=== PATIENT | female | born 1965 | race Caucasian/White ===

== ENCOUNTER 2020-07-11 17:01 | Emergency (ER) | payer MEDICAID, SELFPAY ==
--- NOTE | ~2020-07-11 | CT_ITS ---
EXAMINATION: CT ABDOMEN AND PELVIS WITHOUT CONTRAST CLINICAL INFORMATION: Flank pain COMPARISON: None TECHNIQUE: Multidetector volumetric imaging was performed from the superior aspect of the liver through the pubic symphysis. Sagittal and coronal reformatted images were obtained on the technologist's workstation. This CT examination was performed using dose optimization techniques as appropriate, variously including the following: *Automated exposure control *Adjustment of mA and/or kV according to patient size (this includes techniques or standardized protocols for targeted exams where dose is matched to indication/reason for exam; i.e. extremities or head) *Use of iterative reconstruction technique DLP: 540 mGy-cm FINDINGS: The lack of intravenous contrast limits evaluation of the solid visceral organs including the liver, spleen, pancreas, and kidneys. Moreover, there is respiratory motion throughout the scan particularly at the level of the kidneys. LUNG BASES: The visualized lung bases are unremarkable. LIVER, GALLBLADDER, AND BILIARY TREE: Limited non-contrast evaluation is normal. No gross focal hepatic lesion. Normal liver size and contour. No gross biliary ductal dilation. The gallbladder is unremarkable with no evidence of radiopaque gallstones, gallbladder wall thickening, or obvious pericholecystic inflammatory changes. PANCREAS: Limited non-contrast evaluation is normal. No khoa-pancreatic fluid. SPLEEN: Limited non-contrast evaluation is normal. ADRENAL GLANDS: Normal; no adrenal mass. KIDNEYS AND URETERS: Limited non-contrast evaluation is normal. No hydronephrosis, hydroureter, or calculi seen. No perinephric stranding. GASTROINTESTINAL TRACT: Small bowel and colon are non-dilated. No bowel wall thickening. No pericolonic inflammatory changes to suggest colitis or diverticulitis. Normal appendix. ABDOMINAL WALL: No hernia seen. LYMPH NODES: No pathologically enlarged lymph nodes in the abdomen or pelvis. VASCULAR: Normal caliber abdominal aorta. BLADDER: No bladder calculi or wall thickening. There is ill-defined fluid and fat stranding in the pelvis surrounding the urinary bladder, for example image 74/89. PELVIC VISCERA: Normal noncontrast appearance of the uterus and ovaries. OSSEOUS STRUCTURES: No acute or suspicious osseous abnormalities. Multilevel degenerative changes. CT/CT abdomen pelvis wo con IMPRESSION: Study is limited by motion artifact and lack of IV contrast. No radiopaque urolithiasis seen. There is ill-defined fluid and fat stranding in the pelvis surrounding the urinary bladder. This is nonspecific. Consider correlation with urinalysis.
[2020-07-11 17:25] VITALS: BP 155/83; PULSE 105; RESP 18; TEMP 37; O2SAT 98; BMI 23.8
[2020-07-11 18:40] VITALS: BP 144/66; PULSE 98; RESP 18; TEMP 36.6; O2SAT 97
[2020-07-11 18:46] LABS: MANUAL DIFF FLAG NO
[2020-07-11 18:51] LABS: Basophils Percent Auto 0.4 % (0-2); Eosinophils Absolute Auto 0.1 X10*3/uL (0.0-0.4); Eosinophils Percent Auto 0.5 % (0-4); Hematocrit 34.3 % (37-47); Hemoglobin 10.8 g/dl (12.0-16.0); Imm Gran Abs Auto 0.04 X10*3/uL (0.00-0.03); Imm Gran Pct Auto 0.4 % (0.0-0.4); Lymphocytes Absolute Auto 0.8 X10*3/uL (1.2-4.9); Lymphocytes Percent Auto 7.6 % (20-40); Mean Corpuscular HGB Conc 31.5 g/dl (31.0-35.0); Mean Corpuscular Hemoglobin 24.9 pg (27.0-33.0); Mean Corpuscular Volume 79.2 fL (80-98); Mean Platelet Volume 10.4 fL (9.4-12.3); Monocytes Absolute Auto 0.6 X10*3/uL (0.1-1.2); Monocytes Percent Auto 5.8 % (2-11); Neutrophils Absolute Auto 8.7 X10*3/uL (2.0-8.3); Neutrophils Percent Auto 85.3 % (45-73); Platelet Count 305 X10*3/uL (160-400); Red Blood Count 4.33 X10*6/uL (4.20-5.50); Red Cell Distribution Width 15.8 % (11.0-16.0); White Blood Count 10.2 X10*3/uL (4.8-10.8)
[2020-07-11 18:55] LABS: Glucose Urine UA NEG (NEG); Leukocyte Esterase Urine 2+ (NEG); Nitrite Urine POS (NEG); Specific Gravity - Urine <= 1.005 (1.005-1.025); UACC Culture Trigger YES; Urine Blood 2+ (NEG); Urine Ketones NEG (NEG); Urine Protein NEG (NEG-TRACE)
[2020-07-11 19:01] LABS: Appearance Urine CLEAR; Color Urine YELLOW
[2020-07-11 19:12] LABS: RBC Urine 0-2 /HPF (0); Squamous Epithelial Cell Urine TRACE /LPF
[2020-07-11 19:13] LABS: Anion Gap 13 (12-20); Bacteria Urine 1+ /LPF; Blood Urea Nitrogen 12 mg/dL (9-16); Calcium 9.3 mg/dL (8.4-10.2); Carbon Dioxide 25 mmol/L (22-29); Chloride 103 mmol/L (96-108); Creatinine Clr Calc Pharmacy 71.6; Estimated Glomerular Filt Rate > 60; Glucose Random 114 mg/dL (60-115); Potassium 4.6 mmol/L (3.3-5.1); Sodium 136 mmol/L (135-145)
[2020-07-11 21:11] VITALS: BP 128/73; PULSE 101; RESP 18; TEMP 37.6; O2SAT 96
--- NOTE | 2020-07-11 21:15 | ED_ITS ---
HPI - Female Genitourinary General Chief complaint: Urogenital-Female Stated complaint: Abdominal pain Time Seen by Provider: 07/11/20 21:10 Source: patient and family (Daughter) Mode of arrival: ambulatory History of Present Illness HPI Narrative: [age] female who presents with several days of urinary frequency, pain and burning on urination with left-sided back pain. She was seen in [facility] this morning and started on Macrobid as well as Pyridium. She has taken 1 pill of each and now presents with complaints of continued discomfort. As an aside, patient is having symptoms secondary to known brain aneurysm which was coiled approximately 3 years ago and noted last week to have a small leak with plans to repair in the upcoming month. Patient otherwise denies fevers, chills, vomiting, but is having mild nausea and denies any diarrhea. Related Data Previous Rx's Medication Instructions Recorded ciprofloxacin HCl [Cipro] 500 mg PO Q12H 5 Days #10 tab 07/11/20 Allergies Allergy/AdvReac Type Severity Reaction Status Date / Time No Known Allergies Allergy Verified 07/11/20 17:24 Review of Systems Review of Systems: Pertinent positives and negatives as stated in HPI 10 point review systems is otherwise negative. PMFSH Past Medical History Source: nursing notes reviewed Medical History Aneurysm Arthritis Social History Social History Alcohol intake: current Alcohol intake frequency: holidays/special occasions only Smoking Status: Never smoker Use of substances other than those prescribed or required for medical reasons: No Advance Directives: No Advance Directives Information Provided: Yes Physical Exam Vital Signs: Vital Signs: Last Vital Signs Temp 98.9 F 07/11/20 22:22 Pulse 92 07/11/20 22:22 Resp 18 07/11/20 22:22 BP 128/60 07/11/20 22:22 Pulse Ox 96 07/11/20 22:22 Body Mass Index 23.8 VITAL SIGNS: Reviewed. GENERAL: Well developed, well nourished, in no acute distress. HEAD: Normocephalic/atraumatic, EYES: PERRLA, EOMI intact without pain, no nystagmus NOSE: Nares patent bilateral OROPHARYNX: no oral lesions noted, posterior pharynx clear NECK: Supple, no adenopathy LUNGS: Normal breath sounds. No adventitious sounds or accessory muscle use. SpO2<96> CARDIOVASCULAR: Regular rate and rhythm without noted murmurs ABDOMEN: Soft, non-tender, non-distended with bowel sounds, no CVA tenderness NEUROLOGIC: Alert and oriented x 4. Strength and sensation to light touch were grossly intact x 4, no facial asymmetry, no pronator drift, cranial nerves 2-12 are grossly intact. Course Course Course Narrative: 55-year-old female with history and clinical presentation consistent with significant UTI suspect possible pyelonephritis but will also rule out renal colic with CT abdomen pelvis without contrast. Patient receiving Tylenol as well as 1 g of Rocephin here in the emergency department. Will re- evaluate. Review of all investigations consistent with significant UTI, and on re- evaluation after receiving Tylenol patient is feeling much better. Patient received 1 g of Rocephin and will be discharged home in stable condition. With the nausea, back pain as well as urinary symptoms will treat empirically for pyelonephritis. MDM - Female Genitourinary Lab Data Result diagrams: 07/11/20 18:40 07/11/20 18:40 Labs: Lab Results 07/11/20 07/11/20 07/11/20 Range/Units 18:40 18:40 18:40 WBC 10.2 (4.8-10.8) X10*3/uL RBC 4.33 (4.20-5.50) X10*6/uL Hgb 10.8 L (12.0-16.0) g/dl Hct 34.3 L (37-47) % MCV 79.2 L (80-98) fL MCH 24.9 L (27.0-33.0) pg MCHC 31.5 (31.0-35.0) g/dl RDW 15.8 (11.0-16.0) % Plt Count 305 (160-400) X10*3/uL MPV 10.4 (9.4-12.3) fL Immature Gran % (Auto) 0.4 (0.0-0.4) % Neut % (Auto) 85.3 H (45-73) % Lymph % (Auto) 7.6 L (20-40) % [place] % (Auto) 5.8 (2-11) % Eos % (Auto) 0.5 (0-4) % Baso % (Auto) 0.4 (0-2) % Lymph # (Auto) 0.8 L (1.2-4.9) X10*3/uL [place] # (Auto) 0.6 (0.1-1.2) X10*3/uL Eos # (Auto) 0.1 (0.0-0.4) X10*3/uL Baso # (Auto) 0.0 (0.0-0.2) X10*3/uL Abs Immat Gran (auto) 0.04 H (0.00-0.03) X10*3/uL Absolute Neuts (auto) 8.7 H (2.0-8.3) X10*3/uL Absolute Nucleated RBC 0.000 (0.0-0.012) X10*3/uL Nucleated RBC % (auto) 0.0 (0.0-0.2) /100WBC Hold Blue Top Sodium 136 (135-145) mmol/L Potassium 4.6 (3.3-5.1) mmol/L Chloride 103 (96-108) mmol/L Carbon Dioxide 25 (22-29) mmol/L Anion Gap 13 (12-20) BUN 12 (9-16) mg/dL Creatinine 0.78 (0.5-1.4) mg/dL Estim Creat Clear Calc 71.6 Estimated GFR > 60 Random Glucose 114 (60-115) mg/dL Calcium 9.3 (8.4-10.2) mg/dL Urine Color YELLOW Urine Appearance CLEAR Urine pH 6.0 (5.0-8.0) Ur Specific [place] <= 1.005 (1.005-1.025) Urine Protein NEG (NEG-TRACE) MG/DL Urine Glucose (UA) NEG (NEG) MG/DL Urine Ketones NEG (NEG) MG/DL Urine Blood 2+ H (NEG) Urine Nitrite POS H (NEG) Ur Leukocyte Esterase 2+ H (NEG) Urine RBC 0-2 (0) /HPF Urine WBC 5-9 H (0-4) /HPF Ur Squamous Epith Cells TRACE /LPF Urine Bacteria 1+ /LPF 07/11/20 Range/Units 18:40 WBC (4.8-10.8) X10*3/uL RBC (4.20-5.50) X10*6/uL Hgb (12.0-16.0) g/dl Hct (37-47) % MCV (80-98) fL MCH (27.0-33.0) pg MCHC (31.0-35.0) g/dl RDW (11.0-16.0) % Plt Count (160-400) X10*3/uL MPV (9.4-12.3) fL Immature Gran % (Auto) (0.0-0.4) % Neut % (Auto) (45-73) % Lymph % (Auto) (20-40) % [place] % (Auto) (2-11) % Eos % (Auto) (0-4) % Baso % (Auto) (0-2) % Lymph # (Auto) (1.2-4.9) X10*3/uL [place] # (Auto) (0.1-1.2) X10*3/uL Eos # (Auto) (0.0-0.4) X10*3/uL Baso # (Auto) (0.0-0.2) X10*3/uL Abs Immat Gran (auto) (0.00-0.03) X10*3/uL Absolute Neuts (auto) (2.0-8.3) X10*3/uL Absolute Nucleated RBC (0.0-0.012) X10*3/uL Nucleated RBC % (auto) (0.0-0.2) /100WBC Hold Blue Top SEE NOTE Sodium (135-145) mmol/L Potassium (3.3-5.1) mmol/L Chloride (96-108) mmol/L Carbon Dioxide (22-29) mmol/L Anion Gap (12-20) BUN (9-16) mg/dL Creatinine (0.5-1.4) mg/dL Estim Creat Clear Calc Estimated GFR Random Glucose (60-115) mg/dL Calcium (8.4-10.2) mg/dL Urine Color Urine Appearance Urine pH (5.0-8.0) Ur Specific [place] (1.005-1.025) Urine Protein (NEG-TRACE) MG/DL Urine Glucose (UA) (NEG) MG/DL Urine Ketones (NEG) MG/DL Urine Blood (NEG) Urine Nitrite (NEG) Ur Leukocyte Esterase (NEG) Urine RBC (0) /HPF Urine WBC (0-4) /HPF Ur Squamous Epith Cells /LPF Urine Bacteria /LPF Discharge Plan Discharge Clinical Impression: Urinary tract infection, Pyelonephritis Patient Disposition: Home, Self-Care Instructions: Urinary Tract Infection in Women (ED), Kidney Infection (ED), Urinary Tract Infection in Older Adults (ED) Additional Instructions: 1. Tylenol 1000 mg, por v?a oral, cada 6 horas seg?n sea necesario para controlar el dolor. 2. Reanude todos los medicamentos caseros seg?n lo prescrito. 3. DETENER MACROBID (NITROFURANTOIN). 4. Ross comenzado con un nuevo antibi?tina que se ross enviado a freed farmacia y debe comenzar con julio c antibi?tina ma?maryuri por la ma?maryuri. 5. Jessica un seguimiento con freed proveedor de atenci?n primaria en los pr?ximos 2-3 d?as para maura reevaluaci?n. Regrese al departamento de emergencias por cualquier empeoramiento tiffanie de chikis s?ntomas. Prescriptions: New ciprofloxacin HCl [Cipro] 500 mg tablet 500 mg PO Q12H 5 Days Qty: 10 RF: 0 Referrals: Maryuri Wang MD [Primary Care Provider] - 2 days (Re-evaluation after seen in the emergency department for persistent urinary symptoms. Patient instructed to stop Macrobid and she was started on ciprofloxacin for mild pyelonephritis.) Print Language: Kyrgyz
[2020-07-11] MEDS: cefTRIAXone sodium 1 GM in 0.9 % Sodium Chloride 50 ML IV (21:38)
[2020-07-11] MEDS: Acetaminophen 325 MG TABLET 975 MG PO (21:38)
--- NOTE | 2020-07-11 21:41 | PC.NURSE ---
Dr Diaz at bedside assessing pt, discussing plan for change in PO antibiotic upon DC. Pt medicated per MAY. Plan for abd CT to r/o kidney stone. Pt agreeable to plan. Stretcher in lowest locked position, rails raised, call hines within reach.
--- NOTE | 2020-07-11 21:54 | PC.NURSE ---
Pt to ED CT
[2020-07-11 22:22] VITALS: BP 128/60; PULSE 92; RESP 18; TEMP 37.2; O2SAT 96
--- NOTE | 2020-07-11 22:35 | PC.NURSE ---
Pt reports improvement in pelvic discomfort and headache. Pt appears significantly more comfortable as pt is no longer moaning in discomfort and is participating in several sentences discussion with family at bedside. Pt awaiting dispo.
== END 2020-07-11 23:14 | disposition home or self-care (01) ==
PROVIDERS: Emergency Provider Student in an Organized Health Care Education/Training Program; PCP Internal Medicine
DX: N39.0 Urinary tract infection, site not specified (principal); N12 Tubulo-interstitial nephritis, not specified as acute or chronic; I67.1 Cerebral aneurysm, nonruptured
CPT/HCPCS: 36415; 74176; 80048; 81001; 81003; 85025; 87086; 96365; 99284; 99285; J0696

== ENCOUNTER 2020-07-21 16:28 | Outpatient (REF) | payer MEDICAID, OTHER, SELFPAY ==
[2020-07-21 17:17] LABS: INTERNATIONAL NORM RATIO 1.1 (0.9-1.1); Prothrombin Time 12.5 SEC (10.8-13.0)
== END 2020-07-21 16:29 | disposition home or self-care (01) ==
LOC: HO.LAB 16:28
PROVIDERS: PCP Internal Medicine; Visit Provider Neurological Surgery
DX: Z01.818 Encounter for other preprocedural examination (principal)
CPT/HCPCS: 36415; 85610

== ENCOUNTER 2020-08-24 05:05 | Emergency (ER) | payer MEDICAID, OTHER, SELFPAY ==
--- NOTE | ~2020-08-24 | XR_ITS ---
EXAMINATION: XR FOOT, RIGHT CLINICAL INFORMATION: Third toe swelling COMPARISON: None TECHNIQUE: AP, lateral, and oblique views of the right foot. FINDINGS: Osseous alignment is anatomic. No evidence of acute fracture. No significant focal soft tissue abnormality. No radiopaque foreign body is seen. XR/XR foot RT 2V IMPRESSION: No acute findings.
[2020-08-24 05:40] VITALS: BP 141/72; PULSE 70; RESP 18; TEMP 36.1; O2SAT 100; BMI 24.6
--- NOTE | 2020-08-24 06:02 | ED.GENADULT ---
HPI - General Adult General Chief complaint: Extremity Injury, Lower Time Seen by Provider: 08/24/20 06:02 Source: patient Mode of arrival: ambulatory History of Present Illness HPI narrative: This is a 55-year-old female who has a significant past medical history of brain aneurysm, underwent intervention, and is now been started on Brilinta and aspirin since 07/24 and now presents with atraumatic 3rd toe pain and redness since yesterday. In addition, patient states that she has started having vaginal bleeding as well. Of note, patient had her brain aneurysm surgery at [facility]. Related Data Previous Rx's Medication Instructions Recorded ciprofloxacin HCl [Cipro] 500 mg PO Q12H 5 Days #10 tab 07/11/20 Allergies Allergy/AdvReac Type Severity Reaction Status Date / Time No Known Allergies Allergy Verified 07/11/20 17:24 Review of Systems Review of Systems: Pertinent positives and negatives as stated in HPI and 10 point review of systems is otherwise negative. [facility] Past Medical History Source: nursing notes reviewed Medical History Aneurysm Arthritis Social History Social History Alcohol intake: current Alcohol intake frequency: holidays/special occasions only Advance Directives: No Advance Directives Information Provided: No Physical Exam Vital Signs: Vital Signs: Last Vital Signs Temp 97.0 F 08/24/20 05:40 Pulse 70 08/24/20 05:40 Resp 18 08/24/20 05:40 BP 141/72 H 08/24/20 05:40 Pulse Ox 100 08/24/20 05:40 Body Mass Index 24.6 VITAL SIGNS: Reviewed. GENERAL: Well developed, well nourished, in no acute distress. HEAD: Normocephalic/atraumatic, EYES: PERRLA, EOMI intact without pain, no nystagmus/pallor/icterus noted EARS: Ext canals without abnormality, TMs non-bulging and non-erythematous NOSE: Nares patent bilateral OROPHARYNX: no oral lesions noted, posterior pharynx clear and non-erythematous without noted tonsillar enlargement/erythema/exudates NECK: Supple, no adenopathy LUNGS: Normal breath sounds. No adventitious sounds or accessory muscle use. SpO2<> CARDIOVASCULAR: Regular rate and rhythm without noted murmurs, no JVD or lower extremity edema. ABDOMEN: Soft, non-tender, non-distended with bowel sounds. No rigidity. No guarding. No palpable masses or hernias noted RIGHT FOOT: Petechiae noted to the underside of the foot distributed along the MTP, the 3rd toe is noted to be edematous and red/purple, DP/PT palpable, sensation intact NEUROLOGIC: Alert and oriented x 4. Strength and sensation to light touch were grossly intact x 4. Course Course Course Narrative: This is a 55-year-old female with history and clinical presentation consistent with injury to the right 3rd toe with some petechiae to the underside of the foot. In combination with patient's reported vaginal bleeding there concerns that the Brilinta and aspirin together may be leading her to have developed an iatrogenic bleeding. Signed out to Dr Garza. Medical Decision Making Lab Data Result diagrams: 08/24/20 06:44 08/24/20 06:44 Discharge Plan Discharge Prescriptions: No Action ciprofloxacin HCl [Cipro] 500 mg tablet 500 mg PO Q12H 5 Days Qty: 10 RF: 0
[2020-08-24 06:48] LABS: MANUAL DIFF FLAG NO
[2020-08-24 06:55] LABS: Eosinophils Absolute Auto 0.1 X10*3/uL (0.0-0.4); Eosinophils Percent Auto 2.6 % (0-4); Hematocrit 32.2 % (37-47); Imm Gran Abs Auto 0.02 X10*3/uL (0.00-0.03); Imm Gran Pct Auto 0.5 % (0.0-0.4); Lymphocytes Percent Auto 25.8 % (20-40); Mean Corpuscular HGB Conc 31.1 g/dl (31.0-35.0); Mean Corpuscular Hemoglobin 24.1 pg (27.0-33.0); Mean Corpuscular Volume 77.6 fL (80-98); Mean Platelet Volume 10.2 fL (9.4-12.3); Monocytes Absolute Auto 0.5 X10*3/uL (0.1-1.2); Monocytes Percent Auto 13.2 % (2-11); Neutrophils Absolute Auto 2.2 X10*3/uL (2.0-8.3); Neutrophils Percent Auto 56.9 % (45-73); Platelet Count 379 X10*3/uL (160-400); Red Blood Count 4.15 X10*6/uL (4.20-5.50); Red Cell Distribution Width 16.9 % (11.0-16.0); White Blood Count 3.9 X10*3/uL (4.8-10.8)
[2020-08-24 06:56] LABS: Prothrombin Time 12.4 SEC (10.8-13.0)
[2020-08-24 06:57] LABS: Glucose Urine UA NEG (NEG); Leukocyte Esterase Urine NEG (NEG); Nitrite Urine NEG (NEG); Specific Gravity - Urine <= 1.005 (1.005-1.025); Urine Blood TRACE (NEG); Urine Ketones NEG (NEG); Urine Protein NEG (NEG-TRACE)
[2020-08-24 06:58] LABS: Appearance Urine CLEAR; Color Urine STRAW
[2020-08-24 06:59] LABS: Partial Thromboplastin Time 33.2 SEC (24.1-38.0)
[2020-08-24 07:04] LABS: RBC Urine 0-2 /HPF (0); Squamous Epithelial Cell Urine TRACE /LPF; WBC Urine 0 /HPF (0-4)
[2020-08-24 07:18] VITALS: BP 130/66; PULSE 65; RESP 16; TEMP 36.6; O2SAT 97
[2020-08-24 07:22] LABS: Alanine Aminotransferase 9 U/L (0-31); Albumin Level 3.9 g/dL (3.5-5.0); Alkaline Phosphatase 69 U/L (39-117); Anion Gap 9 (12-20); Aspartate Amino Transferase 19 U/L (5-31); Bilirubin Total 0.3 mg/dL (0.0-1.0); Blood Urea Nitrogen 10 mg/dL (9-16); Calcium 8.9 mg/dL (8.4-10.2); Carbon Dioxide 26 mmol/L (22-29); Chloride 110 mmol/L (96-108); Creatinine Clr Calc Pharmacy 79.7; Estimated Glomerular Filt Rate > 60; Glucose Random 96 mg/dL (60-115); Potassium 3.6 mmol/L (3.3-5.1); Sodium 141 mmol/L (135-145); Total Protein 6.9 g/dL (6.5-8.0)
[2020-08-24 07:51] VITALS: BP 147/79; PULSE 75; RESP 18; O2SAT 99
[2020-08-24] MEDS: Acetaminophen 325 MG TABLET 650 MG PO (08:03)
--- NOTE | 2020-08-24 08:23 | PC.NURSE ---
pt is refusing the walking boot because she is concern that her insurance will not cover it. dr caceres aware. augusto warped the foot instead
== END 2020-08-24 08:25 | disposition home or self-care (01) ==
PROVIDERS: Student in an Organized Health Care Education/Training Program; Emergency Provider Emergency Medicine; PCP Internal Medicine
DX: S90.121A Contusion of right lesser toe(s) without damage to nail, initial encounter (principal); X58.XXXA Exposure to other specified factors, initial encounter; N93.8 Other specified abnormal uterine and vaginal bleeding; Y93.9 Activity, unspecified; Y92.9 Unspecified place or not applicable; Y99.9 Unspecified external cause status
CPT/HCPCS: 36415; 73620; 80053; 81001; 85025; 85610; 85730; 99283; 99284

== ENCOUNTER 2021-01-10 14:47 | Outpatient (REF) | payer MEDICAID, OTHER, SELFPAY ==
--- NOTE | ~2021-01-10 | MM_ITS ---
EXAMINATION: MM SCREENING DIGITAL BREAST TOMOSYNTHESIS, BILATERAL CLINICAL INFORMATION: Screening. Asymptomatic. The lifetime risk of breast cancer based on the Tyrer-Cuzick Model is 6.3%. COMPARISON: Mammography: November 26, 2019 and studies dating back to April 10, 2013 TECHNIQUE: Digital breast tomosynthesis is performed in both the craniocaudal and mediolateral oblique views along with computer-aided detection (CAD). Synthesized 2D images are generated from the tomosynthesis. FINDINGS: The breasts are heterogeneously dense, which may obscure small masses (ACR BI-RADS breast composition Category c). There are no significant masses, abnormal calcifications, or other abnormalities. MM/MM tomosynthesis screening BI IMPRESSION: There are no significant changes from prior study. ASSESSMENT: BI-RADS 1: Negative RECOMMENDATION: Routine annual mammography screening. This patient's information was entered into a reminder system with a target due date for their next mammogram.
== END 2021-01-10 14:48 | disposition home or self-care (01) ==
LOC: HO.MAMMO 14:47
PROVIDERS: Visit Provider Internal Medicine
DX: Z12.31 Encounter for screening mammogram for malignant neoplasm of breast (principal)
CPT/HCPCS: 77063; 77067

== ENCOUNTER → 2021-01-12 10:00 | Outpatient (BNVA) | payer MEDICAID, OTHER, SELFPAY | PROVIDERS: Visit Provider Advanced Practice Midwife | DX: Z01.419 Encounter for gynecological examination (general) (routine) without abnormal findings (principal); Z12.4 Encounter for screening for malignant neoplasm of cervix; N95.0 Postmenopausal bleeding | CPT/HCPCS: 99202 ==

== ENCOUNTER 2021-01-31 12:33 | Outpatient (REF) | payer MEDICAID, OTHER, SELFPAY ==
--- NOTE | ~2021-01-31 | US_ITS ---
EXAMINATION: US PELVIS CLINICAL INFORMATION: Postmenopausal bleeding COMPARISON: CT 07/11/2020 TECHNIQUE: Ultrasound of the pelvis is performed using both transabdominal and transvaginal transducers along with Doppler. Transvaginal imaging is performed due to inadequate visualization transabdominally. FINDINGS: Uterus: The uterus is anteverted and anteflexed and measures 8.3 x 3.2 x 5 cm. Cervical length is 2.5 cm The double wall endometrial thickness is 0.5 mm. The uterus is smooth in contour. No visible fibroids. There are subendometrial calcifications which measure up to 2 mm. There is mildly heterogeneous appearance of the myometrium adjacent to the endometrium suggesting an expanded junctional zone. No visible fibroid. Adnexa: Both ovaries are visualized. There is normal color flow to the adnexa. There is no ovarian torsion. There is no pelvic ascites or fluid collection. Right ovary measures 2.5 x 0.7 x 2 cm for a volume of 1.8 ml. Left ovary measures 1.7 x 1.3 x 0.7 cm for a volume of 0.8 mL. There is trace fluid in the cul-de-sac. US/US pelvic complete IMPRESSION: The endometrial stripe is at the upper limits of normal, 5 mm in thickness. Heterogeneously hypoechoic myometrium immediately adjacent to the endometrium suggesting an expanded junctional zone which can be seen in the setting of adenomyosis. Further evaluation with pelvic MRI could be of benefit. Trace free fluid in the cul-de-sac.
== END 2021-01-31 12:34 | disposition home or self-care (01) ==
LOC: HO.US 12:33
PROVIDERS: Visit Provider Advanced Practice Midwife
DX: N95.0 Postmenopausal bleeding (principal)
CPT/HCPCS: 76856

== ENCOUNTER 2021-02-06 09:00 | Outpatient (RCR) | payer MEDICAID, OTHER, SELFPAY | END 2021-02-06 10:47 | disposition home or self-care (01) | LOC: HO.PT 09:00 | PROVIDERS: PCP Internal Medicine; Visit Provider Orthopaedic Surgery | DX: M54.42 Lumbago with sciatica, left side (principal); M54.41 Lumbago with sciatica, right side; G89.29 Other chronic pain | CPT/HCPCS: 97012; 97110; 97140; 97162; 97530; 97535 ==

== ENCOUNTER → 2021-02-14 09:05 | Outpatient (BNVA) | payer MEDICAID, OTHER, SELFPAY | PROVIDERS: Visit Provider Advanced Practice Midwife | DX: N95.0 Postmenopausal bleeding (principal) | CPT/HCPCS: 99212 ==

== ENCOUNTER 2021-04-07 08:00 | Outpatient (RCR) | payer MEDICAID, OTHER, SELFPAY ==
--- NOTE | 2021-02-24 16:54 | MHC.PT.EP ---
[facility] [place] Office [place] Office [place] Office [address] [phone] F: [phone] F: [phone] F: [phone] F: [phone] Physical Therapy Plan of Care Date of Evaluation: Date of Surgery: Diagnosis: ARTHRITIS R KNEE Assessment: Pt IS 55 YO F REFERRED TO PT WITH R KNEE ARTHRITIS. Pt HAS HAD MRI IN PAST WHICH SHOWED MENISCAL TEAR R MEDIAL MENISCUS. DID NOT HAVE PT (COVID). RECENTLY DC FROM PT FOR BACK (WITH GOOD RESULTS) BUT CONTINUES WITH KNEE PAIN. PRESENTS WITH GOOD KNEE ROM AND STRENGTH WITH MMT BUT HAS SIGNIF PAIN, DECREASED PROPRIOCEPTION, SOME PATELLOFEMORAL ASSYMETRY. Pt SHOULD BENEFIT FROM PT TO HELP DECREASE KNEE PAIN WITH KT FOR KNEE SUPPORT, KT TO ASSESS BENEFIT FROM ORTHOTICS (HAS HIGH ARCHES WITH SOME PES PLANUS WITH GT) AND HOME PROG FOR STRENTHENING AND PROPRIOCEPTION WORK Frequency and Duration: The patient will be seen 1X/WK X 4 WEEKS Short Term Goals: 1. I KT 2. Pt TO WEAR ORTHOTICS WITH RELIEF Skilled Nursing Goals: 1. I HEP WITH DC EX PLAN 2. DECREASED R KNEE PAIN AT LEAST 50% WITH ADLS Treatment Plan: Modalities to reduce pain, spasms and effusion. Manual therapy to restore motion and function. Therapeutic exercise to improve strength and flexibility. Neuromuscular re-education for posture and balance. Therapeutic activities to return to functional activities of daily living. Electronically signed by: NICOLE ALVARES PT Please sign and return to therapist. Thank you for your referral.
--- NOTE | 2021-04-07 09:26 | MHC.PT.DC ---
[facility] [place] Office [place] Office [place] Office [address] [phone] F: [phone] F: [phone] F: [phone] F: [phone] Physical Therapy Discharge Report Diagnosis: ARTHRITIS R KNEE Date of Surgery: Date of Evaluation: 02/20/21 Date of Discharge: 04/07/21 Treatments to Date: 4 Cancellations to Date: No Shows to Date: Discharge Status: Independent with HEP Recommend MD Follow-up Discharge Summary: Pt HAS BEEN COMING TO PT FOR ABOUT 3 1/2 MONTHS (18 SESSIONS FOR BACK, 4 SESSIONS FOR KNEES). HAS POSSIBLEY RECEIVED MAX BENEFIT AT THIS TIME. WITH SOME PLATEAU NOTED. OVERALL BETTER THAN SOC BUT CONTINUES WITH ON/OFF SXS. HAS PCP FU (MAY 01). WILL NEED TO DISCUSS WITH PT NEXT STEP (ORTHOPEDIC REFERRAL,, DIVISION CHAIR, PAIN MANAGEMENT). Pt MAY NEED MORE COMMUNITY/GROUP INVOLVEMENT Electronically signed by: NICOLE ALVARES PT Please sign and return to therapist. Thank you for your referral.
== END 2021-04-07 09:27 | disposition home or self-care (01) ==
LOC: HO.PT 08:00
PROVIDERS: PCP Internal Medicine; Visit Provider Internal Medicine
DX: M17.11 Unilateral primary osteoarthritis, right knee (principal)
CPT/HCPCS: 97110; 97140; 97162; 97530

== ENCOUNTER 2021-08-02 14:11 | Outpatient (REF) | payer OTHER, MEDICAID, SELFPAY ==
[2021-08-03 01:22] LABS: CT PCR NOT DETECTED (Not Detect.); NG PCR NOT DETECTED (Not Detect.)
[2021-08-03 09:19] LABS: BV Int Neg Control Negative (Negative); BV Int Pos Control Positive (Positive)
== END 2021-08-02 14:12 | disposition home or self-care (01) ==
LOC: HO.LAB 14:11
PROVIDERS: PCP Internal Medicine; Visit Provider Obstetrics & Gynecology
DX: N95.0 Postmenopausal bleeding (principal); N89.8 Other specified noninflammatory disorders of vagina
CPT/HCPCS: 58100; 87480; 87491; 87510; 87591; 87660; 88305; 99212

== ENCOUNTER → 2021-08-16 14:41 | Outpatient (BNVA) | payer OTHER, MEDICAID, SELFPAY | PROVIDERS: PCP Internal Medicine; Visit Provider Obstetrics & Gynecology | DX: N95.0 Postmenopausal bleeding (principal); Z98.890 Other specified postprocedural states | CPT/HCPCS: 99212 ==

== ENCOUNTER 2021-08-24 07:19 | Outpatient (REF) | payer OTHER, MEDICAID, SELFPAY ==
--- NOTE | ~2021-08-24 | XR_ITS ---
EXAMINATION: KNEE X-RAY CLINICAL INFORMATION: Pain COMPARISON: Previous x-rays July 2019 and April 2016 TECHNIQUE: Standing AP view of both knees and lateral and sunrise view of the right knee FINDINGS: Right knee: Bone alignment is normal. No fracture or dislocation is seen. The femoral tibial joints are normal. There is mild arthritis at the patellofemoral joint with small osteophytes. There is no joint effusion. Standing AP view of the left knee is unremarkable. XR/XR knee standing BI IMPRESSION: Right: Mild arthritis at the patellofemoral joint.
--- NOTE | ~2021-08-24 | XR_ITS ---
EXAMINATION: KNEE X-RAY CLINICAL INFORMATION: Pain COMPARISON: Previous x-rays July 2019 and April 2016 TECHNIQUE: Standing AP view of both knees and lateral and sunrise view of the right knee FINDINGS: Right knee: Bone alignment is normal. No fracture or dislocation is seen. The femoral tibial joints are normal. There is mild arthritis at the patellofemoral joint with small osteophytes. There is no joint effusion. Standing AP view of the left knee is unremarkable. XR/XR knee RT 2V IMPRESSION: Right: Mild arthritis at the patellofemoral joint.
== END 2021-08-24 07:20 | disposition home or self-care (01) ==
LOC: HO.HOSX 07:19
PROVIDERS: Visit Provider Physician Assistant
DX: M17.11 Unilateral primary osteoarthritis, right knee (principal); M54.16 Radiculopathy, lumbar region
CPT/HCPCS: 73560; 73565; 99202

== ENCOUNTER → 2021-09-13 14:31 | Outpatient (BNVA) | payer OTHER, MEDICAID, SELFPAY | PROVIDERS: PCP Internal Medicine; Visit Provider Anesthesiology | DX: M17.11 Unilateral primary osteoarthritis, right knee (principal); M47.817 Spondylosis without myelopathy or radiculopathy, lumbosacral region; M47.816 Spondylosis without myelopathy or radiculopathy, lumbar region; G89.4 Chronic pain syndrome | CPT/HCPCS: 99202 ==

== ENCOUNTER 2021-10-31 06:28 | Outpatient (REF) | payer OTHER, MEDICAID, SELFPAY ==
--- NOTE | ~2021-10-31 | FL_ITS ---
EXAMINATION: XR FLUOROSCOPY WITH IMAGES CLINICAL INFORMATION: M47.816 - Spondylosis without myelopathy or radiculopathy, lumbar region COMPARISON: CT abdomen and pelvis 07/11/2020 TECHNIQUE: Fluoroscopy performed by Dr. Jerome Draper. Fluoroscopy time: 0.5 minutes. Cumulative Dose: 17.3 mGy. DAP: 4.74 Gy-cm2. Images: 6. FINDINGS: There are spinal needles overlying the bilateral outer L3, L4, and L5 neural foramen. There is contrast seen in the respective nerve sheaths. Some early transforaminal epidural extension is suggested. No visible vascular communication. FL/FL guidance in treatment room IMPRESSION: Fluoroscopy for pain management procedures.
== END 2021-10-31 06:29 | disposition home or self-care (01) ==
LOC: HO.RADIR 06:28
PROVIDERS: Visit Provider Anesthesiology
DX: M47.817 Spondylosis without myelopathy or radiculopathy, lumbosacral region (principal); M47.816 Spondylosis without myelopathy or radiculopathy, lumbar region; G89.4 Chronic pain syndrome; M17.11 Unilateral primary osteoarthritis, right knee
CPT/HCPCS: 64493; 64494

== ENCOUNTER → 2022-01-16 11:24 | Outpatient (BNVA) | payer MEDICAID, OTHER, SELFPAY | PROVIDERS: PCP Internal Medicine; Visit Provider Internal Medicine | DX: K62.89 Other specified diseases of anus and rectum (principal); K60.2 Anal fissure, unspecified | CPT/HCPCS: 99202 ==

== ENCOUNTER → 2022-02-27 15:47 | Outpatient (BNVA) | payer MEDICAID, OTHER, SELFPAY | PROVIDERS: PCP Internal Medicine; Visit Provider Internal Medicine Endocrinology, Diabetes & Metabolism | DX: E07.9 Disorder of thyroid, unspecified (principal); Z79.899 Other long term (current) drug therapy | CPT/HCPCS: 99202 ==

== ENCOUNTER 2022-02-27 16:47 | Outpatient (REF) | payer OTHER, SELFPAY | END 2022-02-27 16:48 | disposition home or self-care (01) | LOC: HO.LAB 16:47 | PROVIDERS: PCP Internal Medicine; Visit Provider Internal Medicine Endocrinology, Diabetes & Metabolism | DX: E07.9 Disorder of thyroid, unspecified (principal) | CPT/HCPCS: 36415; 84439; 84443 ==

== ENCOUNTER 2022-03-06 15:14 | Outpatient (REF) | payer OTHER, SELFPAY ==
--- NOTE | ~2022-03-06 | MM_ITS ---
EXAMINATION: MM SCREENING DIGITAL BREAST TOMOSYNTHESIS, BILATERAL CLINICAL INFORMATION: Screening. Asymptomatic. The lifetime risk of breast cancer based on the Tyrer-Cuzick Model is 5.1%. COMPARISON: Mammography: January 10, 2021 and studies dating back to April 29, 2015 TECHNIQUE: Digital breast tomosynthesis is performed in both the craniocaudal and mediolateral oblique views along with computer-aided detection (CAD). Synthesized 2D images are generated from the tomosynthesis. FINDINGS: The breasts are heterogeneously dense, which may obscure small masses (ACR BI-RADS breast composition Category c). There are no significant masses, abnormal calcifications, or other abnormalities. MM/MM tomosynthesis screening BI IMPRESSION: No significant changes from prior exam. ASSESSMENT: BI-RADS 1: Negative RECOMMENDATION: Routine annual mammography screening. This patient's information was entered into a reminder system with a target due date for their next mammogram.
== END 2022-03-06 15:15 | disposition home or self-care (01) ==
LOC: HO.MAMMO 15:14
PROVIDERS: PCP Internal Medicine; Visit Provider Internal Medicine
DX: Z12.31 Encounter for screening mammogram for malignant neoplasm of breast (principal)
CPT/HCPCS: 77063; 77067

== ENCOUNTER 2022-03-27 11:58 | Outpatient (REF) | payer OTHER, SELFPAY ==
[2022-03-27 14:31] LABS: Free T4 (Free Thyroxine) 1.19 ng/dL (0.71-1.85)
== END 2022-03-27 11:59 | disposition home or self-care (01) ==
LOC: HO.LAB 11:58
PROVIDERS: PCP Internal Medicine; Visit Provider Internal Medicine Endocrinology, Diabetes & Metabolism
DX: E07.9 Disorder of thyroid, unspecified (principal)
CPT/HCPCS: 36415; 84439; 84443

== ENCOUNTER 2022-04-12 14:05 | Outpatient (REF) | payer OTHER, SELFPAY ==
[2022-04-16 20:23] LABS: HPV mRNA E6/E7 rflx Not Detected (Not Detected)
== END 2022-04-12 14:06 | disposition home or self-care (01) ==
LOC: HO.LNP 14:05
PROVIDERS: PCP Internal Medicine; Visit Provider Obstetrics & Gynecology
DX: Z01.419 Encounter for gynecological examination (general) (routine) without abnormal findings (principal); Z11.51 Encounter for screening for human papillomavirus (HPV); R22.2 Localized swelling, mass and lump, trunk
CPT/HCPCS: 87624; 88142

== ENCOUNTER 2022-05-01 12:52 | Outpatient (REF) | payer OTHER, SELFPAY ==
--- NOTE | ~2022-05-01 | US_ITS ---
EXAMINATION: US PELVIC LIMITED/FOLLOW UP CLINICAL INFORMATION: Localized swelling, mass and lump. Right lower quadrant, left lower quadrant and left groin. COMPARISON: None TECHNIQUE: Ultrasound was performed in the areas of clinical concern. FINDINGS: 3 lumps were pointed out by the patient. In area #1, no abnormal mass was seen. In area #2, in the left lower quadrant, there was a palpable 1.8 x 1.2 x 2.5 cm mass seen that was compressible and has appearances of surrounding fat and is consistent with a lipoma. In area #3, in the left groin, there is a 2.8 x 0.7 x 2.8 cm hypoechoic compressible mass seen which also may be a lipoma. US/US pelvic limited IMPRESSION: In one of the areas of clinical concern, no abnormality is seen. In the other two areas, there are hypoechoic masses with characteristics of lipoma. MRI would be the best modality for further evaluation if there is clinical concern.
== END 2022-05-01 12:53 | disposition home or self-care (01) ==
LOC: HO.US 12:52
PROVIDERS: Visit Provider Obstetrics & Gynecology
DX: R22.2 Localized swelling, mass and lump, trunk (principal)
CPT/HCPCS: 76857

== ENCOUNTER → 2022-05-08 14:18 | Outpatient (BNVA) | payer OTHER, SELFPAY | PROVIDERS: PCP Internal Medicine; Referring Provider Internal Medicine; Visit Provider Surgery | DX: D17.9 Benign lipomatous neoplasm, unspecified (principal) | CPT/HCPCS: 99202 ==

== ENCOUNTER 2022-06-21 12:54 | Outpatient (REF) | payer OTHER, SELFPAY ==
[2022-06-21 13:06] VITALS: BP 139/66; PULSE 81; RESP 16; TEMP 37; O2SAT 98
[2022-06-21 13:07] VITALS: BMI 24.5
--- NOTE | 2022-06-21 14:27 | P.OP_ITS ---
Operative Note Operative Note Date of Service: 06/21/22 Narrative: Preoperative diagnosis: Abdominal wall lipoma x4 Postoperative diagnosis: same Procedure: excision of abdominal wall lipoma x4 Surgeon: Sathya Dowd MD Tube Builder Airplane: none Anesthesia: local lidocaine 1% with epinephrine Indications for procedure: 57-year-old female patient with multiple painful lipomas including 1 in the right lower quadrant 1 in the left lower quadrant 1 in the left groin and 1 in the left flank Operative findings: lipoma x4, including a 2 cm lipoma in the right lower quadrant, 1.5 cm lipoma in the left lower quadrant, 2 cm lipoma in the left groin, and a 2.5 cm lipoma in the left flank Specimen: lipoma x4 Estimated blood loss: 2 mL Complications: none Procedure details: patient was brought to the minor surgery suite and placed in a supine position. The site of surgery was confirmed by the patient as noted above. After assuring informed consent using a medical billing coder, the skin was prepped with Betadine and draped in a sterile fashion. Beginning with 3 anterior abdominal wall lipomas, lidocaine was infiltrated over each of the 3 lesions. Starting in the right lower quadrant, an incision was made in a transverse fashion measuring approximately 2 cm. This was carried out through subcutaneous tissue up to the lipoma. Sharp dissection was then used to remove the lipoma from the surrounding subcutaneous tissue. Light pressure was held to maintain hemostasis. Dermis was then reapproximated using interrupted 3-0 Polysorb sutures. Skin was closed using a running subcuticular 4-0 Polysorb suture. Next the left lower quadrant lipoma was addressed. A transverse incision was made with a 15 blade and carried out through subcutaneous tissue. Dissection was carried down to the palpable lipoma. This was then sharply dissected from the surrounding subcutaneous tissue using Metzenbaum scissors. Lesion was passed off the table and sent to pathology for further examination. Dermis was then reapproximated using interrupted 3-0 Polysorb sutures. Skin was closed using a running subcuticular 4-0 Polysorb suture. Next the left groin lesion was addressed. Again a transverse incision was made with a scalpel carried out through subcutaneous tissue. Lipoma was then dissected free from the surrounding subcutaneous tissue using Metzenbaum scissors. Lesion was passed off the table and sent to pathology for further examination. Dermis was then reapproximated using interrupted 3-0 Polysorb sutures. Skin was closed using a running subcuticular 4-0 Polysorb suture. Steri-Strips, 2 x 2 gauze and Tegaderm were then applied to each of the 3 anterior lesions. The patient was then rotated to a right lateral decubitus position. The skin was prepped with Betadine and draped in a sterile fashion over the palpable lipoma in the left flank. Local was then infiltrated in a transverse fashion. A transverse incision was then made measuring 2 cm over the lipoma. This carried out through subcutaneous tissue up to the palpable lipoma. This was then grasped with an Allis clamp and sharp dissection used to dissect the lipoma from the surrounding subcutaneous tissue. The lesion was passed off the table and sent to pathology for further examination. Dermis was then reapproximated using interrupted 3-0 Polysorb sutures. Skin was closed using a running subcuticular 4-0 Polysorb suture. Steri-Strips, 2 x 2 gauze and Tegaderm were then applied. The patient tolerated the procedure well. She was discharged to home in stable condition.
== END 2022-06-21 12:55 | disposition home or self-care (01) ==
LOC: HO.MS 12:54
PROVIDERS: PCP Internal Medicine; Visit Provider Surgery
PROC: (CPT 11402; principal; 2022-06-21 13:20)
DX: D17.1 Benign lipomatous neoplasm of skin and subcutaneous tissue of trunk (principal)
CPT/HCPCS: 11402 ×2; 11401; 11403; 88304

== ENCOUNTER → 2022-07-03 14:01 | Outpatient (BNVA) | payer OTHER, SELFPAY | PROVIDERS: PCP Internal Medicine; Visit Provider Surgery | DX: D17.79 Benign lipomatous neoplasm of other sites (principal) | CPT/HCPCS: 99212 ==

== ENCOUNTER → 2022-08-10 14:12 | Outpatient (BNVA) | payer OTHER, SELFPAY | PROVIDERS: PCP Internal Medicine; Visit Provider Obstetrics & Gynecology | DX: D17.9 Benign lipomatous neoplasm, unspecified (principal) | CPT/HCPCS: 99212 ==

== ENCOUNTER → 2022-08-28 12:25 | Outpatient (BNVA) | payer OTHER, SELFPAY | PROVIDERS: PCP Internal Medicine; Visit Provider Internal Medicine Endocrinology, Diabetes & Metabolism | DX: E07.9 Disorder of thyroid, unspecified (principal) | CPT/HCPCS: 99212 ==

== ENCOUNTER → 2022-09-13 14:19 | Outpatient (BNVA) | payer OTHER, SELFPAY | PROVIDERS: PCP Internal Medicine; Visit Provider Surgery Vascular Surgery | DX: I83.11 Varicose veins of right lower extremity with inflammation (principal) | CPT/HCPCS: 99202 ==

== ENCOUNTER 2022-09-26 12:40 | Outpatient (REF) | payer OTHER, SELFPAY ==
--- NOTE | ~2022-09-26 | US_ITS ---
EXAMINATION: US LOWER EXTREMITY VENOUS (REFLUX EXAM), BILATERAL CLINICAL INDICATION: Varicose veins of the right lower extremity COMPARISON: None. TECHNIQUE: Color flow triplex imaging and compression Doppler was performed to evaluate both the deep and the superficial systems bilaterally. To evaluate the superficial system, the examination was performed in the upright position. Color-flow Doppler ultrasound and compression ultrasound were utilized. In addition, maneuvers were utilized to demonstrate reflux. FINDINGS: RIGHT: 1. DEEP VENOUS ULTRASOUND OF THE RIGHT LOWER EXTREMITY: Common Femoral Vein: Compressible, normal respiratory variation and augmented flow. Popliteal Vein: Compressible, normal augmentation. Deep Venous Reflux: There is no evidence of reflux in the deep system in either the common femoral vein or the popliteal vein. There is no evidence of a Ojeda's cyst. 2. SUPERFICIAL ULTRASOUND WITH DOPPLER OF RIGHT LOWER EXTREMITY: RIGHT GREAT SAPHENOUS VEIN: Saphenofemoral Junction: 6 mm. No reflux. Proximal Thigh: 3 mm. No reflux. Mid Thigh: 2 mm. No reflux. Above Knee: 2 mm. No reflux. Below Knee: 2 mm. No reflux. Mid Calf: 1 mm. No reflux. Ankle: 2 mm. No reflux. DUPLICATED GREAT SAPHENOUS VEIN: Yes, laterally. Saphenofemoral junction: 2 mm. No reflux Mid thigh: 1 mm. No reflux RIGHT SMALL SAPHENOUS VEIN: Proximal: 4 mm. No reflux. Distal: 1 mm. No reflux. PERFORATORS: None LEFT: 1. DEEP VENOUS ULTRASOUND OF THE LEFT LOWER EXTREMITY: Common Femoral Vein: Compressible, normal respiratory variation and augmented flow. Popliteal Vein: Compressible, normal augmentation. Deep Venous Reflux: There is no evidence of reflux in the deep system in either the common femoral vein or the popliteal vein. There is no evidence of a Ojeda's cyst. 2. SUPERFICIAL ULTRASOUND WITH DOPPLER OF LEFT LOWER EXTREMITY: LEFT GREAT SAPHENOUS VEIN: Saphenofemoral Junction: 5 mm. No reflux. Proximal Thigh: 4 mm. No reflux. Mid Thigh: 1 mm. No reflux. Above Knee: 2 mm. No reflux. Below Knee: 1 mm. 2472 ms reflux. Mid Calf: 1 mm. No reflux. Ankle: 2 mm. No reflux. DUPLICATED GREAT SAPHENOUS VEIN: Yes, laterally. Saphenofemoral junction: 2 mm. No reflux Mid thigh: 1 mm. No reflux LEFT SMALL SAPHENOUS VEIN: Proximal: 5 mm. No reflux. Distal: 2 mm. No reflux. PERFORATORS: None US/US venous duplex LE BI IMPRESSION: Focal short segment prolonged reflux within the below knee portion of the left great saphenous vein. Otherwise, no abnormal superficial venous reflux of the right lower extremity. Abnormal lower extremity venous reflux times: Superficial and deep calf veins: >500 ms Femoropopliteal veins: >1000 ms Perforating veins: >350 ms Emily N, Bronson J, Lindsay L, Frida AK, Reji SS, Kati Devi M, Rusty WH. Definition of venous reflux in lower-extremity veins.J Vasc Surg. 2003; [id number].
== END 2022-09-26 12:41 | disposition home or self-care (01) ==
LOC: HO.US 12:40
PROVIDERS: Visit Provider Surgery Vascular Surgery
DX: I83.11 Varicose veins of right lower extremity with inflammation (principal)
CPT/HCPCS: 93970

== ENCOUNTER 2022-10-12 06:13 | Outpatient (REF) | payer OTHER, SELFPAY ==
[2022-10-12 06:48] LABS: MANUAL DIFF FLAG NO
[2022-10-12 07:33] LABS: Basophils Absolute Auto 0.1 X10*3/uL (0.0-0.2); Basophils Percent Auto 1.4 % (0-2); Eosinophils Absolute Auto 0.1 X10*3/uL (0.0-0.4); Eosinophils Percent Auto 2.7 % (0-4); Hematocrit 33.3 % (37.0-47.0); Hemoglobin 9.5 g/dl (12.0-16.0); Imm Gran Abs Auto 0.02 X10*3/uL (0.00-0.03); Imm Gran Pct Auto 0.4 % (0.0-0.4); Lymphocytes Percent Auto 41.9 % (20-40); Mean Corpuscular HGB Conc 28.5 g/dl (31.0-35.0); Mean Corpuscular Hemoglobin 19.4 pg (27.0-33.0); Mean Corpuscular Volume 68.1 fL (80.0-98.0); Monocytes Absolute Auto 0.5 X10*3/uL (0.1-1.2); Monocytes Percent Auto 10.7 % (2-11); Neutrophils Absolute Auto 2.1 x10*3/uL (2.0-8.3); Neutrophils Percent Auto 42.9 % (45-73); Platelet Count 413 X10*3/uL (160-400); Red Blood Count 4.89 X10*6/uL (4.20-5.50); Red Cell Distribution Width 21.3 % (11.0-16.0); White Blood Count 4.9 X10*3/uL (4.8-10.8)
[2022-10-12 07:45] LABS: Estimated Average Glucose 100 mg/dL; Hemoglobin A1c % 5.1 %
[2022-10-12 08:22] LABS: Erythrocyte Sedimentation Rate 5 MM/HR (0-20)
[2022-10-12 08:36] LABS: Alanine Aminotransferase 14 U/L (0-31); Albumin Level 4.3 g/dL (3.5-5.0); Alkaline Phosphatase 53 U/L (39-117); Anion Gap 14 (12-20); Aspartate Amino Transferase 21 U/L (5-31); Bilirubin Total 0.3 mg/dL (0.0-1.0); Blood Urea Nitrogen 16 mg/dL (9-16); C Reactive Protein < 0.10 mg/dL (< or = 0.50); Calcium 9.2 mg/dL (8.4-10.2); Carbon Dioxide 22 mmol/L (22-29); Chloride 109 mmol/L (96-108); Cholesterol 181 mg/dL; Estimated Glomerular Filt Rate > 60; Glucose Random 83 mg/dL (60-115); HDL Cholesterol 73 mg/dL; LDL Cholesterol Calculated 98 mg/dl; Potassium 3.6 mmol/L (3.3-5.1); Sodium 141 mmol/L (135-145); Total Protein 7.6 g/dL (6.5-8.0); Triglycerides 50 mg/dL; Uric Acid 4.4 mg/dL (2.4-5.7)
[2022-10-12 08:37] LABS: Rheumatoid Factor < 13.0 IU/mL (<15.0)
[2022-10-12 08:38] LABS: TSH reflex Free T4 4.78 uIU/mL (0.32-4.0); Vitamin D 25-OH Total 52.8 ng/mL (>30)
[2022-10-12 09:02] LABS: Folate 16.1 ng/mL (> or = 4.0); Vitamin B12 242 pg/mL (200-900)
[2022-10-12 09:09] LABS: ~HepC Num1 0.06 S/CO (0.00-0.79); ~Hepatitis C Antibody Nonreactive (Nonreactive)
[2022-10-12 09:11] LABS: Syphilis Screen Nonreactive (Nonreactive)
[2022-10-12 09:12] LABS: HBS Num1 2.08 mIU/mL (0-7.99); HBc Num1 0.08 S/CO (0.00-0.79); HBsAGNum1 0.35 S/CO (0.00-0.99); HIV AB/AG Nonreactive (Nonreactive); HIV Num 1 0.06 S/CO (0.00-0.99); Hepatitis B Core Antibody Nonreactive (Nonreactive); Hepatitis B Surface Antigen Negative (Negative); ~Hepatitis B Surface Antibody NONREACTIVE (Nonreactive)
[2022-10-12 09:20] LABS: Free T4 (Free Thyroxine) 1.06 ng/dL (0.71-1.85)
[2022-10-12 10:59] LABS: Creatinine Urine 212.59 mg/dL; Microalbum/Creatinine Ratio Ur 25.8 ug/mg cr
[2022-10-14 17:28] LABS: Prot Elec - Albumin 4.3 g/dL (3.8-4.8); Prot Elec - Alpha1 0.3 g/dL (0.2-0.3); Prot Elec - Alpha2 0.6 g/dL (0.5-0.9); Prot Elec - Beta 1 0.5 g/dL (0.4-0.6); Prot Elec - Beta 2 0.3 g/dL (0.2-0.5); Prot Elec - Gamma 1.4 g/dL (0.8-1.7); Prot Elec - Total Protein 7.3 g/dL (6.1-8.1)
[2022-10-15 11:27] LABS: Iron 19 mcg/dL (30-160); Percent Iron Saturation 5 % (15-50); Total Iron Binding Capacity 347 mcg/dL (228-428); Unsaturated Iron Binding 328 ug/dL
[2022-10-15 11:31] LABS: Ferritin 5 ng/mL (10-250)
[2022-10-16 12:13] LABS: Cyclic Citrullinated Peptide <16 UNITS
[2022-10-16 20:52] LABS: Lyme Abs Screen <0.90 index
[2022-10-18 09:57] LABS: IgA 289 mg/dL (47-310); IgG 1546 mg/dL (600-1640); IgM 56 mg/dL (50-300)
[2022-10-18 14:43] LABS: Anti Nuclear Antibody Screen NEGATIVE (NEGATIVE)
== END 2022-10-12 06:14 | disposition home or self-care (01) ==
LOC: HO.LAB 06:13
PROVIDERS: PCP Student in an Organized Health Care Education/Training Program; Visit Provider Student in an Organized Health Care Education/Training Program
DX: Z00.00 Encounter for general adult medical examination without abnormal findings (principal); Z11.3 Encounter for screening for infections with a predominantly sexual mode of transmission; Z11.4 Encounter for screening for human immunodeficiency virus [HIV]; D64.9 Anemia, unspecified; G62.9 Polyneuropathy, unspecified
CPT/HCPCS: 0353U; 36415; 80053; 80061; 82043; 82306; 82607; 82728; 82746; 82784; 83036; 83540; 84165; 84439; 84443; 84550; 85025; 85652; 86038; 86140; 86200; 86334; 86431; 86617; 86618; 86704; 86706; 86780; 86803; 87340; 87389

== ENCOUNTER 2022-10-16 14:51 | Outpatient (AMB) | payer OTHER, SELFPAY ==
--- NOTE | 2022-10-16 14:57 | MHC.OFFVIS ---
Intake Intake Visit Reasons: follow up s/p 09/26/22 Intake Note: Patient is here for a follow up s/p 09/26/22 Photogrammetric Technician Required: Yes Photogrammetric Technician Name: Geraldine PORRAS Allergies No Known Allergies Allergy (Verified 10/16/22 15:01) HPI follow up s/p 09/26/22 HPI Details Very pleasant 57-year-old female presents for follow-up regarding venous insufficiency. She has had no significant changes. She reports generalized discomfort in particular tenderness over the lateral aspects of her legs and knees and she does have some back discomfort. She has been seen by pain management in the past in treated with an injection which did provide some relief. They do feel that there is an element of neuropathy and she is actually being seen by Neurology on November 12. She now presents to us for follow-up with venous insufficiency testing. [facility] Medical History Aneurysm Arthritis Thyroid disease Surgical History History of tubal ligation Hx of colonoscopy S/P excision of lipoma (06/21/22) Family History Mother Colon cancer Father Heart attack Family/Other Pancreatic cancer, Onset Age: 50 Sister Uterine cancer Other Family history of thyroid problem Social History Household Members: Spouse and Family Household Members Other:: spouse, son Housing: House Alcohol intake: current Alcohol intake frequency: holidays/special occasions only Patient Tobacco Use Status: Never used Tobacco 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 Sexual orientation: Straight/Heterosexual Gender identity: Female Female Reproductive History Menstrual Age of Menarche: 15 Review of Systems Const All systems reviewed & are unremarkable except as noted in HPI and below Reports no additional complaints ENT Reports Normal hearing present Card Denies chest pain, Denies chest pain at rest, Denies chest pain with activity and Denies pedal edema Resp Denies cough GI Denies abdominal pain Musc Denies abnormal gait, Denies muscle cramps and Denies radiating pain into limb Skin/Breast Denies skin ulcer and Denies wounds Neuro Reports Normal hearing present and Denies abnormal gait Psych Reports no additional complaints Physical Exam Const General: cooperative, healthy appearing and comfortable Orientation/consciousness: oriented to person, oriented to place and oriented to time HEENT Head: Yes normal to inspection Neck Neck: Yes normal visual inspection Carotids: no bruits Chest Chest palpation & inspection: normal inspection of the chest Resp Effort & Inspection: normal respiratory effort and able to speak in complete sentences Auscultation: clear to auscultation bilaterally, no crackles, no rales, no rhonchi and no wheezes Cardio Other: Palpable bilateral DP pulses Rate: regular rate Rhythm: regular rhythm Heart sounds: S1 normal heart sound present and S2 normal heart sound present Bruits: no carotid bruits GI Inspection: Yes normal to inspection Skin Wounds: no wounds Hair: normal Neuro General: oriented to person, oriented to place and oriented to time Cranial nerves: Yes CN's II-XII intact bilaterally and Yes Normal hearing present Cognition (Neuro): normal cognition Motor exam (neuro): 5/5 motor strength present throughout Extrem Other: venous exam: No significant superficial varicosities or spider telangiectasias, minimal edema General: No clubbing, No cyanosis and No edema Psych Appearance: grossly normal Mental Status: mental status grossly normal Speech and movement: Normal speech and movement present Results Reviewed Results Reviewed: Brief summary of venous insufficiency testing is as follows: right great saphenous vein: negative right small saphenous vein: negative right accessory vein: none present left great saphenous vein: negative left small saphenous vein: negative left accessory vein: none present Please note there is no evidence of any venous aneurysms or significant tortuosity Assessment & Plan Assessment & Plan (1) Leg pain: Code(s): M79.606 - Pain in leg, unspecified Plan: Unclear etiology of lower extremity discomfort. It does not appear to be vascular in nature as she does have palpable dorsalis pedis pulses in addition venous insufficiency testing appears to be negative. I do believe this is more neurogenic in nature. She does have a neurology follow-up. In addition she does have some spinal issues. I do recommend follow-up regarding that. She will follow up with us on an as-needed basis. Thank you for allowing us to assist in her care. If there are any questions or concerns please do not hesitate to contact us. Coding Level of Care Code Est Pt Level 4 (22039) Diagnoses Leg pain M79.606
== END 2022-10-16 15:21 | disposition home or self-care (01) ==
PROVIDERS: PCP Internal Medicine; Visit Provider Surgery Vascular Surgery
DX: M79.604 Pain in right leg (principal); M79.605 Pain in left leg
CPT/HCPCS: 99213

== ENCOUNTER → 2022-10-16 14:51 | Outpatient (BNVA) | payer OTHER, SELFPAY | PROVIDERS: PCP Internal Medicine; Visit Provider Surgery Vascular Surgery ==

== ENCOUNTER 2022-11-06 13:19 | Outpatient (AMB) | payer OTHER, SELFPAY ==
--- NOTE | 2022-11-06 13:22 | A.OFFVIS_ITS ---
Intake Vital Signs 11/06/22 13:25 Height 5 ft 4 in Weight 142 lb BMI 24.4 BP 136/76 Blood Pressure Location Lt brachial Position Sitting Pulse 78 Intake Visit Reasons: Constipation, acid reflux Intake Note: Patient follow up for Constipation and acid reflex. Patient cc: Constipation with hemorrhoids irritation and abdominal pain. Denies any other GI issues. Assembly Lead Person Required: Yes Accompanied by: Self / Same As Patient Allergies No Known Allergies Allergy (Verified 11/06/22 13:22) Medication List - Last Reconciled 11/06/22 by Krupa Brown PA-C acetaminophen 500 mg PO Q6H PRN aspirin 81 mg PO DAILY fluticasone propionate 50 mcg/actuation 1 - 2 sprays intranasal DAILY PRN levothyroxine 125 mcg PO DAILY linaclotide (Linzess) 145 mcg PO QAM omeprazole 20 mg PO DAILY HPI HPI Comments History of Present Illness Details A 57-year-old female with, acid reflux chronic constipation that has improved- and hemorrhoids that are very disruptive After review of previous GI-visit Patient was last seen by Dr. Aranza archer- 01/2022- being treated for an anal fissure with nitroglycerin ointment as well as laxatives and stool softeners. She had a colonoscopy in 2019 She did not have good response with Linzess-but seems improved - ntg cream gave headaches so discontinued She is botherered mostly by hemorrhoids- - Omeprazole 20 for acid reflux-has been helpful, but not completely- taking prn only-- She does admit several years ago she had an and ulcer-she is worried about having anemia once again She has no menses-she had some clarifier issues however they have been resolved- She will be willing to call me if on November 18 for a couple of weeks No nausea, vomiting, hematemesis, fever or chills . No headaches or dizziness, cough or chest pain PFSH Medical History Aneurysm Arthritis Thyroid disease Surgical History History of tubal ligation Hx of colonoscopy S/P excision of lipoma (06/21/22) Family History Mother Colon cancer Father Heart attack Family/Other Pancreatic cancer, Onset Age: 50 Sister Uterine cancer Other Family history of thyroid problem Social History Household Members: Spouse and Family Household Members Other:: spouse, son Housing: House Alcohol intake: current Alcohol intake frequency: holidays/special occasions only Patient Tobacco Use Status: Never used Tobacco 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 Sexual orientation: Straight/Heterosexual Gender identity: Female Female Reproductive History Menstrual Age of Menarche: 15 Review of Systems Const All systems reviewed & are unremarkable except as noted in HPI and below Reports fatigue Card Denies chest pain and Denies dyspnea Resp Denies dyspnea GI Denies abdominal pain, Reports constipation, Denies nausea and Denies vomiting Denies abnormal menses and Denies abnormal vaginal bleeding Psych Reports anxiety Endo Reports fatigue Physical Exam Vital Signs: Last Vital Signs Pulse 78 11/06/22 13:25 BP 136/76 11/06/22 13:25 BMI result Body Mass Index 24.4 Const General: cooperative, healthy appearing and alert Orientation/consciousness: patient oriented x3 Limitations: language barrier Eyes Sclerae: sclerae normal Skin General skin exam: no rashes or lesions noted Neuro General: patient oriented x3 Extrem General: Yes full ROM Psych Appearance: grossly normal and well kempt Mental Status: mental status grossly normal Speech and movement: Normal speech and movement present and Clear speech present Affect: normal affect Attitude: cooperative Thought process: Normal thought process present Thought content: Normal thought content present Insight: Good insight present (Psych) Judgement: Good judgement present (Psych) Results Reviewed Results Reviewed: 12/2019- Dr. Davis Impression and Post Procedure Diagnosis: Colonoscopy Findings: No polyps were detected. Moderate diverticulosis seen in the left colon Moderate hemorrhoids on retroflexed exam. Plan: Await pathology results Patient has an appointment on 12/22/19 in the GI [facility] with Elen Betancourt NP. Repeat Colonoscopy interval based on path results ? in 10 years (positive FH of colon cancer and 2 negative colonoscopies). Above findings were reviewed with the patient and handout on diverticulosis was given in the discharge area Normal biopsy Repeat colonoscopy 10 years Reviewed previous GI note Reviewed labs persistent anemia Assessment & Plan Assessment & Plan (1) Anal fissure: Comment: Treated with nitroglycerin min appointment-discontinued due to headaches Code(s): K60.2 - Anal fissure, unspecified (2) Hemorrhoids: Comment: Painful, inflamed, Code(s): K64.9 - Unspecified hemorrhoids Plan: Rectal cream (3) Chronic constipation: Comment: Consistent bowel regimen avoid straining Surgical consult Code(s): K59.09 - Other constipation Plan: Sent message to T how to proceed for anemia (4) Anemia: Code(s): D64.9 - Anemia, unspecified Plan Surgical referral hemorrhoids HFD fiber supplements consistent bowel regimen EGD colonoscopy for anemia consulted with Radha Orders: Orders EGD/Cromwell Combo - GI Use Only Today D64.9 - Anemia, unspecified, K59.09 - Other constipation, K60.2 - Anal fissure, unspecified, K64.9 - Unspecified hemorrhoids Referrals General Surgery Referral K60.2 - Anal fissure, unspecified, K62.89 - Other specified diseases of anus and rectum, K64.9 - Unspecified hemorrhoids Medications: New docusate sodium (Colace) 200 mg (2 x 100 mg) PO BEDTIME 60 caps 5RF methylcellulose (laxative) (Citrucel) 500 mg PO TID 30 days 90 tabs 5RF hydrocortisone 2.5% (Proctosol HC) 1 appl [place] BEDTIME PRN 30 grams 3RF hemorrhoids bisacodyl (Dulcolax (bisacodyl)) Take 4 tablets by mouth at 12:00pm the day before your procedure. 20 mg (4 x 5 mg) PO ONCE 4 tabs 0RF colonoscopy prep 1 day Z12.11 - Encounter for screening for malignant neoplasm of colon polyethylene glycol 3350 (Miralax) Take as directed by mouth the day before your procedure. 238 grams PO ONCE PRN 238 grams 0RF laxative effect 1 day Changed From omeprazole 20 mg PO DAILY To omeprazole 20 mg PO DAILY 30 days 30 caps 5RF Patient Instructions: 57-year-old female iron deficiency anemia, anal fissure, chronic constipation Consulted with MD Agrees to EGD colonoscopy MiraLax Gatorade prep Coding Level of Care Code Est Pt Level 4 (51346) Diagnoses Anal fissure K60.2 Hemorrhoids K64.9 Chronic constipation K59.09 Anemia D64.9 Time Spent (min) 40 Comment Assembly Lead Person
[2022-11-06 13:25] VITALS: BP 136/76; PULSE 78; BMI 24.4
== END 2022-11-06 14:05 | disposition home or self-care (01) ==
LOC: HO.HGI 13:19
PROVIDERS: PCP Internal Medicine; Visit Provider Physician Assistant
DX: K60.2 Anal fissure, unspecified (principal); K64.9 Unspecified hemorrhoids; K59.09 Other constipation; D64.9 Anemia, unspecified
CPT/HCPCS: 99214

== ENCOUNTER → 2022-11-06 13:19 | Outpatient (BNVA) | payer OTHER, SELFPAY | PROVIDERS: PCP Internal Medicine; Visit Provider Physician Assistant | DX: K59.09 Other constipation (principal); K60.2 Anal fissure, unspecified; K64.9 Unspecified hemorrhoids; D64.9 Anemia, unspecified | CPT/HCPCS: 99212 ==

== ENCOUNTER 2022-11-14 13:17 | Outpatient (REF) | payer OTHER, SELFPAY ==
[2022-11-14 14:36] LABS: Erythrocyte Sedimentation Rate 2 MM/HR (0-20)
[2022-11-15 21:23] LABS: Lyme Abs Screen <0.90 index
[2022-11-16 15:49] LABS: Anti Nuclear Antibody Screen NEGATIVE (NEGATIVE)
== END 2022-11-14 13:18 | disposition home or self-care (01) ==
LOC: HO.LAB 13:17
PROVIDERS: Visit Provider Psychiatry & Neurology Neurology
DX: M79.7 Fibromyalgia (principal)
CPT/HCPCS: 36415; 82550; 85652; 86038; 86617; 86618

== ENCOUNTER 2022-11-15 14:30 | Outpatient (AMB) | payer OTHER, SELFPAY ==
--- NOTE | 2022-11-15 14:34 | MHC.OFFVIS ---
Intake Vital Signs 11/15/22 14:43 Height 5 ft 4 in Weight 145 lb BMI 24.9 BP 136/73 Blood Pressure Location Rt brachial Position Sitting Pulse 80 Intake Visit Reasons: Hx anal fissure- worsening hemorrhoids Intake Note: Patient was referred for hemorrhoids and anal fissure. Reports problem has worsened for the past 6m. C/o irritation and bleeding for the last 10days. Reports constipation better since starting fiber diet. Was prescribed HC suppository which helped. Awaiting on endoscopy, colonoscopy appt. Clinical Phlebotomist Required: Yes Accompanied by: Self / Same As Patient Allergies No Known Allergies Allergy (Verified 11/15/22 14:40) Medication List - Last Reconciled 11/15/22 by Camilo Chapman MD acetaminophen 500 mg PO Q6H PRN aspirin 81 mg PO DAILY bisacodyl (Dulcolax (bisacodyl)) 20 mg (4 x 5 mg) PO ONCE 1 day docusate sodium (Colace) 200 mg (2 x 100 mg) PO BEDTIME fluticasone propionate 50 mcg/actuation 1 - 2 sprays intranasal DAILY PRN hydrocortisone 2.5% (Proctosol HC) [address] BEDTIME PRN levothyroxine 125 mcg PO DAILY omeprazole 20 mg PO DAILY 30 days polyethylene glycol 3350 (Miralax) 238 grams PO ONCE PRN 1 day HPI Hx anal fissure- worsening hemorrhoids HPI Details 57-year-old female referred for hemorrhoids. She describes being hemorrhoids for so many years. She has has chronic constipation. For the past 6 months, she says that she has a lot of burning around her anus. She says that she feels there is a ?lump? inside her anus itself. She denies any significant mass outside the anus. She denies significant pain with passage of stools. She denies bleeding per rectum. She denies any history of anal surgery in the past. [facility] Medical History Aneurysm Arthritis Thyroid disease Surgical History History of tubal ligation Hx of colonoscopy S/P excision of lipoma (06/21/22) Family History Mother Colon cancer Father Heart attack Family/Other Pancreatic cancer, Onset Age: 50 Sister Uterine cancer Other Family history of thyroid problem Social History Household Members: Spouse and Family Household Members Other:: spouse, son Housing: House Alcohol intake: current Alcohol intake frequency: holidays/special occasions only Patient Tobacco Use Status: Never used Tobacco 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 Sexual orientation: Straight/Heterosexual Gender identity: Female Female Reproductive History Menstrual Age of Menarche: 15 Review of Systems Const Denies chills and Denies fever(s) Card Denies chest pain, Denies dyspnea and Denies dyspnea on exertion Resp Denies cough, Denies dyspnea and Denies dyspnea on exertion GI Denies hematochezia, Denies change in bowel habits and Reports constipation Denies hematuria Musc Denies back pain and Denies limited range of motion Neuro Denies focal weakness and Denies convulsions Psych Denies depression and Denies mood swings Physical Exam Vital Signs: Last Vital Signs Pulse 80 11/15/22 14:43 BP 136/73 11/15/22 14:43 BMI result Body Mass Index 24.9 Const General: comfortable and no acute distress Orientation/consciousness: patient oriented x3 Neck Neck: Yes no lymphadenopathy Resp Auscultation: clear to auscultation bilaterally Cardio Rhythm: regular rhythm GI Other: Rectal exam shows small external hemorrhoids Palpation (GI): Soft to palpation, nontender and no guarding Neuro General: patient oriented x3 Office Procedures Anoscopy She was in duong-knife position. The anoscope was gently inserted. A full examination of the entire anal canal was done. She had mixed internal external hemorrhoids on both the left and right side. There was no fissure. There were no lesions. There was no bleeding. There was no induration on digital exam. There was no hypertonicity of her sphincter [id number] Assessment & Plan Assessment & Plan (1) Hemorrhoids: Comment: Painful, inflamed, Code(s): K64.9 - Unspecified hemorrhoids Plan: She describes periodic pain and swelling with her hemorrhoids. She admits to being chronically constipated. Examination reveals internal external hemorrhoids and none of these are bulky. There is no fissure. I explained to her that at this time, I would hold off on any hemorrhoid surgery. I would try to have better control of her constipation with Colace as well as Metamucil. I am going to give her a prescription for Calmoseptine as well for her perianal burning I will see her again in the office in about 3 months to see how she is doing. She is comfortable the plan at this time. (2) Chronic constipation: Comment: Consistent bowel regimen avoid straining Surgical consult Code(s): K59.09 - Other constipation Coding Level of Care Code New Pt Level 3 (06737) Diagnoses Hemorrhoids K64.9 Chronic constipation K59.09 CPT Codes Details - CPT: [id number] ([id number])
[2022-11-15 14:43] VITALS: BP 136/73; PULSE 80; BMI 24.9
== END 2022-11-15 15:08 | disposition home or self-care (01) ==
PROVIDERS: PCP Internal Medicine; Referring Provider Physician Assistant; Visit Provider Surgery
DX: K64.8 Other hemorrhoids (principal); K59.09 Other constipation
CPT/HCPCS: 46600; 99213

== ENCOUNTER → 2022-11-15 14:30 | Outpatient (BNVA) | payer OTHER, SELFPAY | PROVIDERS: PCP Internal Medicine; Referring Provider Physician Assistant; Visit Provider Surgery | DX: K64.9 Unspecified hemorrhoids (principal); K59.09 Other constipation | CPT/HCPCS: 46600; 99212 ==

== ENCOUNTER 2022-12-11 06:10 | Outpatient (REF) | payer OTHER, SELFPAY ==
[2022-12-11 06:29] LABS: MANUAL DIFF FLAG NO
[2022-12-11 07:38] LABS: Basophils Absolute Auto 0.1 X10*3/uL (0.0-0.2); Basophils Percent Auto 1.4 % (0-2); Eosinophils Absolute Auto 0.2 X10*3/uL (0.0-0.4); Hematocrit 35.3 % (37.0-47.0); Hemoglobin 10.3 g/dl (12.0-16.0); Lymphocytes Absolute Auto 2.1 X10*3/uL (1.2-4.9); Lymphocytes Percent Auto 41.9 % (20-40); Mean Corpuscular HGB Conc 29.2 g/dl (31.0-35.0); Mean Corpuscular Hemoglobin 21.4 pg (27.0-33.0); Mean Corpuscular Volume 73.2 fL (80.0-98.0); Mean Platelet Volume 10.8 fL (9.4-12.3); Monocytes Absolute Auto 0.5 X10*3/uL (0.1-1.2); Monocytes Percent Auto 9.5 % (2-11); Neutrophils Absolute Auto 2.2 x10*3/uL (2.0-8.3); Neutrophils Percent Auto 44.2 % (45-73); Platelet Count 375 X10*3/uL (160-400); Red Blood Count 4.82 X10*6/uL (4.20-5.50); Red Cell Distribution Width 23.8 % (11.0-16.0)
[2022-12-11 08:06] LABS: Iron 25 mcg/dL (30-160); Percent Iron Saturation 8 % (15-50); Total Iron Binding Capacity 303 mcg/dL (228-428); Unsaturated Iron Binding 278 ug/dL
[2022-12-11 08:27] LABS: Ferritin 5 ng/mL (10-250); Free T4 (Free Thyroxine) 0.95 ng/dL (0.71-1.85); Thyroid Stimulating Hormone 3.76 uIU/mL (0.32-4.0)
[2022-12-11 10:09] LABS: Total Protein Urine Random 8 mg/dL (<12)
[2022-12-11 12:31] LABS: CT PCR NOT DETECTED (Not Detect.); NG PCR NOT DETECTED (Not Detect.)
[2022-12-14 09:43] LABS: PEU-Protein Creat Ratio Rand 0.067 (0.024-0.184); PEU-Rand. Prot/Creat Ratio 67 mg/g creat (24-184); PEU-Random Ur. Gamma Globulin 0 %; PEU-Random Urine A1 Globulin 0 %; PEU-Random Urine A2 Globulin 0 %; PEU-Random Urine Albumin 100 %; PEU-Random Urine Beta Globulin 0 %; PEU-Random Urine Creatinine 120 mg/dL (20-275); PEU-Random Urine Protein 8 mg/dL (5-24)
[2022-12-18 14:33] LABS: Venous Lead <1.0 mcg/dL (<3.5)
== END 2022-12-11 06:11 | disposition home or self-care (01) ==
LOC: HO.LAB 06:10
PROVIDERS: PCP Student in an Organized Health Care Education/Training Program; Visit Provider Student in an Organized Health Care Education/Training Program
DX: D50.9 Iron deficiency anemia, unspecified (principal); G62.9 Polyneuropathy, unspecified
CPT/HCPCS: 0353U; 82570; 82728; 83540; 83655; 84156; 84166; 84439; 84443; 85025

== ENCOUNTER 2023-01-10 08:27 | Day surgery (SDC) | payer OTHER, SELFPAY ==
[2023-01-07 13:30] VITALS: BMI 24.4
--- NOTE | 2023-01-09 12:19 | P.CONAN_ITS ---
Documented by User: Kristen Ragsdale NP 01/09/23 12:20 HPI - Anesthesia Eval Consult details Narrative: 57yo F for Upper Endoscopy and Colonoscopy PMF Active Problems Active Problems: All Active Problems (Updated 11/08/22 @ 10:12 by Krupa Brown PA-C) Anemia (Acute) Hemorrhoids (Acute) Chronic constipation (Acute) Leg pain (Acute) Varicose veins of right lower extremity with inflammation (Acute) Lipoma (Acute) Abdominal wall lump (Acute) Well woman exam (Acute) Thyroid disease (Acute) Anal fissure (Acute) Rectal pain (Acute) Chronic pain syndrome (Acute) Arthropathy of lumbar facet joint (Acute) 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) Lumbar radiculopathy (Acute) Osteoarthritis of right knee (Acute) Vaginal discharge (Acute) Cervical cancer screening (Acute) Postmenopausal bleeding (Acute) Well woman exam with routine gynecological exam (Acute) Past Medical History Medical History Thyroid disease Arthritis Aneurysm Family History Family History Mother Colon cancer Father Heart attack Family/Other Pancreatic cancer, Onset Age: 50 Sister Uterine cancer Other Family history of thyroid problem Surgical History Surgical History S/P excision of lipoma (06/21/22) Hx of colonoscopy History of tubal ligation Social History Social History Household Members: Spouse and Family Household Members Other:: spouse, son Housing: House Alcohol intake: current Alcohol intake frequency: holidays/special occasions only Patient Tobacco Use Status: Never used Tobacco Are you DNR?: No Advance Directives: No Advance Directives Information Provided: Yes Nutrition Risks: No Nutritional Risk 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 Sexual orientation: Straight/Heterosexual Gender identity: Female Meds Allergies Allergy/AdvReac Type Severity Reaction Status Date / Time No Known Allergies Allergy Verified 01/10/23 08:37 Home Medications Medication Instructions Recorded Confirmed Last Taken Type aspirin 81 mg tablet,delayed 81 mg PO DAILY 01/12/21 01/10/23 01/09/23 History release acetaminophen 500 mg tablet 500 mg PO Q6H PRN Pain 09/13/21 01/10/23 Unknown History fluticasone propionate 50 1 - 2 spray intranasal DAILY PRN 09/13/22 01/10/23 Unknown History mcg/actuation nasal Runny Nose spray,suspension Exam Exam Date and Time: January 09, 2023 1219 Height,Weight and Vital Signs: Height 5 ft 4 in Weight 64.41 kg Pertinent Lab Results Pertinent Lab Results: Laboratory Tests 10/12/22 12/11/22 06:46 06:27 WBC 5.0 Hgb 10.3 L Hct 35.3 L Plt Count 375 Sodium 141 Potassium 3.6 Chloride 109 H Carbon Dioxide 22 BUN 16 Creatinine 0.75 Assessment and Plan Assessment Anesthesia Assessment: Chart Reviewed Documented by User: Ricky Fernandez MD 01/10/23 09:31 [facility] Past Medical History Medical History Thyroid disease Arthritis Aneurysm Family History Family History Mother Colon cancer Father Heart attack Family/Other Pancreatic cancer, Onset Age: 50 Sister Uterine cancer Other Family history of thyroid problem Family history of problems with anesthesia: No Surgical History Surgical History S/P excision of lipoma (06/21/22) Hx of colonoscopy History of tubal ligation History of Problems with Anesthesia: No Social History Social History Household Members: Spouse and Family Household Members Other:: spouse, son Housing: House Alcohol intake: current Alcohol intake frequency: holidays/special occasions only Patient Tobacco Use Status: Never used Tobacco Are you DNR?: No Advance Directives: No Advance Directives Information Provided: Yes Nutrition Risks: No Nutritional Risk 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 Sexual orientation: Straight/Heterosexual Gender identity: Female Meds Allergies Allergy/AdvReac Type Severity Reaction Status Date / Time No Known Allergies Allergy Verified 01/10/23 08:37 Home Medications Medication Instructions Recorded Confirmed Last Taken Type aspirin 81 mg tablet,delayed 81 mg PO DAILY 01/12/21 01/10/23 01/09/23 History release acetaminophen 500 mg tablet 500 mg PO Q6H PRN Pain 09/13/21 01/10/23 Unknown History fluticasone propionate 50 1 - 2 spray intranasal DAILY PRN 09/13/22 01/10/23 Unknown History mcg/actuation nasal Runny Nose spray,suspension Exam Airway Mallampati Class: II TM Dist: >3cm Neck ROM: Full Denture: Upper Loose/Missing/Broken Teeth: Yes Assessment and Plan Assessment Anesthesia Assessment: Anesthesia Plan Discussed Final Anesthetic Review Family History of Problems with Anesthesia: No History of Problems with Anesthesia: No NPO: Yes ASA Class: II Final Preanesthetic Review: No Changes in Pt Med Stat, Meds/Allgs Chart Reviewed, Consent Obtained/Reviewed and Anes Risks/Benef Reviewed Patient Risk: Low Procedure Risk: Low Anesthetic Plan Anesthetic Plan: MAC: Disposition: Standard PACU
[2023-01-10] MEDS: Lactated Ringers 1,000 ML 100 ML IVCONT (08:53)
--- NOTE | 2023-01-10 08:53 | P.HPSUR_ITS ---
Pre-Procedural Eval Section A Date of Service: 01/10/23 Section B Chief Complaint: Anemia, unspecified, other constipation Relevant Family History (Specify if Yes): No Relevant Social History: None Present Medications: see Short Stay Collaborative assessment Medical History: Significant History (Aneurysm Arthritis Thyroid disease) History of Previous Operations: Relevant previous surgery/procedure and date(s) (History of tubal ligation Hx of colonoscopy S/P excision of lipoma (06/21/22)) Allergies: Allergies Allergy/AdvReac Type Severity Reaction Status Date / Time No Known Allergies Allergy Verified 01/10/23 08:37 Review of Systems Sugical H&P ROS: Negative: Constitution, Cardiovascular, Respiratory, Neurological, Psychiatric, Hem-Onc, Allergic/Immunologic, Gastrointestinal, Genitourinary, Musculoskeletal, Integumentary, Endocrine and Eyes/Ears/N ose/Throat Exam Surgical H&P Exam: Normal: HEENT, Normal: Heart, Normal: Lungs, Normal: Extremities, Normal: Abdomen, Normal: Skin and Normal: Neurological Plan Diagnosis/Plan: Unchanged I have reviewed the history and physical and performed a pertinent physical examination on my patient. No changes have occurred unless specified. Time Spent With Patient Time: Total time managing care of this patient today ____ minutes.
[2023-01-10 08:59] VITALS: BP 146/77; PULSE 69; RESP 18; TEMP 36.7; O2SAT 99
--- NOTE | 2023-01-10 09:26 | P.OP_ITS ---
Operative Note Operative Note Date of Service: 01/10/23 Narrative: Operative Information Procedure Description: EGD, Colonoscopy Indication: anemia Anesthesia: MAC FLEXIBLE TRANSORAL UPPER GASTROINTESTINAL ENDOSCOPY AND COLONOSCOPY PROCEDURE NOTE UPPER ENDOSCOPY Consent: Indications for the procedure and potential complications of bleeding, perforation, reaction to medications and missed diagnosis were discussed with the patient and informed consent was obtained. Instrument: Olympus GIF H 190 J mid size upper endoscope Monitoring: Vital signs and clinical assessment, continuous EKG monitoring, Pulse oximetry, Carbon Dioxide monitoring and blood pressure monitoring were done throughout the procedure. Procedure: The patient was placed in the left lateral decubitis position and pre-procedure medications were administered and a bite block was placed. The endoscope was inserted into the mouth and advanced under direct vision to the third part of duodenum. A careful inspection was made as the upper endoscope was withdrawn including a retroflexed examination of the proximal stomach; Findings and interventions are described below. Findings: Larynx:normal Esophagus: GE junction at 34 cm, diaphragm hiatus at 36 cm, 2 cm sliding hiatal hernia noted, mild esophagitis and possible short segment barretts with few small islands of salmon pink tissue Stomach: Patchy erythema in antrum. Biopsies were obtained. Grade 2 flap valve on retroflexed examination of the cardia. Duodenum: Normal bulb and descending duodenum, bx taken Intervention: Biopsies as noted above COLONOSCOPY Instrument: Olympus variable stiffness pediatric scope 190L Colonoscopy Monitoring: Vital signs and clinical assessment, continuous EKG monitoring, Pulse oximetry, Carbon Dioxide monitoring and blood pressure monitoring were done throughout the procedure. Colon withdrawal time was 10 minutes. Procedure: The patient was placed in the left lateral decubitis position and pre-procedure medications were administered. After a digital rectal examination of the ano-rectum, the video colonoscope was inserted into the rectum and advanced through the colon to the cecum/TI. The colonoscope was slowly withdrawn in a retrograde panoramic fashion and the colon mucosa was carefully examined including a retroflexed view of the rectum. Findings and interventions are described below. Procedure Difficulty: moderate Findings: Terminal Ileum-normal, bx taken random bx taken from right left and rectum in separate jars patchy melanosis coli noted Cecum:normal Ascending Colon: normal Transverse Colon -normal Descending Colon:normal Sigmoid Colon: mild diverticulosis noted Rectum: Retroflexion with small internal hemorrhoids, grade I Anorectum - normal Colon preparation: [place] Bowel Preparation Scale Right colon; 2 Transverse colon: 2 Left colon; 2 (0 = Unprepared colon segment with mucosa not seen due to solid stool that cannot be cleared. 1 = Portion of mucosa of the colon segment seen, but other areas of the colon segment not well seen due to staining, residual stool and/or opaque liquid. 2 = Minor amount of residual staining, small fragments of stool and/or opaque liquid, but mucosa of colon segment seen well. 3 = Entire mucosa of colon segment seen well with no residual staining, small fragments of stool or opaque liquid) Impression and Post Procedure Diagnosis: Endoscopy Findings: gastritis possible barretts small hiatal hernia Colonoscopy Findings: internal hemorrhoids diverticular disease melanosis coli Plan: Await Pathology results Repeat Colonoscopy in 10 years or earlier if clinically indicated High fiber diet leaflet avoid straining at stool, epsom salts and sitz bath, anusol supps or cream if H pylori pos then treat Above findings were reviewed with the patient and relevant handouts were provided if indicated.
[2023-01-10 10:22] VITALS: BP 111/65; PULSE 67; RESP 16; TEMP 36.1; O2SAT 97
[2023-01-10] MEDS: Acetaminophen 325 MG TABLET 650 MG PO (10:35)
[2023-01-10 10:37] VITALS: BP 126/72; PULSE 60; RESP 16; TEMP 36.1; O2SAT 100
== END 2023-01-10 11:20 | disposition home or self-care (01) ==
PROVIDERS: PCP Student in an Organized Health Care Education/Training Program; Visit Provider Internal Medicine Gastroenterology
PROC: (CPT 43239; principal; 2023-01-10 10:00)
DX: K29.70 Gastritis, unspecified, without bleeding (principal); K20.90 Esophagitis, unspecified without bleeding; K44.9 Diaphragmatic hernia without obstruction or gangrene; K63.89 Other specified diseases of intestine; K57.30 Diverticulosis of large intestine without perforation or abscess without bleeding; K64.0 First degree hemorrhoids; K59.09 Other constipation; D64.9 Anemia, unspecified; K21.9 Gastro-esophageal reflux disease without esophagitis
CPT/HCPCS: 43239; 45380; 88305; 88342; J2250

== ENCOUNTER → 2023-01-10 08:27 | Outpatient (BNV) | payer OTHER, SELFPAY | PROVIDERS: PCP Student in an Organized Health Care Education/Training Program; Visit Provider Internal Medicine Gastroenterology | DX: D64.9 Anemia, unspecified (principal); K20.90 Esophagitis, unspecified without bleeding; K57.30 Diverticulosis of large intestine without perforation or abscess without bleeding; K64.0 First degree hemorrhoids; K63.89 Other specified diseases of intestine | CPT/HCPCS: 43239; 45380 ==

== ENCOUNTER 2023-01-28 12:46 | Outpatient (AMB) | payer OTHER, SELFPAY ==
--- NOTE | 2023-01-28 12:49 | A.OFFVIS_ITS ---
Intake Vital Signs 01/28/23 12:51 Height 5 ft 4 in Weight 143 lb 4.807 oz BMI 24.6 BP 150/71 H Blood Pressure Location Lt brachial Position Sitting Pulse 85 Intake Visit Reasons: s/p DBL-Garcia Intake Note: Shruti presents in the office as a follow up EGD and COLO. CC: She states that she was told that the biopsy was not looking good from the EGD so she is a little worried. She states that she takes omeprazole but she had to stop it for 2 weeks for her stool tests. Interventional Physiatrist Required: Yes Interventional Physiatrist Name: [id number] Kassi Allergies No Known Allergies Allergy (Verified 01/28/23 12:51) Medication List - Last Reconciled 01/28/23 by Krupa Brown PA-C acetaminophen 500 mg PO Q6H PRN ascorbic acid (vitamin C) 250 mg PO QAM aspirin 81 mg PO DAILY docusate sodium (Colace) 200 mg (2 x 100 mg) PO BEDTIME ferrous sulfate (FeroSul) 325 mg PO QAM fluticasone propionate 50 mcg/actuation 1 - 2 sprays intranasal DAILY PRN hydrocortisone 2.5% (Proctosol HC) 1 appl [place] BEDTIME PRN levothyroxine 125 mcg PO DAILY menthol-zinc oxide 0.44-20.6 % (Calmoseptine) 1 appl topical QID PRN omeprazole 20 mg PO DAILY 30 days psyllium husk (with sugar) 3 gram/12 gram (Reguloid (psyllium husk-sucrose)) PO sodium chloride 0.65% (Deep Sea Nasal) 1 spray intranasal HPI HPI Comments History of Present Illness Details A 57 y/o female with anemia, f/u after EGD and colonoscopy- She had been notified to stopp ppi x 14 day- she will have stool HP and lactoferin She is extremely nervous awaiting for results She says she is awaiting her appointment with Hematology Reviewed procedure report, pathology and recommendation with assistance of social worker palliative care via iPad-very difficult many repetitions Asymptomatic today No nausea, vomiting, hematemesis, hematochezia fever or chills PFSH Medical History (Updated 01/28/23 @ 13:54 by Krupa Brown PA-C) Thyroid disease Arthritis Aneurysm Surgical History (Updated 01/18/23 @ 09:15 by Naa Haile) History of esophagogastroduodenoscopy (EGD) S/P excision of lipoma (06/21/22) Hx of colonoscopy History of tubal ligation Family History Mother Colon cancer Father Heart attack Family/Other Pancreatic cancer, Onset Age: 50 Sister Uterine cancer Other Family history of thyroid problem Social History Household Members: Spouse and Family Household Members Other:: spouse, son Housing: House Alcohol intake: current Alcohol intake frequency: holidays/special occasions only Patient Tobacco Use Status: Never used Tobacco 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 Sexual orientation: Straight/Heterosexual Gender identity: Female Female Reproductive History Menstrual Age of Menarche: 15 Review of Systems Const All systems reviewed & are unremarkable except as noted in HPI and below Card Denies chest pain and Denies dyspnea Resp Denies dyspnea GI Denies abdominal pain, Denies hematochezia, Reports heartburn, Denies nausea and Denies vomiting Physical Exam Vital Signs: Last Vital Signs Pulse 85 01/28/23 12:51 BP 150/71 H 01/28/23 12:51 BMI result Body Mass Index 24.6 Const General: cooperative, healthy appearing, comfortable and no acute distress Orientation/consciousness: patient oriented x3 Limitations: language barrier (despite social worker palliative care) Eyes Sclerae: sclerae normal Neuro General: patient oriented x3 Extrem General: Yes full ROM Psych Appearance: grossly normal and well kempt Mental Status: mental status grossly normal Speech and movement: Normal speech and movement present and Clear speech present Affect: Labile affect present Attitude: cooperative Thought content: Normal thought content present Results Reviewed Results Reviewed: Endoscopy Findings: gastritis possible barretts small hiatal hernia Colonoscopy Findings: internal hemorrhoids diverticular disease melanosis coli Plan: Await Pathology results Repeat Colonoscopy in 10 years or earlier if clinically indicated High fiber diet leaflet avoid straining at stool, epsom salts and sitz bath, anusol supps or cream if H pylori pos then treat ge/Sex: 57/F Attending: Queta Garcia MD : 1965 Submitted by: Queta Garcia MD Copies to: Naa Maradiaga MD MR #: [id number] [facility] Collected: 01/10/23 Location: [facility] Received: 01/10/23 Diagnosis A. Duodenum, biopsy: Duodenal mucosa with preserved villi and no specific change. B. Stomach, biopsy: Gastric antral mucosa with reactive changes, ectatic vessels, and mild chronic inactive gastritis; negative for H pylori, intestinal metaplasia and dysplasia. C. Gastroesophageal junction, biopsy: Squamocolumnar mucosa with mild chronic inactive inflammation; negative for intestinal metaplasia and dysplasia. D. Esophagus, distal, biopsy: Squamous mucosa with no specific change; no columnar mucosa present. E. Terminal ileum, biopsy: Ileal mucosa with no specific change. F. 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 G. Colon, left side, biopsy: Colonic mucosa with pigmented lamina propria macrophages consistent with melanosis coli, otherwise no specific change. H. Colon, rectum, biopsy: Colonic mucosa with pigmented lamina propria macrophages consistent with melanosis coli otherwise no specific change. Comment: (F): These findings may be seen with NSAIDs/drugs, self-limited/infectious causes, bowel prep, or early inflammatory bowel disease and clinical correlation is necessary. Clinical History Pre-Op Dx: Anemia, unspecified, other constipation Post-Op Dx: Upper possible Aranda's, gastritis, hiatal hernia, lower diverticulosis, melanous coli, hemorrhoids Microscopic Description Microscopic sections reviewed. Immunostain for H. pylori on B is negative with appropriate control. Material Received A. Duodenum bx's B. Stomach bx's C. GE junction bx's Patient: Sammi SaldanaShruti Age/Sex: 57/F MR#: [id number] Page 1 of 3 Assessment & Plan Assessment & Plan (1) Hemorrhoids: Code(s): K64.9 - Unspecified hemorrhoids Plan: High-fiber diet avoid straining (2) Melanosis coli: Comment: Laxative use Constipation worsened with iron supplement Code(s): K63.89 - Other specified diseases of intestine Plan: Colace 200 mg q.h.s. Continue fiber Stay hydrated (3) Diverticulosis of colon: Code(s): K57.30 - Diverticulosis of large intestine without perforation or abscess without bleeding Plan: HFD ER protocol (4) Language barrier to communication: Code(s): Z78.9 - Other specified health status (5) Anemia: Comment: Awaiting H pylori results Lactoferrin results Code(s): D64.9 - Anemia, unspecified Plan: Awaiting H pylori results Lactoferrin results Plan get cups @ lab today return specimens on Saturday She will call Fri for results of HP-if positive will treat Orders: Orders H pylori Ag Stool 2 Days A04.8 - Other specified bacterial intestinal infections Medications: New docusate sodium (Colace) 200 mg (2 x 100 mg) PO BEDTIME 30 days 60 caps 5RF Patient Instructions: 57 y/o female f/u after EGD and colonoscopy- language barrier despite social worker palliative care Discussed procedure report, pathology,recommendations Awaiting H pylori results Lactoferrin results She may take Tums for acid Consistent bowel regimen Stay well hydrated Coding Level of Care Code Est Pt Level 4 (74873) Diagnoses Hemorrhoids K64.9 Melanosis coli K63.89 Diverticulosis of colon K57.30 Language barrier to communication Z78.9 Anemia D64.9 Time Spent (min) 35 Comment social worker palliative [id number]
[2023-01-28 12:51] VITALS: BP 150/71; PULSE 85; BMI 24.6
== END 2023-01-28 14:02 | disposition home or self-care (01) ==
PROVIDERS: PCP Internal Medicine; Visit Provider Physician Assistant
DX: K64.9 Unspecified hemorrhoids (principal); K63.89 Other specified diseases of intestine; K57.30 Diverticulosis of large intestine without perforation or abscess without bleeding; Z78.9 Other specified health status; D64.9 Anemia, unspecified
CPT/HCPCS: 99214

== ENCOUNTER → 2023-01-28 12:46 | Outpatient (BNVA) | payer OTHER, SELFPAY | PROVIDERS: PCP Internal Medicine; Visit Provider Physician Assistant | DX: K64.9 Unspecified hemorrhoids (principal); K63.89 Other specified diseases of intestine; K57.30 Diverticulosis of large intestine without perforation or abscess without bleeding; D64.9 Anemia, unspecified; Z78.9 Other specified health status | CPT/HCPCS: 99212 ==

== ENCOUNTER 2023-01-29 | Outpatient (REF) | payer OTHER, SELFPAY ==
[2023-02-06 18:13] LABS: Lactoferrin, Fecal, Quant. <6.25 mcg/mL (<7.25)
== END 2023-01-29 00:01 | disposition home or self-care (01) ==
LOC: HO.LNP
PROVIDERS: Internal Medicine Gastroenterology; Visit Provider Physician Assistant
DX: A04.8 Other specified bacterial intestinal infections (principal); K51.50 Left sided colitis without complications
CPT/HCPCS: 83631; 87338

== ENCOUNTER 2023-01-30 07:24 | Outpatient (REF) | payer OTHER, SELFPAY | END 2023-01-30 07:25 | disposition home or self-care (01) | LOC: HO.LNP 07:24 | PROVIDERS: Visit Provider Physician Assistant | DX: Z13.89 Encounter for screening for other disorder (principal) ==

== ENCOUNTER 2023-02-14 14:47 | Outpatient (AMB) | payer OTHER, SELFPAY ==
[2023-02-14 14:47] VITALS: BP 151/71; PULSE 77; BMI 25.2
--- NOTE | 2023-02-14 14:47 | MHC.OFFVIS ---
Intake Vital Signs 02/14/23 14:47 Height 5 ft 4 in Weight 147 lb BMI 25.2 BP 151/71 H Blood Pressure Location Rt brachial Position Sitting Pulse 77 Intake Visit Reasons: 3m f/u hemorrhoids Intake Note: This patient presents for a three month follow-up assessment for hemorrhoids. Patient c/o; reports no complaints at this time. Poultry Husbandry Teacher Required: Yes Poultry Husbandry Teacher Language: Medical Equipment Repair Technician Name: Allison Information Interpreted: non-clinical & clinical Accompanied by: Self / Same As Patient Allergies No Known Allergies Allergy (Verified 02/14/23 14:57) Medication List - Last Reconciled 02/14/23 by Camilo Chapman MD acetaminophen 500 mg PO Q6H PRN ascorbic acid (vitamin C) 250 mg PO QAM aspirin 81 mg PO DAILY docusate sodium (Colace) 200 mg (2 x 100 mg) PO BEDTIME docusate sodium (Colace) 200 mg (2 x 100 mg) PO BEDTIME 30 days ferrous gluconate 324 mg PO BID ferrous sulfate (FeroSul) 325 mg PO QAM fluticasone propionate 50 mcg/actuation 1 - 2 sprays intranasal DAILY PRN hydrocortisone 2.5% (Proctosol HC) 1 appl [place] BEDTIME PRN levothyroxine 125 mcg PO DAILY menthol-zinc oxide 0.44-20.6 % (Calmoseptine) 1 appl topical QID PRN omeprazole 20 mg PO DAILY 30 days psyllium husk (with sugar) 3 gram/12 gram (Reguloid (psyllium husk-sucrose)) PO sodium chloride 0.65% (Deep Sea Nasal) 1 spray intranasal HPI 3m f/u hemorrhoids HPI Details She is here for a follow-up for hemorrhoids. I had seen her last October, because of periodic swelling and pain. She was constipated at that time. She had small hemorrhoidal tissue so I instructed her on taking Metamucil as well as Colace for constipation She says that she feels much better now and says that Metamucil and Colace have helped her a lot. [facility] Medical History Thyroid disease Arthritis Aneurysm Surgical History History of esophagogastroduodenoscopy (EGD) S/P excision of lipoma (06/21/22) Hx of colonoscopy History of tubal ligation Family History Mother Colon cancer Father Heart attack Family/Other Pancreatic cancer, Onset Age: 50 Sister Uterine cancer Other Family history of thyroid problem Social History Household Members: Spouse and Family Household Members Other:: spouse, son Housing: House Alcohol intake: current Alcohol intake frequency: holidays/special occasions only Patient Tobacco Use Status: Never used Tobacco 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 Sexual orientation: Straight/Heterosexual Gender identity: Female Female Reproductive History Menstrual Age of Menarche: 15 Review of Systems Const Denies chills and Denies fever(s) Card Denies chest pain, Denies dyspnea and Denies dyspnea on exertion Resp Denies cough, Denies dyspnea and Denies dyspnea on exertion GI Denies hematochezia and Denies change in bowel habits Denies hematuria Musc Denies back pain and Denies limited range of motion Neuro Denies focal weakness and Denies convulsions Psych Denies depression and Denies mood swings Physical Exam Vital Signs: Last Vital Signs Pulse 77 02/14/23 14:47 BP 151/71 H 02/14/23 14:47 BMI result Body Mass Index 25.2 Const General: comfortable and no acute distress Orientation/consciousness: patient oriented x3 Neck Neck: Yes no lymphadenopathy Resp Auscultation: clear to auscultation bilaterally Cardio Rhythm: regular rhythm GI Other: Rectal exam shows very small external hemorrhoidal columns on both the left and the right side Palpation (GI): Soft to palpation, nontender and no guarding Neuro General: patient oriented x3 Assessment & Plan Assessment & Plan (1) Hemorrhoids: Code(s): K64.9 - Unspecified hemorrhoids Plan: She says her hemorrhoid issues have resolved control of her constipation. She says that Metamucil and Colace have helped her a lot I will refill this for her. She seems to be doing very well so she can follow up with me on a p.r.n. basis. Coding Level of Care Code Est Pt Level 2 (22555) Diagnoses Hemorrhoids K64.9
== END 2023-02-14 15:34 | disposition home or self-care (01) ==
PROVIDERS: PCP Internal Medicine; Visit Provider Surgery
DX: K64.9 Unspecified hemorrhoids (principal)
CPT/HCPCS: 99212

== ENCOUNTER → 2023-02-14 14:47 | Outpatient (BNVA) | payer OTHER, SELFPAY | PROVIDERS: PCP Internal Medicine; Visit Provider Surgery | DX: D64.9 Anemia, unspecified (principal) | CPT/HCPCS: 99212 ==

== ENCOUNTER 2023-03-13 14:37 | Outpatient (REF) | payer OTHER, SELFPAY | END 2023-03-13 14:38 | disposition home or self-care (01) | LOC: HO.MAMMO 14:37 | PROVIDERS: PCP Internal Medicine; Visit Provider Internal Medicine | DX: Z12.31 Encounter for screening mammogram for malignant neoplasm of breast (principal) | CPT/HCPCS: 77063; 77067 ==

== ENCOUNTER → 2023-03-13 15:00 | Outpatient (BNV) | payer OTHER, SELFPAY | PROVIDERS: PCP Internal Medicine; Visit Provider Radiology Diagnostic Radiology | DX: Z12.31 Encounter for screening mammogram for malignant neoplasm of breast (principal) | CPT/HCPCS: 77063; 77067 ==

== ENCOUNTER 2023-04-17 13:39 | Outpatient (AMB) | payer OTHER, SELFPAY ==
--- NOTE | 2023-04-17 13:43 | A.OFFVIS_ITS ---
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 No complaints. Last Pap/HPV was negative in 04/09 Last Mammogram was BI-RADS 1 in 03/09 Last Colonoscopy done in 01/07 [facility] Medical History Thyroid disease Arthritis Aneurysm Surgical History History of esophagogastroduodenoscopy (EGD) S/P excision of lipoma (06/21/22) Hx of colonoscopy History of tubal ligation Family History Mother Colon cancer Father Heart attack Family/Other Pancreatic cancer, Onset Age: 50 Sister Uterine cancer Other Family history of thyroid problem Social History Household Members: Spouse and Family Household Members Other:: spouse, son Housing: House Alcohol intake: current Alcohol intake frequency: holidays/special occasions only Patient Tobacco Use Status: Never used Tobacco Patient : No 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 Sexual orientation: Straight/Heterosexual Gender identity: Female Female Reproductive History Menstrual Age of Menarche: 15 control method: permanent sterilization Total pregnancies: 5 Full term: 3 Number of Living Children: 3 Ab spontaneous: 2 Date of last pap smear: 04/12/22 (negative) Date of Mammogram: 03/13/23 Review of Systems Const All systems reviewed & are unremarkable except as noted in HPI and below Card Reports as per HPI Resp Reports as per HPI GI Reports as per HPI and Reports no additional complaints Reports as per HPI Physical Exam Vital Signs: Last Vital Signs BP 144/82 H 04/17/23 13:44 BMI result Body Mass Index 25.1 Const General: cooperative, healthy appearing and comfortable Chest Chest palpation & inspection: normal inspection of the chest and normal palpation of entire chest wall Breast/axilla inspection: normal inspection of the breasts and normal inspection of the axillae Breast/axilla palpation: normal palpation of the breasts, normal palpation of the axillae and no axillary lymphadenopathy Resp Effort & Inspection: normal respiratory effort Auscultation: clear to auscultation bilaterally Percussion: percussion normal Cardio Palpation: normal PMI Rate: regular rate Rhythm: regular rhythm Heart sounds: no murmurs and no rubs Peripheral pulses: Peripheral pulses 2+ throughout GI Inspection: Yes normal to inspection Palpation (GI): Soft to palpation, nontender, no guarding, not rigid and No he patosplenomegaly present Percussion: Yes normal to percussion Auscultation: normal bowel sounds Rectal Exam - Female: deferred General: Yes bladder normal to palpation External Female Exam: No lesion Speculum Exam - Vagina: normal appearance of the vagina, normal palpation, normal vaginal discharge and not erythematous Speculum Exam - Cervix: normal appearance of the cervix and normal palpation Bimanual exam- vagina & uterus: normal bimanual exam, normal palpation, uterine size normal, bladder normal to palpation, consistency normal and normal palpation Bimanual Exam- Adnexa, other: normal adnexae, no masses and no tenderness Assessment & Plan Assessment & Plan (1) Well woman exam: Code(s): Z01.419 - Encounter for gynecological examination (general) (routine) without abnormal findings Plan: Co testing not indicated this year. Counseled the patient about the recommended dietary allowance of 1200 mg of Calcium & 600 IU of vitamin D. Instructions given the patient to schedule next screening Mammogram in 03/10. The patient was instructed to perform monthly self-breast exams and schedule annual exam in a year. All questions answered and the patient verbalized understanding. Coding Level of Care Code Est Pt Prev Care 40-64y(10089) Diagnoses Well woman exam Z01.419
[2023-04-17 13:44] VITALS: BP 144/82; BMI 25.1
== END 2023-04-17 14:24 | disposition home or self-care (01) ==
LOC: HO.HWS 13:39
PROVIDERS: PCP Student in an Organized Health Care Education/Training Program; Visit Provider Obstetrics & Gynecology
DX: Z01.419 Encounter for gynecological examination (general) (routine) without abnormal findings (principal)
CPT/HCPCS: 99396

== ENCOUNTER → 2023-04-17 13:39 | Outpatient (BNVA) | payer OTHER, SELFPAY | PROVIDERS: PCP Student in an Organized Health Care Education/Training Program; Visit Provider Obstetrics & Gynecology | DX: Z01.419 Encounter for gynecological examination (general) (routine) without abnormal findings (principal) | CPT/HCPCS: 99396 ==

== ENCOUNTER 2023-04-25 16:52 | Emergency (ER) | payer OTHER, SELFPAY ==
--- NOTE | ~2023-04-25 | XR_ITS ---
EXAMINATION: XR CHEST CLINICAL INFORMATION: Chest pain COMPARISON: None available. TECHNIQUE: 2 views of the chest were obtained. FINDINGS: No significant abnormality is noted involving the heart, lungs, mediastinum, bony thorax or soft tissues. XR/XR chest 2V IMPRESSION: Unremarkable chest examination.
--- NOTE | ~2023-04-25 | US_ITS ---
EXAMINATION: US VENOUS WITH DOPPLER UPPER EXTREMITY, LEFT CLINICAL INFORMATION: Pain, bruise, swelling. COMPARISON: None available. TECHNIQUE: Ultrasound of the upper extremity is performed using compression sonography and color and pulse Doppler flow with assessment of augmentation of flow. There is also imaging and Doppler assessment of the jugular and subclavian veins. Spectral analysis with color-flow imaging is performed. FINDINGS: Respiratory variation, normal compression, and augmented flow are noted throughout the left upper extremity including the axillary, brachial, cubital, and radial and ulnar veins. There is normal flow in the internal jugular and subclavian veins. There is no visible deep or superficial thrombophlebitis. If the patient's symptoms progress, a followup ultrasound in 5 -7 days might be of value to exclude proximal propagation from a nonvisualized distal arm vein. US/US venous duplex UE LT IMPRESSION: No DVT demonstrated in the left upper extremity.
[2023-04-25 17:52] VITALS: BP 171/93; PULSE 74; RESP 16; TEMP 36.9; O2SAT 99; BMI 24.5
--- NOTE | 2023-04-25 17:53 | ED_ITS ---
HPI - Extremity Problem General Chief complaint: Dyspnea Stated complaint: ? blood clot in left arm,sob hx of anuersym Time Seen by Provider: 04/25/23 18:55 Source: patient Mode of arrival: ambulatory Limitations: no limitations History of Present Illness HPI Narrative: Patient with cough diagnosed with COVID 4 days ago which is getting better noticed small bruise on the left forearm when she woke up today no injury worried about the blood clot no history of blood clots in the past patient does take baby aspirin daily Related Data Home Medications Medication Instructions Recorded Confirmed aspirin 81 mg tablet,delayed 81 mg PO DAILY 01/12/21 02/14/23 release acetaminophen 500 mg tablet 500 mg PO Q6H PRN Pain 09/13/21 02/14/23 fluticasone propionate 50 1 - 2 spray intranasal DAILY PRN 09/13/22 02/14/23 mcg/actuation nasal Runny Nose spray,suspension ascorbic acid (vitamin C) 250 mg 250 mg PO QAM 01/28/23 02/14/23 tablet psyllium husk (with sugar) 3 PO 01/28/23 02/14/23 gram/12 gram oral powder (Reguloid (psyllium husk-sucrose)) sodium chloride 0.65 % nasal spray 1 spray intranasal congestion 01/28/23 02/14/23 aerosol (Deep Sea Nasal) blood pressure test kit-large #1 ea 04/17/23 cyanocobalamin (vitamin B-12) 1,000 mcg PO QAM 04/17/23 1,000 mcg tablet Previous Rx's Medication Instructions Recorded levothyroxine 125 mcg tablet 125 mcg PO DAILY #30 tabs 06/18/22 docusate sodium 100 mg capsule 200 mg (2 x 100 mg) PO BEDTIME #60 11/06/22 (Colace) caps hydrocortisone 2.5 % topical cream 1 appl [place] BEDTIME PRN hemorrhoids 11/06/22 with perineal applicator #30 grams (Proctosol HC) omeprazole 20 mg capsule,delayed 20 mg PO DAILY 30 days #30 caps 11/06/22 release docusate sodium 100 mg capsule 200 mg (2 x 100 mg) PO BEDTIME 30 01/28/23 (Colace) days #60 caps psyllium husk 3.4 gram/5.4 gram 1 tbsp PO DAILY #660 grams 02/14/23 oral powder (Metamucil) Allergies Allergy/AdvReac Type Severity Reaction Status Date / Time No Known Allergies Allergy Verified 04/17/23 13:49 Review of Systems 2 Review of Systems: Yes all other systems are reviewed and are negative [facility] Past Medical History Medical History Thyroid disease Arthritis Aneurysm Surgical History History of esophagogastroduodenoscopy (EGD) S/P excision of lipoma (06/21/22) Hx of colonoscopy History of tubal ligation Family History Family History Mother Colon cancer Father Heart attack Family/Other Pancreatic cancer, Onset Age: 50 Sister Uterine cancer Other Family history of thyroid problem Social History Social History Household Members: Spouse and Family Household Members Other:: spouse, son Housing: House Alcohol intake: current Alcohol intake frequency: holidays/special occasions only Patient Tobacco Use Status: Never used Tobacco 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 Oriented X3. No acute distress. Eyes: No pallor or icterus ENT: Pharynx normal. Oral Mucosa moist Neck: Normal inspection. Neck supple. CVS: Normal heart rate and rhythm. Pulses normal. Respiratory: No respiratory distress. Equal air entry bilateral, no wheezing/rales/rhonchi Abdomen: Soft and nontender. Bowel sounds are present, Skin: Skin warm and dry. Extremities: No lower extremity edema. No calf tenderness left forearm small bruise 3 x 3 cm with inflamed superficial vein Neuro: Oriented X 3. No motor deficit. Course Course Course Narrative: RME: Covid positive of 2/4. C/o chest pain and shortness of breath. Bruising and pain in left forearm. Noted pain at night and noticed bruising in the morning. Recently diagnosed with an aneurym and working with neurosurgery. On ASA, no other anticoagulants Medical Decision Making Medical Decision Making [facility] Narrative: Patient's workup is negative D-dimer negative Doppler of left arm is negative for DVT chest x-ray negative for infiltrate patient is saturating 99% at room air likely has bruised from minor trauma which patient does not remember. Differential Diagnosis Differential Diagnoses: The differential diagnosis associated with the presentation includes Phlebitis/DVT/COVID infection/bronchitis/PE Lab Data [facility] Lab Attestation statement: I reviewed the patient's lab results. 04/25/23 18:09 04/25/23 18:09 Labs: Lab Results 04/25/23 Range/Units 18:09 WBC 5.6 (4.8-10.8) X10*3/uL RBC 4.57 (4.20-5.50) X10*6/uL Hgb 12.3 (12.0-16.0) g/dl Hct 38.3 (37.0-47.0) % MCV 83.8 (80.0-98.0) fL MCH 26.9 L (27.0-33.0) pg MCHC 32.1 (31.0-35.0) g/dl RDW 18.7 H (11.0-16.0) % Plt Count 267 D (160-400) X10*3/uL MPV 10.4 (9.4-12.3) fL Immature Gran % (Auto) 0.2 (0.0-0.4) % Neut % (Auto) 55.7 (45-73) % Lymph % (Auto) 32.4 (20-40) % [place] % (Auto) 9.9 (2-11) % Eos % (Auto) 1.1 (0-4) % Baso % (Auto) 0.7 (0-2) % Lymph # (Auto) 1.8 (1.2-4.9) X10*3/uL [place] # (Auto) 0.6 (0.1-1.2) X10*3/uL Eos # (Auto) 0.1 (0.0-0.4) X10*3/uL Baso # (Auto) 0.0 (0.0-0.2) X10*3/uL Abs Immat Gran (auto) 0.01 (0.00-0.03) X10*3/uL Absolute Neuts (auto) 3.1 (2.0-8.3) x10*3/uL Absolute Nucleated RBC 0.000 (0.0-0.012) X10*3/uL Nucleated RBC % (auto) 0.0 (0.0-0.2) /100WBC D-Dimer High Sensitivty < 150 NG/ML Sodium 140 (135-145) mmol/L Potassium 4.2 (3.3-5.1) mmol/L Chloride 105 (96-108) mmol/L Carbon Dioxide 25 (22-29) mmol/L Anion Gap 14 (12-20) BUN 17 H (9-16) mg/dL Creatinine 0.79 (0.5-1.4) mg/dL Estim Creat Clear Calc 65.4 Estimated GFR > 60 Random Glucose 102 (60-115) mg/dL Calcium 9.6 (8.4-10.2) mg/dL Total Bilirubin 0.2 (0.0-1.0) mg/dL AST 22 (5-31) U/L ALT 15 (0-31) U/L Alkaline Phosphatase 66 (39-117) U/L Troponin I High Sens < 2.7 (<3.5-17.0) ng/L Total Protein 7.6 (6.5-8.0) g/dL Albumin 4.2 (3.5-5.0) g/dL Independent Interpretation I performed an independent interpretation of an: EKG and Ultrasound Interpretation: Normal sinus rhythm heart rate 66 beats per minute normal interval normal axis no acute ST T wave changes no acute ischemia Radiology Impression Discussion of test interpretation with radiology: I have reviewed the radiologist's reading. Radiologist Impression: Negative for DVT chest x-ray normal Discharge Plan Discharge Clinical Impression: Superficial thrombophlebitis Patient Disposition: Home, Self-Care Instructions: Superficial Thrombophlebitis (ED) Additional Instructions: Local care as advised Continue aspirin apply ice bag at the inflamed area Your ultrasound is negative for blood clot Atenci?n local seg?n lo recomendado continuar aspirina aplicar bolsa de hielo en el ?janette inflamada Black ultrasonido es negativo para co?gulo de ale. Prescriptions: No Action levothyroxine 125 mcg tablet 125 mcg PO DAILY Qty: 30 5RF cyanocobalamin (vitamin B-12) 1,000 mcg tablet 1,000 mcg PO QAM (DME) blood pressure test kit-large Kit See Rx Instructions .ROUTE QAM Qty: 1 Rx Instructions: As directed aspirin 81 mg tablet,delayed release (DR/EC) 81 mg PO DAILY acetaminophen 500 mg tablet 500 mg PO Q6H PRN (Reason: Pain) omeprazole 20 mg capsule,delayed release(DR/EC) 20 mg PO DAILY 30 Days Qty: 30 5RF docusate sodium [Colace] 100 mg capsule 200 mg PO BEDTIME Qty: 60 5RF hydrocortisone [Proctosol HC] 2.5 % cream with perineal applicator 1 appl [place] BEDTIME PRN (Reason: hemorrhoids) Qty: 30 3RF fluticasone propionate 50 mcg/actuation spray,suspension 1 - 2 spray intranasal DAILY PRN (Reason: Runny Nose) Deep Sea Nasal 0.65 % aerosol,spray 1 spray intranasal Reguloid (psyllium husk-sucro) 3 gram/12 gram powder PO ascorbic acid (vitamin C) 250 mg tablet 250 mg PO QAM docusate sodium [Colace] 100 mg capsule 200 mg PO BEDTIME 30 Days Qty: 60 5RF Metamucil 3.4 gram/5.4 gram powder 1 tbsp PO DAILY Qty: 660 4RF Rx Instructions: mix into at least 8 oz of water or juice before administering Interventions: ED Discharge Assessment Last Done: 04/25/23 19:47 Discharge Date/Time: 04/25/23 20:07 Print Language: Luxembourger
--- NOTE | 2023-04-25 17:55 | ECG_ITS ---
Test Reason : CHEST PAIN Blood Pressure : / mmHG Vent. Rate : 066 BPM Atrial Rate : 066 BPM P-R Int : 154 ms QRS Dur : 088 ms QT Int : 424 ms P-R-T Axes : 053 -08 046 degrees QTc Int : 444 ms Normal sinus rhythm Possible Left atrial enlargement Borderline ECG When compared with ECG of 21-JUL-2018 12:52, No significant change was found Referred By: Odalys Ovalle Electronically Signed By:MARCO A VILA
[2023-04-25 18:15] LABS: MANUAL DIFF FLAG NO
[2023-04-25 18:24] LABS: D Dimer High Sensitivity < 150 NG/ML
[2023-04-25 18:39] LABS: Basophils Percent Auto 0.7 % (0-2); Eosinophils Absolute Auto 0.1 X10*3/uL (0.0-0.4); Eosinophils Percent Auto 1.1 % (0-4); Hematocrit 38.3 % (37.0-47.0); Hemoglobin 12.3 g/dl (12.0-16.0); Imm Gran Abs Auto 0.01 X10*3/uL (0.00-0.03); Imm Gran Pct Auto 0.2 % (0.0-0.4); Lymphocytes Absolute Auto 1.8 X10*3/uL (1.2-4.9); Lymphocytes Percent Auto 32.4 % (20-40); Mean Corpuscular HGB Conc 32.1 g/dl (31.0-35.0); Mean Corpuscular Hemoglobin 26.9 pg (27.0-33.0); Mean Corpuscular Volume 83.8 fL (80.0-98.0); Mean Platelet Volume 10.4 fL (9.4-12.3); Monocytes Absolute Auto 0.6 X10*3/uL (0.1-1.2); Monocytes Percent Auto 9.9 % (2-11); Neutrophils Absolute Auto 3.1 x10*3/uL (2.0-8.3); Neutrophils Percent Auto 55.7 % (45-73); Platelet Count 267 X10*3/uL (160-400); Red Blood Count 4.57 X10*6/uL (4.20-5.50); Red Cell Distribution Width 18.7 % (11.0-16.0); White Blood Count 5.6 X10*3/uL (4.8-10.8)
[2023-04-25 18:45] LABS: Alanine Aminotransferase 15 U/L (0-31); Albumin Level 4.2 g/dL (3.5-5.0); Alkaline Phosphatase 66 U/L (39-117); Anion Gap 14 (12-20); Aspartate Amino Transferase 22 U/L (5-31); Bilirubin Total 0.2 mg/dL (0.0-1.0); Blood Urea Nitrogen 17 mg/dL (9-16); Calcium 9.6 mg/dL (8.4-10.2); Carbon Dioxide 25 mmol/L (22-29); Chloride 105 mmol/L (96-108); Creatinine Clr Calc Pharmacy 65.4; Estimated Glomerular Filt Rate > 60; Glucose Random 102 mg/dL (60-115); Potassium 4.2 mmol/L (3.3-5.1); Sodium 140 mmol/L (135-145); Total Protein 7.6 g/dL (6.5-8.0)
[2023-04-25 18:53] LABS: Troponin-I High Sensitivity < 2.7 ng/L (<3.5-17.0)
[2023-04-25 19:04] VITALS: BP 146/88; PULSE 69; RESP 16; O2SAT 98
== END 2023-04-25 20:07 | disposition home or self-care (01) ==
PROVIDERS: Nurse Practitioner Family; Emergency Provider Internal Medicine; PCP Student in an Organized Health Care Education/Training Program
DX: I80.8 Phlebitis and thrombophlebitis of other sites (principal); R06.02 Shortness of breath; R07.89 Other chest pain; R60.0 Localized edema; Z79.899 Other long term (current) drug therapy
CPT/HCPCS: 36415; 71046; 80053; 84484; 85025; 85379; 93005; 93971; 99284; 99285

== ENCOUNTER → 2023-04-25 17:55 | Outpatient (BNV) | payer OTHER, SELFPAY | PROVIDERS: Emergency Provider Internal Medicine; PCP Student in an Organized Health Care Education/Training Program; Visit Provider Internal Medicine | DX: R07.9 Chest pain, unspecified (principal) | CPT/HCPCS: 93010 ==

== ENCOUNTER 2023-04-29 06:11 | Outpatient (REF) | payer OTHER, SELFPAY ==
[2023-04-29 06:33] LABS: MANUAL DIFF FLAG NO
[2023-04-29 08:04] LABS: Basophils Percent Auto 0.6 % (0-2); Eosinophils Absolute Auto 0.1 X10*3/uL (0.0-0.4); Eosinophils Percent Auto 2.1 % (0-4); Hematocrit 40.3 % (37.0-47.0); Hemoglobin 12.9 g/dl (12.0-16.0); Imm Gran Abs Auto 0.01 X10*3/uL (0.00-0.03); Imm Gran Pct Auto 0.2 % (0.0-0.4); Lymphocytes Absolute Auto 2.1 X10*3/uL (1.2-4.9); Lymphocytes Percent Auto 39.8 % (20-40); Mean Corpuscular Hemoglobin 26.6 pg (27.0-33.0); Mean Corpuscular Volume 83.1 fL (80.0-98.0); Mean Platelet Volume 10.4 fL (9.4-12.3); Monocytes Absolute Auto 0.5 X10*3/uL (0.1-1.2); Monocytes Percent Auto 9.3 % (2-11); Neutrophils Absolute Auto 2.5 x10*3/uL (2.0-8.3); Platelet Count 318 X10*3/uL (160-400); Red Blood Count 4.85 X10*6/uL (4.20-5.50); Red Cell Distribution Width 17.8 % (11.0-16.0); White Blood Count 5.2 X10*3/uL (4.8-10.8)
[2023-04-29 08:42] LABS: Iron 60 mcg/dL (30-160); Percent Iron Saturation 21 % (15-50); Total Iron Binding Capacity 288 mcg/dL (228-428); Unsaturated Iron Binding 228 ug/dL
[2023-04-29 09:02] LABS: Ferritin 7 ng/mL (10-250); Free T4 (Free Thyroxine) 1.03 ng/dL (0.71-1.85); Thyroid Stimulating Hormone 1.22 uIU/mL (0.32-4.0)
== END 2023-04-29 06:12 | disposition home or self-care (01) ==
LOC: HO.LAB 06:11
PROVIDERS: PCP Student in an Organized Health Care Education/Training Program; Visit Provider Student in an Organized Health Care Education/Training Program
DX: D50.9 Iron deficiency anemia, unspecified (principal); E03.9 Hypothyroidism, unspecified
CPT/HCPCS: 36415; 82728; 83540; 84439; 84443; 85025

== ENCOUNTER 2023-07-26 08:22 | Emergency (ER) | payer OTHER, SELFPAY ==
--- NOTE | ~2023-07-26 | XR_ITS ---
EXAMINATION: XR FINGER, RIGHT CLINICAL INFORMATION: Injury. COMPARISON: None available. TECHNIQUE: Three views of the right long finger. FINDINGS: Mildly displaced comminuted fracture of the distal phalanx of the third digit with surrounding soft tissue swelling. No additional fractures. No unexpected radiopaque foreign bodies. XR/XR finger RT min 2V IMPRESSION: Fracture of the distal phalanx of the third digit.
[2023-07-26 08:27] VITALS: BP 153/86; PULSE 71; RESP 16; TEMP 36.9; BMI 24.5
--- NOTE | 2023-07-26 09:20 | ED.EXTPRO ---
HPI - Extremity Problem General Chief complaint: Extremity Injury, Upper Stated complaint: car door crushed finger, bleeding Time Seen by Provider: 07/26/23 09:08 Source: patient Mode of arrival: ambulatory Limitations: language barrier ( Botswanan-speaking box person utilized) History of Present Illness HPI Narrative: patient is a 58-year-old female who presents emergency department for evaluation of traumatic right 3rd finger pain. Accidentally pinched her finger in the car door this morning. Resulting in a laceration to the finger and swelling to the distal tip. Related Data Home Medications ?Medication ?Instructions ?Recorded ?Confirmed aspirin 81 mg tablet,delayed 81 mg PO DAILY 01/12/21 02/14/23 release acetaminophen 500 mg tablet 500 mg PO Q6H PRN Pain 09/13/21 02/14/23 fluticasone propionate 50 1 - 2 spray intranasal DAILY PRN 09/13/22 02/14/23 mcg/actuation nasal Runny Nose spray,suspension ascorbic acid (vitamin C) 250 mg 250 mg PO QAM 01/28/23 02/14/23 tablet psyllium husk (with sugar) 3 PO 01/28/23 02/14/23 gram/12 gram oral powder (Reguloid (psyllium husk-sucrose)) sodium chloride 0.65 % nasal spray 1 spray intranasal congestion 01/28/23 02/14/23 aerosol (Deep Sea Nasal) blood pressure test kit-large #1 ea 04/17/23 cyanocobalamin (vitamin B-12) 1,000 mcg PO QAM 04/17/23 1,000 mcg tablet Previous Rx's ?Medication ?Instructions ?Recorded levothyroxine 125 mcg tablet 125 mcg PO DAILY #30 tabs 06/18/22 docusate sodium 100 mg capsule 200 mg (2 x 100 mg) PO BEDTIME #60 11/06/22 (Colace) caps hydrocortisone 2.5 % topical cream 1 appl [place] BEDTIME PRN hemorrhoids 11/06/22 with perineal applicator #30 grams (Proctosol HC) omeprazole 20 mg capsule,delayed 20 mg PO DAILY 30 days #30 caps 11/06/22 release docusate sodium 100 mg capsule 200 mg (2 x 100 mg) PO BEDTIME 30 01/28/23 (Colace) days #60 caps psyllium husk 3.4 gram/5.4 gram 1 tbsp PO DAILY #660 grams 02/14/23 oral powder (Metamucil) cephalexin 500 mg capsule 500 mg PO QID #27 caps 07/26/23 Allergies Allergy/AdvReac Type Severity Reaction Status Date / Time No Known Allergies Allergy Verified 07/26/23 08:28 Review of Systems Review of Systems: Yes all other systems are reviewed and are negative [facility] Past Medical History Attestation statement: The following information was validated with the patient. Source: old records reviewed Medical History Thyroid disease Arthritis Aneurysm Surgical History History of esophagogastroduodenoscopy (EGD) S/P excision of lipoma (06/21/22) Hx of colonoscopy History of tubal ligation Family History Family History Mother Colon cancer Father Heart attack Family/Other Pancreatic cancer, Onset Age: 50 Sister Uterine cancer Other Family history of thyroid problem Social History Social History Household Members: Spouse and Family Household Members Other:: spouse, son Housing: House Alcohol intake: current Alcohol intake frequency: holidays/special occasions only Patient Tobacco Use Status: Never used Tobacco Advance Directives: No Advance Directives Information Provided: Yes 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 No acute distress.?Normal affect. Neck: Normal inspection.? Neck supple.?? CVS: Heart sounds normal. Normal heart rate and rhythm.? Pulses normal.?? Respiratory: No respiratory distress.? Lung sounds clear to auscultation bilaterally?? Abdomen: Soft and non-tender. Normoactive bowel sounds. Skin: Skin warm and dry.? Normal skin color.? Extremities: localized swelling to the distal tip of the right 3rd phalanx. No subungual hematoma. 1 cm Superficial flap laceration the base of the nail to the mantle, visible nail matrix, nail plate however seems intact. Ulnar /lateral aspect of the nail with cm superficial laceration Neuro: Moves all extremities spontaneously. Ambulates with normal steady gait. Medical Decision Making Medical Decision Making MDM Narrative: patient is a 58-year-old female who presents emergency department for evaluation of crush injury to right 3rd phalanx, on exam has localized swelling to the distal tip of the right 3rd phalanx. No subungual hematoma. 1 cm Superficial flap laceration the base of the nail to the mantle, visible nail matrix, nail plate however seems intact. Ulnar /lateral aspect of the nail with cm superficial laceration. Cleansed extensively with normal saline and Betadine. Skin adhesive applied to the superficial flap. XR revealing a fracture to the distal phalanx. Finger placed in a splint, received 1st dose of prophylactic antibiotics in the emergency department and sent remainder prescription to pharmacy. Stable for outpatient follow-up with orthopedics. Discussed worrisome signs and symptoms that would warrant re-evaluation in the emergency department. All questions answered. Differential Diagnosis Differential Diagnoses: The differential diagnosis associated with the presentation includes ( fracture, dislocation, contusion, sprain) Independent Interpretation I performed an independent interpretation of an: Plain X-Ray (Right 3rd distal phalanx Comminuted fracture) Radiology Impression Discussion of test interpretation with radiology: I have reviewed the radiologist's reading. Radiologist Impression: XR/XR finger RT min 2V IMPRESSION: Fracture of the distal phalanx of the third digit. External Record Review External record reviewed: Outpatient record Prescription Management I considered prescription management with: Pain Medication Procedures Orthopedic Splinting/Casting Injury #1: Side: right Upper Extremity Injury Location: finger Upper Extremity Immobilizer: finger (other) Discharge Plan Discharge Clinical Impression: Fracture of distal phalanx of finger of right hand Patient Disposition: Home, Self-Care Instructions: Finger Fracture (ED) Additional Instructions: Complete the entire course of antibiotics as prescribed. Leave the finger splint in place. You can take ibuprofen 200 mg, 3 tablets (600mg) every 6-8 hours as needed for pain, in addition to Tylenol 500 mg, 2 tablets (1,000mg) every 4-6 hours as needed for pain, but not to exceed 3 doses daily (3,000mg).? Follow-up with orthopedics Prescriptions: New cephalexin 500 mg capsule 500 mg PO QID Qty: 27 0RF No Action levothyroxine 125 mcg tablet 125 mcg PO DAILY Qty: 30 5RF cyanocobalamin (vitamin B-12) 1,000 mcg tablet 1,000 mcg PO QAM (DME) blood pressure test kit-large Kit See Rx Instructions .ROUTE QAM Qty: 1 Rx Instructions: As directed aspirin 81 mg tablet,delayed release (DR/EC) 81 mg PO DAILY acetaminophen 500 mg tablet 500 mg PO Q6H PRN (Reason: Pain) omeprazole 20 mg capsule,delayed release(DR/EC) 20 mg PO DAILY 30 Days Qty: 30 5RF docusate sodium [Colace] 100 mg capsule 200 mg PO BEDTIME Qty: 60 5RF hydrocortisone [Proctosol HC] 2.5 % cream with perineal applicator 1 appl [place] BEDTIME PRN (Reason: hemorrhoids) Qty: 30 3RF fluticasone propionate 50 mcg/actuation spray,suspension 1 - 2 spray intranasal DAILY PRN (Reason: Runny Nose) Deep Sea Nasal 0.65 % aerosol,spray 1 spray intranasal Reguloid (psyllium husk-sucro) 3 gram/12 gram powder PO ascorbic acid (vitamin C) 250 mg tablet 250 mg PO QAM docusate sodium [Colace] 100 mg capsule 200 mg PO BEDTIME 30 Days Qty: 60 5RF Metamucil 3.4 gram/5.4 gram powder 1 tbsp PO DAILY Qty: 660 4RF Rx Instructions: mix into at least 8 oz of water or juice before administering Referrals: Ella Wagner PA-C [Physician Wireless Sales Representative] - ( comminuted right 3rd distal phalanx fracture) Print Language: Bots[place]an
--- NOTE | 2023-07-26 09:27 | PC.NURSE ---
Provider to bedside for primary eval.
[2023-07-26 10:02] VITALS: BP 135/82; PULSE 61; TEMP 36.7; O2SAT 98
--- NOTE | 2023-07-26 10:17 | PC.NURSE ---
Lina UTD 11/30/20
[2023-07-26 10:29] VITALS: BP 135/82; PULSE 61; RESP 16; TEMP 36.7; O2SAT 98
== END 2023-07-26 10:30 | disposition home or self-care (01) ==
PROVIDERS: Emergency Provider Student in an Organized Health Care Education/Training Program
DX: S62.632A Displaced fracture of distal phalanx of right middle finger, initial encounter for closed fracture (principal); M79.641 Pain in right hand; Y29.XXXA Contact with blunt object, undetermined intent, initial encounter; Y93.9 Activity, unspecified; Y92.9 Unspecified place or not applicable; Y99.8 Other external cause status
CPT/HCPCS: 29130; 73140; 99283; 99284

== ENCOUNTER 2023-07-31 08:24 | Outpatient (AMB) | payer OTHER, SELFPAY ==
--- NOTE | 2023-07-31 08:28 | A.OFFVIS_ITS ---
Vital Signs 07/31/23 08:32 Height 5 ft 4 in Weight 143 lb BMI 24.5 Intake Visit Reasons: Fracture of distal phalanx of finger of right hand Intake Note: Shruti a 58 year old female who presents today as a new patient for an evaluation of right hand 3rd digit fracture, DOI 07/26/23. Patient reports that her finger was closed in a car door causing a laceration to her finger. She presented to [facility] same day where xrays were taken, a finger splint was applied and referred to orthopedics. Currently she has a burning sensation and tenderness on her finger. States numbness and tingling at the tip of her finger. She continues taking antibiotics as prescribed. 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 She was seen at ER the same day where x-rays were performed, placed in a finger splint, and she was referred to our office. She currently states she has burning sensation and tenderness in her finger. She also c/o occasional numbness and tingling at the tip of her fingers. She continues to take antibiotics as instructed. [facility] Medical History Thyroid disease Arthritis Aneurysm Surgical History History of esophagogastroduodenoscopy (EGD) S/P excision of lipoma (06/21/22) Hx of colonoscopy History of tubal ligation Family History Mother Colon cancer Father Heart attack Family/Other Pancreatic cancer, Onset Age: 50 Sister Uterine cancer Other Family history of thyroid problem Social History Household Members: Spouse and Family Household Members Other:: spouse, son Housing: House Alcohol intake: current Alcohol intake frequency: does not drink Patient Tobacco Use Status: Never used Tobacco 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 Sexual orientation: Straight/Heterosexual Gender identity: Female Female Reproductive History Menstrual Age of Menarche: 15 Review of Systems Const All systems reviewed & are unremarkable except as noted in HPI and below Physical Exam Vital Signs: BMI result Body Mass Index 24.5 Const General: cooperative, healthy appearing, comfortable, no acute distress, well developed and alert Orientation/consciousness: patient oriented x3 HEENT Head: Yes normal to inspection, Yes normocephalic and Yes atraumatic Eyes General: appearance normal, both eyes and all related structures Resp Effort & Inspection: normal respiratory effort and able to speak in complete sentences Cardio Rate: regular rate Peripheral pulses: Peripheral pulses 2+ throughout GI Palpation (GI): Soft to palpation Skin Lesions: no lesions Rashes: no rashes Neuro General: patient oriented x3 Extrem Other: Right middle finger: Normal to inspection. She does have an abrasion at the base of nail. No purulent drainage. She has a laceration on the volar aspect of the finger over the distal phalanx. This laceration is sealed. No drainage. NVI throughout. Office Procedures Fracture Care Fracture Billing Code: Fracture Billing Code Results Reviewed Results Reviewed: XR finger RT min 2V 07/26/23 IMPRESSION: Fracture of the distal phalanx of the third digit. Assessment & Plan Assessment & Plan (1) Fracture of distal phalanx of finger of right hand: Code(s): S62.639A - Displaced fracture of distal phalanx of unspecified finger, initial encounter for closed fracture Category: Medical Plan Dressing was changed today and antibiotics ointment was placed in the office today. She was placed in a small finger splint to avoid any impact on her small finger. She will perform dressing changes twice a day with abx ointment and dry dressing. She will also work on ROM exercises at home which were demonstrated in the office today and remain out of work for 3 weeks. She will see me back in 7- 10 days for a wound check, sooner if needed. Patient Instructions: Scribed for Ella Wagner PA-C, by Yuan Cummings medical aide, on 07/31/2023 at 8:30 AM EST.? I, Ella Wagner PA-C, have personally reviewed and agree with the information entered by the scribe. Coding Level of Care Code New Pt Level 3 (44290) Diagnoses Fracture of distal phalanx of finger of right hand S62.639A CPT Codes Fracture Care - Fracture Billing Code: Fracture Billing Code ([id number])
[2023-07-31 08:32] VITALS: BMI 24.5
== END 2023-07-31 09:25 | disposition home or self-care (01) ==
PROVIDERS: Visit Provider Physician Assistant
DX: S62.632A Displaced fracture of distal phalanx of right middle finger, initial encounter for closed fracture (principal)
CPT/HCPCS: 99213

== ENCOUNTER → 2023-07-31 08:24 | Outpatient (BNVA) | payer OTHER, SELFPAY | PROVIDERS: Visit Provider Physician Assistant | DX: S62.632A Displaced fracture of distal phalanx of right middle finger, initial encounter for closed fracture (principal) | CPT/HCPCS: 99212 ==

== ENCOUNTER 2023-08-13 09:03 | Outpatient (AMB) | payer OTHER, SELFPAY ==
--- NOTE | 2023-08-13 09:13 | MHC.OFFVIS ---
Vital Signs 08/13/23 09:18 Height 5 ft 4 in Weight 143 lb BMI 24.5 Intake Visit Reasons: OV-f.u Rt hand middle finger fx w laceration Intake Note: Shruti a 58 year old female who presents today with her son for a follow up of right hand 3rd digit fracture, DOI 07/26/23. Patient reports that her pain has improved, states discomfort with accidentally bumping her finger. She continues to do dressing changes twice a day. She has complete antibiotics as prescribed. Patient declined acid tester services and requested for her son to interpret for today's visit. Dried Yeast Supervisor Required: Yes Dried Yeast Supervisor Name: Yanett ID#[id number] Allergies No Known Allergies Allergy (Verified 08/13/23 09:23) HPI HPI OV-f.u Rt hand middle finger fx w laceration: Details: 58-year-old female who returns to the office today with her son for a follow-up of right middle finger fracture, 07/26/23. She states she has improvement in her pain however she does experience discomfort as she accidentally bumped her finger. She continues to do dressing changes twice a day. She is completed with her antibiotics regimen as instructed. She has no other concerns today. COUNTS INCLUDE 234 BEDS AT THE [facility] Medical History Thyroid disease Arthritis Aneurysm Surgical History History of esophagogastroduodenoscopy (EGD) S/P excision of lipoma (06/21/22) Hx of colonoscopy History of tubal ligation Family History Mother Colon cancer Father Heart attack Family/Other Pancreatic cancer, Onset Age: 50 Sister Uterine cancer Other Family history of thyroid problem Social History Household Members: Spouse and Family Household Members Other:: spouse, son Housing: House Alcohol intake: current Alcohol intake frequency: does not drink Patient Tobacco Use Status: Never used Tobacco 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 Sexual orientation: Straight/Heterosexual Gender identity: Female Female Reproductive History Menstrual Age of Menarche: 15 Review of Systems Const All systems reviewed & are unremarkable except as noted in HPI and below Physical Exam Vital Signs: BMI result Body Mass Index 24.5 Const General: cooperative, healthy appearing, comfortable, no acute distress, well developed and alert Orientation/consciousness: patient oriented x3 HEENT Head: Yes normal to inspection, Yes normocephalic and Yes atraumatic Eyes General: appearance normal, both eyes and all related structures Resp Effort & Inspection: normal respiratory effort and able to speak in complete sentences Cardio Rate: regular rate Peripheral pulses: Peripheral pulses 2+ throughout GI Palpation (GI): Soft to palpation Skin Lesions: no lesions Rashes: no rashes Neuro General: patient oriented x3 Extrem Other: Right middle finger: Normal to inspection. She does have an abrasion at the base of nail. No purulent drainage. She has a laceration on the volar aspect of the finger over the distal phalanx which is healing. No drainage. NVI throughout. Assessment & Plan Assessment & Plan (1) Fracture of distal phalanx of finger of right hand: Code(s): S62.639A - Displaced fracture of distal phalanx of unspecified finger, initial encounter for closed fracture Category: Medical Plan She will discontinue daily dressing changes as the laceration has healed up. There is some scabbing just below the fingernail. She has no drainage. She should wash the area with warm soapy water but avoid submerging into it. She will continue working on ROM and see me back in 2-3 weeks for a follow-up, sooner if needed. Patient Instructions: Scribed for Ella Wagner PA-C, by Yuan Cummings medical claims specialist, on 08/13/2023 at 9:15 AM EST.? I, Ella Wagner PA-C, have personally reviewed and agree with the information entered by the scribe. Coding Level of Care Code Global (98046) Diagnoses Fracture of distal phalanx of finger of right hand S62.639A
[2023-08-13 09:18] VITALS: BMI 24.5
== END 2023-08-13 09:28 | disposition home or self-care (01) ==
PROVIDERS: Visit Provider Physician Assistant
DX: S62.632A Displaced fracture of distal phalanx of right middle finger, initial encounter for closed fracture (principal); Z48.89 Encounter for other specified surgical aftercare
CPT/HCPCS: 99213

== ENCOUNTER → 2023-08-13 09:03 | Outpatient (BNVA) | payer OTHER, SELFPAY | PROVIDERS: Visit Provider Physician Assistant | DX: S62.632A Displaced fracture of distal phalanx of right middle finger, initial encounter for closed fracture (principal); W22.8XXA Striking against or struck by other objects, initial encounter; Y93.9 Activity, unspecified; Y92.9 Unspecified place or not applicable; Y99.9 Unspecified external cause status | CPT/HCPCS: 99212 ==

== ENCOUNTER 2023-08-28 06:57 | Outpatient (REF) | payer OTHER, SELFPAY ==
--- NOTE | ~2023-08-28 | XR_ITS ---
EXAMINATION: XR HAND, RIGHT CLINICAL INFORMATION: Pain in right hands, middle finger tuft fracture. COMPARISON: 07/26/2023. TECHNIQUE: Three views of the right hand. FINDINGS: Redemonstration of a mildly displaced, comminuted fracture of the distal phalanx of the third digit with surrounding soft tissue swelling. Fracture lines are slightly less conspicuous suggesting some mild interval bridging callus formation. Fracture line is still visible. XR/XR hand RT min 3V IMPRESSION: Redemonstration of a mildly displaced, comminuted fracture of the distal phalanx of the third digit with surrounding soft tissue swelling. Fracture lines are slightly less conspicuous suggesting some mild interval bridging callus formation. Fracture line is still visible.
== END 2023-08-28 06:58 | disposition home or self-care (01) ==
LOC: HO.HOSX 06:57
PROVIDERS: Visit Provider Physician Assistant
DX: S62.632D Displaced fracture of distal phalanx of right middle finger, subsequent encounter for fracture with routine healing (principal)
CPT/HCPCS: 73130; 99212

== ENCOUNTER 2023-08-28 13:29 | Outpatient (AMB) | payer OTHER, SELFPAY ==
--- NOTE | 2023-08-28 13:46 | MHC.OFFVIS ---
Intake Visit Reasons: O/V Rt hand middle finger fx 07/26/23 Intake Note: Shruti a 58 year old female who presents today for a follow up of right hand, 3rd digit fracture, DOI 07/26/23. Patient reports she is doing well, states some discomfort with accidentally bumping her finger. She will have numbness and tingling at the tip of her finger. States improvement in her ROM. Allergies No Known Allergies Allergy (Verified 08/28/23 13:51) HPI HPI O/V Rt hand middle finger fx 07/26/23: Details: 58-year-old female who returns to the office today with an tobacco stripping machine operator for a follow-up of right middle finger fracture, 07/26/23. She states she has improvement in her ROM however she does have mild discomfort with accidentally bumping her finger. She also experiences numbness and tingling at the tip of her finger. [facility] Medical History Thyroid disease Arthritis Aneurysm Surgical History History of esophagogastroduodenoscopy (EGD) S/P excision of lipoma (06/21/22) Hx of colonoscopy History of tubal ligation Family History Mother Colon cancer Father Heart attack Family/Other Pancreatic cancer, Onset Age: 50 Sister Uterine cancer Other Family history of thyroid problem Social History Household Members: Spouse and Family Household Members Other:: spouse, son Housing: House Alcohol intake: current Alcohol intake frequency: does not drink Patient Tobacco Use Status: Never used Tobacco 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 Sexual orientation: Straight/Heterosexual Gender identity: Female Female Reproductive History Menstrual Age of Menarche: 15 Review of Systems Const All systems reviewed & are unremarkable except as noted in HPI and below Physical Exam Const General: cooperative, healthy appearing, comfortable, no acute distress, well developed and alert Orientation/consciousness: patient oriented x3 HEENT Head: Yes normal to inspection, Yes normocephalic and Yes atraumatic Eyes General: appearance normal, both eyes and all related structures Resp Effort & Inspection: normal respiratory effort and able to speak in complete sentences Cardio Rate: regular rate Peripheral pulses: Peripheral pulses 2+ throughout GI Palpation (GI): Soft to palpation Skin Lesions: no lesions Rashes: no rashes Neuro General: patient oriented x3 Extrem Other: Right middle finger: Normal to inspection. She does have an abrasion at the base of nail. No purulent drainage. She has a laceration on the volar aspect of the finger over the distal phalanx which is healing. No drainage. NVI throughout. Results Reviewed Results Reviewed: Xrays were obtained in the office today and personally reviewed by me of the right hand Fracture of the distal phalanx of the third digit. Assessment & Plan Assessment & Plan (1) Fracture of distal phalanx of finger of right hand: Code(s): S62.639A - Displaced fracture of distal phalanx of unspecified finger, initial encounter for closed fracture Category: Medical Plan She will continue with her ROM and keep the finger clean and dry. I did explain that her nail will grow off as it heals. If symptoms persist or worsen, patient will contact the office, otherwise follow-up as needed. Orders: Orders XR hand RT min 3V Today M79.641 - Pain in right hand Patient Instructions: Scribed for Ella Wagner PA-C, by Yuan Cummings medical coding auditor, on 08/28/2023 at 1:45 PM EST.? I, Ella Wagner PA-C, have personally reviewed and agree with the information entered by the scribe. Coding Level of Care Code Global (44780) Diagnoses Fracture of distal phalanx of finger of right hand S62.639A
== END 2023-08-28 14:43 | disposition home or self-care (01) ==
PROVIDERS: Visit Provider Physician Assistant
DX: S62.639A Displaced fracture of distal phalanx of unspecified finger, initial encounter for closed fracture (principal)
CPT/HCPCS: 99213

== ENCOUNTER 2023-08-29 14:42 | Outpatient (REF) | payer OTHER, SELFPAY ==
--- NOTE | ~2023-08-29 | XR_ITS ---
EXAMINATION: XR KNEE, RIGHT XR KNEE, BILATERAL AP STANDING INFORMATION: Right knee unilateral primary osteoarthritis. COMPARISON: Prior radiographs dated 08/24/2021. TECHNIQUE: Lateral and axial views of the right knee are submitted. An AP standing view of the bilateral knees is submitted. FINDINGS: No fracture or joint effusion. Alignment is anatomic. Joint spaces are maintained bilaterally. No abnormal soft tissue calcification. XR/XR knee RT 3V IMPRESSION: Normal right knee and AP standing bilateral knee radiographs.
== END 2023-08-29 14:43 | disposition home or self-care (01) ==
LOC: HO.HOSX 14:42
PROVIDERS: Visit Provider Physician Assistant
DX: M17.11 Unilateral primary osteoarthritis, right knee (principal)
CPT/HCPCS: 73562; 99212

== ENCOUNTER 2023-08-29 15:06 | Outpatient (AMB) | payer OTHER, SELFPAY ==
--- NOTE | 2023-08-29 15:22 | A.OFFVIS_ITS ---
Vital Signs 08/29/23 15:23 Height 5 ft 4 in Weight 143 lb BMI 24.5 Intake Visit Reasons: New Problem right knee O.A pain Intake Note: Shruti is a 58 year old female who presents today with her son for a new Problem visit with complaints of right knee pain. Patient reports her right knee pain has been on and off for about 4 year. She was seen years ago [facility] and was told she may need surgery. About 15 days ago she states she noticed her pain return in the posterior and medial aspect of her knee with sensitivity when palpitated. During the day her pain is not as severe but as the day goes on her pain worsens. She is beginning to experience discomfort in her left knee since that is the side she is bearing most of her weight on now due to her right knee pain. She has tried PT and temporary relief. She does at home exercises and finds mild relief in the moment but as soon as she begins to ambulate or stand she immediately feels pain again. She has a history of 3 cortisone injections in [facility]. She states the injections gave her about 3 to 4 months of relief. Accompanied by: Son Allergies No Known Allergies Allergy (Verified 08/29/23 15:31) Medication List - Last Reconciled 08/29/23 by Ella Wagner PA-C acetaminophen 500 mg PO Q6H PRN aspirin 81 mg PO DAILY blood pressure test kit-large As directed cyanocobalamin (vitamin B-12) 1,000 mcg PO QAM fluticasone propionate 50 mcg/actuation 1 - 2 sprays intranasal DAILY PRN hydrocortisone 2.5% (Proctosol HC) 1 appl [place] BEDTIME PRN levothyroxine 125 mcg PO DAILY omeprazole 20 mg PO DAILY 30 days psyllium husk (Metamucil) 1 tbsp PO DAILY sodium chloride 0.65% (Deep Sea Nasal) 1 spray intranasal HPI HPI New Problem right knee O.A pain : Details: 58-year-old female who presents to the office today with her son for an evaluation of right knee pain for 4 years. She was seen at [facility] years ago where she was suggested a surgery. She also had 3 cortisone injection at [facility] about 2 years ago that provided her relief for 3 months. She reports her pain returned about 15 days ago at the posterior aspect and medial aspect of her knee with sensitivity when palpated. Her pain is aggravated at night and she hears clicking with ambulation. She denies any sharp pain with twisting. She also states she has discomfort in her left knee as she is overcompensating for her right knee. She has tried physical therapy with transient relief. She is working on home exercises with mild relief however her pain returns when she begins to ambulate. She has not had any injury in the past. She does not have a history of diabetes. [facility] Medical History Thyroid disease Arthritis Aneurysm Surgical History History of esophagogastroduodenoscopy (EGD) S/P excision of lipoma (06/21/22) Hx of colonoscopy History of tubal ligation Family History Mother Colon cancer Father Heart attack Family/Other Pancreatic cancer, Onset Age: 50 Sister Uterine cancer Other Family history of thyroid problem Social History Household Members: Spouse and Family Household Members Other:: spouse, son Housing: House Alcohol intake: current Alcohol intake frequency: does not drink Patient Tobacco Use Status: Never used Tobacco 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 Tenderness along the medial and lateral joint line. Full ROM with crepitus. Positive Nathanael?s. No ligamentous laxity. NVI. ? Office Procedures Joint Injection/Drain Joint Injection/Drain Details: injection not given Coding Procedure code (CPT) selection complete Results Reviewed Results Reviewed: Xrays were obtained in the office today and personally reviewed by me of the right knee show mild oa Assessment & Plan Assessment & Plan (1) Fracture of distal phalanx of finger of right hand: Code(s): S62.639A - Displaced fracture of distal phalanx of unspecified finger, initial encounter for closed fracture Category: Medical Plan An MRI of the right knee has been ordered to further evaluate etiology of her pain. She was also given a genumed knee brace which she will wear for support. She will see us back once the scan is complete. She is content with this plan. Orders: Orders XR knee RT 3V 08/29/23 M17.11 - Unilateral primary osteoarthritis, right knee MR knee RT wo con 08/29/23 M17.11 - Unilateral primary osteoarthritis, right knee Patient Instructions: Scribed for Ella Wagner PA-C, by Yuan Cummigns medical scientific officer, on 08/29/2023 at 3:15 PM EST.? I, Ella Wagner PA-C, have personally reviewed and agree with the information entered by the scribe. Coding Level of Care Code Est Pt Level 3 (76417) Diagnoses Fracture of distal phalanx of finger of right hand S62.639A
[2023-08-29 15:23] VITALS: BMI 24.5
== END 2023-08-29 16:09 | disposition home or self-care (01) ==
PROVIDERS: Visit Provider Physician Assistant
DX: M17.11 Unilateral primary osteoarthritis, right knee (principal)
CPT/HCPCS: 99214

== ENCOUNTER 2023-09-06 12:14 | Outpatient (REF) | payer OTHER, SELFPAY ==
--- NOTE | ~2023-09-06 | XR_ITS ---
EXAMINATION: Skull x-ray CLINICAL INFORMATION: MRI screening COMPARISON: None. TECHNIQUE: 2 views of the skull FINDINGS: There are 2 stents and embolization coil seen in the suprasellar region. Correlation with operative note prior to MRI recommended. No other foreign body seen. No fracture. Visualized paranasal sinuses are clear. XR/XR pre mri screening IMPRESSION: 2 stents and embolization coil in the central suprasellar region. Correlation with operative note recommended.
== END 2023-09-06 12:15 | disposition home or self-care (01) ==
LOC: HO.XRAY 12:14
PROVIDERS: PCP Student in an Organized Health Care Education/Training Program; Visit Provider Internal Medicine
DX: Z13.89 Encounter for screening for other disorder (principal)

== ENCOUNTER 2023-09-30 12:44 | Outpatient (REF) | payer OTHER, SELFPAY ==
--- NOTE | ~2023-09-30 | MR_ITS ---
EXAMINATION: MR KNEE WITHOUT CONTRAST, RIGHT CLINICAL INFORMATION: Right knee pain, osteoarthritis. COMPARISON: MRI 10/01/2019 TECHNIQUE: MRI of the knee without contrast was performed using routine sequences on a high-field scanner. FINDINGS: MENISCI: Medial Meniscus: Chronic high-grade partial tearing of the posterior horn which is diminutive, including the meniscal root, with extrusion of the meniscal body. Lateral Meniscus: Intact LIGAMENTS: Cruciate: Intact Collateral: Intact EXTENSOR MECHANISM: Intact ARTICULAR CARTILAGE/BONE: Patellofemoral Compartment: Cartilage thinning and surface irregularity including areas of full-thickness loss, throughout the lateral patellar facet, central and lateral trochlea which has progressed. Medial Compartment: Cartilage thinning and surface irregularity throughout the weight-bearing aspect and marginal osteophytes. Lateral Compartment: Mild cartilage irregularity of the posterior nonweight-bearing aspect of the femoral condyle and focal cartilage thinning of the posterior weight-bearing femoral condyle, similar to previous. JOINT FLUID AND BURSAE: No significant joint effusion. MR/MR knee RT wo con IMPRESSION: 1. 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 2. Moderate-severe patellofemoral, moderate medial, and mild lateral compartment osteoarthritis has progressed. No significant joint effusion.
== END 2023-09-30 12:45 | disposition home or self-care (01) ==
LOC: HO.MRI 12:44
PROVIDERS: PCP Student in an Organized Health Care Education/Training Program; Visit Provider Physician Assistant
DX: M17.11 Unilateral primary osteoarthritis, right knee (principal)
CPT/HCPCS: 73721

== ENCOUNTER 2023-10-04 08:11 | Outpatient (AMB) | payer OTHER, SELFPAY ==
--- NOTE | 2023-10-04 08:12 | MHC.OFFVIS ---
Intake Visit Reasons: OV- MRI RT knee review Intake Note: Shruti is a 58 year old female who presents to the office today for a MRI review of her right knee. Check Grader Required: Yes Check Grader Language: Marketing Communications Leader Name: Micheline [id number] Allergies No Known Allergies Allergy (Verified 10/04/23 08:13) Medication List - Last Reconciled 10/04/23 by Ella Wagner PA-C acetaminophen 500 mg PO Q6H PRN aspirin 81 mg PO DAILY blood pressure test kit-large As directed cyanocobalamin (vitamin B-12) 1,000 mcg PO QAM fluticasone propionate 50 mcg/actuation 1 - 2 sprays intranasal DAILY PRN hydrocortisone 2.5% (Proctosol HC) 1 appl [place] BEDTIME PRN levothyroxine 125 mcg PO DAILY omeprazole 20 mg PO DAILY 30 days psyllium husk (Metamucil) 1 tbsp PO DAILY sodium chloride 0.65% (Deep Sea Nasal) 1 spray intranasal HPI HPI OV- MRI RT knee review : Details: 58-year-old female who returns to the office today for an MRI review of right knee. She currently states she has pain at the posterior aspect of her knee that radiates down to her leg. She has done physical therapy in the past and continues to work on exercises at home. [facility] Medical History Thyroid disease Arthritis Aneurysm Surgical History History of esophagogastroduodenoscopy (EGD) S/P excision of lipoma (06/21/22) Hx of colonoscopy History of tubal ligation Family History Mother Colon cancer Father Heart attack Family/Other Pancreatic cancer, Onset Age: 50 Sister Uterine cancer Other Family history of thyroid problem Social History Household Members: Spouse and Family Household Members Other:: spouse, son Housing: House Alcohol intake: current Alcohol intake frequency: does not drink Patient Tobacco Use Status: Never used Tobacco 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 Tenderness along the medial and lateral joint line. Full ROM with crepitus. Positive Nathanael?s. No ligamentous laxity. NVI. ? Assessment & Plan Assessment & Plan (1) Osteoarthritis of right knee: Code(s): M17.11 - Unilateral primary osteoarthritis, right knee Category: Medical Plan We discussed her MRI findings today which is consistent with OA and possibly some meniscus pathology. She continues to feel as though it is giving way and pain with palpation on the medial joint line which may lead me to question if she would benefit from a knee arthroscopy. She also denied cortisone injection today. I will talk about this with Dr. Donahue and discuss her treatment options. Patient Instructions: Scribed for Ella Wagner PA-C, by Yuan Cummings medical assembler, on 10/04/2023 at 8:00 AM EST.? I, Ella Wagner PA-C, have personally reviewed and agree with the information entered by the scribe. Coding Level of Care Code Est Pt Level 3 (69089) Diagnoses Osteoarthritis of right knee M17.11
== END 2023-10-04 08:46 | disposition home or self-care (01) ==
PROVIDERS: PCP Student in an Organized Health Care Education/Training Program; Visit Provider Physician Assistant
DX: M17.11 Unilateral primary osteoarthritis, right knee (principal)
CPT/HCPCS: 99213

== ENCOUNTER → 2023-10-04 08:11 | Outpatient (BNVA) | payer OTHER, SELFPAY | PROVIDERS: PCP Student in an Organized Health Care Education/Training Program; Visit Provider Physician Assistant | DX: M17.11 Unilateral primary osteoarthritis, right knee (principal) | CPT/HCPCS: 99212 ==

== ENCOUNTER 2023-10-22 10:44 | Outpatient (REF) | payer OTHER, SELFPAY ==
--- NOTE | ~2023-10-22 | XR_ITS ---
Exam: Lumbar spine and SI series INDICATION: Evaluate for SI arthropathy and disc space loss COMPARISON: None TECHNIQUE: 3 view lumbar spine, three-view SI series FINDINGS: Lumbar spine: Levoscoliosis. 5 lumbar type vertebral bodies are maintained in height. Disc spaces are preserved. Pedicles are intact. SI series: Bony pelvis is intact. SI joints within normal limits. No significant hip joint narrowings. Phleboliths. XR/XR sacroiliac joint 1-2V IMPRESSION: 1. Levoscoliosis. 2. Unremarkable SI joints. 3. No acute bony pathology lumbar spine. Electronically signed by: Mela Bailey MD 11/19/2023 10:03 AM EDT
--- NOTE | ~2023-10-22 | XR_ITS ---
Exam: Lumbar spine and SI series INDICATION: Evaluate for SI arthropathy and disc space loss COMPARISON: None TECHNIQUE: 3 view lumbar spine, three-view SI series FINDINGS: Lumbar spine: Levoscoliosis. 5 lumbar type vertebral bodies are maintained in height. Disc spaces are preserved. Pedicles are intact. SI series: Bony pelvis is intact. SI joints within normal limits. No significant hip joint narrowings. Phleboliths. XR/XR lumbar spine 2-3V IMPRESSION: 1. Levoscoliosis. 2. Unremarkable SI joints. 3. No acute bony pathology lumbar spine. Electronically signed by: Mela Bailey MD 11/19/2023 10:03 AM EDT
== END 2023-10-22 10:45 | disposition home or self-care (01) ==
LOC: HO.HOSX 10:44
PROVIDERS: PCP Student in an Organized Health Care Education/Training Program; Visit Provider Physical Medicine & Rehabilitation
DX: M53.3 Sacrococcygeal disorders, not elsewhere classified (principal); M79.18 Myalgia, other site; M54.50 Low back pain, unspecified; G89.29 Other chronic pain
CPT/HCPCS: 72100; 72200; 99202

== ENCOUNTER 2023-10-22 10:44 | Outpatient (AMB) | payer OTHER, SELFPAY ==
--- NOTE | 2023-10-22 10:53 | MHC.OFFVIS ---
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 Referring provider unknown. Pt states that she has had ongoing lower back pain for about 3 years now, the pain radiates down both of her legs but is not affecting her arms. She has history of injections in her lower back about 2 years ago which was done at [facility] with pain mgmt. These injections were very helpful, but her pain has recently returned about 2 months ago. When the pain returned she intially felt it in her neck which made it difficult to look side to side and cause headaches. She has not had a follow up visit with Pain Mgmt. When she wakes up she feels good but her pain progresses through the day with acitivties. She takes tylenol for her pain which only helps mildly. 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 She had medial branch blocks lumbar which was reported did not have been successful/no relief. Patient says that it actually helped her for the last 2 years. Pain was tolerable, recurrent. 2 months ago, started having pain again neck pain, lateral, posterior headache, then has started affecting lower back as well. Usually worse at the end of the day. Does not radiate to arms. Radiates to both calves/back of the knee. Tingling but not numb on feet. No inciting injuries. No PT. But does her own exercises at home taught by PT in the past. [facility] Medical History Thyroid disease Arthritis Aneurysm Surgical History History of esophagogastroduodenoscopy (EGD) S/P excision of lipoma (06/21/22) Hx of colonoscopy History of tubal ligation Family History Mother Colon cancer Father Heart attack Family/Other Pancreatic cancer, Onset Age: 50 Sister Uterine cancer Other Family history of thyroid problem Social History Household Members: Spouse and Family Household Members Other:: spouse, son Housing: House Alcohol intake: current Alcohol intake frequency: does not drink Patient Tobacco Use Status: Never used Tobacco 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 Patient was appropriately conversant and oriented. Good historian. MSK: No specific abnormalities found on inspection of the spine and all extremities. Tender on bilateral upper trapezius. Tender on bilateral SI joints. Lumbar ROM was full. Bilateral hip, knee and ankle ROM WNL. No ligamentous laxity or crepitance. No increased effusion. Straight-leg raising test negative. FABERE test negative. Strength is 5/5 in all muscle groups tested. No increased tone noted. Neurological: Neurologic examination of the upper and lower extremities was nonfocal with intact sensation, muscle stretch reflexes and without focal motor deficits . Bauman?s negative bilaterally. Babinski was down going bilaterally. Clonus was negative. Gait is non-antalgic without loss of balance. Results Reviewed Results Reviewed: MRI results obtained from pain management notes: MRI [facility] 10/26/2020. Findings: This study assumes 5 vyd-zvz-nluoavn lumbar-type vertebral bodies. Alignment is preserved. Vertebral bodies heights are maintained. Marrow signal is mildly heterogenous with no suspicious signal abnormality. T1 and T2 hyperintense focus in the L5 vertebral body is compatible with hemangioma. Intervertebral disc spaces are desiccated between L3 and S1. Disc spaces are fairly well preserved. The conus demonstrates normal signal and caliber with normal termination at L1. Findings by levels: T12-L1, L1-L2, L2-L3: No significant disc herniation central stenosis or neural foraminal narrowing L3-L4 minimal broad-based disc bulge. No significant central stenosis or neural foraminal narrowing. L4-5 mild broad-based posterior disc bulge with small central protrusion and annular fissure with mild facet arthropathy minimal narrowing of the subarticular recesses without nerve root compression. Otherwise no significant central stenosis mild bilateral neural foraminal narrowing. L5-S1 mild broad-based disc bulge along with bilateral facet hypertrophy no significant central stenosis minimal right and moderate left neural foraminal narrowing with facet spurs contacting the exiting left L5 nerve roots without compression. I reviewed records from the following: Pain management Ortho Assessment & Plan Assessment & Plan (1) Sacroiliac joint dysfunction of both sides: Code(s): M53.3 - Sacrococcygeal disorders, not elsewhere classified Category: Medical (2) Myofascial pain: Code(s): M79.18 - Myalgia, other site Category: Medical (3) Chronic back pain: Code(s): M54.9 - Dorsalgia, unspecified; G89.29 - Other chronic pain Category: Medical Qualifiers: Back pain location: low back pain Back pain laterality: bilateral Sciatica presence: without sciatica Qualified Code(s): M54.50 - Low back pain, unspecified; G89.29 - Other chronic pain Plan Chronic recurrent back pain, which I think has component of myofascial and SI joint dysfunction. We talked about different options for injections, such as trigger point injections that I can do versus sending her back to pain management for more facet injections. Referring patient to PT for now. No recent imaging done. Lumbar x-rays and SI joint x-rays today. Assessment and plan discussed with patient, and patient was agreeable. All questions were answered thoroughly. Follow-up 4-6 weeks. Yari Camara MD, NATHALIE Board Certified, [place] [employer] and Rehabilitation (ABPMR) Board Certified, [place] Board [employer] Electrodiagn[employer] (ABEM) Orders: Orders XR lumbar spine 2-3V Today M54.9 - Dorsalgia, unspecified XR sacroiliac joint 1-2V Today M53.3 - Sacrococcygeal disorders, not elsewhere classified PT Evaluation and Treatment Today G89.29 - Other chronic pain, M53.3 - Sacrococcygeal disorders, not elsewhere classified, M54.9 - Dorsalgia, unspecified, M79.18 - Myalgia, other site Coding Level of Care Code New Pt Level 4 (24510) Diagnoses Sacroiliac joint dysfunction of both sides M53.3 Myofascial pain M79.18 Chronic bilateral low back pain without sciatica M54.50; G89.29 Back pain location: low back pain Back pain laterality: bilateral Sciatica presence: without sciatica
[2023-10-22 10:54] VITALS: BMI 24.5
== END 2023-10-22 11:44 | disposition home or self-care (01) ==
PROVIDERS: PCP Student in an Organized Health Care Education/Training Program; Visit Provider Physical Medicine & Rehabilitation
DX: M53.3 Sacrococcygeal disorders, not elsewhere classified (principal); M79.18 Myalgia, other site; M54.50 Low back pain, unspecified; G89.29 Other chronic pain
CPT/HCPCS: 99203

== ENCOUNTER 2023-10-28 14:24 | Outpatient (AMB) | payer OTHER, SELFPAY ==
--- NOTE | 2023-10-28 14:29 | A.OFFVIS_ITS ---
Vital Signs 10/28/23 14:30 Height 5 ft 4 in Weight 143 lb BMI 24.5 Intake Visit Reasons: OV-Rt knee pain, discuss sx Intake Note: Shruti is a 58 year old female who presents today for a follow up of her right knee pain s/p MRI per Ella Wagner Allergies No Known Allergies Allergy (Verified 10/22/23 11:01) HPI HPI OV-Rt knee pain, discuss sx: Details: Shruti is a 58 year old female who presents today for a follow up of her right knee pain s/p MRI per Ella Wagner. Steroid injections have not been helpful. She had an MRI and comes in today for review. She has medial sided knee pain but it is more at the end of day rather than acute with activity. [facility] Medical History Thyroid disease Arthritis Aneurysm Surgical History History of esophagogastroduodenoscopy (EGD) S/P excision of lipoma (06/21/22) Hx of colonoscopy History of tubal ligation Family History Mother Colon cancer Father Heart attack Family/Other Pancreatic cancer, Onset Age: 50 Sister Uterine cancer Other Family history of thyroid problem Social History Household Members: Spouse and Family Household Members Other:: spouse, son Housing: House Alcohol intake: current Alcohol intake frequency: does not drink Patient Tobacco Use Status: Never used Tobacco 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 MR/MR knee RT wo con IMPRESSION: 1. 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 2. Moderate-severe patellofemoral, moderate medial, and mild lateral compartment osteoarthritis has progressed. No significant joint effusion. Assessment & Plan Assessment & Plan (1) Osteoarthritis of right knee: Code(s): M17.11 - Unilateral primary osteoarthritis, right knee Category: Medical Plan: This is a 58-year-old woman with right knee osteoarthritis. We discussed arthroscopic treatment options but I think these would not benefit her. I think she may benefit from viscosupplementation and we made a decision to pursue this. I will get approval from her insurance and follow up accordingly. Coding Level of Care Code Est Pt Level 4 (63397) Diagnoses Osteoarthritis of right knee M17.11
[2023-10-28 14:30] VITALS: BMI 24.5
== END 2023-10-28 14:44 | disposition home or self-care (01) ==
PROVIDERS: PCP Student in an Organized Health Care Education/Training Program; Visit Provider Orthopaedic Surgery
DX: M17.11 Unilateral primary osteoarthritis, right knee (principal)
CPT/HCPCS: 99213

== ENCOUNTER → 2023-10-28 14:24 | Outpatient (BNVA) | payer OTHER, SELFPAY | PROVIDERS: PCP Student in an Organized Health Care Education/Training Program; Visit Provider Orthopaedic Surgery | DX: M17.11 Unilateral primary osteoarthritis, right knee (principal) | CPT/HCPCS: 99212 ==

== ENCOUNTER 2023-11-14 15:19 | Outpatient (REF) | payer OTHER, SELFPAY ==
[2023-11-14 18:00] LABS: Blood Urea Nitrogen 19 mg/dL (9-16); Estimated Glomerular Filt Rate > 60
== END 2023-11-14 15:20 | disposition home or self-care (01) ==
LOC: HO.LAB 15:19
PROVIDERS: PCP Student in an Organized Health Care Education/Training Program; Visit Provider Psychiatry & Neurology Neurology
DX: I67.1 Cerebral aneurysm, nonruptured (principal)
CPT/HCPCS: 36415; 82565; 84520

== ENCOUNTER 2023-11-21 06:12 | Outpatient (REF) | payer OTHER, SELFPAY ==
[2023-11-21 07:17] LABS: Hematocrit 39.4 % (37.0-47.0); Hemoglobin 12.4 g/dl (12.0-16.0); Mean Corpuscular HGB Conc 31.5 g/dl (31.0-35.0); Mean Corpuscular Hemoglobin 27.6 pg (27.0-33.0); Mean Corpuscular Volume 87.8 fL (80.0-98.0); Mean Platelet Volume 10.7 fL (9.4-12.3); Platelet Count 296 X10*3/uL (160-400); Red Blood Count 4.49 X10*6/uL (4.20-5.50); Red Cell Distribution Width 14.7 % (11.0-16.0); White Blood Count 4.2 X10*3/uL (4.8-10.8)
[2023-11-21 07:29] LABS: Estimated Average Glucose 100 mg/dL; Hemoglobin A1c % 5.1 % (<6.0)
[2023-11-21 07:54] LABS: Alanine Aminotransferase 13 U/L (0-31); Albumin Level 4.1 g/dL (3.5-5.0); Alkaline Phosphatase 61 U/L (39-117); Anion Gap 10 (12-20); Aspartate Amino Transferase 18 U/L (5-31); Bilirubin Total 0.4 mg/dL (0.0-1.0); Blood Urea Nitrogen 20 mg/dL (9-16); Calcium 9.3 mg/dL (8.4-10.2); Carbon Dioxide 27 mmol/L (22-29); Chloride 109 mmol/L (96-108); Cholesterol 158 mg/dL (<200); Estimated Glomerular Filt Rate > 60; Glucose Random 90 mg/dL (60-115); HDL Cholesterol 59 mg/dL (>40); Iron 47 mcg/dL (30-160); LDL Cholesterol Calculated 87 mg/dL (<100); Percent Iron Saturation 16 % (15-50); Potassium 3.8 mmol/L (3.3-5.1); Sodium 142 mmol/L (135-145); Total Iron Binding Capacity 287 mcg/dL (228-428); Total Protein 7.1 g/dL (6.5-8.0); Triglycerides 61 mg/dL (<150); Unsaturated Iron Binding 240 ug/dL
[2023-11-21 08:13] LABS: Ferritin 7 ng/mL (10-250); Free T4 (Free Thyroxine) 1.16 ng/dL (0.71-1.85); Thyroid Stimulating Hormone 0.27 uIU/mL (0.32-4.0)
[2023-11-21 08:18] LABS: Folate 12.5 ng/mL (> or = 4.0); Syphilis Screen Nonreactive (Nonreactive); Vitamin B12 362 pg/mL (200-900)
[2023-11-21 08:29] LABS: HBS Num1 4.92 mIU/mL (0-7.99); HBc Num1 0.08 S/CO (0.00-0.79); HBsAGNum1 0.21 S/CO (0.00-0.99); HIV AB/AG Nonreactive (Nonreactive); HIV Num 1 0.05 S/CO (0.00-0.99); Hepatitis B Core Antibody Nonreactive (Nonreactive); Hepatitis B Surface Antigen Negative (Negative); ~HepC Num1 0.11 S/CO (0.00-0.79); ~Hepatitis B Surface Antibody NONREACTIVE (Nonreactive); ~Hepatitis C Antibody Nonreactive (Nonreactive)
== END 2023-11-21 06:13 | disposition home or self-care (01) ==
LOC: HO.LAB 06:12
PROVIDERS: PCP Student in an Organized Health Care Education/Training Program; Visit Provider Student in an Organized Health Care Education/Training Program
DX: Z00.00 Encounter for general adult medical examination without abnormal findings (principal); M17.11 Unilateral primary osteoarthritis, right knee; M17.12 Unilateral primary osteoarthritis, left knee
CPT/HCPCS: 20610; 80053; 80061; 82607; 82728; 82746; 83036; 83540; 84439; 84443; 85027; 86704; 86706; 86780; 86803; 87340; 87389; 87491; 87591; 99212; J0665; J1100; J7323

== ENCOUNTER 2023-11-21 14:41 | Outpatient (AMB) | payer OTHER, SELFPAY ==
--- NOTE | 2023-11-21 14:55 | MHC.OFFVIS ---
Intake Visit Reasons: Inj- Right knee Euflexxa #1 Intake Note: Shruti is a 58 year old female who presents today for right knee Euflexxa #1, Patient reports that she is nervous for the gel injections. She is also asking about Gel injections for the left knee. She reports history of cortisone injections with another office which was not helpful. Has tried and failed at least 30 days of Tylenol and Ibuprofen, and at least 6 weeks of home exercise program. Allergies No Known Allergies Allergy (Verified 10/22/23 11:01) HPI HPI Inj- Right knee Euflexxa #1: Details: Shruti is a 58 year old female who presents today for right knee Euflexxa #1, Patient reports that she is nervous for the gel injections. She is also asking about Gel injections for the left knee. She reports history of cortisone injections with another office which was not helpful. Has tried and failed at least 30 days of Tylenol and Ibuprofen, and at least 6 weeks of home exercise program. [facility] Medical History Thyroid disease Arthritis Aneurysm Surgical History History of esophagogastroduodenoscopy (EGD) S/P excision of lipoma (06/21/22) Hx of colonoscopy History of tubal ligation Family History Mother Colon cancer Father Heart attack Family/Other Pancreatic cancer, Onset Age: 50 Sister Uterine cancer Other Family history of thyroid problem Social History Household Members: Spouse and Family Household Members Other:: spouse, son Housing: House Alcohol intake: current Alcohol intake frequency: does not drink Patient Tobacco Use Status: Never used Tobacco 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 Office Procedures Joint Injection/Aspiration Joint Injection/Aspiration Details: Right knee: Injected Euflexxa. Site was prepped using aseptic technique. Patient tolerated the procedure well. Left knee: Injected 1 mL of Decadron and 3 mL 1% lidocaine and 3 mL of 0.25% Marcaine. Site was prepped using aseptic technique. Patient tolerated the procedure well. Primary Site: right knee Secondary Site: left knee Approach Used: anterolateral Coding 57509 - Large joint 83118 - Glenohumeral/Tronchanteric Bursa/Intraarticular Procedure code (CPT) selection complete Assessment & Plan Assessment & Plan (1) Osteoarthritis of right knee: Code(s): M17.11 - Unilateral primary osteoarthritis, right knee Category: Medical Plan: I injected her right knee with Euflexxa / (2) Osteoarthritis of left knee: Code(s): M17.12 - Unilateral primary osteoarthritis, left knee Category: Medical Plan: I injected steroid cocktail into left knee. Coding Level of Care Code Est Pt Level 3 (96030) Diagnoses Osteoarthritis of right knee M17.11 Osteoarthritis of left knee M17.12 CPT Codes Coding - 08235 Large joint: 93556 - Large joint ([id number]) Coding - Joint 7: 71590 - Glenohumeral/Tronchanteric Bursa/Intraarticular ([id number])
== END 2023-11-21 16:00 ==
PROVIDERS: PCP Student in an Organized Health Care Education/Training Program; Visit Provider Orthopaedic Surgery
DX: M17.0 Bilateral primary osteoarthritis of knee (principal)
CPT/HCPCS: 20610; 99213

== ENCOUNTER 2023-11-26 13:22 | Outpatient (REF) | payer OTHER, SELFPAY ==
[2023-11-26 15:51] LABS: Free T4 (Free Thyroxine) 1.04 ng/dL (0.71-1.85); Thyroid Stimulating Hormone 0.28 uIU/mL (0.32-4.0)
== END 2023-11-26 13:23 | disposition home or self-care (01) ==
LOC: HO.LAB 13:22
PROVIDERS: PCP Student in an Organized Health Care Education/Training Program; Visit Provider Student in an Organized Health Care Education/Training Program
DX: E03.9 Hypothyroidism, unspecified (principal)
CPT/HCPCS: 36415; 84439; 84443

== ENCOUNTER 2023-11-29 11:19 | Outpatient (AMB) | payer OTHER, SELFPAY ==
--- NOTE | 2023-11-29 11:25 | A.OFFVIS_ITS ---
Intake Visit Reasons: Inj- Right knee Euflexxa #2 Intake Note: Shruti is a 58 year old female who presents today for her Right Knee Euflexxa Injection #2 Humanities Division Chair Services: Humanities Division Chair Present Humanities Division Chair Name: Son Allergies No Known Allergies Allergy (Verified 11/29/23 11:29) HPI HPI Inj- Right knee Euflexxa #2: Details: Shruti is a 58 year old female who presents today for her Right Knee Euflexxa Injection #2 PFSH Medical History Thyroid disease Arthritis Aneurysm Surgical History History of esophagogastroduodenoscopy (EGD) S/P excision of lipoma (06/21/22) Hx of colonoscopy History of tubal ligation Family History Mother Colon cancer Father Heart attack Family/Other Pancreatic cancer, Onset Age: 50 Sister Uterine cancer Other Family history of thyroid problem Social History Household Members: Spouse and Family Household Members Other:: spouse, son Housing: House Alcohol intake: current Alcohol intake frequency: does not drink Patient Tobacco Use Status: Never used Tobacco 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 Site was prepped using aseptic technique. Patient tolerated the procedure well. Primary Site: right knee Approach Used: anterolateral Coding - Large joint Procedure code (CPT) selection complete Assessment & Plan Assessment & Plan (1) Cervical cancer screening: Comment: no hx of abnl, last 2 neg , next due 2023 Code(s): Z12.4 - Encounter for screening for malignant neoplasm of cervix Category: Medical Plan: Injected right knee with Euflexxa. 2/3 Coding Level of Care Code Est Pt Level 2 (51376) Diagnoses Cervical cancer screening Z12.4 CPT Codes Coding - Large joint: 87010 - Large joint ([id number])
== END 2023-11-29 12:53 | disposition home or self-care (01) ==
PROVIDERS: PCP Student in an Organized Health Care Education/Training Program; Visit Provider Orthopaedic Surgery
DX: M17.11 Unilateral primary osteoarthritis, right knee (principal)
CPT/HCPCS: 20610

== ENCOUNTER → 2023-11-29 11:19 | Outpatient (BNVA) | payer OTHER, SELFPAY | PROVIDERS: PCP Student in an Organized Health Care Education/Training Program; Visit Provider Orthopaedic Surgery | DX: M17.11 Unilateral primary osteoarthritis, right knee (principal) | CPT/HCPCS: 20610; J7323 ==

== ENCOUNTER 2023-12-05 14:55 | Outpatient (AMB) | payer OTHER, SELFPAY ==
--- NOTE | 2023-12-05 15:20 | MHC.OFFVIS ---
Intake Visit Reasons: Inj- Right knee Euflexxa #3 Intake Note: Shruti is a 58 year old female who presents today for her Right Knee Euflexxa Injection #3, this is her final injection of the series Allergies No Known Allergies Allergy (Verified 11/29/23 11:29) HPI HPI Inj- Right knee Euflexxa #3: Details: Shruti is a 58 year old female who presents today for her Right Knee Euflexxa Injection #3, this is her final injection of the series PFSH Medical History Thyroid disease Arthritis Aneurysm Surgical History History of esophagogastroduodenoscopy (EGD) S/P excision of lipoma (06/21/22) Hx of colonoscopy History of tubal ligation Family History Mother Colon cancer Father Heart attack Family/Other Pancreatic cancer, Onset Age: 50 Sister Uterine cancer Other Family history of thyroid problem Social History Household Members: Spouse and Family Household Members Other:: spouse, son Housing: House Alcohol intake: current Alcohol intake frequency: does not drink Patient Tobacco Use Status: Never used Tobacco 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 Site was prepped using aseptic technique. Patient tolerated the procedure well. Primary Site: right knee Approach Used: anterolateral Coding - Large joint Procedure code (CPT) selection complete Assessment & Plan Assessment & Plan (1) Arthritis of right knee: Code(s): M17.11 - Unilateral primary osteoarthritis, right knee Category: Medical Plan: Injected right knee 3/3. f/u 3 mo Coding Level of Care Code Est Pt Level 2 (61937) Diagnoses Arthritis of right knee M17.11 CPT Codes Coding - Large joint: 36461 - Large joint ([id number])
== END 2023-12-05 15:53 | disposition home or self-care (01) ==
PROVIDERS: PCP Student in an Organized Health Care Education/Training Program; Visit Provider Orthopaedic Surgery
DX: M17.11 Unilateral primary osteoarthritis, right knee (principal)
CPT/HCPCS: 20610

== ENCOUNTER → 2023-12-05 14:55 | Outpatient (BNVA) | payer OTHER, SELFPAY | PROVIDERS: PCP Student in an Organized Health Care Education/Training Program; Visit Provider Orthopaedic Surgery | DX: M17.11 Unilateral primary osteoarthritis, right knee (principal); Z79.899 Other long term (current) drug therapy | CPT/HCPCS: 20610; J7323 ==

== ENCOUNTER 2023-12-10 14:00 | Outpatient (RCR) | payer OTHER, SELFPAY | END 2024-02-21 10:13 | disposition home or self-care (01) | LOC: HO.PT 14:00 | PROVIDERS: PCP Student in an Organized Health Care Education/Training Program; Visit Provider Physical Medicine & Rehabilitation | DX: M53.3 Sacrococcygeal disorders, not elsewhere classified (principal); M79.18 Myalgia, other site; M54.9 Dorsalgia, unspecified | CPT/HCPCS: 97110; 97140; 97162; 97530 ==

== ENCOUNTER 2024-01-02 15:03 | Outpatient (REF) | payer OTHER, SELFPAY ==
--- NOTE | ~2024-01-02 | CT_ITS ---
EXAMINATION: CT ANGIOGRAM BRAIN, HEAD CLINICAL INFORMATION: Cerebral aneurysm COMPARISON: None available. TECHNIQUE: Test bolus sequences followed by intravenous administration of 75 mL of Omnipaque 350 intravenous contrast without reported immediate complications. Helical imaging was performed in the axial plane from the skull base to the vertex. Delayed postcontrast imaging of the head was also performed. The data was processed at the orthopedic radiologic technologist workstation for generation of MIP sequences. Three-dimensional volume rendered reformatted images were also generated at an offline 3-D workstation. The degree of stenosis determined by NASCET criteria. Contiguous axial images obtained from the skull base to the vertex using 2 mm collimation without the IV contrast administration. This CT examination was performed using dose optimization techniques as appropriate, variously including the following: *Automated exposure control *Adjustment of mA and/or kV according to patient size (this includes techniques or standardized protocols for targeted exams where dose is matched to indication/reason for exam; i.e. extremities or head) *Use of iterative reconstruction technique DLP: 1859 mGy-cm FINDINGS: ACAs: Metallic coiled embolization in the anterior communicant artery. There is a stent in the A2/A3 segment and likely the left A1 segment. There is no IV contrast enhancement within the lumen of the stent's. Right A1 segment is patent. The C3 segments are patent. Abrupt cut off of the proximal left A1 segment. ICAs: Petrous cavernous and supracavernous segments are patent without focal stenosis or abrupt cut off or vascular abnormality. MCA's: Normal patency without focal stenosis or abrupt cut off or vascular abnormality. Bifurcation/trifurcation of the MCA is normal bilaterally. The posterior communicating arteries are patent, bilaterally more conspicuous on the left side. V3/V4 segments are patent without focal stenosis or intimal flap. Posterior inferior cerebral arteries are patent. Anterior inferior cerebellar arteries are patent. Basilar artery is patent without intimal flap or focal stenosis. picture framer: Normal patency without focal stenosis or abrupt cut off. The main cerebral venous sinuses are patent without intraluminal filling defects. No acute intracranial hemorrhage, mass effect, midline shift, hydrocephalus or herniation. Anderson-white matter differentiation is normal. Posterior cranial fossa contents demonstrated no acute intracranial hemorrhage or mass effect. Tympanic cavities and mastoid air cells are aerated. No air-fluid levels in the included paranasal sinuses. 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 No acute brain abnormality by CT. Electronically signed by: Petr Beaver MD 01/15/2024 03:02 PM EDT RP
[2024-01-02] MEDS: iohexoL 350 MG/ML 100 ML INFUS..BTL 70 ML IV (15:22)
[2024-01-02 16:51] LABS: Creatinine POC 1.1 mg/dL (0.5-1.4); GFR POC 52
== END 2024-01-02 15:04 | disposition home or self-care (01) ==
LOC: HO.CT 15:03
PROVIDERS: PCP Student in an Organized Health Care Education/Training Program; Visit Provider Psychiatry & Neurology Neurology
DX: I67.1 Cerebral aneurysm, nonruptured (principal)
CPT/HCPCS: 70496; 82565; Q9967

== ENCOUNTER → 2024-01-02 15:06 | Outpatient (BNV) | payer OTHER, SELFPAY | PROVIDERS: PCP Student in an Organized Health Care Education/Training Program; Visit Provider Radiology Diagnostic Radiology | DX: I67.1 Cerebral aneurysm, nonruptured (principal) | CPT/HCPCS: 70496 ==

== ENCOUNTER 2024-01-24 06:03 | Outpatient (REF) | payer OTHER, SELFPAY ==
[2024-01-24 08:26] LABS: Free T4 (Free Thyroxine) 1.08 ng/dL (0.71-1.85); Thyroid Stimulating Hormone 1.53 uIU/mL (0.32-4.0)
== END 2024-01-24 06:04 | disposition home or self-care (01) ==
LOC: HO.LAB 06:03
PROVIDERS: PCP Student in an Organized Health Care Education/Training Program; Visit Provider Student in an Organized Health Care Education/Training Program
DX: E03.9 Hypothyroidism, unspecified (principal)
CPT/HCPCS: 36415; 84439; 84443

== ENCOUNTER 2024-03-17 14:41 | Outpatient (REF) | payer OTHER, SELFPAY | END 2024-03-17 14:42 | disposition home or self-care (01) | LOC: HO.MAMMO 14:41 | PROVIDERS: PCP Student in an Organized Health Care Education/Training Program; Visit Provider Internal Medicine | DX: Z12.31 Encounter for screening mammogram for malignant neoplasm of breast (principal) | CPT/HCPCS: 77063; 77067 ==

== ENCOUNTER → 2024-03-17 15:00 | Outpatient (BNV) | payer OTHER, SELFPAY | PROVIDERS: PCP Student in an Organized Health Care Education/Training Program; Visit Provider Internal Medicine | DX: Z12.31 Encounter for screening mammogram for malignant neoplasm of breast (principal) | CPT/HCPCS: 77063; 77067 ==

== ENCOUNTER 2024-03-20 13:01 | Outpatient (AMB) | payer OTHER, SELFPAY ==
--- NOTE | 2024-03-20 13:12 | MHC.OFFVIS ---
Intake Visit Reasons: RT hand ring finger pain, locking and swelling Intake Note: Shruti is a 58 year old right hand dominant female who presents today for a new problem visit with complaints of right ring finger pain, locking, and swelling. No hx of surgery. Patient reports ongoing pain for 5 - 6 months and she feels like it is getting worse. She mentions that her right ring finger locks sometimes throughout the day. She has noticed that her ring finger is unable to make a fist in the morning. Patient has tried and failed at home exercises, massages and taking tylenol. Riding Silks Custodian Services: Riding Silks Custodian Present (Sher ([id number])) Allergies No Known Allergies Allergy (Verified 03/20/24 13:16) HPI HPI RT hand ring finger pain, locking and swelling: Details: Patient is a 58-year-old female who presents for evaluation of right ring finger pain, locking, and catching, ongoing for approximately 5-6 months. Patient feels like her condition is worsening since that time. Patient states that her pain is primarily located at the level of the A1 cali of the right ring finger of the volar right hand. Patient states that she frequently has to manually open her hand upon awakening from sleep due to her finger being locked in a flexed position. Patient denies any numbness or tingling in the right hand. No other acute complaints or concerns at this time. [facility] Medical History Thyroid disease Arthritis Aneurysm Surgical History History of esophagogastroduodenoscopy (EGD) S/P excision of lipoma (06/21/22) Hx of colonoscopy History of tubal ligation Family History Mother Colon cancer Father Heart attack Family/Other Pancreatic cancer, Onset Age: 50 Sister Uterine cancer Other Family history of thyroid problem Social History (Updated 03/20/24 @ 13:17 by Haroldo Naik) Household Members: Spouse and Family Household Members Other:: spouse, son Housing: House Alcohol intake: current Alcohol intake frequency: holidays/special occasions only Patient Tobacco Use Status: Never used Tobacco 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 Neuro: Normal sensation of the tips of all digits of the right hand at this time Vascular: Cap refill brisk Pain: Tenderness to palpation at the A1 cali of the right ring finger Pain associated with locking and catching of the right ring finger ROM: There is a visible and palpable locking and catching of the right ring finger in a flexed position Patient is able to flex and extend all other digits of the right hand fully and without difficulty Skin: No lacerations or abrasions. General: No ecchymosis, erythema, or evidence of infection. Psych: Appears grossly normal Affect normal Attitude cooperative Office Procedures AMB Tendon Injection Tendon Injection Details: Trigger finger injection, right ring finger [id number] Tendon Sheath Injection All charges added?: Procedure code (CPT) selection complete Assessment & Plan Assessment & Plan (1) Trigger finger, right ring finger: Code(s): M65.341 - Trigger finger, right ring finger Category: Medical Plan 1. Trigger finger, right ring finger Patient is educated about this condition Patient is educated about the treatment options available, namely steroid injections and surgery Patient would like to proceed with injection The risks and benefits of a steroid injection including but not limited to risk of damage to blood vessels, nerves, tendons, infection, skin bleaching, failure to improve symptoms, increased pain, and possible need for further injections or other intervention were discussed with the patient and the patient wishes to proceed with the steroid injection. Once consent was obtained, I sterilely prepped the area over the A1 cali of the flexor tendon sheath of the right ring finger. I then injected the flexor tendon sheath with a combination of 1 mL of dexamethasone (4mg/ml), and 1% lidocaine. The patient tolerated the procedure well with no complications. If the patient continues to have locking and catching 4-6 weeks following this injection, they may call to schedule appointment to discuss alternative treatment options Follow-up prn Coding Level of Care Code Est Pt Level 3 (47573) Diagnoses Trigger finger, right ring finger M65.341 CPT Codes Tendon Injection - Tendon Injection 1: [id number] Tendon Sheath Injection ([id number])
== END 2024-03-20 13:52 | disposition home or self-care (01) ==
PROVIDERS: PCP Student in an Organized Health Care Education/Training Program
DX: M65.341 Trigger finger, right ring finger (principal)
CPT/HCPCS: 20550; 99213

== ENCOUNTER → 2024-03-20 13:01 | Outpatient (BNVA) | payer OTHER, SELFPAY | PROVIDERS: PCP Student in an Organized Health Care Education/Training Program | DX: M65.341 Trigger finger, right ring finger (principal) | CPT/HCPCS: 20550; 99212; J1100; J2003 ==

== ENCOUNTER 2024-06-25 15:02 | Outpatient (AMB) | payer OTHER, SELFPAY ==
--- NOTE | 2024-06-25 15:16 | MHC.OFFVIS ---
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 Occasion pain in pelvic area, feels similar to how she felt when she was getting her menstral. No discoloration, no draining. Agency Sales Development Associate Required: Yes Agency Sales Development Associate Language: Labor Relations Teacher Services: Agency Sales Development Associate Present (in person) Agency Sales Development Associate Name: OSVALDO Kimbrough Information Interpreted: non-clinical & clinical Route Sales Person: Route Sales Person Present (OSVALDO Kimbrough, Tracie Barroso) Accompanied by: Self / Same As Patient Allergies No Known Allergies Allergy (Verified 06/25/24 15:18) Is last menstrual period known: No Post menopausal: Yes Patient : No HPI Comments Details: Presenting for annual exam. Complaining of bilateral breast pain Last 2 weeks no associated nipple discharge or any other symptom Last Pap/HPV was negative in 04/09 Last Mammogram was BI-RADS 1 in 03/10 Last Colonoscopy was done in 01/07, the recommendation was to repeat in 10 years [facility] Medical History Thyroid disease Arthritis Aneurysm Surgical History History of esophagogastroduodenoscopy (EGD) S/P excision of lipoma (06/21/22) Hx of colonoscopy History of tubal ligation Family History Mother Colon cancer Father Heart attack Family/Other Pancreatic cancer, Onset Age: 50 Sister Uterine cancer Other Family history of thyroid problem Social History Household Members: Spouse and Family Household Members Other:: spouse, son Housing: House Alcohol intake: current Alcohol intake frequency: holidays/special occasions only Patient Tobacco Use Status: Never used Tobacco 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 Sexual orientation: Straight/Heterosexual Gender identity: Female Female Reproductive History Menstrual Age of Menarche: 15 control method: permanent sterilization Total pregnancies: 5 Full term: 3 Ab spontaneous: 2 Date of last pap smear: 04/12/22 (negative pap smear, negative hpv ) History of abnormal pap smear: No History of STI: No Date of Mammogram: 03/17/24 (bi rad 1) Review of Systems Const All systems reviewed & are unremarkable except as noted in HPI and below Card Reports as per HPI Resp Reports as per HPI GI Reports as per HPI and Reports no additional complaints Reports as per HPI Physical Exam Vital Signs: Last Vital Signs BP 136/82 06/25/24 15:23 BMI result Body Mass Index 24.9 Const General: cooperative, healthy appearing and comfortable Chest Chest palpation & inspection: normal inspection of the chest and normal palpation of entire chest wall Breast/axilla inspection: normal inspection of the breasts and normal inspection of the axillae Breast/axilla palpation: palpation of the breasts abnormal (R brst lump tnder @ 9, 8cm from nipple, L brst lump tnder at 1, 4cm nipple), normal palpation of the axillae and no axillary lymphadenopathy Resp Effort & Inspection: normal respiratory effort Auscultation: clear to auscultation bilaterally Percussion: percussion normal Cardio Palpation: normal PMI Rate: regular rate Rhythm: regular rhythm Heart sounds: no murmurs and no rubs Peripheral pulses: Peripheral pulses 2+ throughout GI Inspection: Yes normal to inspection Palpation (GI): Soft to palpation, nontender, no guarding, not rigid and No hepatosplenomegaly present Percussion: Yes normal to percussion Auscultation: normal bowel sounds Rectal Exam - Female: deferred General: Yes bladder normal to palpation External Female Exam: No lesion Speculum Exam - Vagina: normal appearance of the vagina, normal palpation, normal vaginal discharge and not erythematous Speculum Exam - Cervix: normal appearance of the cervix and normal palpation Bimanual exam- vagina & uterus: normal bimanual exam, normal palpation, uterine size normal, bladder normal to palpation, consistency normal and normal palpation Bimanual Exam- Adnexa, other: normal adnexae, no masses and no tenderness Assessment & Plan Assessment & Plan (1) Well woman exam with routine gynecological exam: Code(s): Z01.419 - Encounter for gynecological examination (general) (routine) without abnormal findings Category: Medical Plan: Co testing not indicated this year. Counseled the patient about the recommended dietary allowance of 1200 mg of Calcium & 600 IU of vitamin D. Instructions given to patient to schedule next screening Mammogram in 03/11. The patient was instructed to perform monthly self-breast exams and schedule annual exam in a year. All questions answered and the patient verbalized understanding. (2) Breast pain: Comment: Bilateral, R brst lump tender @ 9, 8cm from nipple, L brst lump tender at 1, 4cm from nipple Code(s): N64.4 - Mastodynia Category: Medical Plan: Discussed with the patient the finding on Breast exam (bilateral tender breast lumps) .The differential diagnosis includes but not limited to lump/cyst/pre cancer/cancer or dense breast tissue. The work up includes bilateral breast US and bilateral diagnostic mammogram and referred the patient for surgical breast consult. Orders: Orders MM tomosynthesis diagnostic BI Today N64.4 - Mastodynia US breast LT limited Today N64.4 - Mastodynia US breast RT limited Today N64.4 - Mastodynia Referrals General Surgery Referral N64.4 - Mastodynia Coding Level of Care Code Est Pt Level 3 (19586) Est Pt Prev Care 40-64y(82435) Diagnoses Well woman exam with routine gynecological exam Z01.419 Breast pain N64.4
[2024-06-25 15:23] VITALS: BP 136/82; BMI 24.9
--- OUTSIDE RECORDS SUMMARY | 2024-06-25 17:32 | XMS_ITS | Encounter Summary ---
Author Organization [facility] Address [address] [place] [address] Care Team Providers Care Flexible Machining System Machinist Name Role Phone Maryuri Wang Primary Care Provider Encounter Details Date Type Department Care Team (Late st Contact Info) Description 04/28/2020 Orders Only [facility] XRay [address] [place] [address] [address] Social History Tobacco Use Types Packs/Day Years Used Date Smoking Tobacco: Never Smokeless Tobacco: Never Alcohol Use Standard Drinks/Week Comments Yes 1 (1 standard drink = 0.6 oz pur e alcohol) Comments Unknown Sex and Gender Information Value Date Recorded Sex Assigned at Female 08/24/2020 9:46 AM EDT Legal Sex Female 9:35 AM EDT Gender Identity Female 08/24/2020 9:46 AM EDT Sexual Orientation Straight 08/24/2020 9: 46 AM EDT Occupation Industry Job Start Date Job End Date unemployed Not on file Not on file Not on file documented as of this encounter Plan of Treatment Not on file documented as of this encounter Visit Diagnoses Not on filedocumented in this encounter Care Teams Flexible Machining System Machinist Relationship Specialty Start Date End Date Maryuri Wang [address] [place] [address] PCP - General Internal Medicine 10/03/17 documented as of this encounter
--- OUTSIDE RECORDS SUMMARY | 2024-06-25 17:32 | XMS_ITS | Referral Summary ---
Author Organization [facility] Address [address] [place] [address] Care Team Providers Care Band Sawing Machine Operator Name Role Phone KathleenMaryuriPadma Primary Care Provider [phone]- [phone] Allergies No known active allergies Medications levothyroxine (SYNTHROID, LEVOTHROID) 100 mcg tablet TAKE 1 TABLET SATURDAY, SATURDAY, SATURDAY, SATURDAY, SATURDAY AND TAKE 1 1/2 TABLETS ONCE WEEKLY ON SATURDAY AND SATURDAY 6 10/15/2017 Active acetaminophen (TYLENOL ORAL) Take 1 tablet by mouth every 6 hours as needed. Active aspirin 81 mg EC tabletIndicatio ns:Cerebral arterial aneurysm (HCC) Take 1 tablet (81 mg total) by mouth daily. 90 tablet 07/20/2020 Active ticagrelor (BRILINTA) 90 mg tabletIndicatio ns:Cerebral arterial aneurysm (HCC) Take 1 tablet (90 mg total) by mouth 2 times a day. 60 tablet 2 07/20/2020 Active calcium carbonate EX 300 mg (750 mg) chewable tablet CHEW 1 TABLET BY MOUTH TWICE DAILY BEFORE MEALS 04/05/2020 Active cefadroxil (DURICEF) 500 mg capsule Take 500 mg by mouth 2 times a day. 08/25/2020 Active ciprofloxacin (CIPRO) 500 mg tablet TAKE 1 TABLET BY MOUTH EVERY TWELVE HOURS FOR 5 DAYS 07/12/2020 Active SF 5000 Plus 1.1 % cream BRUSH TEETH WITH A THIN RIBBON EVERY NIGHT BEFORE BEDTIME. DO NOT RINSE FOR 30 MINUTES 09/13/2020 Active fluticasone propionate (FLONASE) 50 mcg/actuation nasal spray INSTILL 1-2 SPRAYS IN EACH NOSTRIL ONCE DAILY NEEDED 08/25/2020 Active nitrofurantoin monohydrate/mac rocrystals (MACROBID) 100 mg capsule TAKE 1 CAPSULE BY MOUTH EVERY TWELVE HOURS WITH FOOD 07/11/2020 Active phenazopyridine (PYRIDIUM) 200 mg tablet TAKE 1 TABLET BY MOUTH THREE TIMES DAILY AFTER MEALS 07/11/2020 Active polyethylene glycol 3350 (MIRALAX) powder TAKE 17 GM MIXED IN 8 OUNCES OF WATER ONCE DAILY 08/17/2020 Active acetaminophen (TYLENOL) 325 mg tablet TAKE 2 TABLETS BY MOUTH EVERY 8 HOURS NEEDED 08/17/2020 Active Active Problems Problem Noted Date Diagnosed Date Brain aneurysm 08/03/2020 Anxiety 03/19/2019 Biceps tendinitis 03/19/2019 Leg pain, right 03/19/2019 Intermittent claudication 08/22/2018 Paresthesia of hand 02/03/2018 Epigastric pain 11/15/2017 Cerebral arterial aneurysm 11/03/2017 Hemorrhage into subarachnoid space of neuraxis 0 09/06/2017 Calcaneal spur 04/26/2017 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 Abdominal mass 05/29/2013 Immunizations Immunization Administration Dates Next Due Covid-19 Monovalent Vaccine, Moderna, mRNA, PF 0 08/10/2020,07/13/2020 Social History Tobacco Use Types Packs/Day Years Used Date Smoking Tobacco: Never Smokeless Tobacco: Never Alcohol Use Standard Drinks/Week Comments Yes 1 (1 standard drink = 0.6 oz pur e alcohol) Comments No Sex and Gender Information Value Date Recorded Sex Assigned at Female 08/24/2020 9:46 AM EDT Legal Sex Female 9:35 AM EDT Gender Identity Female 08/24/2020 9:46 AM EDT Sexual Orientation Straight 08/24/2020 9: 46 AM EDT Occupation Industry Job Start Date Job End Date unemployed Not on file Not on file Not on file Last Filed Vital Signs Vital Sign Reading Time Taken Comments Blood Pressure 124/79 10/11/2020 4:38 PM EDT Pulse 78 10/11/2020 4:38 PM EDT Temperature 36.7 ??C (98.1 ??F) 10/11/2020 4:38 PM ED T Respiratory Rate 16 10/05/2020 11:51 AM EDT Oxygen Saturation 97% 10/05/2020 10:35 AM EDT Inhaled Oxygen Concentration - - Weight 65.3 kg (144 lb) 10/05/2020 7:36 AM EDT Height 162.6 cm (5' 4 ) 10/05/2020 7:36 AM EDT Body Mass Index 24.72 10/05/2020 7:36 AM EDT Plan of Treatment Not on file Medical Devices Implanted Type Area Clinical Trial Associate Device Identifier Shelf Expiration Date Model / Serial / Lot Device Closure Vascular Plug 6fr Angio-Seal Vip - [id number] Implanted:Qty: [facility]04[facility] [employer] 12/15/2018 [id number] / / [id number] Device Closure Vascular Plug 6fr Angio-Seal Vip - [id number] Implanted:Qty: 1 on 07/06/2020 at [facility] [employer] [id number] / / Device Closure Vascular Plug 6fr Angio-Seal Vip - [id number] Implanted:Qty: 1 on 08/03/2020 at [facility] [employer] [id number] / / Diverter Flow [id number] - [id number] Implanted:Qty: 1 on 08/03/2020 at [facility] [employer] 12/15/2022 [id number] / / [id number] Diverter Flow [id number] - [id number] Implanted:Qty: 1 on 08/03/2020 at [facility] [employer] 08/15/2022 [id number] / / [id number] Insurance [place] HS[place] CARE Care Teams Band Sawing Machine Operator Relationship Specialty Start Date End Date Maryuri Wang [address] [place] [id number] PCP - General Internal Medicine 10/03/17
--- OUTSIDE RECORDS SUMMARY | 2024-06-25 17:32 | XMS_ITS | Encounter Summary ---
Author Organization [facility] [employer] Address [address] [facility] [address] [place] [address] Care Team Providers Care Bag Bundler Name Role Phone Naa Maradiaga MD Primary Care Pro vider Reason for Visit * Reason Onset Date Comments Results 08/21/2023 Encounter Details Date Type Department Care Team ([facility] st Contact Info) Description 08/21/2023 Telephone [facility] [address] [place] [address] Naa Maradiaga MD [address] [place] [address] Results Social History Tobacco Use Types Packs/Day Years Used Date Smoking Tobacco: Never Smokeless Tobacco: Never Alcohol Use Standard Drinks/Week Comments Yes 1 (1 standard drink = 0.6 oz pur e alcohol) social PHQ-2 Answer Date Recorded Patient Health Questionnaire-2 Score 0 10/08/2022 Housing Stability Answer Date Recorded What is your housing situation today? I have ann vazquez 06/12/[address] you li ve. Do you have problems with any of the following? None of the above 06/12/2023 Food Insecurity Answer Date Recorded Within the past 12 months, y ou worried that your food would run out before you got money to buy more: Never True 06/12/2023 Within the past 12 months,th e food you bought just didn't last and you didn't have enough money to get more: Never True Transportation Answer Date Recorded In the past 12 months, has l ack of transportation kept you from medical appts, meetings, work or from getting things needed for daily living? No 06/12/2023 Utilities Answer Date Recorded In the past 12 months, has t he electric, gas, oil or water company threatened to shut off services in your home? No 06/12/2023 Depression Answer Date Recorded Patient Health Questionnaire-2 Score 0 10/08/2022 Comments Unknown Sex and Gender Information Value Date Recorded Sex Assigned at Female 01/15/2022 10:22 AM EDT Legal Sex Female 10:22 AM EDT Gender Identity Female 01/15/2022 10:22 AM EDT Sexual Orientation Straight 01/15/2022 10 :22 AM EDT documented as of this encounter Miscellaneous Notes * Telephone Encounter - Florence March RN - 08/22/2023 11:02 AM EDT TC placed to pt with a [place] official court interpreter to inquire about the GI visit results the pt was requesting per pt phone call yesterday. Pt states that she heard from the GI provider regarding results butthat Dr. Elizabeth saw them as well and has communicated with the GI provider about some concerns. Pt would like to f/u on those concerns and see if an appt with PCP is needed. RN could not find any imaging or testing results in chart. Forwarding to PCP for review an advice * Telephone Encounter - Gabriela Siddiqui - 08/21/2023 8:37 AM EDT Tc from pt requesting a call back in regards gastro visit results. Indonesian speaker documented in this encounter Plan of Treatment Upcoming Encounters Date Type Department Care Team (Late st Contact Info) Description 07/01/2024 2:00 PM EDT Office Visit [facility] [address] [place] [address] [phone] Naa Maradiaga MD [address] [place] [address] 08/03/2024 3:00 PM EDT Office Visit [facility] ADULT DENTAL [address] [place], [place] [phone] Angelica Álvarez documented as of this encounter Visit Diagnoses Not on filedocumented in this encounter Care Teams Bag Bundler Relationship Specialty Start Date End Date Naa Maradiaga MD [address] [place] [id number] PCP - General Internal Medicine 08/23/22 documented as of this encounter
--- OUTSIDE RECORDS SUMMARY | 2024-06-25 17:32 | XMS_ITS | Encounter Summary ---
Author Organization [facility] Address [address] [place] [address] Care Team Providers Care University Relations Recruiter Name Role Phone Maryuri Wang Primary Care Provider [phone]- [phone] Encounter Details Date Type Department Care Team (Late st Contact Info) Description 07/05/2020 Telephone [facility] Interventional Radiology [address] [place] [id number] Shahana Casas RN [facility] [place] Social History Tobacco Use Types Packs/Day Years [...] on file documented as of this encounter Miscellaneous Notes * Telephone Encounter - Shahana Casas RN - 07/05/2020 4:10 PM EDT 24 Hour Preprocedural COVID Screening Call - Negative result I have reviewed the patient's chart and confirmed a negative COVID-19 test result. The patient can move forward with their scheduled procedure. I advised the patient to wash their hands often, cover their coughs and sneezes, avoid sharing personal household items, and to clean all high touch surfaces every day. I reviewed with the patient the need for social distancing to prevent the spread of COVID-19. I advised the patient to continue to monitor for any symptoms of COVID including fever, cough and/or shortness of breath. The patient voiced understanding of this information and agrees with the plan. Shahana Casas RN documented in this encounter Plan of Treatment Not on file documented as of this encounter Visit Diagnoses Not on filedocumented in this encounter Care Teams University Relations Recruiter Relationship Specialty Start Date End Date Maryuri Wang [address] [place] [id number] PCP - General Internal Medicine 10/03/17 documented as of this encounter
--- OUTSIDE RECORDS SUMMARY | 2024-06-25 17:32 | XMS_ITS | Encounter Summary ---
Author Organization [employer] Address [address] [facility] [address] [place] [address] Care Team Providers Care Securities Attorney Name Role Phone Naa Maradiaga MD Primary Care Pro vider Encounter Details Date Type Department Care Team (Late st Contact Info) Description 09/05/2022 Abstract [facility] [address] [place] [address] Naa Maradiaga MD [address] [place] [address] Social History Tobacco Use Types Packs/Day Years Used Date Smoking Tobacco: Never Smokeless Tobacco: Never Alcohol Use Standard Drinks/Week Comments Yes 1 (1 standard drink = 0.6 oz pur e alcohol) oca PHQ-2 Answer Date Recorded Patient Health Questionnaire-2 Score 0 04/09/2022 Comments Unknown Sex and Gender Information Value Date Recorded Sex Assigned at Female 01/15/2022 10:22 AM EDT Legal Sex Female 10:22 AM EDT Gender Identity Female 01/15/2022 10:22 AM EDT Sexual Orientation Straight 01/15/2022 10 :22 AM EDT COVID-19 Exposure Response Date Recorded In the last 10 days, have yo u been in contact with someone who was confirmed or suspected to have Coronavirus/COVID-19? No / Unsure 08/31/2022 1:11 PM EDT documented as of this encounter Plan of Treatment Upcoming Encounters Date Type Department Care Team (Late st Contact Info) Description 07/01/2024 2:00 PM EDT Office Visit [facility] [address] [place] [address] Naa Maradiaga MD [address] [place] [address] 08/03/2024 3:00 PM EDT Office Visit [facility] [address] [place], [place] [phone] Angelica Álvarez documented as of this encounter Procedures Procedure Name Priority Date/Time Associated Diagnosis Comments HM COLONOSCOPY Routine 12/15/2019 2:23 PM EDT documented in this encounter Results * Hm Colonoscopy (12/15/2019 2:23 PM EDT) Colonoscopy Normal Normal Narrative Lashon Cat - 12/15/2019 2:23 PM EDT Recommended 10 year follow up Historical Provider [facility] Edited Result - Final documented in this encounter Visit Diagnoses Not on filedocumented in this encounter Care Teams Securities Attorney Relationship Specialty Start Date End Date Naa Maradiaga MD [address] [place] [phone] PCP - General Internal Medicine 08/23/22 documented as of this encounter
--- OUTSIDE RECORDS SUMMARY | 2024-06-25 17:32 | XMS_ITS | Encounter Summary ---
Author Organization [employer] Address [address] [facility] [address] [place] [address] Care Team Providers Care Card Table Attendant Name Role Phone Maryuri Wang MD Primary Care Provider + Naa Maradiaga MD Primary Care Pro vider Reason for Visit * Reason Comments Med Refill Encounter Details Date Type Department Care Team (Late st Contact Info) Description 06/26/2022 Refill [facility] [address] [place] [address] Maryuri Wang MD [address] [place] [address] Social History Tobacco Use Types Packs/Day Years Used Date Smoking Tobacco: Never Smokeless Tobacco: Never Alcohol Use Standard Drinks/Week Comments Never 0 (1 standard drink = 0.6 oz pur e alcohol) PHQ-2 Answer Date Recorded Patient Health Questionnaire-2 [...] suspected to have Coronavirus/COVID-19? No / Unsure 06/22/2022 1:10 PM EDT documented as of this encounter Plan of Treatment Upcoming Encounters Date Type Department Care Team (Late st Contact Info) Description 07/01/2024 2:00 PM EDT Office Visit [facility] [address] [place] [address] Naa Maradiaga MD [address] [place] [address] 08/03/2024 3:00 PM EDT Office Visit [facility] [address] [place], [place] [phone] Angelica Álvarez documented as of this encounter Visit Diagnoses Not on filedocumented in this encounter Care Teams Card Table Attendant Relationship Specialty Start Date End Date Maryuri Wang MD [address] [place] [address] [phone] PCP - General Family Medicine 01/09/17 08/22/22 Naa Maradiaga MD [address] [place] [address] [phone] PCP - General Internal Medicine 08/23/22 documented as of this encounter
--- OUTSIDE RECORDS SUMMARY | 2024-06-25 17:32 | XMS_ITS | Clinical Summary ---
Author Organization [employer] Address [address] [place] [address] Care Team Providers Care Police Or Patrol Park Officer Name Role Phone Naa Maradiaga MD Primary Care Pro vider Allergies No known active allergies Medications omeprazole (PriLOSEC) [address] capsule Take 1 capsule by mouth at bed time. 2 Active Blood Pressure Monitor kit 1 Device in the morning. 1 kit 4 Active Reguloid 57.6 % powder MIX 1 TABLESPOONFUL WITH 8 OUNCES WATER OR JUICE AND DRINK TWICE DAILY 3 Active acetaminophen (Tylenol) 500 MG tablet Take 1 tablet (500 mg) by mouth every 8 (eight) hours if needed for mild pain. 30 tablet 2 4 Active aspirin (Aspirin Low Dose) 81 MG EC tabletIndicatio ns:Personal history of other diseases of the circulatory system TAKE 1 TABLET BY MOUTH DAILY IN THE MORNING 90 tablet 1 4 Active cyanocobalamin (Vitamin B-12) 1000 MCG tablet TAKE 1 TABLET BY MOUTH EVERY DAY IN THE MORNING 30 tablet 3 5 Active Deep Sea Nasal [place] 0.65 % nasal spray USE 1 SPRAY IN EACH NOSTRIL NEEDED FOR NASAL CONGESTION 44 mL 2 5 Active levothyroxine (Euthyrox) 112 MCG tabletIndicatio ns:Hypothyroidi sm, unspecified type TAKE 1 TABLET BY MOUTH EVERY DAY BEFORE BREAKFAST 90 tablet 1 5 Active Active Problems Problem Noted Date Diagnosed Date Left foot pain 11/13/2022 Assessment & Plan (11/13/2022 12:17 PM EDT): States 1 month ago step with her left foot over unspecified object and felt mild discomfort ,she tried to removed but states there was no open skin and nothing the she can see. Pt soaking feet in vinegar .States has discomfort with ambulation ,denies increases skin temp,erythema nor discharge. 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 BIRADS 1 -colonoscopy 2020 per pt hemorrhoids --- ---- requested record to Vadim Hollowaylast found in 2014 normal ---pt planned for repeat colonoscopy -vaccines: s/p hep B x3-not immune -refuse revaccination, covid 19 x4 Bivalent x1, tdap 2020, zoster x2 -- -ophthalmology referral done -pd apt -reordered Gn/cl urine screen order at last visit but not done at lab Assessment & Plan (10/08/2022 11:02 PM EDT): -menopause;will check w pt at next apt -pap smear:03/2022 Neg/HPV neg -MM 02/2022: heterogeneously dense-The lifetime risk of breast cancer based on the Tyrer-Cuzick Model is 5.1%. .BIRADS 1 -colonoscopy 2020 per pt hemorrhoids --- ---- requested record to Vadim Hollowaylast found in 2014 normal -vaccines: s/p hep B x3, covid 19 x4 Bivalent x1, tdap 2020, zoster x2 -labs x annual exam -pt agreed to have STI testing including HIV to have for baseline -ophthalmology referral Numbness and tingling 10/08/2022 Assessment & Plan (11/13/2022 12:37 PM EDT): Pt w worsening numbness of upper and lower extremities Chronic -reports no improvement of symptoms w wrist brace 09/2022 immunofixation, SPEP,SHERYL, CRP,ESR, RF, CCP, are all negative, uric acid wnl,lyme ab screen neg ,microalb neg , vit B 12 wnl but borderline low level at 242 , folic acid wnl -reorder today lead level And UPEP to complete eval -referred to neurologist x severity of symptoms -has apt in 2 days 11/14/2022 -start PO vit B12 daily -will hold on EMG given pt has upcoming apt already w specialist Assessment & Plan (10/08/2022 11:01 PM EDT): Pt w worsening numbness of upper and lower extremities Chronic -reports no improvement of symptoms w wrist brace -will do labs today inlcuding immunofixation, SPEP,UPEP,SHERYL,inflammatory markers, lyme ab screen ,lead level -referred today to neurologist x severity of symptoms Acute meniscal tear, medial 08/02/2022 Assessment & Plan (11/13/2022 12:23 PM EDT): -bl knee XR 2019: Left knee: No radiographic evidence of acute fracture or dislocation. Mild tricompartmental osteoarthritis. Lateral patellar osteophyte. No joint effusion. No soft tissue abnormalities. Right knee: No radiographic evidence of acute fracture or dislocation. Mild tricompartmental osteoarthritis. Lateral patellar osteophyte. Trace joint effusion. No soft tissue abnormalities. -tylenol prn Assessment & Plan (10/08/2022 10:55 PM EDT): -bl knee XR 2019: Left knee: No radiographic evidence of acute fracture or dislocation. Mild tricompartmental osteoarthritis. Lateral patellar osteophyte. No joint effusion. No soft tissue abnormalities. Right knee: No radiographic evidence of acute fracture or dislocation. Mild tricompartmental osteoarthritis. Lateral patellar osteophyte. Trace joint effusion. No soft tissue abnormalities. -tylenol prn Chronic idiopathic constipation 08/02/2022 Assessment & Plan (08/06/2022 4:13 PM EDT): See above. Diverticular disease 08/02/2022 Degeneration of lumbosacral intervertebral disc 08/02/2022 Assessment & Plan (11/13/2022 12:24 PM EDT): -MR Lumbar Spine 2020 Mild degenerative changes of the lower lumbar spine No high-grade stenosis or nerve root compression. -hip XR 2020No acute fracture or dislocation. Mild bilateral hip joint osteoarthritis with acetabular osteophyte formation. There is also mild insertional enthesopathy at the greater trochanters of both femurs. -used to f w PM s/p inj in back Assessment & Plan (10/08/2022 11:03 PM EDT): -MR Lumbar Spine 2020 Mild degenerative changes of the lower lumbar spine No high-grade stenosis or nerve root compression. -hip XR 2020No acute fracture or dislocation. Mild bilateral hip joint osteoarthritis with acetabular osteophyte formation. There is also mild insertional enthesopathy at the greater trochanters of both femurs. -used to f w PM s/p inj in back Pure hypercholesterolemia 08/02/2022 Cramps of lower extremity 04/09/2022 Assessment & Plan (11/13/2022 12:25 PM EDT): -Bl LE doppler US 09/26/2022 : focal short segments prolonged reflux within the below knee portions of the left great saphenous vein 08/2022 Mag,Na,K wnl -f w vascular already x symptoms thought not associated w vascular etiology anc rec to f w neurologist -referred to neurologist-has apt in 2 days Assessment & Plan (10/08/2022 11:03 PM EDT): -Bl LE doppler US 09/26/2022 : focal short segments prolonged reflux within the below knee portions of the left great saphenous vein 08/2022 Mag,Na,K wnl -f w vascular already x symptoms -has apt in 10/2022 -will check labs -referred to neurologist Assessment & Plan (04/09/2022 3:42 PM EST): Most likely related to DJD of the lower spine, r/o electrolyte disturbance or venous insufficiency. -Use prescription stockings. 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 -continue with levothryoxine 125 mcg Hemorrhoids 04/09/2022 Assessment & Plan (11/13/2022 12:36 PM EDT): Reports on and off [facility]-told to be from her hemorrhoids -chronic constipation,diverticulosis and hemorrhoids -diet changes -metamucil prn ? Pt is unsure --will bring med px by her GI ,colace daily and senna prn -Refusing anusol -states not helping -pt was already seen by GI and referred from there to colorectal surgeon -has apt for next week Assessment & Plan (10/08/2022 11:04 PM EDT): Reports on and off [facility]-told to be from her hemorrhoids -chronic constipation -diet changes -reports metamucil not helped -prescribed colace daily and to add senna as needed -Refusing anusol -states not helping -referred to GI x chronic symptoms ---I spoke w vessel specialist -Verónica and was explained from pt insurance can not be referred to [facility] as pt would like Assessment & Plan (04/09/2022 3:44 PM EST): -Use hydrocortisone suppositories. -Avoid constipation. -Refer to GI, second opinion. Epigastric pain 11/15/2017 Assessment & Plan (11/13/2022 12:18 PM EDT): Chronic GERD, on PPIs, not controlled - Diet changes advised. -saw GI already this month -plan for EGD Assessment & Plan (10/08/2022 10:45 PM EDT): Chronic GERD, on PPIs, not controlled - Diet changes advised. 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 Aneurysm coils in the ventral aspect of suprasellar cistern and adjacent CHRIS flow diverters are again noted. The ventricular system and extra-axial CSF spaces are within normal limits. There is no midline shift. Basilar cisterns are preserved. The cerebellar tonsils are visualized above the foramen magnum. Anderson white matter differentiation is preserved. There are no territorial infarcts or acute intracranial hemorrhages. There is no obvious mass effect or vasogenic edema. 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 There is signal dropout from the stents which limits assessment of the anterior cerebral arteries in this location, but good distal flow is demonstrated. The previous lobular flow related enhancement at the left lateral margin of the coil mass is no longer seen. Curvilinear flow related enhancement which is present along the edges of the coil pack appears to reflect crossing branch vessels. -pt was told by her NS no need to continue care -taking ASA Assessment & Plan (10/08/2022 10:53 PM EDT): -ct HEAD W/O CONTRAST 2020: There is no large extra-axial collection. Aneurysm coils in the ventral aspect of suprasellar cistern and adjacent CHRIS flow diverters are again noted. The ventricular system and extra-axial CSF spaces are within normal limits. There is no midline shift. Basilar cisterns are preserved. The cerebellar tonsils are visualized above the foramen magnum. Anderson white matter differentiation is preserved. There are no territorial infarcts or acute intracranial hemorrhages. There is no obvious mass effect or vasogenic edema. 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 There is signal dropout from the stents which limits assessment of the anterior cerebral arteries in this location, but good distal flow is demonstrated. The previous lobular flow related enhancement at the left lateral margin of the coil mass is no longer seen. Curvilinear flow related enhancement which is present along the edges of the coil pack appears to reflect crossing branch vessels. -pt was told by her NS no need to continue care -taking ASA Calcaneal spur 04/26/2017 Resolved Problems Problem Noted Date Diagnosed Date Resolved Date Elevated blood pressure reading 04/03/2023 10/14/2023 Rectal pain 08/06/2022 10/08/2022 Assessment & Plan (08/06/2022 4:14 PM EDT): Most likely related to internal hemorrhoids/r/o diverticulitis Constipation not improved with senna and colace, start linzess copy of GI referral to Dr. Davis given to pt to make an appointment referral has been faxed 3 months ago. I gave informaiton to avoid constipation Allergic rhinitis due to pollen 08/02/2022 10/08/2022 Anxiety 08/02/2022 10/14/2023 Arthritis of knee 08/02/2022 10/08/2022 Biceps tendinitis 08/02/2022 10/08/2022 Congestion of nasal sinus 08/02/2022 Chronic low back pain 08/02/20222022 Chronic pain of both knees 08/02/2022 0 10/08/2022 Pain in toe 08/02/2022 10/08/2022 Postmenopausal bleeding 08/02/2022 07/2 06/2022 Tear of lateral meniscus of knee 08/02/2022 10/08/2022 Right inguinal pain 08/02/2022 10/09/19 Primary osteoarthritis of both knees 08/02/2022 10/08/2022 Pelvic mass 08/02/2022 10/08/2022 Intermittent claudication 08/22/2018 Perimenopause 05/19/2018 10/08/2022 Nail finding 04/08/2018 10/08/2022 Paresthesia of hand 02/03/2018 10/09/19 Hemorrhage into subarachnoid space of neuraxis 09/06/2017 10/08/2022 Worsening vision 09/06/2017 10/08/2022 Encounters Date Type Department Care Team Description 06/24/2024 Patient Outreach [facility] [address] [place] [address] Naa Maradiaga MD Pre-visit Planning (SDOH unable to reach [facility] ) 06/23/2024 Telephone [facility] [address] [place] [address] Naa Maradiaga MD chart prep 06/15/2024 Telephone [facility] [address] [place] [address] Marian Urias, HORACE cx and rs appt same day 06/09/2024 2:30 PM EDT Office Visit [facility] [address] [place] [address] Denis Santana, DDS 05/08/2024 Telephone [facility] [address] [place] [address] Naa Maradiaga MD june05/05/2024 3:30 PM EST Office Visit [facility] [address] [place] [address] Denis Santana, DDS 04/21/2024 Refill [facility] [address] [place] [address] Mally Godinez ANP Hypothyroidism, unspecified type 04/21/2024 Refill [facility] [address] [place] [address] Adeline Lancaster, TAM Hypothyroidism, unspecified type 04/16/2024 Refill [facility] [address] [place] [address] Naa Maradiaga MD 04/15/[address] [facility] [address] [place] [address] Adeline Lancaster RN Results 04/03/2024 2:45 PM EST Immunization [facility] [address] [place] [phone] Kathleen Michael LPN Encounter for immunization (Primary Dx) 04/03/2024 1:30 PM EST Office Visit [facility] [address] [facility] [place] [address] Denis Santana DDS 04/03/2024 Travel 03/31/2024 Telephone [facility] [address] [facility] [place] [address] Denis Santana DDS clarification on case from Last 3 Months Immunizations Name Administration Dates Next Due Hep B, adult 04/05/2021,01/11/2021,12/13/2020 Influenza injectable quadriv alent IIV4 with preservative 04/26/2017,12/24/2014 Influenza injectable quadriv alent preservative free 01/29/2023,12/08/2021,12/13/2020,2018,04/20/2016 Influenza, IIV3, injectable 12/04/2013 Influenza, seasonal, injecta ble, preservative free 04/03/2024 Pfizer Covid-19 Vaccine 12+ 04/03/2024, RSV Bivalent 06/12/2023 Tdap 11/30/2020 Zoster, Recombinant 02/01/2021,11/30/2020 Family History Medical History Relation Name Comments Hypothyroidism Brother Heart attack Father colon cancer at her 45s Mother Uterine cancer Sister Relation Name Status Comments Brother Father Mother Sister Social History Tobacco Use Types Packs/Day Years Used Date Smoking Tobacco: Never Passive Smoke Exposure: Never Smokeless Tobacco: Never Tobacco Cessation:Counseling Given: Not Answered Alcohol Use Standard Drinks/Week Comments Yes 1 (1 standard drink = 0.6 oz pur e alcohol) social PHQ-2 Answer Date Recorded Patient Health Questionnaire-2 Score 0 10/08/2022 Housing Stability Answer Date Recorded What is your housing situation today? I have ann vazquez 06/24/[address] you li ve. Do you have problems with any of the following? None of the above 06/24/2024 Food Insecurity Answer Date Recorded Within the past 12 months, y ou worried that your food would run out before you got money to buy more: Never True 06/24/2024 Within the past 12 months,th e food you bought just didn't last and you didn't have enough money to get more: Never True 11/2024 Transportation Answer Date Recorded In the past 12 months, has l ack of transportation kept you from medical appts, meetings, work or from getting things needed for daily living? No 06/24/2024 Utilities Answer Date Recorded In the past 12 months, has t he electric, gas, oil or water company threatened to shut off services in your home? No 06/24/2024 Depression Answer Date Recorded Patient Health Questionnaire-2 Score 0 10/14/2023 Internet Access Answer Date Recorded Internet Access Q1 Yes 06/24/2024 Internet Access Q2 Not on file 06/24/2024 Comments Unknown Sex and Gender Information Value Date Recorded Sex Assigned at Female 01/15/2022 10:22 AM EDT Legal Sex Female 10:22 AM EDT Gender Identity Female 01/15/2022 10:22 AM EDT Sexual Orientation Straight 01/15/2022 10 :22 AM EDT Last Filed Vital Signs Vital Sign Reading Time Taken Comments Blood Pressure 132/74 02/28/2024 2:23 PM EST Pulse 87 11/28/2023 1:23 PM EDT Temperature 37.1 ??C (98.8 ??F) 11/28/2023 1:23 PM ED T Respiratory Rate 18 11/28/2023 1:23 PM EDT Oxygen Saturation 98% 11/28/2023 1:23 PM EDT Inhaled Oxygen Concentration - - Weight 68.2 kg (150 lb 6.4 oz) 11/28/2023 1:23 P M EDT Height 162.6 cm (5' 4 ) 11/28/2023 1:23 PM EDT Body Mass Index 25.82 11/28/2023 1:23 PM EDT Plan of Treatment Upcoming Encounters Date Type Department Care Team (Late st Contact Info) Description 07/01/2024 2:00 PM EDT Office Visit [facility] [address] [place] [phone] Naa Maradiaga MD [address] [place] [address] 08/03/2024 3:00 PM EDT Office Visit [facility] [address] [place] [address] Angelica Álvarez Health Maintenance Due Date Last Done Comments CT Colonography 1963 FIT DNA/Cologuard 1965 Sigmoidoscopy 1965 Alcohol/Substance Use Screening 1975 Pneumococcal Vaccine: 50+ Years (1 of 1 - PCV) 2013 Dental Oral Exam 07/17/2024 01/17/2024, 07/18/2022 Dental Prophylaxis 07/17/2024 01/17/2024, 07/18/2022 Depression Screening 10/13/2024 10/14/2023, 10/14/19 24 FIT 11/29/2024 11/30/2023 FOBT 11/29/2024 11/30/2023 Mammogram 03/17/2025 03/17/2024, 02/16, 03/06/2022, Additional history exists Pap Smear 04/12/2025 04/12/2022 Tobacco Screening 05/05/2025 05/05/2024 Dental X-Ray: Bitewings 06/10/2025 06/10/19 25, 04/03/2024, 01/17/2024, Additional history exists SDOH Screening 06/24/2025 06/24/2024 Dental X-Ray: Full Mouth 01/17/2027 01/17/2024 Cervical Cancer Screening 04/12/2027 HPV/Cotest 04/12/2027 04/12/2022, 05/19/2018 Colonoscopy 12/14/2029 12/15/2019 Colorectal Cancer Screening 12/14/2029 DTaP/Tdap/Td Vaccines (2 - Td or Tdap) 11/30/2030 11/30/2020 Zoster Vaccines Completed 02/01/2021, 11/30/2020 Hepatitis B Vaccines Completed 04/05/2021, 01/11/2021, 12/13/2020 RSV Patients and Patients Aged 60 years or older Completed 06/12/2023 HIV Screening Completed 11/21/2023, 10/12/2022 Hepatitis C Screening Completed 11/21/2023, 023 COVID-19 Vaccine Completed 04/03/2024, , 01/10/2022, Additional history exists Influenza Vaccine Completed 04/03/2024, , 12/08/2021, Additional history exists HIB Vaccines Aged Out No longer eligi ble based on patient's age to complete this topic HPV Vaccines Aged Out No longer eligi ble based on patient's age to complete this topic Hepatitis A Vaccines Aged Out No long er eligible based on patient's age to complete this topic IPV Vaccines Aged Out No longer eligi ble based on patient's age to complete this topic Meningococcal Vaccine Aged Out No tiffanie gerard eligible based on patient's age to complete this topic RSV under 20 months Aged Out No longe r eligible based on patient's age to complete this topic Rotavirus Vaccines Aged Out No longer eligible based on patient's age to complete this topic Procedures Procedure Name Priority Date/Time Associated Diagnosis Comments CASE PRESENTATION, DETAILED AND EXTENSIVE TREATMENT PLANNING Routine 06/09/2024 2:30 PM EDT BITEWING - SINGLE RADIOGRAPHIC IMAGE Routine 06/09/2024 2:30 PM EDT 15 INTRAORAL - PERIAPICAL FIRST RADIOGRAPHIC IMAGE Routine 06/09/2024 2:30 PM EDT 15 LIMITED ORAL EVALUATION - PROBLEM FOCUSED Routine 06/09/2024 2:30 PM EDT CASE PRESENTATION, DETAILED AND EXTENSIVE TREATMENT PLANNING Routine 05/05/2024 3:30 PM EST Max OCCLUSAL GUARD - HARD APPLIANCE, FULL ARCH Routine 05/05/2024 3:30 PM EST CASE PRESENTATION, DETAILED AND EXTENSIVE TREATMENT PLANNING Routine 04/03/2024 1:30 PM EST BITEWING - SINGLE RADIOGRAPHIC IMAGE Routine 04/03/2024 1:30 PM EST INTRAORAL - PERIAPICAL FIRST RADIOGRAPHIC IMAGE Routine 04/03/2024 1:30 PM EST LIMITED ORAL EVALUATION - PROBLEM FOCUSED Routine 04/03/2024 1:30 PM EST NO CHARGE PROCEDURE Routine 04/03/2024 1 :30 PM EST BI MAMMOGRAM SCREENING TOMOSYNTHESIS BILATERAL Routine 03/17/2024 2:44 PM EST PROPHYLAXIS - ADULT Routine 01/17/2024 1 :00 PM EDT Dental plaque Dental calculus INTRAORAL - COMPLETE SERIES OF RADIOGRAPHIC IMAGES Routine 01/17/2024 1:00 PM EDT PERIODIC ORAL EVALUATION - ESTABLISHED PATIENT Routine 01/17/2024 1:00 PM EDT FECAL GLOBIN BY IMMUNOCHEMISTRY Routine 11/30/2023 12:00 AM EDT HEPATITIS C AB W/REFL TO HCV RNA, QN, PCR Routine 11/21/2023 6:22 AM EDT Annual physical exam HIV 1/2 ANTIGEN/ANTIBODY, FOURTH GENERATION W/RFL Routine 11/21/2023 6:22 AM EDT Annual physical exam HPV MRNA E6/E7 REFLEX TO HPV 16, 18/45 Routine 04/12/2022 3:02 PM EST PAP SMEAR Routine 04/12/2022 3:02 PM EST HM COLONOSCOPY Routine 12/15/2019 2:23 PM EDT from Last 3 Months or Most Recently Relevant to Health Maintenance Results * BI Mammogram Screening Tomosynthesis Bilateral (03/17/2024 2:44 PM EST) Anatomical Region Laterality Modality Breast Bilateral Mammography 03/17/2024 2:44 PM EST Narrative 03/28/2024 8:19 PM EST ? [facility] [place] ? [address] ?[place] [id number] ? Mammography Report ? Signed with Addenda ? Patient: Sammi Saldana,Shruti ?MR#: ?? [id number] ? : 1965 ?Acct:[id number] ? Age/Sex: 58 / F ?ADM Date: 12/31/24 ? Loc: HO.MAMMO ? Attending Dr: Sheryl Wang MD ? Ordering Physician: Sheryl Wang MD ?Results: 1Ne ?? gative ? Date of Service: 03/17/24 ?Follow Up: 1 Year From Orig ?? inal Mammogram ? Procedure(s): MM tomosynthesis screening BI ?? Accession Number(s): [id number] ? cc: Sheryl Wang MD; Naa Maradiaga MD ?ADDENDUM ? ADDENDUM #1 ? ADDENDUM: ?? The current mammogram has been reviewed and remains BI-RADS as follows ? OVERALL ASSESSMENT: ?? BI-RADS 1 - Negative ? RECOMMENDATION: ?? 1 year F/U ? Electronically signed by: ??Kamille Hill DO ??04/13/2024 03:20 PM EST ?? RP ? Addendum Dictated By: ?Kamille Hill, DO ? Addendum Signed By: ? <Electronically signed by Kamille Hill, DO in OV> ? 04/13/24 1520 ?? Addendum Cosigned By: ? DD/ ? TD/TT: 03/17/24 ? EXAMINATION: ?? MM SCREENING DIGITAL BREAST TOMOSYNTHESIS, BILATERAL ? CLINICAL INFORMATION: ? Screening. Asymptomatic. ? COMPARISON: ?? Mammography: Comparison is made with available priors ? TECHNIQUE: ?? Digital breast mammography with tomosynthesis is performed in both the ?? craniocaudal and mediolateral oblique views along with computer-aided ?? detection (CAD). ? FINDINGS: ?? The breasts are heterogeneously dense, which may obscure small masses ?? (ACR BI-RADS breast composition Category c). ? There are no significant masses, abnormal calcifications, or other ?? abnormalities. ? MM/MM tomosynthesis screening BI ?? IMPRESSION: ?? No mammographic evidence of malignancy. ? ASSESSMENT: ? BI-RADS BI-RADS 1 - Negative ? RECOMMENDATION: ?? Routine annual mammography screening. ? 1 year F/U ? This examination should not preclude the clinical evaluation of a ?? suspicious palpable abnormality. ? This patient's information was entered into a reminder system with a ?? target due date for their next mammogram. ? Electronically signed by: ??Kamille Hill DO ??03/28/2024 08:16 PM EST ?? RP ? Dictated By: ?Kamille Hill DO ? Signed By: ?<Electronically signed by Kamille Hill, DO in OV> ? 03/28/242015 ? DD/ 1444 ? TD/TT: 03/17/24 1500 ? Storage Battery Charger: ? Procedure Note Donmaximuster, Image - 04/13/2024 Jose Armando [facility] [address] [place] [address] Mammography Report Signed with Addenda Patient: Lizzy LeedMR#: [id number] : 1965Acct:[id number] Age/Sex: 58 / FADM Date: 03/17/24 Loc: MAMMO Attending Dr: Sheryl Wang MD Ordering Physician: Sheryl Wangesults: 1Ne gative Date of Service: 03/17/24Follow Up: 1 Year From Orig inal Mammogram Procedure(s): MM tomosynthesis screening BI Accession Number(s): [id number] cc: Sheryl Wang MD; Naa Maradiaga MD ADDENDUM ADDENDUM #1 ADDENDUM: The current mammogram has been reviewed and remains BI-RADS as follows OVERALL ASSESSMENT: BI-RADS 1 - Negative RECOMMENDATION: 1 year F/U Electronically signed by: Kamille Hill DO 04/13/2024 03:20 PM EST Addendum Dictated By: Kamille Hill DO Addendum Signed By: <Electronically signed by DO Puneet in OV> 04/13/24 1520 Addendum Cosigned By: DD/ TD/TT: 03/17/24 EXAMINATION: MM SCREENING DIGITAL BREAST TOMOSYNTHESIS, BILATERAL CLINICAL INFORMATION: Screening. Asymptomatic. COMPARISON: Mammography: Comparison is made with available priors TECHNIQUE: Digital breast mammography with tomosynthesis is performed in both the craniocaudal and mediolateral oblique views along with computer-aided detection (CAD). FINDINGS: The breasts are heterogeneously dense, which may obscure small masses (ACR BI-RADS breast composition Category c). There are no significant masses, abnormal calcifications, or other abnormalities. MM/MM tomosynthesis screening BI IMPRESSION: No mammographic evidence of malignancy. ASSESSMENT: BI-RADS BI-RADS 1 - Negative RECOMMENDATION: Routine annual mammography screening. 1 year F/U This examination should not preclude the clinical evaluation of a suspicious palpable abnormality. This patient's information was entered into a reminder system with a target due date for their next mammogram. Electronically signed by: Kamille Hill DO 03/28/2024 08:16 PM EST Dictated By: Kamille iHll DO Signed By: <Electronically signed by Kamille Hill DO in OV> 03/28/242015 DD/ 1444 TD/TT: 03/17/24 1500 Storage Battery Charger: Sheryl Wang MD [facility] BI PROCEDURES Edited Result - Final * Fecal Globin by Immunochemistry (11/30/2023 12:00 AM EDT) Fecal Globin By Immunochemistry SEE NOTE [employer] [facility] Comment: ??FECAL GLOBIN BY IMMUNOCHEMISTRY ?Micro Number: ?[id number] ??Test Status: ? Final ??Specimen Source: ?? Insure (tm) fobt test card ??Specimen Quality: ??Adequate ??Fecal Globin: ?Not Detected 11/30/2023 12/08/2023 11: 31 PM EDT Narrative [facility] - 12/08/2023 11:42 PM EDT FASTING: UNKNOWN us Naa Aguila MD LAB BODY FLUIDS A ND STOOLS ORDERABLES Final Result [facility] [address] [facility], [place] [address] [employer] [facility] [address] [place] [address] * Hepatitis C Antibody with Reflex to HCV, RNA, Quantitative, Real-Time PCR (11/21/2023 6:22 AM EDT) Hepatitis C Antibody Nonreactive Nonreactive [facility] Comment:Antibodies to HCV no t detected; does not exclude early acuteHCV infection. Blood Venous blood specimen / Unknown 11/21/2023 6:22 AM EDT 11/21/2023 6:22 AM EDT us Naa Aguila MD LAB BLOOD ORDERAB LES Final Result [facility] [address] [place] [address] [phone] * HIV-1/2 Antigen and Antibodies, Fourth Generation, with Reflexes (11/21/2023 6:22 AM EDT) HIV AB/AG Nonreactive Nonreactive [facility] Comment:HIV-1 p24 Ag and/or HIV-1/HIV-2 Ab not detected.A test result that is nonreactive does not exclude thepossibility of exposure to or infection with HIV-1 and/orHIV-2. Nonreactive results in this assay for individualswith prior exposure to HIV-1 and/or HIV-2 may be due toantigen and antibody levels that are below the limit ofdetection of this assay.The [employer] HIV Ag/Ab Combo assay result andsupplemental assay results should be interpreted inconjunction with the patient's clinical presentation,history and other laboratory results. If the results areinconsistent with clinical evidence, additional testing issuggested to confirm the result. Blood Venous blood specimen / Unknown 11/21/2023 6:22 AM EDT 11/21/2023 6:22 AM EDT us Naa Aguila MD LAB BLOOD ORDERAB LES Final Result Performing Organization Address City/[facility]/ZIP Co de Phone Number [facility] [address] [place] [address] [phone] * HPV mRNA E6/E7 w/Reflex to HPV Genotypes 16, 18/45 (04/12/2022 3:02 PM EST) HPV nRNA E6/E7 Not Detected Not Detected [facility] Comment:Methodology: Transcr iption-Mediated AmplificationThis assay detects E6/E7 viral messenger RNA (mRNA) from 14high-risk HPV types (16,18,31,33,35,39,45,51,52,56,58,59,66,68).Cervical sources are required for HPV testing.If a vaginal source from a patient who has had atotal hysterectomy with removal of cervix wassubmitted, please contact the testing laboratoryfor alternative testing options.For additional information, please refer [email or web address]/faq/SZO912p7(This link if provided for information/educational purposes only.)THIS TEST WAS PERFORMED AT:[facility] [place] [address] ([address] [address]TZAIPIZZY LEMUS MD HPV mRNA E6/E7 [facility] HPV 16 RNA [facility] HPV 18/45 RNA [facility] 04/12/2022 3:02 PM EST 04/12/2022 4:15 PM EST [facility] External Provider LAB CYT OLOGY ORDERABLES Final Result Performing Organization Address City/[facility]/ZIP Co de Phone Number [facility] [address] [place] [phone] * Pap Smear (04/12/2022 3:02 PM EST) 04/12/2022 3:02 PM EST 04/12/2022 4:15 PM EST Narrative [facility] - 04/20/2022 6:31 PM EST ----- ------- Name: Shruti Lee ? Age/Sex: 57/F ? : 1965 Unit#: [id number] ?? Attend Dr: Hair Hinojosa MD ?Re04/12/22 ?Status: DEP REF ? Location: HO.LNP ?Disch: ? ----- ------- SPEC : [id number] ? RECD: 04/12/22-1614 ? STATUS: ??SOUT ? REQ NUM: [id number] ? ADRIANA: 04/12/22-150 ? SUBM DR: Hair Hinojosa MD ? ENTERED: ??04/12/22-1715 ?SP TYPE: Pap Smr ?OTHR DR: Sheryl Wang MD ? ORDERED: ??Pap Smear ? Interpretation ?? Satisfactory for evaluation. ?? Negative for intraepithelial lesion or malignancy. ?? Atrophic. ? HPV mRNA E6/E7: ?NOT DETECTED ? This assay detects E6/E7 viral messenger RNA (mRNA) from 14 high-risk HPV types (16, 18, ?? 31, 33, 35, 39, 45, 51, 52, 56, 58, 59, 66, 68) ? HPV testing performed by [employer], [place], [place]. ??See reference laboratory ?? portion of the EMR for entire report. ?Clinical Information LMP: Post menopause Previous PAP test: Unknown ? Material Received ?? ThinPrep-Cervical Copies To: ?? Sheryl Wang MD ?? [address] [facility] ?? [place] [address] ? Hiar Hinojosa MD ?? [address] [place] [address] Dr. Davila [facility] ?? [place] [address] ?? [phone] ----- ------- Signed (signature on file) Christina Laureano 04/20/221830 ? ----- ------- ? END OF REPORT ? [facility] External Provider LAB [facility] ORDERABLES Final Result [facility] [address] [place] [address] [phone] * Colonoscopy (12/15/2019 2:23 PM EDT) [facility] Colonoscopy Normal Normal Narrative Lashon Cat - 12/15/2019 2:23 PM EDT Recommended 10 year follow up Historical Provider HEALTH MAINTENANCE Edited Result - Final from Last 3 Months or Most Recently Relevant to Health Maintenance Insurance [email or web address] LIMITED [facility] FULL DENTAL-[facility] MEDICAID LIMITED ADULT DENTAL - HSN FULL (MEDICAID) Care Teams Police Or Patrol Park Officer Relationship Specialty Start Date End Date Naa Maradiaga MD [address] [place] [phone] PCP - General Internal Medicine 08/23/22
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
--- OUTSIDE RECORDS SUMMARY | 2024-06-25 17:32 | XMS_ITS | Clinical Summary ---
Author Organization [facility] Address [address] [place] [address] Care Team Providers Care Supplies Packer Name Role Phone KathleenMaryuriPadma Primary Care Provider [phone] Allergies No known active allergies Medications levothyroxine [...] Monovalent Vaccine, Moderna, mRNA, PF 0 08/10/2020,07/13/2020 Family History Medical History Relation Name Comments Brain Aneurysm Neg Hx Social History Tobacco Use Types Packs/Day Years [...] 10/05/2020 7:36 AM EDT Plan of Treatment Health Maintenance Due Date Last Done Comments Cervical Cancer Screening 1965 Cologuard 1965 Colon Cancer Screening 1965 Colonoscopy 1965 FOBT / Fit Test 1965 HIV Screening 1965 HPV and Pap Smear 1965 Pap Smear 1965 Sigmoidoscopy 1965 DTaP,Tdap,and Td Vaccines (1 - Tdap) 1985 Pneumococcal Vaccine: 50+ Years (1 of 1 - PCV) 2013 Zoster Vaccines (1 of 2) 2013 COVID-19 Vaccine (3 - 2023-2 5 season) 2023 08/10/2020, 07/13/2020 Alcohol/Substance Use Screening 03/18/2024 Influenza Vaccine (Season Ended) 2024 12/04/2013 RSV Vaccine (60+ years old a nd patients) (1 - 1-dose 75+ series) 2038 Hepatitis B Vaccines Aged Out No long er eligible based on patient's age to complete this topic Medical Devices Implanted Type Area Anaesthesiologist Device Identifier Shelf Expiration Date Model / Serial / Lot Device Closure Vascular Plug 6fr Angio-Seal Vip - [id number] Implanted:Qty: 1 on 03/04/2018 at [facility] Implant [employer] 12/15/2018 [id number] / / [id number] Device Closure Vascular Plug 6fr Angio-Seal Vip - [id number] Implanted:Qty: 1 on 07/06/2020 at [facility] Implant [employer] [id number] / / Device Closure Vascular Plug 6fr Angio-Seal Vip - [id number] Implanted:Qty: 1 on 08/03/2020 at [facility] Implant [employer] [id number] / / Diverter Flow [id number] - [id number] Implanted:Qty: 1 on 08/03/2020 at [facility] [employer] 12/15/2022 [id number] / / [id number] Diverter Flow [id number] - [id number] Implanted:Qty: 1 on 08/03/2020 at [facility] [employer] 08/15/2022 [id number] / / [id number] Insurance [facility] HSNO/FREE CARE Care Teams Supplies Packer Relationship Specialty Start Date End Date Maryuri Wang [address] [place] [phone] PCP - General Internal Medicine 10/03/17
--- OUTSIDE RECORDS SUMMARY | 2024-06-25 17:32 | XMS_ITS | Encounter Summary ---
Author Organization [employer] [facility] Address [address] [facility] 7t [place] [address] Care Team Providers Care Auto Appraiser Name Role Phone Maryuri Wang MD Primary Care Provider + Naa Maradiaga MD Primary Care Pro vider Encounter Details Date Type Department Care Team (Latest Contact Info) Description 02/17/2021 Abstract [facility] CONVERSIONS Dental, Provider, DDS Social History Tobacco Use Types Packs/Day Years Used Date Smoking Tobacco: Never Assessed Comments Unknown Sex and Gender Information Value Date Recorded Sex Assigned at Female 01/15/2022 10:22 AM EDT Legal Sex Female 10:22 AM EDT Gender Identity Female 01/15/2022 10:22 AM EDT Sexual Orientation Straight 01/15/2022 10 :22 AM EDT documented as of this encounter Plan of Treatment Upcoming Encounters Date Type Department Care Team ( st Contact Info) Description 07/01/2024 2:00 PM EDT Office Visit [facility] MEDICINE [address] [place] [address] Naa Maradiaga MD [address] [place], [place] [phone] 08/03/2024 3:00 PM EDT Office Visit [facility] ADULT DENTAL [address] [place], [place] [phone] Angelica Álvarez documented as of this encounter Visit Diagnoses Not on filedocumented in this encounter Care Teams Auto Appraiser Relationship Specialty Start Date End Date Maryuri Wang MD [address] [place] [address] PCP - General Family Medicine 01/09/17 08/22/22 Naa Maradiaga MD [address] [place] [phone] PCP - General Internal Medicine 08/23/22 documented as of this encounter
--- OUTSIDE RECORDS SUMMARY | 2024-06-25 17:32 | XMS_ITS | Encounter Summary ---
Author Organization [employer] Address [address] [facility] 7t [place] [address] Care Team Providers Care Pediatrician Name Role Phone Maryuri Wang MD Primary Care Provider + Naa Maradiaga MD Primary Care Pro vider Reason for Visit * Reason Onset Date Comments Appointment 05/25/2022 Encounter Details Date Type Department Care Team ([facility] st Contact Info) Description 05/25/2022 Telephone [facility]ULT [facility] [address] [place] [address] Jerman Reeves, DMD [address] [place] [address] Appointment Social History Tobacco Use Types Packs/Day Years [...] suspected to have Coronavirus/COVID-19? No / Unsure 05/22/2022 1:47 PM EST documented as of this encounter Miscellaneous Notes * Telephone Encounter - Jud Miranda - 05/25/2022 12:26 PM EST Lab called in stating that they need shade for crown for patient Shruti Saldana 1949 please advise. documented in this encounter Plan of Treatment Upcoming Encounters Date Type Department Care Team (Late st Contact Info) Description 07/01/2024 2:00 PM EDT Office Visit [facility] MEDICINE [address] [place], [place] [phone] Naa Maradiaga MD [address] [place] [address] [phone] 08/03/2024 3:00 PM EDT Office Visit [facility] ADULT DENTAL [address] [place], [place] [phone] Angelica Álvarez documented as of this encounter Visit Diagnoses Not on filedocumented in this encounter Care Teams Pediatrician Relationship Specialty Start Date End Date Maryuri Wang MD [address] [place] [address] [phone] PCP - General Family Medicine 01/09/17 08/22/22 Naa Maradiaga MD [address] [place] [address] [phone] PCP - General Internal Medicine 08/23/22 documented as of this encounter
--- OUTSIDE RECORDS SUMMARY | 2024-06-25 17:33 | XMS_ITS | Encounter Summary ---
Author Organization [employer] [facility] Address [address] [facility] 7t [place] [address] Care Team Providers Care Signal Intelligence/Electronic Warfare Name Role Phone Maryuri Wang MD Primary Care Provider + Naa Maradiaga MD Primary Care Pro vider Encounter Details Date Type Department Care Team (Latest Contact Info) Description 06/13/2018 Abstract [facility] CONVERSIONS Dental, Provider, DDS Social History [...] Description 07/01/2024 2:00 PM EDT Office Visit [facility] MEDICINE [address] [place], [place] [phone] Naa Maradiaga MD [address] [place], [place] [phone] 08/03/2024 3:00 PM EDT Office Visit [facility] ADULT DENTAL [address] [place], [place] [phone] Angelica Álvarez documented as of this encounter Visit Diagnoses Not on filedocumented in this encounter Care Teams Signal Intelligence/Electronic Warfare Relationship Specialty Start Date End Date Maryuri Wang MD [address] [place] [address] PCP - General Family Medicine 01/09/17 08/22/22 Naa Maradiaga MD [address] [place] [phone] PCP - General Internal Medicine 08/23/22 documented as of this encounter
--- OUTSIDE RECORDS SUMMARY | 2024-06-25 17:33 | XMS_ITS | Clinical Summary ---
Author Organization [facility] Address [address] [place] [address] Care Team Providers Care Tube Making Machine Operator Name Role Phone SelmaDiana LIONEL Primary Care Provider [phone] Source Comments PLEASE NOTE, if this patient is a minor, it may be UNLAWFUL to discuss sensitive information that is contained in these records (such as FAMILY PLANNING, MENTAL HEALTH or SUBSTANCE ABUSE) with the minor patient's parent or other person without the patient's specific authorization.[facility] Allergies No known active allergies Medications levothyroxine (SYNTHROID, LEVOTHROID) 75 mcg tabletIndication s:Hypothyroid Take 1 Tab by mouth once daily. 30 Tab 3 10/10/2012 Active levothyroxine (SYNTHROID, LEVOTHROID) 75 mcg tablet Take 1 Tab by mouth once daily. 30 Tab 3 01/06/2013 Active Active Problems Problem Noted Date Diagnosed Date Hypothyroid 10/10/2012 Social History Tobacco Use Types Packs/Day Years Used Date Smoking Tobacco: Never Alcohol Use Standard Drinks/Week Comments Not Asked 0 (1 standard drink = 0.6 oz pur e alcohol) Comments No Sex and Gender Information Value Date Recorded Sex Assigned at Not on file Legal Sex Female 11:36 AM PDT Gender Identity Not on file Sexual Orientation Not on file Last Filed Vital Signs Vital Sign Reading Time Taken Comments Blood Pressure 110/70 10/10/2012 3:50 PM EDT Pulse 70 10/10/2012 3:50 PM EDT Temperature 36.6 ??C (97.8 ??F) 10/10/2012 3:50 PM ED T Respiratory Rate 16 10/10/2012 3:50 PM EDT Oxygen Saturation - - Inhaled Oxygen Concentration - - Weight 65.3 kg (144 lb) 10/10/2012 3:50 PM EDT Height 165.1 cm (5' 5 ) 10/10/2012 3:50 PM EDT Body Mass Index 23.96 10/10/2012 3:50 PM EDT Plan of Treatment Not on file Insurance [place] MEDICAID HEALTH SAF[employer]Y NET Care Teams Tube Making Machine Operator Relationship Specialty Start Date End Date Diana Hahn NP [address] [place] [address] PCP - General Internal Medicine 10/10/12
--- OUTSIDE RECORDS SUMMARY | 2024-06-25 17:33 | XMS_ITS | Encounter Summary ---
Author Organization [facility] Address [address] [place] [address] Care Team Providers Care School Office Assistant Name Role Phone Maryuri Wang Primary Care Provider Encounter Details Date Type Department Care Team (Late st Contact Info) Description 10/04/2020 Telephone [facility] Interventional Radiology [address] [place] [phone] Sweta [place] RN Social History Tobacco Use Types Packs/Day Years [...] on filedocumented in this encounter Care Teams School Office Assistant Relationship Specialty Start Date End Date Maryuri Wang [address] [place] [address] PCP - General Internal Medicine 10/03/17 documented as of this encounter
--- OUTSIDE RECORDS SUMMARY | 2024-06-25 17:33 | XMS_ITS | Encounter Summary ---
Author Organization [employer] Address [address] [facility] 7t [place] [address] Care Team Providers Care Over Hauler Helper Name Role Phone Naa Maraidaga MD Primary Care Pro vider Reason for Visit * Reason Comments Pre-visit Planning SDOH unable to reach LVM Encounter Details Date Type Department Care Team (Late st Contact Info) Description 06/24/2024 Patient Outreach [facility] MED & PEDS [address] [place] [address] Naa Maradiaga MD [address] [place] [address] Pre-visit Planning (SDOH unable to reach LVM ) Social History Tobacco Use Types Packs/Day Years [...] AM EDT documented as of this encounter Progress Notes * Terri Pope - 06/24/2024 4:17 PM EDT CC Terri Terry placed successful outbound call to patient for pre-visit planning. Patient name and confirmed. Patient confirms appt date and time, and has transportation arrangements. Biggest concern for appointment at this time is arthritis is worst. Appropriate screenings completed in anticipation of appointment. documented in this encounter Plan of Treatment Upcoming Encounters Date Type Department Care Team (Late st Contact Info) Description 07/01/2024 2:00 PM EDT Office Visit [facility] MEDICINE [address] [place] [address] Naa Maradiaga MD [address] [place] [phone] 08/03/2024 3:00 PM EDT Office Visit [facility] ADULT DENTAL [address] [place], [place] [phone] Angelica Álvarez documented as of this encounter Visit Diagnoses Not on filedocumented in this encounter Care Teams Over Hauler Helper Relationship Specialty Start Date End Date Naa Maradiaga MD [address] [place] [address] [phone] PCP - General Internal Medicine 08/23/22 documented as of this encounter
--- OUTSIDE RECORDS SUMMARY | 2024-06-25 17:33 | XMS_ITS | Encounter Summary ---
Author Organization [employer] Address [address] [facility] 7t [place] [address] Care Team Providers Care Lip And Gate Builder Name Role Phone Naa Maradiaga MD Primary Care Pro vider Reason for Visit * Reason Onset Date Comments chart prep 06/23/2024 Encounter Details Date Type Department Care Team (Late st Contact Info) Description 06/23/2024 Telephone [facility] MEDICINE [address] [place] [address] Naa Maradiaga MD [address] [place] [address] chart prep Social History Tobacco Use Types Packs/Day Years [...] encounter Miscellaneous Notes * Telephone Encounter - Marilia Rae MA - 06/23/2024 3:54 PM EDT Chart Prep Labs: done Images: done Vaccines due: PCV20 Due Referrals: Completed Screenings: Not Applicable Overdue care gaps: Sbirt, SDOH, and Disability documented in this encounter Plan of Treatment Upcoming Encounters Date Type Department Care Team (Late st Contact Info) Description 07/01/2024 2:00 PM EDT Office Visit [facility] MEDICINE [address] [place] [address] Naa Maradiaga MD [address] [place] [address] 08/03/2024 3:00 PM EDT Office Visit [facility] ADULT DENTAL [address] [place] [address] Angelica Álvarez documented as of this encounter Visit Diagnoses Not on filedocumented in this encounter Care Teams Lip And Gate Builder Relationship Specialty Start Date End Date Naa Maradiaga MD [address] [place] [phone] PCP - General Internal Medicine 08/23/22 documented as of this encounter
--- OUTSIDE RECORDS SUMMARY | 2024-06-25 17:33 | XMS_ITS | Encounter Summary ---
Author Organization [employer] [facility] Address [address] [facility] 7t [place] [address] Care Team Providers Care Crab Steamer Name Role Phone Maryuri Wang MD Primary Care Provider + Naa Maradiaga MD Primary Care Pro vider Encounter Details Date Type Department Care Team (Latest Contact Info) Description 02/19/2020 Abstract [facility] CONVERSIONS Dental, Provider, DDS Social History [...] Description 07/01/2024 2:00 PM EDT Office Visit [facility] MEDICINE [address] [place], [place] [phone] Naa Maradiaga MD [address] [place], [place] [phone] 08/03/2024 3:00 PM EDT Office Visit [facility] ADULT DENTAL [address] [place], [place] [phone] Angelica Álvarez documented as of this encounter Visit Diagnoses Not on filedocumented in this encounter Care Teams Crab Steamer Relationship Specialty Start Date End Date Maryuri Wang MD [address] [place] [address] PCP - General Family Medicine 01/09/17 08/22/22 Naa Maradiaga MD [address] [place] [phone] PCP - General Internal Medicine 08/23/22 documented as of this encounter
--- OUTSIDE RECORDS SUMMARY | 2024-06-25 17:33 | XMS_ITS | Encounter Summary ---
Author Organization [employer] Address [address] [facility] 7t [place] [address] Care Team Providers Care Wrapping Clerk Name Role Phone Naa Maradiaga MD Primary Care Pro vider Reason for Visit * Reason Onset Date Comments new script 01/22/2023 Encounter Details Date Type Department Care Team (Late st Contact Info) Description 01/22/2023 Telephone [facility] MEDICINE [address] [place] [address] Naa Maradiaga MD [address] [place] [address] new script Social History Tobacco Use Types Packs/Day Years Used Date Smoking Tobacco: Never Smokeless Tobacco: Never Alcohol Use Standard Drinks/Week Comments Yes 1 (1 standard drink = 0.6 oz pur e alcohol) social PHQ-2 Answer Date Recorded Patient Health Questionnaire-2 Score 0 10/08/2022 Housing Stability Answer Date Recorded What is your housing situation today? I have ann vazquez 01/08/[address] you li ve. Do you have problems with any of the following? None of the above 01/08/2023 Food Insecurity Answer Date Recorded Within the past 12 months, y ou worried that your food would run out before you got money to buy more: Never True 01/08/2023 Within the past 12 months,th e food you bought just didn't last and you didn't have enough money to get more: Never True Transportation Answer Date Recorded In the past 12 months, has l ack of transportation kept you from medical appts, meetings, work or from getting things needed for daily living? No 01/08/2023 Utilities Answer Date Recorded In the past 12 months, has t he electric, gas, oil or water company threatened to shut off services in your home? No 01/08/2023 Depression Answer Date Recorded Patient Health Questionnaire-2 Score 0 10/08/2022 Comments Unknown Sex and Gender Information Value Date Recorded Sex Assigned at Female 01/15/2022 10:22 AM EDT Legal Sex Female 10:22 AM EDT Gender Identity Female 01/15/2022 10:22 AM EDT Sexual Orientation Straight 01/15/2022 10 :22 AM EDT documented as of this encounter Miscellaneous Notes * Telephone Encounter - Geraldine Vasquez LPN - 01/22/2023 3:29 PM EST Request has been sent to PCP. * Telephone Encounter - Roz Jarrett - 01/22/2023 3:24 PM EST Tc from pt stated need a new script of ferrous gluconate (Fergon) 324 (38 Fe) MG tablet for 90 dayssupply. Pt stated insurance don't pay [address] Elizabeth documented in this encounter Plan of Treatment Upcoming Encounters Date Type Department Care Team (Late st Contact Info) Description 07/01/2024 2:00 PM EDT Office Visit [facility] MEDICINE [address] [place] [address] Naa Maradiaga MD [address] [place] [address] 08/03/2024 3:00 PM EDT Office Visit [facility] ADULT DENTAL [address] [place] [address] Angelica Álvarez documented as of this encounter Visit Diagnoses Not on filedocumented in this encounter Care Teams Wrapping Clerk Relationship Specialty Start Date End Date Naa Maradiaga MD [address] [place] [phone] PCP - General Internal Medicine 08/23/22 documented as of this encounter
--- OUTSIDE RECORDS SUMMARY | 2024-06-25 17:33 | XMS_ITS | Clinical Summary ---
Author Organization [employer] Address [address] [place] [address] Phone Care Team Providers Care Poll Clerk Name Role Phone Unavailable Primary Care Provider Unavailabl e Allergies No known active allergies Medications meclizine (ANTIVERT) 25 mg tablet Take 1 tablet (25 mg total) by mouth 4 (four) times daily. 28 tablet 0 11/10/2013 Active Social History Tobacco Use Types Packs/Day Years Used Date Smoking Tobacco: Never Smokeless Tobacco: Never Alcohol Use Standard Drinks/Week Comments No 0 (1 standard drink = 0.6 oz pur e alcohol) Comments Unknown Sex and Gender Information Value Date Recorded Sex Assigned at Not on file Legal Sex Female 10:58 AM EDT Gender Identity Not on file Sexual Orientation Not on file Last Filed Vital Signs Vital Sign Reading Time Taken Comments Blood Pressure 146/82 07/30/2017 10:15 PM EDT Pulse 81 07/30/2017 10:15 PM EDT Temperature 36.6 ??C (97.9 ??F) 07/30/2017 8:46 PM ED T Respiratory Rate 18 07/30/2017 10:15 PM EDT Oxygen Saturation 100% 07/30/2017 10:15 PM EDT Inhaled Oxygen Concentration - - Weight 68 kg (150 lb) 11/10/2013 11:07 AM EDT Height - - Body Mass Index - - Plan of Treatment Health Maintenance Due Date Last Done Comments HIV screening 1976 Hepatitis C screening 1981 Tetanus adult (Td q 10,TDAP once) 1983 Cervical cancer screening 1984 Breast cancer screening 2003 Lipid disorder screening 2003 Colon cancer screening, Colonoscopy 2008 Pneumococcal Vaccine (50+ years) (1 of 1 - PCV) 2013 Shingles vaccine (Shingrix) (1 of 2 - Shingrix (RZV) 2 Dose Standard Series) 2013 Diabetes screening 07/30/2020 07/30/2017, 11/10/2013, 11/10/2013 Covid-19 vaccine series (1 - 2023- season) 2023 Influenza vaccine 11/16/2024 RSV Immunization (1 - 1-dose 75+ series) 2038 Meningococcal Vaccine Aged Out No tiffanie gerard eligible based on patient's age to complete this topic Pneumococcal Vaccine (2 - 49 years) Aged Out No longer eligible b ased on patient's age to complete this topic Procedures Procedure Name Priority Date/Time Associated Diagnosis Comments COMPREHENSIVE METABOLIC PANEL STAT 07/30/2017 8:55 PM EDT from Last 3 Months or Most Recently Relevant to Health Maintenance Results * (ABNORMAL) Comprehensive metabolic panel (07/30/2017 8:55 PM EDT) Sodium 140 136 - 145 mmol/L 07/30/2017 9:29 PM [facility] Potassium 3.2(L) 3.5 - 5.1 mmol/L 07/30/2017 9:29 PM [facility] Chloride 106 95 - 115 mmol/L 07/30/2017 9:29 PM [facility] CO2 24 21 - 32 mmol/L 07/30/2017 9:29 PM [facility] Anion Gap 10 5 - 18 07/30/2017 9:29 PM [facility] Glucose 120(H) 70 - 100 mg/dL 07/30/2017 9:29 PM [facility] BUN 21 8 - 25 mg/dL 07/30/2017 9:29 PM [facility] Creatinine 0.77 0.50 - 1.30 mg/dL 07/30/2017 9:29 PM [facility] Calcium 9.1 8.4 - 10.3 mg/dL 07/30/2017 9:29 PM [facility] BUN/Creatinine Ratio 27.3(H) 8.0 - 25.0 07/30/2017 9:29 PM [facility] Total Protein 7.6 6.4 - 8.2 g/dL 07/30/2017 9:29 PM [facility] Albumin 4.0 3.4 - 5.0 g/dL 07/30/2017 9:29 PM [facility] Total Bilirubin 0.2 0.0 - 1.0 mg/dL 07/30/2017 9:29 PM [facility] Alkaline Phosphatase 73 20 - 120 U/L 07/30/2017 9:29 PM [facility] Alanine Aminotransferase (ALT) 23 12 - 78 U/L 07/30/2017 9:29 PM [facility] Aspartate Aminotransferase (AST) 26 5 - 37 U/L 07/30/2017 9:29 PM [facility] Globulin 3.6 g/dL 07/30/2017 9:29 PM [facility] A/G Ratio 1.1 07/30/2017 9:29 PM [facility] AST/ALT Ratio 1.1 07/30/2017 9:29 PM [facility] eGFR (Afr Amer) >60 >60 mL/min/1. 73m2 07/30/2017 9:29 PM [facility] Comment: Values under 60mL/min/1.73m2 may indicate CKD if noted for ?? more than 3 months. eGFR is only valid if creatinine is at steady state. eGFR (NON -Salvadorean) >60 >60 mL/min/1. 73m2 07/30/2017 9:29 PM [facility] Comment: Values under 60mL/min/1.73m2 may indicate CKD if noted for ?? more than 3 months. eGFR is only valid if creatinine is at steady state. Osmolality Calculation 284 275 - 295 mOsm/kg 07/30/2017 9:29 PM [facility] Blood specimen (specimen) Venipuncture / Unknown 07/30/2017 8:55 PM EDT 07/30/2017 9:04 PM EDT us Peter A Garcia MD LAB BLOOD ORDERABLE S Final Result [address] [address], [facility] [phone] from Last 3 Months or Most Recently Relevant to Health Maintenance Insurance [id number] MEDICAID [id number] MEDICAID [id number] MEDICAID [id number] MEDICAID
--- OUTSIDE RECORDS SUMMARY | 2024-06-25 17:33 | XMS_ITS | Encounter Summary ---
Author Organization [employer] Address [address] [facility] 7t [place] [address] Care Team Providers Care School Lunch Manager Name Role Phone Naa Maradiaga MD Primary Care Pro vider Reason for Visit * Reason Onset Date Comments cx and rs appt same day 06/15/2024 Encounter Details Date Type Department Care Team (Late st Contact Info) Description 06/15/2024 Telephone [facility] ADULT DENTAL [address] [place] [address] Marian Urias DMD cx and rs appt same day Social History Tobacco Use Types Packs/Day Years Used Date Smoking Tobacco: Never Passive Smoke Exposure: Never Smokeless Tobacco: Never Alcohol Use Standard Drinks/Week Comments Yes 1 (1 standard drink = 0.6 oz pur e alcohol) social PHQ-2 Answer Date Recorded Patient Health Questionnaire-2 Score 0 10/08/2022 Housing Stability Answer Date Recorded What is your housing situation today? I have annmarcell vazquez 06/12/[address] you [...] encounter Miscellaneous Notes * Telephone Encounter - Estefanía King - 06/15/2024 8:20 AM EDT Patient called to cancel and reschedule an appt on same day of appt. Patient has been informed thata same day appointment cancellation patient would have a waiting period prior tor rescheduling and will hear back from office to reschedule. Patient understood DR documented in this encounter Plan of Treatment Upcoming Encounters Date Type Department Care Team (Late st Contact Info) Description 07/01/2024 2:00 PM EDT Office Visit [facility] MEDICINE [address] [place] [phone] Naa Maradiaga MD [address] [place] [phone] 08/03/2024 3:00 PM EDT Office Visit [facility] ADULT DENTAL [address] [place] [address] Angelica Álvarez documented as of this encounter Visit Diagnoses Not on filedocumented in this encounter Care Teams School Lunch Manager Relationship Specialty Start Date End Date Naa Maradiaga MD [address] [place] [phone] PCP - General Internal Medicine 08/23/22 documented as of this encounter
== END 2024-06-25 15:43 | disposition home or self-care (01) ==
LOC: HO.HWS 15:02
PROVIDERS: PCP Student in an Organized Health Care Education/Training Program; Visit Provider Obstetrics & Gynecology
DX: Z01.419 Encounter for gynecological examination (general) (routine) without abnormal findings (principal); N64.4 Mastodynia
CPT/HCPCS: 99213; 99396; 99459

== ENCOUNTER → 2024-06-25 15:02 | Outpatient (BNVA) | payer OTHER, SELFPAY | PROVIDERS: PCP Student in an Organized Health Care Education/Training Program; Visit Provider Obstetrics & Gynecology | DX: Z01.419 Encounter for gynecological examination (general) (routine) without abnormal findings (principal); N64.4 Mastodynia | CPT/HCPCS: 99212; 99396; 99459 ==

== ENCOUNTER 2024-07-07 14:52 | Outpatient (AMB) | payer OTHER, SELFPAY ==
--- NOTE | 2024-07-07 14:56 | MHC.OFFVIS ---
Vital Signs 07/07/24 14:58 Height 5 ft 4 in Weight 153 lb BMI 26.3 BP 113/63 Blood Pressure Location Lt brachial Position Sitting Pulse 72 Pulse Oximetry (%) 97 Oxygen Delivery Method Room Air Intake Visit Reasons: Bloating, Abdominal pain Intake Note: Patient complex follow up for Bloating, Abdominal pain./Krupa camargo 01/28/2023 for Anemia and was order pylori stool/results are in file 01/2023. Last EDG/Colonoscopy was 01/10/[address] Garcia with 10 yrs Colonoscopy recall. Patient cc: abdominal bloating with early satiety and Chronic gases, constipation with some blood spot due hemorrhoids. Patient needed Omeprazole refill. Network Desktop Support Specialist Required: Yes Accompanied by: Self / Same As Patient Allergies No Known Allergies Allergy (Verified 07/07/24 14:56) Medication List - Last Reconciled 07/07/24 by Libby Alexander CNP acetaminophen 500 mg PO Q6H PRN aspirin 81 mg PO DAILY blood pressure test kit-large As directed cyanocobalamin (vitamin B-12) 1,000 mcg PO QAM hydrocortisone 2.5% (Proctosol HC) 1 appl NH BEDTIME PRN levothyroxine 125 mcg PO DAILY omeprazole 20 mg PO DAILY 30 days psyllium husk (Metamucil) 1 tbsp PO DAILY sodium chloride 0.65% (Deep Sea Nasal) 1 spray intranasal HPI HPI Bloating, Abdominal pain: Details: Patient is a 59-year-old female with PMH of arthritis and thyroid disease. Last visit with STEFF Valderrama 01/28/2023 for follow-up after EGD and colonoscopy Pt is here today for follow up. Reports PCP expressed concerned about her EGD/colonoscopy results. She reports long standing constipation with exacerbation the past month. States she was prescribed fiber tablets by hemorrhoid surgeon X 2 years ago. Shares symptoms increased after missing one dose. endorses adequate fruit, vegetables and water intake. Patient denies: fever/chills, n/v, appetite changes, pyrosis, regurgitation, unintentional wt loss, dysphasia, or melena/hematochezia. She also reports bloating with epigatric burning pain X 3 years with exacerbation the past month. States episodes occur 2-3x/week after lunch. Reports relief from bloating after taking OTC omeprazole and drinking dani tea. She is unable to identify triggers, but found no relief after eliminating banana and almond milk She denies urinary symptoms Social hx: 1 glass of whiskey or wine/week denies recreational drug use non-smoker family hx as below denies personal hx of CA PFSH Medical History (Updated 07/07/24 @ 18:09 by Libby Alexander CNP) Acid reflux Abdominal pain Thyroid disease Arthritis Aneurysm Surgical History History of esophagogastroduodenoscopy (EGD) S/P excision of lipoma (06/21/22) Hx of colonoscopy History of tubal ligation Family History Mother Colon cancer Father Heart attack Family/Other Pancreatic cancer, Onset Age: 50 Sister Uterine cancer Other Family history of thyroid problem Social History Household Members: Spouse and Family Household Members Other:: spouse, son Housing: House Alcohol intake: current Alcohol intake frequency: holidays/special occasions only Patient Tobacco Use Status: Never used Tobacco 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 Sexual orientation: Straight/Heterosexual Gender identity: Female Female Reproductive History Menstrual Age of Menarche: 15 Review of Systems Const Reports as per HPI ENT Reports as per HPI Card Reports as per HPI Resp Reports as per HPI GI Reports as per HPI Reports as per HPI Physical Exam Vital Signs: Last Vital Signs Pulse 72 07/07/24 14:58 BP 113/63 07/07/24 14:58 Pulse Ox 97 07/07/24 14:58 Oxygen Delivery Method Room Air 07/07/24 14:58 BMI result Body Mass Index 26.3 Const General: healthy appearing, no acute distress and well developed Nutritional Appearance: well nourished Orientation/consciousness: patient oriented x3 HEENT Head: Yes normal to inspection, Yes normocephalic and Yes atraumatic Face and sinus: Yes normal facial exam Eyes General: appearance normal, both eyes and all related structures Neck Neck: Yes normal visual inspection Resp Effort & Inspection: normal respiratory effort, able to speak in complete sentences, no tracheal deviation and symmetric chest movement Auscultation: clear to auscultation bilaterally Cardio Jugular venous distension: no JVD Rate: regular rate Rhythm: regular rhythm Heart sounds: S1 normal heart sound present, S2 normal heart sound present, no gallops and no murmurs GI Inspection: Yes normal to inspection and No distended Palpation (GI): Soft to palpation, not firm, Tenderness to palpation present (GI) in the epigastrum and No hepatosplenomegaly present Auscultation: normal bowel sounds General: Yes CVA tenderness Back/Spine/Pelvis Back: CVA tenderness Neuro General: patient oriented x3 Gait exam (Neuro): Normal gait present Psych Appearance: grossly normal Mental Status: mental status grossly normal Speech and movement: Normal speech and movement present Affect: normal affect Attitude: cooperative Thought process: Normal thought process present Thought content: Normal thought content present Insight: Good insight present (Psych) Judgement: Good judgement present (Psych) Results Reviewed Results Reviewed: Operative Note Date of Service: 01/10/23 EGD/colonoscopy Operative Note Date of Service: 01/10/23 EGD/colonoscopy FLEXIBLE TRANSORAL UPPER GASTROINTESTINAL ENDOSCOPY AND COLONOSCOPY PROCEDURE NOTE UPPER ENDOSCOPY Procedure: The patient was placed in the left lateral decubitis position and pre-procedure medications were administered and a bite block was placed. The endoscope was inserted into the mouth and advanced under direct vision to the third part of duodenum. A careful inspection was made as the upper endoscope was withdrawn including a retroflexed examination of the proximal stomach; Findings and interventions are described below. Findings: Larynx:normal Esophagus: GE junction at 34 cm, diaphragm hiatus at 36 cm, 2 cm sliding hiatal hernia noted, mild esophagitis and possible short segment barretts with few small islands of salmon pink tissue Stomach: Patchy erythema in antrum. Biopsies were obtained. Grade 2 flap valve on retroflexed examination of the cardia. Duodenum: Normal bulb and descending duodenum, bx taken Intervention: Biopsies as noted above COLONOSCOPY Procedure: The patient was placed in the left lateral decubitis position and pre-procedure medications were administered. After a digital rectal examination of the ano-rectum, the video colonoscope was inserted into the rectum and advanced through the colon to the cecum/TI. The colonoscope was slowly withdrawn in a retrograde panoramic fashion and the colon mucosa was carefully examined including a retroflexed view of the rectum. Findings and interventions are described below. Procedure Difficulty: moderate Findings: Terminal Ileum-normal, bx taken random bx taken from right left and rectum in separate jars patchy melanosis coli noted Cecum:normal Ascending Colon: normal Transverse Colon -normal Descending Colon:normal Sigmoid Colon: mild diverticulosis noted Rectum: Retroflexion with small internal hemorrhoids, grade I Anorectum - normal Colon preparation: [place] Bowel Preparation Scale Right colon; 2 Transverse colon: 2 Left colon; 2 Impression and Post Procedure Diagnosis: Endoscopy Findings: gastritis possible barretts small hiatal hernia Colonoscopy Findings: internal hemorrhoids diverticular disease melanosis coli Plan: Await Pathology results Repeat Colonoscopy in 10 years or earlier if clinically indicated High fiber diet leaflet avoid straining at stool, epsom salts and sitz bath, anusol supps or cream if H pylori pos then treat Pathology: Status: [place] [facility] [place]: 01/10/23 Location: [facility] Received: 01/10/23 Diagnosis A. Duodenum, biopsy: Duodenal mucosa with preserved villi and no specific change. B. Stomach, biopsy: Gastric antral mucosa with reactive changes, ectatic vessels, and mild chronic inactive gastritis; negative for H pylori, intestinal metaplasia and dysplasia. C. Gastroesophageal junction, biopsy: Squamocolumnar mucosa with mild chronic inactive inflammation; negative for intestinal metaplasia and dysplasia. D. Esophagus, distal, biopsy: Squamous mucosa with no specific change; no columnar mucosa present. E. Terminal ileum, biopsy: Ileal mucosa with no specific change. F. 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 G. Colon, left side, biopsy: Colonic mucosa with pigmented lamina propria macrophages consistent with melanosis coli, otherwise no specific change. H. Colon, rectum, biopsy: Colonic mucosa with pigmented lamina propria macrophages consistent with melanosis coli otherwise no specific change. Comment: (F): These findings may be seen with NSAIDs/drugs, self-limited/infectious causes, bowel prep, or early inflammatory bowel disease and clinical correlation is necessary Assessment & Plan Assessment & Plan (1) Abdominal pain: Code(s): R10.9 - Unspecified abdominal pain Category: Medical Qualifiers: Abdominal location: epigastric Qualified Code(s): R10.13 - Epigastric pain Plan: DDX reviewed: constipation VS Gallbladder involvement VS renal environment. Given tenderness on exam we will obtain imaging to further evaluate gallbladder and surrounding organs,as well as the kidneys. U/A also ordered given flank pain on exam. Strict ER precautions reviewed. (2) Chronic constipation: Code(s): K59.09 - Other constipation Category: Medical Plan: Previous relief with daily fiber tablet, Okay to continue. We will try add on therapy of senna S tablets nightly. Reinforced lifestyle modifications to promote regularity: -higher fiber diet -adequate hydration with water -150 minutes of moderate intensity exercise per week (3) Acid reflux: Code(s): K21.9 - Gastro-esophageal reflux disease without esophagitis Category: Medical Qualifiers: Esophagitis bleeding: without hemorrhage Esophagitis presence: with esophagitis Qualified Code(s): K21.00 - Gastro-esophageal reflux disease with esophagitis, without bleeding Plan: Unclear of PCPs exact concern. 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 We will obtain screening labs to rule out inflammatory or celiac as source. We will trial Pepcid for breakthrough symptoms. May need to consider barium swallow if treatment fails and imaging unyielding. Education on GERD prevention-Advised against heavy meals. Encouraged small frequent meals VS large meals, remaining upright after meals x 2-3 hours, avoid late night eating/spicy foods/caffeine/alcohol/known triggers and tight fitting clothes Plan Follow-up in 4 weeks or sooner as needed Time: I spent a total of 60 minutes on the date of encounter which includes: Preparing to see the patient (reviewed previous documentation, test results and medical history) Performing a medically appropriate exam and/or evaluation Ordering medications, tests, and procedures Documenting clinical information in the health record Orders: Orders Complete Blood Count Auto Diff 07/07/24 R10.9 - Unspecified abdominal pain Comprehensive Met. Panel 07/07/24 R10.9 - Unspecified abdominal pain Calprotectin, Fecal 07/07/24 K59.09 - Other constipation IRON PROFILE 07/07/24 R10.9 - Unspecified abdominal pain UA CC w/rflx Micro + Cult 07/07/24 R10.9 - Unspecified abdominal pain C Reactive Protein 07/07/24 K59.09 - Other constipation Transglutaminase IgA 07/07/24 K59.09 - Other constipation US abdomen complete Today R10.13 - Epigastric pain, R10.9 - Unspecified abdominal pain Medications: New famotidine Take one tablet daily as needed for acid reflux 20 mg PO DAILY PRN 90 tabs 1RF GERD sennosides-docusate sodium 8.6-50 mg Take two capsules at bedtime 2 tab-caps (2 x 8.6-50 mg) PO BEDTIME 180 caps 1RF Discontinued omeprazole Discontinued Reason: No Longer Medically Relevant 20 mg PO DAILY 30 days 30 caps 5RF Coding Level of Care Code Established Pt Est Pt Level 4 (67185) Patient Type Established Diagnoses Epigastric pain R10.13 Abdominal location: epigastric Chronic constipation K59.09 Gastroesophageal reflux disease with esophagitis without hemorrhage K21.00 Esophagitis bleeding: without hemorrhage Esophagitis presence: with esophagitis
[2024-07-07 14:58] VITALS: BP 113/63; PULSE 72; O2SAT 97; BMI 26.3
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
--- OUTSIDE RECORDS SUMMARY | 2024-07-07 17:45 | XMS_ITS | Encounter Summary ---
Author Organization [employer] Address [address] [facility] 7t [place] [address] Care Team Providers Care Sleep Medicine Physician Name Role Phone Naa Maradiaga MD Primary Care Pro vider Reason for Visit * Reason Onset Date Comments Results 08/21/2023 Encounter Details Date Type Department Care Team ([facility] st Contact Info) Description 08/21/2023 Telephone [facility] MEDICINE [address] [place] [address] Naa Maradiaga MD [address] [place] [address] Results Social History Tobacco Use Types Packs/Day [...] EDT TC placed to pt with a [place] licensing analyst to inquire about the GI visit results [...] call back in regards gastro visit results. Kiswahili speaker documented in this encounter Plan of Treatment Upcoming Encounters Date Type Department Care Team (Late st Contact Info) Description 08/03/2024 3:00 PM EDT Office Visit [facility] ADULT DENTAL [address] [place] [address] [phone] Angelica Álvarez 09/11/2024 1:30 PM EDT Office Visit [facility] MEDICINE [address] [place], [place] [phone] Naa Maradiaga MD [address] [place], [place] [phone] documented as of this encounter Visit Diagnoses Not on filedocumented in this encounter Care Teams Sleep Medicine Physician Relationship Specialty Start Date End Date Naa Maradiaga MD [address] [place] [phone] PCP - General Internal Medicine 08/23/22 documented as of this encounter
--- OUTSIDE RECORDS SUMMARY | 2024-07-07 17:45 | XMS_ITS | Encounter Summary ---
Author Organization [employer] Address [address] [facility] 7t [place] [address] Care Team Providers Care Workcell Operator Name Role Phone Maryuri Wang MD Primary Care Provider + Naa Maradiaga MD Primary Care Pro vider Encounter Details Date Type Department Care Team (Latest Contact Info) Description 02/17/2021 Abstract [facility] CONVERSIONS Dental, Provider, DDS Social History [...] Care Team ( st Contact Info) Description 08/03/2024 3:00 PM EDT Office Visit [facility] ADULT DENTAL [address] [place] [address] Angelica Álvarez 09/11/2024 1:30 PM EDT Office Visit [facility] MEDICINE [address] [place], [place] [phone] Naa Maradiaga MD [address] [place], [place] [phone] documented as of this encounter Visit Diagnoses Not on filedocumented in this encounter Care Teams Workcell Operator Relationship Specialty Start Date End Date Maryuri Wang MD [address] [place] [address] PCP - General Family Medicine 01/09/17 08/22/22 Naa Maradiaga MD [address] [place] [phone] PCP - General Internal Medicine 08/23/22 documented as of this encounter
--- OUTSIDE RECORDS SUMMARY | 2024-07-07 17:45 | XMS_ITS | Encounter Summary ---
Author Organization [employer] Address [address] [facility] 7t [place] [address] Care Team Providers Care Volunteer Manager Name Role Phone Maryuri Wang MD Primary Care Provider + Naa Maradiaga MD Primary Care Pro vider Reason for Visit * Reason Onset Date Comments Appointment 05/25/2022 Encounter Details Date Type Department Care Team ([facility] st Contact Info) Description 05/25/2022 Telephone [facility] ADULT DENTAL [address] [place] [address] Jerman Reeves, DMD [address] [place] [address] Appointment Social History Tobacco Use Types Packs/Day [...] Description 08/03/2024 3:00 PM EDT Office Visit [facility] ADULT DENTAL [address] [place], [place] [phone] Angelica Álvarez 09/11/2024 1:30 PM EDT Office Visit [facility] [address] [place], [place] [phone] Naa Maradiaga MD [address] [place] [phone] documented as of this encounter Visit Diagnoses Not on filedocumented in this encounter Care Teams Volunteer Manager Relationship Specialty Start Date End Date Maryuri Wang MD [address] [place] [id number] PCP - General Family Medicine 01/09/17 08/22/22 Naa Maraidaga MD [address] [place] [address] [phone] PCP - General Internal Medicine 08/23/22 documented as of this encounter
--- OUTSIDE RECORDS SUMMARY | 2024-07-07 17:45 | XMS_ITS | Encounter Summary ---
Author Organization [facility] Address [address] [place] [address] Care Team Providers Care Harvest Contractor Name Role Phone Maryuri Wang Primary Care Provider +1- [phone] Encounter Details Date Type Department Care Team (Late st Contact Info) Description 07/05/2020 Telephone [facility] Interventional Radiology [address] [place] [phone] Shahana Casas RN [facility], [place] Social History Tobacco Use Types Packs/Day [...] on filedocumented in this encounter Care Teams Harvest Contractor Relationship Specialty Start Date End Date Maryuri Wang [address] [place] [phone] PCP - General Internal Medicine 10/03/17 documented as of this encounter
--- OUTSIDE RECORDS SUMMARY | 2024-07-07 17:45 | XMS_ITS | Encounter Summary ---
Author Organization [facility] Address [address] [place] [address] Care Team Providers Care Sustainable Products Marketing Manager Name Role Phone Maryuri Wang Primary Care Provider Encounter Details Date Type Department Care Team (Late st Contact Info) Description 04/28/2020 Orders Only [facility] XRay [address] [place] [address] [address] Social History Tobacco Use Types Packs/Day Years [...] on filedocumented in this encounter Care Teams Sustainable Products Marketing Manager Relationship Specialty Start Date End Date Maryuri Wang [address] [place] [address] PCP - General Internal Medicine 10/03/17 documented as of this encounter
--- OUTSIDE RECORDS SUMMARY | 2024-07-07 17:45 | XMS_ITS | Encounter Summary ---
Author Organization [employer] [facility] Address [address] [facility] 7t [place] [address] Care Team Providers Care Sugar Drier Name Role Phone Maryuri Wang MD Primary Care Provider + Naa Maradiaga MD Primary Care Pro vider Encounter Details Date Type Department Care Team (Latest Contact Info) Description 02/19/2020 Abstract [facility] CONVERSIONS Dental, Provider, DDS Social History [...] Description 08/03/2024 3:00 PM EDT Office Visit [facility] ADULT DENTAL [address] [place] [address] Angelica Álvarez 09/11/2024 1:30 PM EDT Office Visit [facility] MEDICINE [address] [place], [place] [phone] Naa Maradiaga MD [address] [place], [place] [phone] documented as of this encounter Visit Diagnoses Not on filedocumented in this encounter Care Teams Sugar Drier Relationship Specialty Start Date End Date Maryuri Wang MD [address] [place] [address] PCP - General Family Medicine 01/09/17 08/22/22 Naa Maradiaga MD [address] [place] [phone] PCP - General Internal Medicine 08/23/22 documented as of this encounter
--- OUTSIDE RECORDS SUMMARY | 2024-07-07 17:45 | XMS_ITS | Clinical Summary ---
Author Organization [facility] Address [address] [place] [address] Care Team Providers Care Agricultural Engineering Technician Name Role Phone KathleenMaryuriPadma Primary Care Provider +1- [phone] Allergies No known active allergies Medications levothyroxine [...] this topic Medical Devices Implanted Type Area Solution Director Device Identifier Shelf Expiration Date Model / Serial / Lot Device Closure Vascular Plug 6fr Angio-Seal Vip - [id number] Implanted:Qty: 1 on 03/04/2018 at [facility] [place] Implant [employer] 12/15/2018 [id number] / / [id number] Device Closure Vascular Plug 6fr Angio-Seal Vip - [id number] Implanted:Qty: 1 on 07/06/2020 at [facility] [place] Implant [employer] [id number] / / Device Closure Vascular Plug 6fr Angio-Seal Vip - [id number] Implanted:Qty: 1 on 08/03/2020 at [facility] [place] Implant [employer] [id number] / / Diverter Flow [id number] - [id number] Implanted:Qty: 1 on 08/03/2020 at [facility] [place] [employer] 12/15/2022 [id number] / / [id number] Diverter Flow [id number] - [id number] Implanted:Qty: 1 on 08/03/2020 at [facility] [place] [employer] 08/15/2022 [id number] / / [id number] Insurance [facility] HSNO/FREE CARE Care Teams Agricultural Engineering Technician Relationship Specialty Start Date End Date Maryuri Wang [address] [place] [id number] PCP - General Internal Medicine 10/03/17
--- OUTSIDE RECORDS SUMMARY | 2024-07-07 17:45 | XMS_ITS | Encounter Summary ---
Author Organization [employer] Address [address] [facility] 7t [place] [address] Care Team Providers Care Senior Clinical Study Manager Name Role Phone Naa Maradiaga MD Primary Care Pro vider Reason for Visit * Reason Onset Date Comments clarification on case 03/31/2024 Encounter Details Date Type Department Care Team ([facility] st Contact Info) Description 03/31/2024 Telephone [facility] ADULT DENTAL [address] [place] [address] Denis Santana DDS [address] [place] [address] clarification on case Social History Tobacco Use [...] lower) for nightguard fabrication. Al at [employer] [phone] * Telephone Encounter - Jerman Reeves DMD [...] lower) for nightguard fabrication. Al at [employer] [phone] documented in this encounter Plan of Treatment Upcoming Encounters Date Type Department Care Team (Late st Contact Info) Description 08/03/2024 3:00 PM EDT Office Visit [facility] [address] [place] [address] [phone] Angelica Álvarez 09/11/2024 1:30 PM EDT Office Visit [facility] MEDICINE [address] [place] [phone] Naa Maradiaga MD [address] [place] [address] [phone] documented as of this encounter Visit Diagnoses Not on filedocumented in this encounter Care Teams Senior Clinical Study Manager Relationship Specialty Start Date End Date Naa Maradiaga MD [address] [place] [address] [phone] PCP - General Internal Medicine 08/23/22 documented as of this encounter
--- OUTSIDE RECORDS SUMMARY | 2024-07-07 17:45 | XMS_ITS | Encounter Summary ---
Author Organization [facility] [facility] Address [address] [facility] 7t [place] [address] Care Team Providers Care Business Process Engineer Name Role Phone Maryuri Wang MD Primary Care Provider + Naa Maradiaga MD Primary Care Pro vider Encounter Details Date Type Department Care Team (Latest Contact Info) Description 06/13/2018 Abstract [facility] CONVERSIONS Dental, Provider, DDS Social History [...] Description 08/03/2024 3:00 PM EDT Office Visit [facility] ADULT DENTAL [address] [place] [address] Angelica Álvarez 09/11/2024 1:30 PM EDT Office Visit [facility] MEDICINE [address] [place], [place] [phone] Naa Maradiaga MD [address] [place], [place] [phone] documented as of this encounter Visit Diagnoses Not on filedocumented in this encounter Care Teams Business Process Engineer Relationship Specialty Start Date End Date Maryuri Wang MD [address] [place] [phone] PCP - General Family Medicine 01/09/17 08/22/22 Naa Maradiaga MD [address] [place] [phone] PCP - General Internal Medicine 08/23/22 documented as of this encounter
--- OUTSIDE RECORDS SUMMARY | 2024-07-07 17:45 | XMS_ITS | Encounter Summary ---
Author Organization [employer] Address [address] [facility] 7t [place] [address] Care Team Providers Care Goodwill Representative Name Role Phone Naa Maradiaga MD Primary Care Pro vider Encounter Details Date Type Department Care Team (Late st Contact Info) Description 09/05/2022 Abstract [facility] MEDICINE [address] [place] [address] Naa Maradiaga MD [address] [place] [address] Social History Tobacco Use Types Packs/Day Years [...] Description 08/03/2024 3:00 PM EDT Office Visit [facility] ADULT DENTAL [address] [place] [address] ÁlvarezAngelica henriquez 09/11/2024 1:30 PM EDT Office Visit [facility] MEDICINE [address] [place], [place] [phone] Naa Maradiaga MD [address] [place] [address] documented as of this encounter Procedures Procedure Name Priority Date/Time Associated Diagnosis Comments HM COLONOSCOPY Routine 12/15/2019 2:23 PM EDT documented in this encounter Results * Hm Colonoscopy (12/15/2019 2:23 PM EDT) Colonoscopy Normal Normal Narrative Lashon Cat - 12/15/2019 2:23 PM EDT Recommended 10 year follow up Historical Provider [facility] [facility] Edited Result - Final documented in this encounter Visit Diagnoses Not on filedocumented in this encounter Care Teams Goodwill Representative Relationship Specialty Start Date End Date Naa Maradiaga MD [address] [place] [address] [phone] PCP - General Internal Medicine 08/23/22 documented as of this encounter
--- OUTSIDE RECORDS SUMMARY | 2024-07-07 17:45 | XMS_ITS | Encounter Summary ---
Author Organization [employer] Address [address] [facility] 7t [place] [address] Care Team Providers Care Assessment Specialist Name Role Phone Maryuri Wang MD Primary Care Provider + Naa Maradiaga MD Primary Care Pro vider Reason for Visit * Reason Comments Med Refill Encounter Details Date Type Department Care Team (Late st Contact Info) Description 06/26/2022 Refill [facility] MEDICINE [address] [place] [address] Maryuri Wang MD [address] [place] [address] Social History Tobacco Use Types Packs/Day Years [...] Description 08/03/2024 3:00 PM EDT Office Visit [facility] ADULT DENTAL [address] [place] [address] Álvarez Angelica 09/11/2024 1:30 PM EDT Office Visit [facility] MEDICINE [address] [place], [place] [phone] Naa Maradiaga MD [address] [place] [phone] documented as of this encounter Visit Diagnoses Not on filedocumented in this encounter Care Teams Assessment Specialist Relationship Specialty Start Date End Date Maryuri Wang MD [address] [place] [address] [phone] PCP - General Family Medicine 01/09/17 08/22/22 Naa Maradiaga MD [address] [place] [phone] PCP - General Internal Medicine 08/23/22 documented as of this encounter
--- OUTSIDE RECORDS SUMMARY | 2024-07-07 17:45 | XMS_ITS | Referral Summary ---
Author Organization [facility] Address [address] [place] [address] Care Team Providers Care Occupational Health Rn Name Role Phone KathleenMaryuriPadma Primary Care Provider [phone]- [phone] Allergies No known active allergies Medications levothyroxine [...] on file Medical Devices Implanted Type Area [employer] Device Identifier Shelf Expiration Date Model / Serial / Lot Device Closure Vascular Plug 6fr Angio-Seal Vip - [id number] Implanted:Qty: 1 on 03/04/2018 at [facility] Implant [employer] 12/15/2018 [id number] / / [id number] Device Closure Vascular Plug 6fr Angio-Seal Vip - [id number] Implanted:Qty: 1 on 07/06/2020 at [facility] Implant [employer] [id number] / / Device Closure Vascular Plug 6fr Angio-Seal Vip - [id number] Implanted:Qty: 1 on 08/03/2020 at [facility] Implant [employer] [id number] / / Diverter Flow [id number] - [id number] Implanted:Qty: 1 on 08/03/2020 at [facility] [employer] 12/15/2022 [id number] / / [id number] Diverter Flow [id number] - [id number] Implanted:Qty: 1 on 08/03/2020 at [facility] [employer] 08/15/2022 [id number] / / [id number] [place] HS[place] CARE Care Teams Occupational Health Rn Relationship Specialty Start Date End Date Maryuri Wang [address] [place] [phone] PCP - General Internal Medicine 10/03/17
--- OUTSIDE RECORDS SUMMARY | 2024-07-07 17:45 | XMS_ITS | Encounter Summary ---
Author Organization [facility] Address [address] [place] [address] Care Team Providers Care Home Connect Lpn Name Role Phone Maryuri Wang Primary Care Provider Encounter Details Date Type Department Care Team (Late st Contact Info) Description 10/04/2020 Telephone [facility] Interventional Radiology [address] [place] [phone] Sweta Hampton RN Social History Tobacco Use [...] on filedocumented in this encounter Care Teams Home Connect Lpn Relationship Specialty Start Date End Date Maryuri Wang [address] [place] [address] PCP - General Internal Medicine 10/03/17 documented as of this encounter
--- OUTSIDE RECORDS SUMMARY | 2024-07-07 17:45 | XMS_ITS | Clinical Summary ---
Author Organization [employer] Address [address] [facility] 7[address] [place] [address] Care Team Providers Care Medical Accounts Receivable Specialist Name Role Phone Naa Maradiaga MD Primary [...] tablet 3 5 Active Deep Sea Nasal [place] 0.65 % nasal spray USE 1 SPRAY [...] foot to r/o foreign body -referred to laminated plastics assembler and gluer -advised to soak foot in warm water [...] endo no need to continue care w courtesy booth cashier -continue current dose of levo 125 daily -repeat TFT in 4 weeks ordered today , if still elevated will need to increase dose Assessment & Plan (10/08/2022 10:57 PM EDT): -from endo no need to continue care w courtesy booth cashier -continue current dose of levo 125 daily -repeat TFT Assessment & Plan (04/09/2022 3:42 PM EST): Follow up with [employer]. -continue with levothryoxine 125 mcg Hemorrhoids 04/09/2022 [...] GI x chronic symptoms ---I spoke w electrical system specialist -Verónica and was explained from pt insurance can not be referred to [facility] as pt would like Assessment & [...] Encounters Date Type Department Care Team Description 07/07/2024 Orders Only GENERIC EXTERNAL DATA DEPARTMENT Provider, Generic External Data 06/24/2024 Patient Outreach [facility] [address] [place] [address] Naa Maradiaga MD Pre-visit Planning (SDOH unable to reach [facility] ) 06/23/2024 Telephone [facility] [address] [place] [address] Naa Maradiaga MD chart prep 06/15/2024 Telephone [facility] [address] [place] [address] Marian Urias, HORACE cx and rs appt same day 06/09/2024 2:30 PM EDT Office Visit [facility] [address] [place] [address] Denis Santana, DDS 05/08/2024 Telephone [facility] [address] [place] [address] Naa Maradiaga MD june05/05/2024 3:30 PM EST Office Visit [facility] [address] [place] [address] Denis Santana, DDS 04/21/2024 Refill [facility] [address] [place] [address] Mally Godinez ANP Hypothyroidism, unspecified type 04/21/2024 Refill [facility] [address] [place] [address] Adeline Lancaster, TAM Hypothyroidism, unspecified type 04/16/2024 Refill [facility] [address] [place] [address] Naa Maradiaga MD 04/15/2024 Telephone [facility] [address] [place] [address] Adeline Lancaster, RN Results from Last 3 Months Immunizations Name Administration [...] housing situation today? I have annmarcell vazquez 06/24/[address] you [...] Description 08/03/2024 3:00 PM EDT Office Visit [facility] [address] [place] [address] Angelica Álvarez 09/11/2024 1:30 PM EDT Office Visit [facility] [address] [place] [address] Naa Maradiaga MD [address] [place] [address] Health Maintenance Due Date Last Done Comments [...] Procedure Name Priority Date/Time Associated Diagnosis Comments CBC WITH AUTO DIFFERENTIAL Routine 07/07/2024 4:36 PM EDT URINALYSIS, COMPLETE, WITH REFLEX TO CULTURE Routine 07/07/2024 4:31 PM EDT URINALYSIS WITH REFLEX MICROSCOPIC Routine 07/07/2024 4:31 PM EDT CASE PRESENTATION, DETAILED AND EXTENSIVE [...] FULL ARCH Routine 05/05/2024 3:30 PM EST BI MAMMOGRAM SCREENING TOMOSYNTHESIS BILATERAL [...] Relevant to Health Maintenance Results * (ABNORMAL) CBC auto differential (07/07/2024 4:36 PM EDT) White Blood Count 5.2 4.8 - 10.8 X10*3/uL [facility] Red Blood Count 4.23 4.20 - 5.50 X10*6/uL [facility] Hemoglobin 11.0(L) 12.0 - 16.0 g/dl [facility] Hematocrit 34.4(L) 37.0 - 47.0 % [facility] Mean Corpuscular Volume 81.3 80.0 - 98.0 fL [facility] Mean Corpuscular Hemoglobin 26.0(L) 27.0 - 33.0 pg [facility] Mean Corpuscular HGB Conc 32.0 31.0 - 35.0 g/dl [facility] Red Cell Distribution Width 16.0 11.0 - 16.0 % [facility] Platelet Count 276 160 - 400 X10*3/uL [facility] Mean Platelet Volume 10.2 9.4 - 12.3 fL [facility] Neutrophils Percent Auto 50.3 45 - 73 % [facility] Imm Gran Pct Auto 0.2 0.0 - 0.4 % [facility] Lymphocytes Percent Auto 37.0 20 - 40 % [facility] Monocytes Percent Auto 9.0 2 - 11 % [facility] Eosinophils Percent Auto 2.7 0 - 4 % [facility] Basophils Percent Auto 0.8 0 - 2 % [facility] NRBC Pct Auto 0.0 0.0 - 0.2 /100WBC [facility] Neutrophils Absolute Auto 2.6 2.0 - 8.3 x10*3/uL [facility] Imm Gran Abs Auto 0.01 0.00 - 0.03 X10*3/uL [facility] Lymphocytes Absolute Auto 1.9 1.2 - 4.9 X10*3/uL [facility] Monocytes Absolute Auto 0.5 0.1 - 1.2 X10*3/uL [facility] Eosinophils Absolute Auto 0.1 0.0 - 0.4 X10*3/uL [facility] Basophils Absolute Auto 0.0 0.0 - 0.2 X10*3/uL [facility] NRBC Abs Auto 0.000 0.0 - 0.012 X10*3/uL [facility] 07/07/2024 4:36 PM EDT 07/07/2024 4:36 PM EDT us Generic External Data Provider LAB BLOOD ORDERAB LES Final Result [facility] [address] [place] [phone] * (ABNORMAL) Urinalysis, Complete, with Reflex to Culture (07/07/2024 4:31 PM EDT) Color Urine Yellow [facility] Appearance Urine Clear [facility] PH 7.0 5.0 - 9.0 [facility] Glucose Urine UA Negative Negative mg/dL [facility] Urine Blood Trace(A) Negative [facility] Specific [place] - Urine 1.010 1.005 - 1.025 [facility] Urine Protein Negative Neg-Trace mg/dL [facility] Urine Ketones Negative Negative mg/dL [facility] Nitrite Urine Negative Negative [facility] Leukocyte Esterase Urine Moderate (2+)(A) Negative [facility] RBC Urine 0-2 0 - 2 /HPF [facility] Urine WBC 0-5 0 - 5 /HPF [facility] Urine Squamous Epithelial Cell 0-2 0 - 2 /HPF [facility] Urine Bacteria None Seen None Seen [facility] Hyaline Casts, Urine 0-2 0 - 2 /LPF [facility] 07/07/2024 4:31 PM EDT 07/07/2024 5:06 PM EDT Narrative [facility] - 07/07/2024 5:35 PM EDT Urine, Clean Catch us Generic External Data Provider LAB URINE ORDERAB LES Final Result Performing Organization Address [facility]/ZIP Co de Phone Number [facility] [address] [place] [phone] * (ABNORMAL) Urinalysis w/reflex microscopic (07/07/2024 4:31 PM EDT) Color Urine Yellow [facility] Appearance Urine Clear [facility] PH 7.0 5.0 - 9.0 [facility] Glucose Urine UA Negative Negative mg/dL [facility] Urine Blood Trace(A) Negative [facility] Specific [place] - Urine 1.010 1.005 - 1.025 [facility] Urine Protein Negative Neg-Trace mg/dL [facility] Urine Ketones Negative Negative mg/dL [facility] Nitrite Urine Negative Negative [facility] Leukocyte Esterase Urine Moderate (2+)(A) Negative [facility] 07/07/2024 4:31 PM EDT 07/07/2024 5:06 PM EDT Narrative [facility] - 07/07/2024 5:19 PM EDT Urine, Clean Catch us Generic External Data Provider LAB URINE ORDERAB LES Final Result Performing Organization Address City/[facility]/ZIP Co de Phone Number [facility] [address] [place] [phone] * BI Mammogram Screening Tomosynthesis Bilateral (03/17/2024 2:44 PM EST) Anatomical Region Laterality Modality Breast Bilateral Mammography 03/17/2024 2:44 PM EST Narrative 03/28/2024 8:19 PM EST ? [facility] ? [address] ?[place] [address] ? Mammography Report ? Signed with Addenda ? Patient: Chapa Saldana,Shruti ?MR#: ?? [id number] ? : 1965 ?Acct:[id number] ? Age/Sex: 58 / F ?ADM Date: 03/17/24 ? Loc: HO.MAMMO ? Attending Dr: Sheryl Wang MD ? Ordering Physician: Sheryl Wang MD ?Results: 1Ne ?? gative ? Date of Service: 03/17/24 ?Follow Up: 1 Year From Orig ?? inal Mammogram ? Procedure(s): MM tomosynthesis screening BI ?? Accession Number(s): [id number] ? cc: Sheryl Wang MD; Naa Maradiaga [...] by Kamille Hill, DO in OV> ? 04/13/25 1520 ?? Addendum Cosigned By: ? DD/DT: 12/ ? TD/TT: 03/17 ? EXAMINATION: ?? MM SCREENING DIGITAL BREAST [...] ??Kamille Hill DO ??03/28/2024 08:16 PM EST ? Dictated By: ?Kamille Hill DO ? Signed By: ?<Electronically signed by Kamille Hill, DO in OV> ? 03/28/242015 ? DD/ 1444 ? TD/TT: 03/17/24 1500 ? Human Resources Executive: ? Procedure Note Remi, Image - 04/13/2024 [facility] [address] [place] [address] [place] [address] Mammography Report Signed with Sofia Patient: Lizzy LeedMR#: [id number] : 1965Acct:[id number] Age/Sex: 58 / FADM Date: 03/17/24 Loc: MEÑOO Attending Dr: Sheryl Wang MD Ordering Physician: Sheryl Wangesults: 1Ne gative Date of Service: 03/17/24Follow Up: 1 Year From Orig ina Mammogram Procedure(s): MM tomosynthesis screening BI Accession Number(s): [id number] cc: Sheryl Wang MD; Naa Maradiaga MD ADDENDUM ADDENDUM #1 ADDENDUM: The current mammogram has been reviewed and remains BI-RADS as follows OVERALL ASSESSMENT: BI-RADS 1 - Negative RECOMMENDATION: 1 year F/U Electronically signed by: Kamille Hill DO 04/13/2024 03:20 PM EST RP Addendum Dictated By: Kamille Hill DO Addendum [...] Kamille Hill DO 03/28/2024 08:16 PM EST RP Dictated By: Kamille Hill DO Signed By: <Electronically signed by Kamille Hill DO in OV> 03/28/242015 DD/ 1444 TD/TT: 03/17/241499 Human Resources Executive: Sheryl Wang MD IMG BI PROCEDURES Edited Result - Final * Fecal Globin by Immunochemistry (11/30/2023 12:00 AM EDT) Pathologist [facility] Fecal Globin By Immunochemistry SEE NOTE [employer] [place] [facility] Comment: ??FECAL GLOBIN BY IMMUNOCHEMISTRY ?Micro Number: ?[id number] ??Test Status: ? Final ??Specimen Source: ?? Insure (tm) fobt test card ??Specimen Quality: ??Adequate ??Fecal Globin: ?Not Detected 11/30/2023 12/08/2023 11: 31 PM EDT Narrative [facility] - 12/08/2023 11:42 PM EDT FASTING: UNKNOWN Naa Aguila MD LAB BODY FLUIDS A ND STOOLS ORDERABLES Final Result Performing Organization Address [facility] Co de Phone Number [facility] [address], [place] [address] [employer] [facility] [address] [place] [phone] * Hepatitis C Antibody with Reflex to HCV, RNA, Quantitative, Real-Time PCR (11/21/2023 6:22 AM EDT) Pathologist [facility] Hepatitis C Antibody Nonreactive Nonreactive [facility] Comment:Antibodies to HCV no t detected; does not exclude early acuteHCV infection. Blood Venous blood specimen / Unknown 11/21/2023 6:22 AM EDT 11/21/2023 6:22 AM EDT Naa Aguila MD LAB BLOOD ORDERAB LES Final Result Performing Organization Address City/[facility]/ZIP Co de Phone Number [facility] [address] [place] [phone] * HIV-1/2 Antigen and Antibodies, Fourth Generation, with Reflexes (11/21/2023 6:22 AM EDT) Pathologist [facility] HIV AB/AG Nonreactive Nonreactive [facility] Comment:HIV-1 p24 Ag and/or HIV-1/HIV-2 Ab not detected.A test result that is nonreactive does not exclude thepossibility of exposure to or infection with HIV-1 and/orHIV-2. Nonreactive results in this assay for individualswith prior exposure to HIV-1 and/or HIV-2 may be due toantigen and antibody levels that are below the limit ofdetection of this assay.The [employer] HIV Ag/Ab Combo assay result andsupplemental assay results should be interpreted inconjunction with the patient's clinical presentation,history and other laboratory results. If the results areinconsistent with clinical evidence, additional testing issuggested to confirm the result. Blood Venous blood specimen / Unknown 11/21/2023 6:22 AM EDT 11/21/2023 6:22 AM EDT Naa Aguila MD LAB BLOOD ORDERAB LES Final Result [facility] [address] [place] [phone] * HPV mRNA E6/E7 w/Reflex to HPV Genotypes 16, 18/45 (04/12/2022 3:02 PM EST) HPV nRNA E6/E7 Not Detected Not Detected [facility] Comment:Methodology: Transcr iption-Mediated AmplificationThis assay detects E6/E7 viral messenger RNA (mRNA) from 14high-risk HPV types (16,18,31,33,35,39,45,51,52,56,58,59,66,68).Cervical sources are required for HPV testing.If a vaginal source from a patient who has had atotal hysterectomy with removal of cervix wassubmitted, please contact the testing laboratoryfor alternative testing options.For additional information, please refer [email or web address]/faq/RKQ974l8(This link if provided for information/educational purposes only.)THIS TEST WAS PERFORMED AT:[employer] [place] [address] ([address] [phone] LEMUS MD HPV mRNA E6/E7 TNP [facility] HPV 16 RNA TNP [facility] HPV 18/45 RNA TNP [facility] 04/12/2022 3:02 PM EST 04/12/2022 4:15 PM EST us [facility] External Provider LAB CYT OLOGY ORDERABLES Final Result [facility] [address] [place] [phone] [phone] * Pap Smear (04/12/2022 3:02 PM EST) 04/12/2022 3:02 PM EST 04/12/2022 4:15 PM EST Narrative [facility] - 04/20/2022 6:31 PM EST ----- ------- Name: Shruti Lee ? Age/Sex: 57/F ? : 1965 Unit#: [id number] ?? Attend Dr: Hair Hinojosa MD ?Re04/12/22 ?Status: DEP REF ? Location: HO.LNP ?Disch: ? ----- ------- SPEC : [id number] ? RECD: 04/12/22 ? STATUS: ??SOUT ? REQ NUM: [id number] ? ADRIANA: 04/12/22 ? SUBM DR: Hair Hinojosa MD ? ENTERED: ??04/12/22 ?SP TYPE: Pap Smr ?OTHR DR: Sheryl [...] 66, 68) ? HPV testing performed by [employer], [place], [place]. ??See reference laboratory ?? portion of the EMR for entire report. ?Clinical Information LMP: Post menopause Previous PAP test: Unknown ? Material Received ?? ThinPrep-Cervical Copies To: ?? Sheryl Wang MD ?? [address] ?? [place] [address] ? Hair Hinojosa MD ?? [address] [facility] ?? [place] [address] ?? [phone] ----- ------- Signed (signature on file) [address] Georgi 04/20/221830 ? ----- ------- ? END OF REPORT ? [facility] External Provider LAB [facility] Final Result [facility] [address] [facility] [place] [address] [phone] * Hm Colonoscopy (12/15/2019 2:23 PM EDT) Colonoscopy Normal Normal Narrative [facility] - 12/15/2019 2:23 PM EDT Recommended 10 year follow up Historical Provider HEALTH MAINTENANCE Edited Result - Final from Last 3 Months or Most Recently Relevant to Health Maintenance Insurance [place]-[facility] MEDICAID LIMITED ADULT DENTAL - HSN FULL (MEDICAID) Care Teams Medical Accounts Receivable Specialist Relationship Specialty Start Date End Date Naa Maradiaga MD [address] [place] [address] PCP - General Internal Medicine 08/23/22
--- OUTSIDE RECORDS SUMMARY | 2024-07-07 17:46 | XMS_ITS | Clinical Summary ---
Author Organization [facility] Address [address] [place] [address] Care Team Providers Care Erp Business Analyst Name Role Phone SelmaDiana LIONEL Primary Care Provider [phone] Source Comments PLEASE NOTE, if this patient [...] Plan of Treatment Not on file Insurance [place] Care Teams Erp Business Analyst Relationship Specialty Start Date End Date Diana Hahn NP [address] [place] [address] PCP - General Internal Medicine 10/10/12
--- OUTSIDE RECORDS SUMMARY | 2024-07-07 17:46 | XMS_ITS | Encounter Summary ---
Author Organization [employer] Address [address] [facility] 7t [place] [address] Care Team Providers Care Children'S Ministry Director Name Role Phone Naa Maradiaga MD Primary Care Pro vider Encounter Details Date Type Department Care Team (Late st Contact Info) Description 07/07/2024 Orders Only GENERIC EXTERNAL DATA DEPARTMENT Provider, Generic External Data Social History Tobacco Use Types Packs/Day Years [...] Description 08/03/2024 3:00 PM EDT Office Visit [facility] [address] [place] [address] [phone] Angelica Álvarez 09/11/2024 1:30 PM EDT Office Visit [facility] [address] [place] [address] [phone] Naa Maradiaga MD [address] [place], [place] [phone] documented as of this encounter Procedures Procedure Name Priority Date/Time Associated Diagnosis Comments CBC WITH AUTO DIFFERENTIAL Routine 07/07/2024 4:36 PM EDT URINALYSIS, COMPLETE, WITH REFLEX TO CULTURE Routine 07/07/2024 4:31 PM EDT URINALYSIS WITH REFLEX MICROSCOPIC Routine 07/07/2024 4:31 PM EDT documented in this encounter Results * (ABNORMAL) CBC auto differential (07/07/2024 4:36 PM EDT) White Blood Count 5.2 4.8 - 10.8 X10*3/uL [facility] Red Blood Count 4.23 4.20 - 5.50 X10*6/uL [facility] Hemoglobin 11.0(L) 12.0 - 16.0 g/dl [facility] Hematocrit 34.4(L) 37.0 - 47.0 % [facility] Mean Corpuscular Volume 81.3 80.0 - 98.0 fL [facility] Mean Corpuscular Hemoglobin 26.0(L) 27.0 - 33.0 pg [facility] Mean Corpuscular HGB Conc 32.0 31.0 - 35.0 g/dl [facility] Red Cell Distribution Width 16.0 11.0 - 16.0 % [facility] Platelet Count 276 160 - 400 X10*3/uL [facility] Mean Platelet Volume 10.2 9.4 - 12.3 fL [facility] Neutrophils Percent Auto 50.3 45 - 73 % [facility] Imm Gran Pct Auto 0.2 0.0 - 0.4 % [facility] Lymphocytes Percent Auto 37.0 20 - 40 % [facility] Monocytes Percent Auto 9.0 2 - 11 % [facility] Eosinophils Percent Auto 2.7 0 - 4 % [facility] Basophils Percent Auto 0.8 0 - 2 % [facility] NRBC Pct Auto 0.0 0.0 - 0.2 /100WBC [facility] Neutrophils Absolute Auto 2.6 2.0 - 8.3 x10*3/uL [facility] Imm Gran Abs Auto 0.01 0.00 - 0.03 X10*3/uL [facility] Lymphocytes Absolute Auto 1.9 1.2 - 4.9 X10*3/uL [facility] Monocytes Absolute Auto 0.5 0.1 - 1.2 X10*3/uL [facility] Eosinophils Absolute Auto 0.1 0.0 - 0.4 X10*3/uL [facility] Basophils Absolute Auto 0.0 0.0 - 0.2 X10*3/uL [facility] NRBC Abs Auto 0.000 0.0 - 0.012 X10*3/uL [facility] 07/07/2024 4:36 PM EDT 07/07/2024 4:36 PM EDT us Generic External Data Provider LAB BLOOD ORDERAB LES Final Result [facility] [address] [place] [address] [phone] * (ABNORMAL) Urinalysis, Complete, with Reflex to Culture (07/07/2024 4:31 PM EDT) Color Urine Yellow [facility] Appearance Urine Clear [facility] PH 7.0 5.0 - 9.0 [facility] Glucose Urine UA Negative Negative mg/dL [facility] Urine Blood Trace(A) Negative [facility] Specific [place] - Urine 1.010 1.005 - 1.025 [facility] Urine Protein Negative Neg-Trace mg/dL [facility] Urine Ketones Negative Negative mg/dL [facility] Nitrite Urine Negative Negative [facility] Leukocyte Esterase Urine Moderate (2+)(A) Negative [facility] RBC Urine 0-2 0 - 2 /HPF [facility] Urine WBC 0-5 0 - 5 /HPF [facility] Urine Squamous Epithelial Cell 0-2 0 - 2 /HPF [facility] Urine Bacteria None Seen None Seen [facility] Hyaline Casts, Urine 0-2 0 - 2 /LPF [facility] 07/07/2024 4:31 PM EDT 07/07/2024 5:06 PM EDT Narrative [facility] - 07/07/2024 5:35 PM EDT Urine, Clean Catch us Generic External Data Provider LAB URINE ORDERAB LES Final Result [facility] [address] [place] [phone] * (ABNORMAL) Urinalysis w/reflex microscopic (07/07/2024 4:31 PM EDT) Color Urine Yellow [facility] Appearance Urine Clear [facility] PH 7.0 5.0 - 9.0 [facility] Glucose Urine UA Negative Negative mg/dL [facility] Urine Blood Trace(A) Negative [facility] Specific [place] - Urine 1.010 1.005 - 1.025 [facility] Urine Protein Negative Neg-Trace mg/dL [facility] Urine Ketones Negative Negative mg/dL [facility] Nitrite Urine Negative Negative [facility] Leukocyte Esterase Urine Moderate (2+)(A) Negative [facility] 07/07/2024 4:31 PM EDT 07/07/2024 5:06 PM EDT Narrative [facility] - 07/07/2024 5:19 PM EDT Urine, Clean Catch us Generic External Data Provider LAB URINE ORDERAB LES Final Result Performing Organization Address City/State/[facility] Co de Phone Number [facility] [address] [place] [address] [phone] documented in this encounter Visit Diagnoses Not on filedocumented in this encounter Care Teams Children'S Ministry Director Relationship Specialty Start Date End Date Naa Maradiaga MD [address] [place] [phone] PCP - General Internal Medicine 08/23/22 documented as of this encounter
--- OUTSIDE RECORDS SUMMARY | 2024-07-07 17:46 | XMS_ITS | Encounter Summary ---
Author Organization [employer] Address [address] [facility] 7t [place] [address] Care Team Providers Care Meter And Service Line Inspector Name Role Phone Naa Maradiaga MD Primary Care Pro vider Reason for Visit * Reason Onset Date Comments cx and rs appt same day 06/15/2024 Encounter Details Date Type Department Care Team (Late st Contact Info) Description 06/15/2024 Telephone [facility] [address] [place] [address] Marian Urias DMD cx and rs appt [...] Description 08/03/2024 3:00 PM EDT Office Visit [facility] [address] [place] [address] Angelica Álvarez 09/11/2024 1:30 PM EDT Office Visit [facility] [address] [place] [address] Naa Maradiaga MD [address] [place] [address] documented as of this encounter Visit Diagnoses Not on filedocumented in this encounter Care Teams Meter And Service Line Inspector Relationship Specialty Start Date End Date Naa Maradiaga MD [address] [place] [address] PCP - General Internal Medicine 08/23/22 documented as of this encounter
--- OUTSIDE RECORDS SUMMARY | 2024-07-07 17:46 | XMS_ITS | Encounter Summary ---
Author Organization [employer] Address 75 [facility] 7t [place] [address] Care Team Providers Care Track Broom Operator Name Role Phone Naa Maradiaga MD Primary Care Pro vider Reason for Visit * Reason Onset Date Comments new script 01/22/2023 Encounter Details Date Type Department Care Team (Late st Contact Info) Description 01/22/2023 Telephone [facility] MEDICINE [address] [place] [address] Naa Maradiaga MD [address] [place] [address] new script Social History Tobacco Use Types [...] Description 08/03/2024 3:00 PM EDT Office Visit [facility] ADULT DENTAL [address] [place] [address] Angelica Álvarez 09/11/2024 1:30 PM EDT Office Visit [facility] MEDICINE [address] [place] [address] Naa Maradiaga MD [address] [place], [place] [phone] documented as of this encounter Visit Diagnoses Not on filedocumented in this encounter Care Teams Track Broom Operator Relationship Specialty Start Date End Date Naa Maradiaga MD [address] [place] [address] [phone] PCP - General Internal Medicine 08/23/22 documented as of this encounter
== END 2024-07-07 16:05 | disposition home or self-care (01) ==
LOC: HO.HGI 14:53
PROVIDERS: PCP Student in an Organized Health Care Education/Training Program; Visit Provider Nurse Practitioner Family
DX: R10.13 Epigastric pain (principal); K59.09 Other constipation; K21.00 Gastro-esophageal reflux disease with esophagitis, without bleeding
CPT/HCPCS: 99215

== ENCOUNTER 2024-07-07 14:52 | Outpatient (REF) | payer OTHER, SELFPAY ==
[2024-07-07 16:38] LABS: MANUAL DIFF FLAG NO
[2024-07-07 17:05] LABS: Basophils Percent Auto 0.8 % (0-2); Eosinophils Absolute Auto 0.1 X10*3/uL (0.0-0.4); Eosinophils Percent Auto 2.7 % (0-4); Hematocrit 34.4 % (37.0-47.0); Imm Gran Abs Auto 0.01 X10*3/uL (0.00-0.03); Imm Gran Pct Auto 0.2 % (0.0-0.4); Lymphocytes Absolute Auto 1.9 X10*3/uL (1.2-4.9); Mean Corpuscular Volume 81.3 fL (80.0-98.0); Mean Platelet Volume 10.2 fL (9.4-12.3); Monocytes Absolute Auto 0.5 X10*3/uL (0.1-1.2); Neutrophils Absolute Auto 2.6 x10*3/uL (2.0-8.3); Neutrophils Percent Auto 50.3 % (45-73); Platelet Count 276 X10*3/uL (160-400); Red Blood Count 4.23 X10*6/uL (4.20-5.50); White Blood Count 5.2 X10*3/uL (4.8-10.8)
[2024-07-07 17:16] LABS: Appearance Urine Clear; Color Urine Yellow; Glucose Urine UA Negative (Negative); Leukocyte Esterase Urine Moderate (2+) (Negative); Nitrite Urine Negative (Negative); UMIC TRIGGER UACC YES; Urine Blood Trace (Negative); Urine Ketones Negative (Negative); Urine Protein Negative (Neg-Trace)
[2024-07-07 17:35] LABS: Bacteria Urine None Seen (None Seen); Hyaline Casts Urine 0-2 /LPF (0-2); RBC Urine 0-2 /HPF (0-2); Squamous Epithelial Cell Urine 0-2 /HPF (0-2); UACC Culture Trigger YES; WBC Urine 0-5 /HPF (0-5)
--- OUTSIDE RECORDS SUMMARY | 2024-07-07 18:51 | XMS_ITS | Encounter Summary ---
Author Organization [facility] Address 75 [facility] 7t [place] [address] Care Team Providers Care Shift Foreman Name Role Phone Maryuri Wang MD Primary Care Provider + Naa Maradiaga MD Primary Care Pro vider Encounter Details Date Type Department Care Team (Latest Contact Info) Description 06/13/2018 Abstract [facility] CONVERSIONS Dental, Provider, DDS Social History [...] Description 08/03/2024 3:00 PM EDT Office Visit [facility] ADULT DENTAL [address] [place] [address] Angelica Álvarez 09/11/2024 1:30 PM EDT Office Visit [facility] MEDICINE [address] [place], [place] [phone] Naa Maradiaga MD 230 [place], [place] [phone] documented as of this encounter Visit Diagnoses Not on filedocumented in this encounter Care Teams Shift Foreman Relationship Specialty Start Date End Date Maryuri Wang MD 230 [place] [address] PCP - General Family Medicine 01/09/17 08/22/22 Naa Maradiaga MD [address] [place] [phone] PCP - General Internal Medicine 08/23/22 documented as of this encounter
--- OUTSIDE RECORDS SUMMARY | 2024-07-07 18:51 | XMS_ITS | Encounter Summary ---
Author Organization [facility] Address [address] [place] [address] Care Team Providers Care Dragger Name Role Phone Maryuri Wang Primary Care Provider Encounter Details Date Type Department Care Team (Late st Contact Info) Description 04/28/2020 Orders Only [facility] XRay [address] [place] [address] [address] Social History Tobacco Use Types Packs/Day Years [...] on filedocumented in this encounter Care Teams Dragger Relationship Specialty Start Date End Date Maryuri Wang 230 [place] [address] PCP - General Internal Medicine 10/03/17 documented as of this encounter
--- OUTSIDE RECORDS SUMMARY | 2024-07-07 18:51 | XMS_ITS | Encounter Summary ---
Author Organization [employer] Address 75 [facility] 7t [place] [address] Care Team Providers Care Industrial Services Worker Name Role Phone Naa Maradiaga MD Primary Care Pro vider Reason for Visit * Reason Onset Date Comments Results 08/21/2023 Encounter Details Date Type Department Care Team ([facility] st Contact Info) Description 08/21/2023 Telephone [facility] MEDICINE [address] [place] [address] Naa Maradiaga MD [address] [place] [address] Results Social History Tobacco Use Types Packs/Day [...] EDT TC placed to pt with a [place] mobile mechanic to inquire about the GI visit results [...] call back in regards gastro visit results. Upper Sorbian speaker documented in this encounter Plan of Treatment Upcoming Encounters Date Type Department Care Team (Late st Contact Info) Description 08/03/2024 3:00 PM EDT Office Visit [facility] ADULT DENTAL [address] [place] [address] [phone] Angelica Álvarez 09/11/2024 1:30 PM EDT Office Visit [facility] MEDICINE [address] [place], [place] [phone] Naa Maradiaga MD [address] [place], [place] [phone] documented as of this encounter Visit Diagnoses Not on filedocumented in this encounter Care Teams Industrial Services Worker Relationship Specialty Start Date End Date Naa Maradiaga MD [address] [place] [phone] PCP - General Internal Medicine 08/23/22 documented as of this encounter
--- OUTSIDE RECORDS SUMMARY | 2024-07-07 18:51 | XMS_ITS | Encounter Summary ---
Author Organization [employer] Address 75 [facility] 7t [place] [address] Care Team Providers Care Targeting Acquisition Officer Name Role Phone Naa Maradiaga MD Primary Care Pro vider Reason for Visit * Reason Onset Date Comments clarification on case 03/31/2024 Encounter Details Date Type Department Care Team ([facility] st Contact Info) Description 03/31/2024 Telephone [facility] ADULT DENTAL [address] [place] [address] Denis Santana DDS [address] [place] [address] clarification on case Social History Tobacco Use [...] lower) for nightguard fabrication. Al at [employer] [phone] * Telephone Encounter - Jerman Reeves DMD [...] lower) for nightguard fabrication. Al at [employer] [phone] documented in this encounter Plan of Treatment Upcoming Encounters Date Type Department Care Team (Late st Contact Info) Description 08/03/2024 3:00 PM EDT Office Visit [facility] ADULT DENTAL [address] [place] [address] [phone] Angelica Álvarez 09/11/2024 1:30 PM EDT Office Visit [facility] MEDICINE [address] [place] [phone] Naa Maradiaga MD [address] [place] [address] [phone] documented as of this encounter Visit Diagnoses Not on filedocumented in this encounter Care Teams Targeting Acquisition Officer Relationship Specialty Start Date End Date Naa Maradiaga MD [address] [place] [address] [phone] PCP - General Internal Medicine 08/23/22 documented as of this encounter
--- OUTSIDE RECORDS SUMMARY | 2024-07-07 18:51 | XMS_ITS | Encounter Summary ---
Author Organization [employer] [facility] Address 75 [facility] 7t [place] [address] Care Team Providers Care Picking Supervisor Name Role Phone Maryuri Wang MD Primary Care Provider + Naa Maradiaga MD Primary Care Pro vider Encounter Details Date Type Department Care Team (Latest Contact Info) Description 02/19/2020 Abstract [facility] CONVERSIONS Dental, Provider, DDS Social History [...] 3:00 PM EDT Office Visit [facility] ADULT DENTAL 230 [place] [address] Angelica Álvarez 09/11/2024 1:30 PM EDT Office Visit [facility] MEDICINE [address] [place], [place] [phone] Naa Maradiaga MD 230 [place], [place] [phone] documented as of this encounter Visit Diagnoses Not on filedocumented in this encounter Care Teams Picking Supervisor Relationship Specialty Start Date End Date Maryuri Wang MD [address] [place] [address] PCP - General Family Medicine 01/09/17 08/22/22 Naa Maradiaga MD [address] [place] [phone] PCP - General Internal Medicine 08/23/22 documented as of this encounter
--- OUTSIDE RECORDS SUMMARY | 2024-07-07 18:51 | XMS_ITS | Encounter Summary ---
Author Organization [facility] Address [address] [place] [address] Care Team Providers Care Flue Tile Press Operator Name Role Phone Maryuri Wang Primary Care Provider Encounter Details Date Type Department Care Team (Late st Contact Info) Description 10/04/2020 Telephone [facility] Interventional Radiology [address] [place] [phone] Sweta Hampton RN Social History Tobacco Use [...] on filedocumented in this encounter Care Teams Flue Tile Press Operator Relationship Specialty Start Date End Date Maryuri Wang 230 [place] [address] PCP - General Internal Medicine 10/03/17 documented as of this encounter
--- OUTSIDE RECORDS SUMMARY | 2024-07-07 18:51 | XMS_ITS | Encounter Summary ---
Author Organization [employer] Address 75 [facility] 7t [place] [address] Care Team Providers Care Wellness Trainer Name Role Phone Maryuri Wang MD Primary Care Provider + Naa Maradiaga MD Primary Care Pro vider Reason for Visit * Reason Comments Med Refill Encounter Details Date Type Department Care Team (Late st Contact Info) Description 06/26/2022 Refill [facility] MEDICINE [address] [place] [address] Maryuri Wang MD 230 [place] [address] Social History Tobacco Use Types Packs/Day Years [...] Description 08/03/2024 3:00 PM EDT Office Visit [facility] ADULT DENTAL [address] [place] [address] Álvarez Angelica 09/11/2024 1:30 PM EDT Office Visit [facility] MEDICINE [address] [place], [place] [phone] Naa Maradiaga MD [address] [place] [phone] documented as of this encounter Visit Diagnoses Not on filedocumented in this encounter Care Teams Wellness Trainer Relationship Specialty Start Date End Date Maryuri Wang MD [address] [place] [address] [phone] PCP - General Family Medicine 01/09/17 08/22/22 Naa Maradiaga MD [address] [place] [phone] PCP - General Internal Medicine 08/23/22 documented as of this encounter
--- OUTSIDE RECORDS SUMMARY | 2024-07-07 18:51 | XMS_ITS | Encounter Summary ---
Author Organization [employer] Address 75 [facility] 7t [place] [address] Care Team Providers Care Stock House Worker Name Role Phone Maryuri Wang MD Primary Care Provider + Naa Maradiaga MD Primary Care Pro vider Encounter Details Date Type Department Care Team (Latest Contact Info) Description 02/17/2021 Abstract [facility] CONVERSIONS Dental, Provider, DDS Social History Tobacco [...] Description 08/03/2024 3:00 PM EDT Office Visit [facility] ADULT DENTAL [address] [place] [address] Angelica Álvarez 09/11/2024 1:30 PM EDT Office Visit [facility] MEDICINE [address] [place], [place] [phone] Naa Maradiaga MD 230 [place], [place] [phone] documented as of this encounter Visit Diagnoses Not on filedocumented in this encounter Care Teams Stock House Worker Relationship Specialty Start Date End Date Maryuri Wang MD 230 [place] [address] PCP - General Family Medicine 01/09/17 08/22/22 Naa Maradiaga MD [address] [place] [phone] PCP - General Internal Medicine 08/23/22 documented as of this encounter
--- OUTSIDE RECORDS SUMMARY | 2024-07-07 18:51 | XMS_ITS | Clinical Summary ---
Author Organization [facility] Address [address] [place] [address] Care Team Providers Care Information Engineer Name Role Phone SelmaDiana LIONEL Primary Care Provider [phone] Source Comments PLEASE NOTE, if this patient [...] Plan of Treatment Not on file Insurance [place] Care Teams Information Engineer Relationship Specialty Start Date End Date Diana Hahn NP [address] [place] [address] PCP - General Internal Medicine 10/10/12
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
--- OUTSIDE RECORDS SUMMARY | 2024-07-07 18:51 | XMS_ITS | Encounter Summary ---
Author Organization [employer] Address 75 [facility] 7t [place] [address] Care Team Providers Care Event Marketing Intern Name Role Phone Naa Maradiaga MD Primary Care Pro vider Reason for Visit * Reason Onset Date Comments cx and rs appt same day 06/15/2024 Encounter Details Date Type Department Care Team (Late st Contact Info) Description 06/15/2024 Telephone [facility] ADULT DENTAL [address] [place] [address] Marian Urias DMD cx and rs appt [...] Description 08/03/2024 3:00 PM EDT Office Visit [facility] ADULT DENTAL [address] [place] [address] Angelica Álvarez 09/11/2024 1:30 PM EDT Office Visit [facility] MEDICINE [address] [place] [address] Naa Maradiaga MD [address] [place] [address] documented as of this encounter Visit Diagnoses Not on filedocumented in this encounter Care Teams Event Marketing Intern Relationship Specialty Start Date End Date Naa Maradiaga MD [address] [place] [address] PCP - General Internal Medicine 08/23/22 documented as of this encounter
--- OUTSIDE RECORDS SUMMARY | 2024-07-07 18:51 | XMS_ITS | Encounter Summary ---
Author Organization [employer] Address 75 [facility] 7t [place] [address] Care Team Providers Care Eap Specialist Name Role Phone Naa Maradiaga MD Primary Care Pro vider Reason for Visit * Reason Onset Date Comments new script 01/22/2023 Encounter Details Date Type Department Care Team (Late st Contact Info) Description 01/22/2023 Telephone [facility] MEDICINE [address] [place] [address] Naa Maradiaga MD [address] [place] [address] new script Social History Tobacco Use Types [...] Description 08/03/2024 3:00 PM EDT Office Visit [facility] ADULT DENTAL [address] [place] [address] Angelica Álvarez 09/11/2024 1:30 PM EDT Office Visit [facility] MEDICINE [address] [place] [address] Naa Maradiaga MD [address] [place], [place] [phone] documented as of this encounter Visit Diagnoses Not on filedocumented in this encounter Care Teams Eap Specialist Relationship Specialty Start Date End Date Naa Maradiaga MD [address] [place] [address] [phone] PCP - General Internal Medicine 08/23/22 documented as of this encounter
--- OUTSIDE RECORDS SUMMARY | 2024-07-07 18:51 | XMS_ITS | Encounter Summary ---
Author Organization [employer] Address 75 [facility] 7t [place] [address] Care Team Providers Care Dispatch Manager Name Role Phone Maryuri Wang MD Primary Care Provider + Naa Maradiaga MD Primary Care Pro vider Reason for Visit * Reason Onset Date Comments Appointment 05/25/2022 Encounter Details Date Type Department Care Team ([facility] st Contact Info) Description 05/25/2022 Telephone [facility] ADULT DENTAL [address] [place] [address] Jerman Reeves, DMD 230 [place] [address] Appointment Social History Tobacco Use Types Packs/Day [...] 3:00 PM EDT Office Visit [facility] ADULT DENTAL [address] [place], [place] [phone] Angelica Álvarez 09/11/2024 1:30 PM EDT Office Visit [facility] MEDICINE [address] [place], [place] [phone] Naa Maradiaga MD [address] [place] [phone] documented as of this encounter Visit Diagnoses Not on filedocumented in this encounter Care Teams Dispatch Manager Relationship Specialty Start Date End Date Maryuri Wang MD [address] [place] [phone] PCP - General Family Medicine 01/09/17 08/22/22 Naa Maradiaga MD [address] [place] [address] [phone] PCP - General Internal Medicine 08/23/22 documented as of this encounter
--- OUTSIDE RECORDS SUMMARY | 2024-07-07 18:51 | XMS_ITS | Encounter Summary ---
Author Organization [facility] Address [address] [place] [address] Care Team Providers Care Pickling Tank Operator Name Role Phone Maryuri Wang Primary Care Provider [phone] Encounter Details Date Type Department Care Team (Late st Contact Info) Description 07/05/2020 Telephone [facility] Interventional Radiology [address] [place] [phone] Shahana Casas RN [facility] [place] Social History Tobacco Use Types Packs/Day [...] on filedocumented in this encounter Care Teams Pickling Tank Operator Relationship Specialty Start Date End Date Maryuri Wang [address] [place] [phone] PCP - General Internal Medicine 10/03/17 documented as of this encounter
--- OUTSIDE RECORDS SUMMARY | 2024-07-07 18:51 | XMS_ITS | Clinical Summary ---
Author Organization [facility] Address [address] [place] [address] Care Team Providers Care Marketing Sales Manager Name Role Phone KathleenMaryuriPadma Primary Care Provider [phone]- [phone] Allergies No known active allergies Medications levothyroxine [...] this topic Medical Devices Implanted Type Area Senior Marketing Analyst Device Identifier Shelf Expiration Date Model / Serial / Lot Device Closure Vascular Plug 6fr Angio-Seal Vip - [id number] Implanted:Qty: 1 on 03/04/2018 at [facility] Implant [employer] 12/15/2018 [id number] / / [id number] Device Closure Vascular Plug 6fr Angio-Seal Vip - [id number] Implanted:Qty: 1 on 07/06/2020 at [facility] Implant [employer] [id number] / / Device Closure Vascular Plug 6fr Angio-Seal Vip - [id number] Implanted:Qty: 1 on 08/03/2020 at [facility] Implant [employer] [id number] / / Diverter Flow [id number] - [id number] Implanted:Qty: 1 on 08/03/2020 at [facility] [employer] 12/15/2022 [id number] / / [id number] Diverter Flow [id number] - [id number] Implanted:Qty: 1 on 08/03/2020 at [facility] [employer] 08/15/2022 [id number] / / [id number] Insurance [facility] HSNO/FREE CARE Care Teams Marketing Sales Manager Relationship Specialty Start Date End Date Maryuri Wang [address] [place] [phone] PCP - General Internal Medicine 10/03/17
--- OUTSIDE RECORDS SUMMARY | 2024-07-07 18:51 | XMS_ITS | Encounter Summary ---
Author Organization [employer] Address 75 [facility] 7t [place] [address] Care Team Providers Care Tower Director Name Role Phone Naa Maradiaga MD [...] Description 08/03/2024 3:00 PM EDT Office Visit [facility] [address] [place] [address] [phone] Angelica Álvarez 09/11/2024 1:30 PM EDT Office Visit [facility] [address] [place] [address] [phone] Naa Maradiaga MD [address] [place], [place] [phone] documented as of this encounter Procedures Procedure [...] Blood Count 5.2 4.8 - 10.8 X10*3/uL [facility] Red Blood Count 4.23 4.20 - 5.50 X10*6/uL [facility] Hemoglobin 11.0(L) 12.0 - 16.0 g/dl [facility] Hematocrit 34.4(L) 37.0 - 47.0 % [facility] Mean Corpuscular Volume 81.3 80.0 - 98.0 fL [facility] Mean Corpuscular Hemoglobin 26.0(L) 27.0 - 33.0 pg [facility] Mean Corpuscular HGB Conc 32.0 31.0 - 35.0 g/dl [facility] Red Cell Distribution Width 16.0 11.0 - 16.0 % [facility] Platelet Count 276 160 - 400 X10*3/uL [facility] Mean Platelet Volume 10.2 9.4 - 12.3 fL [facility] Neutrophils Percent Auto 50.3 45 - 73 % [facility] Imm Gran Pct Auto 0.2 0.0 - 0.4 % [facility] Lymphocytes Percent Auto 37.0 20 - 40 % [facility] Monocytes Percent Auto 9.0 2 - 11 % [facility] Eosinophils Percent Auto 2.7 0 - 4 % [facility] Basophils Percent Auto 0.8 0 - 2 % [facility] NRBC Pct Auto 0.0 0.0 - 0.2 /100WBC [facility] Neutrophils Absolute Auto 2.6 2.0 - 8.3 x10*3/uL [facility] Imm Gran Abs Auto 0.01 0.00 - 0.03 X10*3/uL [facility] Lymphocytes Absolute Auto 1.9 1.2 - 4.9 X10*3/uL [facility] Monocytes Absolute Auto 0.5 0.1 - 1.2 X10*3/uL [facility] Eosinophils Absolute Auto 0.1 0.0 - 0.4 X10*3/uL [facility] Basophils Absolute Auto 0.0 0.0 - 0.2 X10*3/uL [facility] NRBC Abs Auto 0.000 0.0 - 0.012 X10*3/uL [facility] 07/07/2024 4:36 PM EDT 07/07/2024 4:36 PM EDT us Generic External Data Provider LAB BLOOD ORDERAB LES Final Result [facility] [address] [place] [address] [phone] * (ABNORMAL) Urinalysis, Complete, with Reflex to Culture (07/07/2024 4:31 PM EDT) Color Urine Yellow [facility] Appearance Urine Clear [facility] PH 7.0 5.0 - 9.0 [facility] Glucose Urine UA Negative Negative mg/dL [facility] Urine Blood Trace(A) Negative [facility] Specific [place] - Urine 1.010 1.005 - 1.025 [facility] Urine Protein Negative Neg-Trace mg/dL [facility] Urine Ketones Negative Negative mg/dL [facility] Nitrite Urine Negative Negative [facility] Leukocyte Esterase Urine Moderate (2+)(A) Negative [facility] RBC Urine 0-2 0 - 2 /HPF [facility] Urine WBC 0-5 0 - 5 /HPF [facility] Urine Squamous Epithelial Cell 0-2 0 - 2 /HPF [facility] Urine Bacteria None Seen None Seen [facility] Hyaline Casts, Urine 0-2 0 - 2 /LPF [facility] 07/07/2024 4:31 PM EDT 07/07/2024 5:06 PM EDT Narrative [facility] - 07/07/2024 5:35 PM EDT Urine, Clean Catch us Generic External Data Provider LAB URINE ORDERAB LES Final Result [facility] [address] [place] [phone] * (ABNORMAL) Urinalysis w/reflex microscopic (07/07/2024 4:31 PM EDT) Color Urine Yellow [facility] Appearance Urine Clear [facility] PH 7.0 5.0 - 9.0 [facility] Glucose Urine UA Negative Negative mg/dL [facility] Urine Blood Trace(A) Negative [facility] Specific [place] - Urine 1.010 1.005 - 1.025 [facility] Urine Protein Negative Neg-Trace mg/dL [facility] Urine Ketones Negative Negative mg/dL [facility] Nitrite Urine Negative Negative [facility] Leukocyte Esterase Urine Moderate (2+)(A) Negative [facility] 07/07/2024 4:31 PM EDT 07/07/2024 5:06 PM EDT Narrative [facility] - 07/07/2024 5:19 PM EDT Urine, Clean Catch us Generic External Data Provider LAB URINE ORDERAB LES Final Result Performing Organization Address City/State/[facility] Co de Phone Number [facility] [address] [place] [address] [phone] documented in this encounter Visit Diagnoses Not on filedocumented in this encounter Care Teams Tower Director Relationship Specialty Start Date End Date Naa Maradiaga MD [address] [place] [phone] PCP - General Internal Medicine 08/23/22 documented as of this encounter
--- OUTSIDE RECORDS SUMMARY | 2024-07-07 18:51 | XMS_ITS | Clinical Summary ---
Author Organization [employer] Address [address] [facility] 7t [place] [address] Care Team Providers Care Group Care Worker Name Role Phone Naa Maradiaga MD [...] tablet 3 5 Active Deep Sea Nasal [place] 0.65 % nasal spray USE 1 SPRAY [...] foot to r/o foreign body -referred to scrap worker -advised to soak foot in warm water [...] endo no need to continue care w forge heater -continue current dose of levo 125 daily -repeat TFT in 4 weeks ordered today , if still elevated will need to increase dose Assessment & Plan (10/08/2022 10:57 PM EDT): -from endo no need to continue care w forge heater -continue current dose of levo 125 daily -repeat TFT Assessment & Plan (04/09/2022 3:42 PM EST): Follow up with [employer]. -continue with levothryoxine 125 mcg Hemorrhoids 04/09/2022 [...] GI x chronic symptoms ---I spoke w tissue specialist -Verónica and was explained from pt insurance can not be referred to [facility] as pt would like Assessment & Plan [...] Provider, Generic External Data 06/24/2024 Patient Outreach [facility] [address] [place] [address] Naa Maradiaga MD Pre-visit Planning (SDOH unable to reach [facility] ) 06/23/2024 Telephone [facility] [address] [place] [address] Naa Maradiaga MD chart prep 06/15/2024 Telephone [facility] [address] [place] [address] Marian Urias, HORACE cx and rs appt same day 06/09/2024 2:30 PM EDT Office Visit [facility] [address] [place] [address] Denis Snatana, DDS 05/08/2024 Telephone [facility] [address] [place] [address] Naa Maradiaga MD june05/05/2024 3:30 PM EST Office Visit [facility] [address] [place] [address] Denis Santana, DDS 04/21/2024 Refill [facility] [address] [place] [address] Mally Godinez ANP Hypothyroidism, unspecified type 04/21/2024 Refill [facility] [address] [place] [address] Adeline Lancaster, TAM Hypothyroidism, unspecified type 04/16/2024 Refill [facility] [address] [place] [address] Naa Maradiaga MD 04/15/2024 Telephone [facility] [address] [place] [address] Adeline Lancaster, RN Results from Last 3 [...] Description 08/03/2024 3:00 PM EDT Office Visit [facility] [address] [place] [phone] Angelica Álvarez 09/11/2024 1:30 PM EDT Office Visit [facility] [address] [place] [phone] Naa Maradiaga MD [address] [place] [address] Health Maintenance Due Date Last Done Comments [...] Blood Count 5.2 4.8 - 10.8 X10*3/uL [facility] Red Blood Count 4.23 4.20 - 5.50 X10*6/uL [facility] Hemoglobin 11.0(L) 12.0 - 16.0 g/dl [facility] Hematocrit 34.4(L) 37.0 - 47.0 % [facility] Mean Corpuscular Volume 81.3 80.0 - 98.0 fL [facility] Mean Corpuscular Hemoglobin 26.0(L) 27.0 - 33.0 pg [facility] Mean Corpuscular HGB Conc 32.0 31.0 - 35.0 g/dl [facility] Red Cell Distribution Width 16.0 11.0 - 16.0 % [facility] Platelet Count 276 160 - 400 X10*3/uL [facility] Mean Platelet Volume 10.2 9.4 - 12.3 fL [facility] Neutrophils Percent Auto 50.3 45 - 73 % [facility] Imm Gran Pct Auto 0.2 0.0 - 0.4 % [facility] Lymphocytes Percent Auto 37.0 20 - 40 % [facility] Monocytes Percent Auto 9.0 2 - 11 % [facility] Eosinophils Percent Auto 2.7 0 - 4 % [facility] Basophils Percent Auto 0.8 0 - 2 % [facility] NRBC Pct Auto 0.0 0.0 - 0.2 /100WBC [facility] Neutrophils Absolute Auto 2.6 2.0 - 8.3 x10*3/uL [facility] Imm Gran Abs Auto 0.01 0.00 - 0.03 X10*3/uL [facility] Lymphocytes Absolute Auto 1.9 1.2 - 4.9 X10*3/uL [facility] Monocytes Absolute Auto 0.5 0.1 - 1.2 X10*3/uL [facility] Eosinophils Absolute Auto 0.1 0.0 - 0.4 X10*3/uL [facility] Basophils Absolute Auto 0.0 0.0 - 0.2 X10*3/uL [facility] NRBC Abs Auto 0.000 0.0 - 0.012 X10*3/uL [facility] 07/07/2024 4:36 PM EDT 07/07/2024 4:36 PM EDT us Generic External Data Provider LAB BLOOD ORDERAB LES Final Result [facility] [address] [place] [phone] * (ABNORMAL) Urinalysis, Complete, with Reflex to Culture (07/07/2024 4:31 PM EDT) Color Urine Yellow [facility] Appearance Urine Clear [facility] PH 7.0 5.0 - 9.0 [facility] Glucose Urine UA Negative Negative mg/dL [facility] Urine Blood Trace(A) Negative [facility] Specific [place] - Urine 1.010 1.005 - 1.025 [facility] Urine Protein Negative Neg-Trace mg/dL [facility] Urine Ketones Negative Negative mg/dL [facility] Nitrite Urine Negative Negative [facility] Leukocyte Esterase Urine Moderate (2+)(A) Negative [facility] RBC Urine 0-2 0 - 2 /HPF [facility] Urine WBC 0-5 0 - 5 /HPF [facility] Urine Squamous Epithelial Cell 0-2 0 - 2 /HPF [facility] Urine Bacteria None Seen None Seen [facility] Hyaline Casts, Urine 0-2 0 - 2 /LPF [facility] 07/07/2024 4:31 PM EDT 07/07/2024 5:06 PM EDT Narrative [facility] - 07/07/2024 5:35 PM EDT Urine, Clean Catch us Generic External Data Provider LAB URINE ORDERAB LES Final Result Performing Organization Address [facility]/ZIP Co de Phone Number [facility] [address] [place] [phone] * (ABNORMAL) Urinalysis w/reflex microscopic (07/07/2024 4:31 PM EDT) Color Urine Yellow [facility] Appearance Urine Clear [facility] PH 7.0 5.0 - 9.0 [facility] Glucose Urine UA Negative Negative mg/dL [facility] Urine Blood Trace(A) Negative [facility] Specific [place] - Urine 1.010 1.005 - 1.025 [facility] Urine Protein Negative Neg-Trace mg/dL [facility] Urine Ketones Negative Negative mg/dL [facility] Nitrite Urine Negative Negative [facility] Leukocyte Esterase Urine Moderate (2+)(A) Negative [facility] 07/07/2024 4:31 PM EDT 07/07/2024 5:06 PM EDT Narrative [facility] - 07/07/2024 5:19 PM EDT Urine, Clean Catch us Generic External Data Provider LAB URINE ORDERAB LES Final Result Performing Organization Address City/[facility]/ZIP Co de Phone Number [facility] [address] [place] [phone] * BI Mammogram Screening Tomosynthesis Bilateral (03/17/2024 2:44 PM EST) Anatomical Region Laterality Modality Breast Bilateral Mammography 03/17/2024 2:44 PM EST Narrative 03/28/2024 8:19 PM EST ? [facility] ? [address] ?[place] [address] ? Mammography Report ? Signed with Addenda ? Patient: Chapa Saldana,Shruti ?MR#: ?? [id number] ? : 1965 ?Acct:[id number] ? Age/Sex: 58 / F ?ADM Date: 03/17/24 ? Loc: HO.MAMMO ? Attending Dr: Sheryl Wang MD ? Ordering Physician: Sheryl Wang MD ?Results: 1Ne ?? gative ? Date of Service: 03/17/24 ?Follow Up: 1 Year From Orig ?? inal Mammogram ? Procedure(s): MM tomosynthesis screening BI ?? Accession Number(s): [id number] ? cc: Sheryl Wang MD; Naa Maradiaga [...] DD/ 1444 ? TD/TT: 03/17/24 1500 ? Stapler Machine: ? Procedure Note Remi, Image - 04/13/2024 [facility] [address] [place] [address] [place] [address] Mammography Report Signed with Sofia Patient: Lizzy LeedMR#: [id number] : 1965Acct:[id number] Age/Sex: 58 / FADM Date: 03/17/24 Loc: MEÑOO Attending Dr: Sheryl Wang MD Ordering Physician: Sheryl Wangesults: 1Ne gative Date of Service: 03/17/24Follow Up: 1 Year From Orig ina Mammogram Procedure(s): MM tomosynthesis screening BI Accession Number(s): [id number] cc: Sheryl Wang MD; Naa Maradiaga MD [...] in OV> 03/28/242015 DD/ 1444 TD/TT: 03/17/241499 Stapler Machine: Sheryl Wang MD IMG BI PROCEDURES Edited Result - Final * Fecal Globin by Immunochemistry (11/30/2023 12:00 AM EDT) Pathologist [facility] Fecal Globin By Immunochemistry SEE NOTE [facility] Comment: ??FECAL GLOBIN BY IMMUNOCHEMISTRY ?Micro Number: ?[id number] ??Test Status: ? Final ??Specimen Source: ?? Insure (tm) fobt test card ??Specimen Quality: ??Adequate ??Fecal Globin: ?Not Detected 11/30/2023 12/08/2023 11: 31 PM EDT Narrative [facility] - 12/08/2023 11:42 PM EDT FASTING: UNKNOWN Naa Aguila MD LAB BODY FLUIDS A ND STOOLS ORDERABLES Final Result Performing Organization Address [facility] Co de Phone Number [facility] [address], [place] [address] [facility] [address] [place] [phone] * Hepatitis C Antibody with Reflex to HCV, RNA, Quantitative, Real-Time PCR (11/21/2023 6:22 AM EDT) Pathologist [facility] Hepatitis C Antibody Nonreactive Nonreactive [facility] Comment:Antibodies to HCV no t detected; does not exclude early acuteHCV infection. Blood Venous blood specimen / Unknown 11/21/2023 6:22 AM EDT 11/21/2023 6:22 AM EDT Naa Aguila MD LAB BLOOD ORDERAB LES Final Result Performing Organization Address City/[facility]/ZIP Co de Phone Number [facility] [address] [place] [phone] * HIV-1/2 Antigen and Antibodies, Fourth Generation, with Reflexes (11/21/2023 6:22 AM EDT) Pathologist [facility] HIV AB/AG Nonreactive Nonreactive [facility] Comment:HIV-1 p24 Ag and/or HIV-1/HIV-2 Ab not detected.A test result that is nonreactive does not exclude thepossibility of exposure to or infection with HIV-1 and/orHIV-2. Nonreactive results in this assay for individualswith prior exposure to HIV-1 and/or HIV-2 may be due toantigen and antibody levels that are below the limit ofdetection of this assay.The [employer] HIV Ag/Ab Combo assay result andsupplemental assay results should be interpreted inconjunction with the patient's clinical presentation,history and other laboratory results. If the results areinconsistent with clinical evidence, additional testing issuggested to confirm the result. Blood Venous blood specimen / Unknown 11/21/2023 6:22 AM EDT 11/21/2023 6:22 AM EDT Naa Aguila MD LAB BLOOD ORDERAB LES Final Result [facility] [address] [place] [phone] * HPV mRNA E6/E7 w/Reflex to HPV Genotypes 16, 18/45 (04/12/2022 3:02 PM EST) HPV nRNA E6/E7 Not Detected Not Detected [facility] Comment:Methodology: Transcr iption-Mediated AmplificationThis assay detects E6/E7 viral messenger RNA (mRNA) from 14high-risk HPV types (16,18,31,33,35,39,45,51,52,56,58,59,66,68).Cervical sources are required for HPV testing.If a vaginal source from a patient who has had atotal hysterectomy with removal of cervix wassubmitted, please contact the testing laboratoryfor alternative testing options.For additional information, please refer [email or web address](This link if provided for information/educational purposes only.)THIS TEST WAS PERFORMED AT:[employer] [place] [address] ([address] [phone] LEMUS MD HPV mRNA E6/E7 TNP [facility] HPV 16 RNA TNP [facility] HPV 18/45 RNA TNP [facility] 04/12/2022 3:02 PM EST 04/12/2022 4:15 PM EST us [facility] External Provider LAB CYT OLOGY ORDERABLES Final Result [facility] [address] [place] [address] [phone] * Pap Smear (04/12/2022 3:02 PM EST) 04/12/2022 3:02 PM EST 04/12/2022 4:15 PM EST Narrative [facility] - 04/20/2022 6:31 PM EST ----- ------- Name: Shruti Lee ? Age/Sex: 57/F ? : 1965 Unit#: [id number] ?? Attend Dr: Hair Hinojosa MD ?Re04/12/22 ?Status: DEP REF ? Location: HO.LNP ?Disch: ? ----- ------- SPEC : [id number] ? RECD: 04/12/22 ? STATUS: ??SOUT ? REQ NUM: [id number] ? ADRIANA: 04/12/22 ? SUBM DR: Hair [...] 66, 68) ? HPV testing performed by [facility], [place], [place]. ??See reference laboratory ?? portion of the EMR for entire report. ?Clinical Information LMP: Post menopause Previous PAP test: Unknown ? Material Received ?? ThinPrep-Cervical Copies To: ?? Sheryl Wang MD ?? [address] ?? [place] [address] ? Hair Hinojosa MD ?? [address] [place] [facility] ?? [place] [address] ?? [phone] ----- ------- Signed (signature on file) [address] Georgi 04/20/221830 ? ----- ------- ? END OF REPORT ? [facility] External Provider LAB [facility] Final Result [facility] [address] [facility] [place] [address] [phone] * Hm Colonoscopy (12/15/2019 2:23 PM EDT) Colonoscopy Normal Normal Narrative [facility] - 12/15/2019 2:23 PM EDT Recommended 10 year follow up Historical Provider HEALTH MAINTENANCE Edited Result - Final from Last 3 Months or Most Recently Relevant to Health Maintenance [place] [facility]-[facility] MEDICAID LIMITED ADULT DENTAL - HSN FULL (MEDICAID) Care Teams Group Care Worker Relationship Specialty Start Date End Date Naa Maradiaga MD [address] [place] [address] PCP - General Internal Medicine 08/23/22
--- OUTSIDE RECORDS SUMMARY | 2024-07-07 18:51 | XMS_ITS | Encounter Summary ---
Author Organization [employer] Address [address] [facility] 7t [place] [address] Care Team Providers Care Line Technician Name Role Phone Naa Maradiaga MD Primary Care Pro vider Encounter Details Date Type Department Care Team (Late st Contact Info) Description 09/05/2022 Abstract [facility] [address] [place] [address] Naa Maradiaga MD [address] [place] [address] Social History Tobacco Use Types Packs/Day Years [...] Description 08/03/2024 3:00 PM EDT Office Visit [facility] ADULT [facility] [address] [place] [address] ÁlvarezAngelica henriquez 09/11/2024 1:30 PM EDT Office Visit [facility] [address] [place], [place] [phone] Naa Maradiaga MD [address] [place] [address] documented as of this encounter Procedures Procedure Name Priority Date/Time Associated Diagnosis Comments HM COLONOSCOPY Routine 12/15/2019 2:23 PM EDT documented in this encounter Results * Hm Colonoscopy (12/15/2019 2:23 PM EDT) Colonoscopy Normal Normal Narrative [facility] - 12/15/2019 2:23 PM EDT Recommended 10 year follow up Historical Provider [facility] MAINTENANCE Edited Result - Final documented in this encounter Visit Diagnoses Not on filedocumented in this encounter Care Teams Line Technician Relationship Specialty Start Date End Date Naa Maradiaga MD [address] [place] [address] [phone] PCP - General Internal Medicine 08/23/22 documented as of this encounter
--- OUTSIDE RECORDS SUMMARY | 2024-07-07 18:51 | XMS_ITS | Referral Summary ---
Author Organization [facility] Address [address] [place] [address] Care Team Providers Care Hardware Test Engineer Name Role Phone KathleenMaryuriPadma Primary Care Provider [phone] Allergies No known active allergies Medications levothyroxine [...] on file Medical Devices Implanted Type Area Duplicating Machine Servicer Device Identifier Shelf Expiration Date Model / Serial / Lot Device Closure Vascular Plug 6fr Angio-Seal Vip - [id number] Implanted:Qty: 1 on 03/04/2018 at [facility] Implant [employer] 12/15/2018 [id number] / / [id number] Device Closure Vascular Plug 6fr Angio-Seal Vip - [id number] Implanted:Qty: 1 on 07/06/2020 at [facility] Implant [employer] [id number] / / Device Closure Vascular Plug 6fr Angio-Seal Vip - [id number] Implanted:Qty: 1 on 08/03/2020 at [facility] Implant [employer] [id number] / / Diverter Flow [id number] - [id number] Implanted:Qty: 1 on 08/03/2020 at [facility] [employer] 12/15/2022 [id number] / / [id number] Diverter Flow [id number] - [id number] Implanted:Qty: 1 on 08/03/2020 at [facility] [employer] 08/15/2022 [id number] / / [id number] [place]/FREE CARE Care Teams Hardware Test Engineer Relationship Specialty Start Date End Date Maryuri Wang [address] [place] [phone] PCP - General Internal Medicine 10/03/17
[2024-07-07 20:01] LABS: Alanine Aminotransferase 14 U/L (0-31); Albumin Level 3.9 g/dL (3.5-5.0); Anion Gap 10 (12-20); Aspartate Amino Transferase 24 U/L (5-31); Bilirubin Total 0.2 mg/dL (0.0-1.0); Blood Urea Nitrogen 22 mg/dL (9-16); Calcium 8.8 mg/dL (8.4-10.2); Carbon Dioxide 25 mmol/L (22-29); Chloride 108 mmol/L (96-108); Estimated Glomerular Filt Rate 58; Glucose Random 88 mg/dL (60-115); Iron 24 mcg/dL (30-160); Percent Iron Saturation 9 % (15-50); Potassium 4.4 mmol/L (3.3-5.1); Sodium 139 mmol/L (135-145); Total Iron Binding Capacity 278 mcg/dL (228-428); Total Protein 7.1 g/dL (6.5-8.0); Unsaturated Iron Binding 254 ug/dL
[2024-07-07 20:18] LABS: Alkaline Phosphatase 73 U/L (39-117)
== END 2024-07-07 14:53 | disposition home or self-care (01) ==
LOC: HO.LAB 14:52
PROVIDERS: PCP Student in an Organized Health Care Education/Training Program; Visit Provider Nurse Practitioner Family
DX: R10.13 Epigastric pain (principal); K59.09 Other constipation; K21.00 Gastro-esophageal reflux disease with esophagitis, without bleeding
CPT/HCPCS: 36415; 80053; 81001; 83540; 85025; 87086; 99212

== ENCOUNTER 2024-07-20 08:15 | Outpatient (REF) | payer OTHER, SELFPAY ==
--- NOTE | ~2024-07-20 | US_ITS ---
EXAMINATION: US ABDOMEN COMPLETE CLINICAL INFORMATION: Epigastric pain. COMPARISON: None available. TECHNIQUE: Real-time imaging of the abdominal viscera. FINDINGS: PANCREAS: Visualized portions are unremarkable. ABDOMINAL AORTA: The proximal, mid, and distal segments are normal in caliber. INFERIOR VENA CAVA: Visualized portions are normal. LIVER: The liver is normal in size. The liver contour is normal. Parenchymal echogenicity is normal. No focal hepatic lesion. There is no intrahepatic biliary duct dilatation seen. GALLBLADDER: The gallbladder is physiologically distended without evidence of stones, sludge, polyps, wall thickening or pericholecystic fluid. Gallbladder wall thickness is 0.22 cm. COMMON BILE DUCT: Normal in caliber measuring 1.0 cm in diameter. RIGHT KIDNEY: There is mild pelvic fullness.. No renal calculi or focal parenchymal lesions. The kidney measures 10.0 cm in maximum dimension. LEFT KIDNEY: No hydronephrosis. No renal calculi or focal parenchymal lesions. The kidney measures 9.2 cm in maximum dimension. SPLEEN: The spleen measures 7.8 cm in maximum dimension. FREE FLUID: None. US/US abdomen complete IMPRESSION: Unremarkable complete abdomen ultrasound Electronically signed by: Ismael Caruso MD 07/20/2024 09:29 AM EDT
--- OUTSIDE RECORDS SUMMARY | 2024-07-20 08:30 | XMS_ITS | Referral Summary ---
Author Organization [facility] Address [address] [place] [address] Care Team Providers Care Exec. Creative Director Name Role Phone KathleenMaryuriPadma Primary Care Provider +1- [phone] Allergies No known active allergies Medications levothyroxine [...] on file Medical Devices Implanted Type Area Agricultural Equipment Test Engineer Device Identifier Shelf Expiration Date Model / Serial / Lot Device Closure Vascular Plug 6fr Angio-Seal Vip - [id number] Implanted:Qty: 1 on 03/04/2018 at [facility] Implant [employer] 12/15/2018 [id number] / / [id number] Device Closure Vascular Plug 6fr Angio-Seal Vip - [id number] Implanted:Qty: 1 on 07/06/2020 at [facility] Implant [employer] [id number] / / Device Closure Vascular Plug 6fr Angio-Seal Vip - [id number] Implanted:Qty: 1 on 08/03/2020 at [facility] Implant [employer] [id number] / / Diverter Flow 2.2wun94st - [id number] Implanted:Qty: 1 on 08/03/2020 at [facility] Stent [employer] 12/15/2022 [id number] / / [id number] Diverter Flow [id number] - [id number] Implanted:Qty: 1 on 08/03/2020 at [facility] Stent [employer] 08/15/2022 [id number] / / [id number] Insurance [place] HSNO/FREE CARE Care Teams Exec. Creative Director Relationship Specialty Start Date End Date Maryuri Wang [address] [place] [phone] PCP - General Internal Medicine 10/03/17
--- OUTSIDE RECORDS SUMMARY | 2024-07-20 08:30 | XMS_ITS | Encounter Summary ---
Author Organization [facility] Address [address] [place] [address] Care Team Providers Care Patient Support Representative Name Role Phone Maryuri Wang Primary Care Provider Encounter Details Date Type Department Care Team (Late st Contact Info) Description 04/28/2020 Orders Only [facility] XRay [address] [place] [address] [address] Social History Tobacco Use Types Packs/Day Years [...] on filedocumented in this encounter Care Teams Patient Support Representative Relationship Specialty Start Date End Date Maryuri Wang [address] [place] [address] PCP - General Internal Medicine 10/03/17 documented as of this encounter
--- OUTSIDE RECORDS SUMMARY | 2024-07-20 08:30 | XMS_ITS | Encounter Summary ---
Author Organization [facility] Address [address] [facility] 7t [place] [address] Care Team Providers Care Client Business Manager Name Role Phone Maryuri Wang MD Primary Care Provider + Naa Maradiaga MD Primary Care Pro vider Encounter Details Date Type Department Care Team (Latest Contact Info) Description 02/17/2021 Abstract [facility] CONVERSIONS Dental, Provider, DDS Social History [...] Description 08/03/2024 3:00 PM EDT Office Visit [facility] ADULT DENTAL [address] [place] [address] Angelica Álvarez 09/11/2024 1:30 PM EDT Office Visit [facility] MEDICINE [address] [place], [place] [phone] Naa Maradiaga MD [address] [place], [place] [phone] documented as of this encounter Visit Diagnoses Not on filedocumented in this encounter Care Teams Client Business Manager Relationship Specialty Start Date End Date Maryuri Wang MD [address] [place] [address] PCP - General Family Medicine 01/09/17 08/22/22 Naa Maradiaga MD [address] [place] [address] PCP - General Internal Medicine 08/23/22 documented as of this encounter
--- OUTSIDE RECORDS SUMMARY | 2024-07-20 08:30 | XMS_ITS | Encounter Summary ---
Author Organization [employer] Address [address] [facility] 7t [place] [address] Care Team Providers Care Gas Operation Manager Name Role Phone Maryuri Wang MD Primary Care Provider + Naa Maradiaga MD Primary Care Pro vider Reason for Visit * Reason Comments Med Refill Encounter Details Date Type Department Care Team (Late st Contact Info) Description 06/26/2022 Refill [facility] MEDICINE [address] [place] [address] Maryuri Wang MD [address] [place] [address] Social History Tobacco Use Types Packs/Day Years [...] Description 08/03/2024 3:00 PM EDT Office Visit [facility] ADULT DENTAL [address] [place] [address] Álvarez Angelica 09/11/2024 1:30 PM EDT Office Visit [facility] MEDICINE [address] [place], [place] [phone] Naa Maradiaga MD [address] [place] [phone] documented as of this encounter Visit Diagnoses Not on filedocumented in this encounter Care Teams Gas Operation Manager Relationship Specialty Start Date End Date Maryuri Wang MD [address] [place] [address] [phone] PCP - General Family Medicine 01/09/17 08/22/22 Naa Maradiaga MD [address] [place] [phone] PCP - General Internal Medicine 08/23/22 documented as of this encounter
--- OUTSIDE RECORDS SUMMARY | 2024-07-20 08:30 | XMS_ITS | Encounter Summary ---
Author Organization [facility] Address [address] [place] [address] Care Team Providers Care Fiberglass Ski Maker Name Role Phone Maryuri Wang Primary Care Provider +1- [phone] Encounter Details Date Type Department Care Team (Late st Contact Info) Description 07/05/2020 Telephone [facility] Interventional Radiology [address] [place] [phone] Shahana Casas RN [facility] [place] [place] Social History Tobacco Use Types Packs/Day [...] on filedocumented in this encounter Care Teams Fiberglass Ski Maker Relationship Specialty Start Date End Date Maryuri Wang [address] [place] [phone] PCP - General Internal Medicine 10/03/17 documented as of this encounter
--- OUTSIDE RECORDS SUMMARY | 2024-07-20 08:30 | XMS_ITS | Encounter Summary ---
Author Organization [employer] Address [address] [facility] 7t [place] [address] Care Team Providers Care Child Care Center Assistant Director Name Role Phone Maryuri Wang MD Primary Care Provider + Naa Maradiaga MD Primary Care Pro vider Reason for Visit * Reason Onset Date Comments Appointment 05/25/2022 Encounter Details Date Type Department Care Team ([facility] st Contact Info) Description 05/25/2022 Telephone [facility] ADULT DENTAL [address] [place] [address] Jerman Reeves, DMD [address] [place] [address] Appointment Social History Tobacco Use Types Packs/Day [...] Description 08/03/2024 3:00 PM EDT Office Visit [facility] ADULT DENTAL [address] [place], [place] [phone] Angelica Álvarez 09/11/2024 1:30 PM EDT Office Visit [facility] MEDICINE [address] [place], [place] [phone] Naa Maradiaga MD [address] [place] [address] documented as of this encounter Visit Diagnoses Not on filedocumented in this encounter Care Teams Child Care Center Assistant Director Relationship Specialty Start Date End Date Maryuri Wang MD [address] [place] [phone] PCP - General Family Medicine 01/09/17 08/22/22 Naa Maradiaga MD [address] [place] [address] [phone] PCP - General Internal Medicine 08/23/22 documented as of this encounter
--- OUTSIDE RECORDS SUMMARY | 2024-07-20 08:30 | XMS_ITS | Encounter Summary ---
Author Organization [facility] Address [address] [facility] 7t [place] [address] Care Team Providers Care Field Application Engineer Name Role Phone Maryuri Wang MD Primary Care Provider + Naa Maradiaga MD Primary Care Pro vider Encounter Details Date Type Department Care Team (Latest Contact Info) Description 02/19/2020 Abstract [facility] CONVERSIONS Dental, Provider, DDS Social [...] Description 08/03/2024 3:00 PM EDT Office Visit [facility] ADULT DENTAL [address] [place] [address] Angelica Álvarez 09/11/2024 1:30 PM EDT Office Visit [facility] MEDICINE [address] [place], [place] [phone] Naa Maradiaga MD [address] [place], [place] [phone] documented as of this encounter Visit Diagnoses Not on filedocumented in this encounter Care Teams Field Application Engineer Relationship Specialty Start Date End Date Maryuri Wang MD [address] [place] [address] PCP - General Family Medicine 01/09/17 08/22/22 Naa Maradiaga MD [address] [place] [address] PCP - General Internal Medicine 08/23/22 documented as of this encounter
--- OUTSIDE RECORDS SUMMARY | 2024-07-20 08:30 | XMS_ITS | Encounter Summary ---
Author Organization [employer] Address 75 [facility] 7t [place] [address] Care Team Providers Care Flight Engineer Instructor Name Role Phone Naa Maradiaga MD Primary Care Pro vider Encounter Details Date Type Department Care Team (Late st Contact Info) Description 11/12/2022 Orders Only [facility] MEDICINE [address] [place] [address] Naa Maradiaga MD [address] [place] [address] Social History Tobacco Use Types Packs/Day Years Used Date Smoking Tobacco: Never Smokeless Tobacco: Never Alcohol Use Standard Drinks/Week Comments Yes 1 (1 standard drink = 0.6 oz pur e alcohol) social PHQ-2 Answer Date Recorded Patient Health Questionnaire-2 Score 0 10/08/2022 Housing Stability Answer Date Recorded What is your housing situation today? I have ann sing 06/24/[address] you li [...] Upcoming Encounters Date Type Department Care Team ([facility] st Contact Info) Description 08/03/2024 3:00 PM EDT Office Visit [facility] ADULT DENTAL [address] [place] [address] Angelica Álvarez 09/11/2024 1:30 PM EDT Office Visit [facility] MEDICINE [address] [place] [address] Naa Maradiaga MD [address] [place] [address] documented as of this encounter Procedures Procedure Name Priority Date/Time Associated Diagnosis Comments XR FOOT 3+ VIEWS LEFT Routine 11/12/2022 3:56 PM EDT documented in this encounter Results * XR Foot 3+ Views Left (11/12/2022 3:56 PM EDT) Anatomical Region Laterality Modality Lower Extremities, Foot Left [facility] 11/12/2022 3:56 PM EDT Narrative 07/15/2024 3:46 PM EDT ?[facility] ?[address] ?[place] [address] ?XRay Report ? Signed ? Patient: Sammi Saldana,Shruti ?MR#: ?? [id number] ? : 1965 ?Acct:[id number] ? Age/Sex: 57 / F ?ADM Date: 08/28/23 ? Loc: HO.HHCX ? Attending Dr: Naa Aguila MD ? Ordering Physician: Naa Maradiaga MD ?? Date of Service: 11/12/22 ?? Procedure(s): XR foot LT min 3V ?? Accession Number(s): [id number] ? cc: Naa Maradiaga MD ? EXAMINATION: ?? XR FOOT, LEFT ? CLINICAL INFORMATION: ?? Pain status-post injury; question foreign body. ? COMPARISON: ?? None available. ? TECHNIQUE: ?? AP, lateral, and oblique views of the left foot. ? FINDINGS: ?? Bony alignment and mineralization are normal. There is no fracture, ?? dislocation or left ankle joint effusion. Boehler's angle is normal. ?? There are large posterior and plantar calcaneal spurs. There is minimal ?? bunion and bunionette formation. No focal soft tissue swelling, gas or ?? foreign body is seen. ? XR/XR foot LT min 3V ?? IMPRESSION: ?? Unremarkable left foot. No radiopaque foreign body is seen. ? Dictated By: ?Sathya Hodges MD ? Signed By: ?<Electronically signed by Sathya Hodges MD in OV> ? 11/13/22 1546 ? DD/ 1556 ? TD/TT: ? Assistant Prosecuting Attorney: OSVALDO ? Procedure Note Remi, Image - 07/15/2024 [place] [address] XRay Report Signed Patient: Lizzy LeedMR#: [id number] : 1965Acct:[id number] Age/Sex: 57 / FADM Date: 11/12/22 Loc: HO.HHCX Attending Dr: Naa Aguila MD Ordering Physician: Naa Maradiaga MD Date of Service: 11/12/22 Procedure(s): XR foot LT min 3V Accession Number(s): [id number] cc: Naa Maradiaga MD EXAMINATION: XR FOOT, LEFT CLINICAL INFORMATION: Pain status-post injury; question foreign body. COMPARISON: None available. TECHNIQUE: AP, lateral, and oblique views of the left foot. FINDINGS: Bony alignment and mineralization are normal. There is no fracture, dislocation or left ankle joint effusion. Boehler's angle is normal. There are large posterior and plantar calcaneal spurs. There is minimal bunion and bunionette formation. No focal soft tissue swelling, gas or foreign body is seen. XR/XR foot LT min 3V IMPRESSION: Unremarkable left foot. No radiopaque foreign body is seen. Dictated By: Sathya Hodges MD Signed By: <Electronically signed by Sathya Hodges MD in OV> 11/13/22 1546 DD/ 1556 TD/TT: Assistant Prosecuting Attorney: OSVALDO Naa Aguila MD IMG XR PROCEDURES Edited Result - Final documented in this encounter Visit Diagnoses Not on filedocumented in this encounter Care Teams Flight Engineer Instructor Relationship Specialty Start Date End Date Naa Maradiaga MD [address] [place] [address] PCP - General Internal Medicine 08/23/22 documented as of this encounter
--- OUTSIDE RECORDS SUMMARY | 2024-07-20 08:30 | XMS_ITS | Clinical Summary ---
Author Organization [facility] Address [address] [place] [address] Care Team Providers Care Glazier Artist Name Role Phone KathleenMaryuriPadma Primary Care Provider +1- [phone] Allergies No known active allergies Medications levothyroxine [...] this topic Medical Devices Implanted Type Area Industrial Services Worker Device Identifier Shelf Expiration Date Model / Serial / Lot Device Closure Vascular Plug 6fr Angio-Seal Vip - [id number] Implanted:Qty: 1 on 03/04/2018 at [facility] Implant [employer] 12/15/2018 [id number] / / [id number] Device Closure Vascular Plug 6fr Angio-Seal Vip - [id number] Implanted:Qty: 1 on 07/06/2020 at [facility] Implant [employer] [id number] / / Device Closure Vascular Plug 6fr Angio-Seal Vip - [id number] Implanted:Qty: 1 on 08/03/2020 at [facility] Implant [employer] [id number] / / Diverter Flow 2.3xqs90is - [id number] Implanted:Qty: 1 on 08/03/2020 at [facility] Stent [employer] 12/15/2022 [id number] / / [id number] Diverter Flow [id number] - [id number] Implanted:Qty: 1 on 08/03/2020 at [facility] Stent [employer] 08/15/2022 [id number] / / [id number] Insurance [facility] HSNO/FREE CARE Care Teams Glazier Artist Relationship Specialty Start Date End Date Maryuri Wang [address] [place] [phone] PCP - General Internal Medicine 10/03/17
--- OUTSIDE RECORDS SUMMARY | 2024-07-20 08:30 | XMS_ITS | Encounter Summary ---
Author Organization [facility] Address [address] [place] [address] Care Team Providers Care Pavilion Cutter Name Role Phone Maryuri Wang Primary Care Provider Encounter Details Date Type Department Care Team (Late st Contact Info) Description 10/04/2020 Telephone [facility] Interventional Radiology [address] [place] [address] Sweta Hampton RN Social History Tobacco Use [...] on filedocumented in this encounter Care Teams Pavilion Cutter Relationship Specialty Start Date End Date Maryuri Wang [address] [place] [address] PCP - General Internal Medicine 10/03/17 documented as of this encounter
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
--- OUTSIDE RECORDS SUMMARY | 2024-07-20 08:30 | XMS_ITS | Encounter Summary ---
Author Organization [facility] Address [address] [facility] 7t [place] [address] Care Team Providers Care Wire Frame Lampshade Maker Name Role Phone Maryuri Wang MD Primary Care Provider + Naa Maradiaga MD Primary Care Pro vider Encounter Details Date Type Department Care Team (Latest Contact Info) Description 06/13/2018 Abstract [facility] CONVERSION[facility] Dental, Provider, DDS Social History Tobacco [...] 3:00 PM EDT Office Visit [facility] ADULT DENTAL [address] [place] [address] Angelica Álvarez 09/11/2024 1:30 PM EDT Office Visit [facility] [address] [place], [place] [phone] Naa Maradiaga MD [address] [place], [place] [phone] documented as of this encounter Visit Diagnoses Not on filedocumented in this encounter Care Teams Wire Frame Lampshade Maker Relationship Specialty Start Date End Date Maryuri Wang MD [address] [place] [address] PCP - General Family Medicine 01/09/17 08/22/22 Naa Maradiaga MD [address] [place] [address] PCP - General Internal Medicine 08/23/22 documented as of this encounter
--- OUTSIDE RECORDS SUMMARY | 2024-07-20 08:30 | XMS_ITS | Clinical Summary ---
Author Organization [employer] Address [address] [facility] 7t [place] [address] Care Team Providers Care Sorority Mother Name Role Phone Naa Maradiaga MD Primary [...] tablet 3 5 Active Deep Sea Nasal [place] 0.65 % nasal spray USE 1 SPRAY [...] foot to r/o foreign body -referred to supervisor bleach plant -advised to soak foot in warm water [...] endo no need to continue care w professor of law -continue current dose of levo 125 daily -repeat TFT in 4 weeks ordered today , if still elevated will need to increase dose Assessment & Plan (10/08/2022 10:57 PM EDT): -from endo no need to continue care w professor of law -continue current dose of levo 125 daily -repeat TFT Assessment & Plan (04/09/2022 3:42 PM EST): 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 -continue with levothryoxine 125 mcg Hemorrhoids 04/09/2022 [...] GI x chronic symptoms ---I spoke w acute specialist -Verónica and was explained from pt insurance can not be referred to [facility] as pt would like Assessment [...] tonsils are visualized above the foramen magnum. Anderosn white matter differentiation is preserved. There are [...] Provider, Generic External Data 06/24/2024 Patient Outreach [facility] [address] [place] [address] Naa Maradiaga MD Pre-visit Planning (SDOH unable to reach [facility] ) 06/23/2024 Telephone [facility] [address] [place] [address] Naa Maradiaga MD chart prep 06/15/2024 Telephone [facility] [address] [place] [address] Marian Urais, HORACE cx and rs appt same day 06/09/2024 2:30 PM EDT Office Visit [facility] [address] [place] [address] Denis Santana DDS 05/08/2024 Telephone [facility] [address] [place] [address] Naa Maradiaga MD june recall 05/05/2024 3:30 PM EST Office Visit [facility] [address] [place] [address] Denis Santana DDS from Last 3 Months Immunizations Name Administration [...] Description 08/03/2024 3:00 PM EDT Office Visit [facility] [address] [place] [address] [phone] Angelica Álvarez 09/11/2024 1:30 PM EDT Office Visit [facility] [address] [place] [address] [phone] Naa Maradiaga MD [address] [place], [place] [phone] Health Maintenance Due Date Last Done Comments [...] Procedure Name Priority Date/Time Associated Diagnosis Comments IRON AND TOTAL IRON BINDING CAPACITY Routine 07/07/2024 4:36 PM EDT COMPREHENSIVE METABOLIC PANEL Routine 07/07/2024 4:36 PM EDT CBC WITH AUTO DIFFERENTIAL Routine 07/07/2024 4:36 PM EDT URINALYSIS, COMPLETE, WITH REFLEX TO CULTURE Routine 07/07/2024 4:31 PM EDT URINALYSIS WITH REFLEX MICROSCOPIC Routine 07/07/2024 4:31 PM EDT CULTURE, URINE, ROUTINE Routine 07/08/19 12:00 AM EDT CASE PRESENTATION, DETAILED AND EXTENSIVE TREATMENT [...] Blood Count 5.2 4.8 - 10.8 X10*3/uL [facility] Red Blood Count 4.23 4.20 - 5.50 X10*6/uL [facility] Hemoglobin 11.0(L) 12.0 - 16.0 g/dl [facility] Hematocrit 34.4(L) 37.0 - 47.0 % [facility] Mean Corpuscular Volume 81.3 80.0 - 98.0 fL [facility] Mean Corpuscular Hemoglobin 26.0(L) 27.0 - 33.0 pg [facility] Mean Corpuscular HGB Conc 32.0 31.0 - 35.0 g/dl [facility] Red Cell Distribution Width 16.0 11.0 - 16.0 % [facility] Platelet Count 276 160 - 400 X10*3/uL [facility] Mean Platelet Volume 10.2 9.4 - 12.3 fL [facility] Neutrophils Percent Auto 50.3 45 - 73 % [facility] Imm Gran Pct Auto 0.2 0.0 - 0.4 % [facility] Lymphocytes Percent Auto 37.0 20 - 40 % [facility] Monocytes Percent Auto 9.0 2 - 11 % [facility] Eosinophils Percent Auto 2.7 0 - 4 % [facility] Basophils Percent Auto 0.8 0 - 2 % [facility] NRBC Pct Auto 0.0 0.0 - 0.2 /100WBC [facility] Neutrophils Absolute Auto 2.6 2.0 - 8.3 x10*3/uL [facility] Imm Gran Abs Auto 0.01 0.00 - 0.03 X10*3/uL [facility] Lymphocytes Absolute Auto 1.9 1.2 - 4.9 X10*3/uL [facility] Monocytes Absolute Auto 0.5 0.1 - 1.2 X10*3/uL [facility] Eosinophils Absolute Auto 0.1 0.0 - 0.4 X10*3/uL [facility] Basophils Absolute Auto 0.0 0.0 - 0.2 X10*3/uL [facility] NRBC Abs Auto 0.000 0.0 - 0.012 X10*3/uL [facility] 07/07/2024 4:36 PM EDT 07/07/2024 4:36 PM EDT Generic External Data Provider LAB BLOOD ORDERAB LES Final Result Performing Organization Address [facility] de Phone Number [facility] [address] [place] [phone] * (ABNORMAL) Iron And Total Iron Binding Capacity (07/07/2024 4:36 PM EDT) Iron 24(L) 30 - 160 mcg/dL [facility] Total Iron Binding Capacity 278 228 - 428 mcg/dL [facility] Percent Iron Saturation 9(L) 15 - 50 % [facility] Unsaturated Iron Binding 254 ug/dL [facility] 07/07/2024 4:36 PM EDT 07/07/2024 4:36 PM EDT Generic External Data Provider LAB BLOOD ORDERAB LES Final Result Performing Organization Address [facility] de Phone Number [facility] [address] [place] [phone] * (ABNORMAL) Comprehensive Metabolic Panel (07/07/2024 4:36 PM EDT) Sodium 139 135 - 145 mmol/L [facility] Potassium 4.4 3.3 - 5.1 mmol/L [facility] Chloride 108 96 - 108 mmol/L [facility] Carbon Dioxide 25 22 - 29 mmol/L [facility] Anion Gap 10(L) 12 - 20 [facility] Urea Nitrogen (BUN) 22(H) 9 - 16 mg/dL [facility] Creatinine, Serum 0.97 0.5 - 1.4 mg/dL [facility] Estimated Glomerular Filt Rate 58 [facility] Comment:Chronic Kidney Disea se: Estimated GFR < 60 mL/min/1.80d1Wkalsg Kidney Disease: Estimated GFR < 15 mL/min/1.73m2 Glucose 88 60 - 115 mg/dL [facility] Calcium 8.8 8.4 - 10.2 mg/dL [facility] Bilirubin, Total 0.2 0.0 - 1.0 mg/dL [facility] Aspartate Amino Transferase 24 5 - 31 U/L [facility] Alanine Aminotransferase 14 0 - 31 U/L [facility] Total Protein 7.1 6.5 - 8.0 g/dL [facility] Albumin Level 3.9 3.5 - 5.0 g/dL [facility] Alkaline Phosphatase 73 39 - 117 U/L [facility] 07/07/2024 4:36 PM EDT 07/07/2024 4:36 PM EDT us Generic External Data Provider LAB BLOOD ORDERAB LES Final Result [facility] [address] [place] [phone] * (ABNORMAL) Urinalysis, Complete, with Reflex to Culture (07/07/2024 4:31 PM EDT) Color Urine Yellow [facility] Appearance Urine Clear [facility] PH 7.0 5.0 - 9.0 [facility] Glucose Urine UA Negative Negative mg/dL [facility] Urine Blood Trace(A) Negative [facility] Specific [place] - Urine 1.010 1.005 - 1.025 [facility] Urine Protein Negative Neg-Trace mg/dL [facility] Urine Ketones Negative Negative mg/dL [facility] Nitrite Urine Negative Negative [facility] Leukocyte Esterase Urine Moderate (2+)(A) Negative [facility] RBC Urine 0-2 0 - 2 /HPF [facility] Urine WBC 0-5 0 - 5 /HPF [facility] Urine Squamous Epithelial Cell 0-2 0 - 2 /HPF [facility] Urine Bacteria None Seen None Seen [facility] Hyaline Casts, Urine 0-2 0 - 2 /LPF [facility] 07/07/2024 4:31 PM EDT 07/07/2024 5:06 PM EDT [facility] - 07/07/2024 5:35 PM EDT Urine, Clean Catch us Generic External Data Provider LAB URINE ORDERAB LES Final Result Performing Organization Address [facility] Co de Phone Number [facility] [address] [place] [address] [phone] * (ABNORMAL) Urinalysis w/reflex microscopic (07/07/2024 4:31 PM EDT) Color Urine Yellow [facility] Appearance Urine Clear [facility] PH 7.0 5.0 - 9.0 [facility] Glucose Urine UA Negative Negative mg/dL [facility] Urine Blood Trace(A) Negative [facility] Specific [place] - Urine 1.010 1.005 - 1.025 [facility] Urine Protein Negative Neg-Trace mg/dL [facility] Urine Ketones Negative Negative mg/dL [facility] Nitrite Urine Negative Negative [facility] Leukocyte Esterase Urine Moderate (2+)(A) Negative [facility] 07/07/2024 4:31 PM EDT 07/07/2024 5:06 PM EDT [facility] - 07/07/2024 5:19 PM EDT Urine, Clean Catch us Generic External Data Provider LAB URINE ORDERAB LES Final Result Performing Organization Address [facility] Co de Phone Number [facility] [address] [facility] [place] [phone] * Culture, Urine, Routine (07/07/2024 12:00 AM EDT) Urine Urine specimen obtained by clean catch procedure / Unknown 07/07/2024 07/07/2024 Comment:UACC Narrative [facility] - 07/09/2024 10:44 AM EDT Urine Culture No growth. Specimen Source: Urine clean catch us Generic External Data Provider LAB MICROBIOLOGY - GENERAL ORDERABLES Final Result [facility] [address] [place] [address] [phone] * BI Mammogram Screening Tomosynthesis Bilateral (03/17/2024 2:44 PM EST) Anatomical Region Laterality Modality Breast Bilateral Mammography 03/17/2024 2:44 PM EST Narrative 03/28/2024 8:19 PM EST ? [facility] [place] ? [address] ?[place] [address] ? Mammography Report ? Signed with Addenda ? Patient: Shruti Lee ?MR#: ?? [id number] ? : 1965 ?Acct:[id number] ? Age/Sex: 58 / F ?ADM Date: 12/31/24 ? Loc: HO.MAMMO ? Attending Dr: Sheryl Wang MD ? Ordering Physician: Sheryl Wang MD ?Results: 1Ne ?? gative ? Date of Service: 12/31/24 ?Follow Up: 1 Year From Orig ?? inal Mammogram ? Procedure(s): MM tomosynthesis screening BI ?? Accession Number(s): [id number] ? cc: Sheryl Wang MD; Naa Maradiaga [...] DD/ 1444 ? TD/TT: 03/17/24 1500 ? Piping Engineer: ? Procedure Note Donmaximuster, Image - 04/13/2024 [facility] [address] [place] [address] Mammography Report Signed with Addenda Patient: Lizzy LeedMR#: [id number] : 1965Acct:[id number] Age/Sex: 58 / FADM Date: 03/17/24 Loc: HO.MAMMO Attending Dr: Sheryl Wang MD Ordering Physician: Sheryl Wangesults: 1Ne gative Date of Service: 03/17/24Follow Up: 1 Year From Orig ina Mammogram Procedure(s): MM tomosynthesis screening BI Accession Number(s): [id number] cc: Sherly Wang MD; Naa Maradiaga MD ADDENDUM ADDENDUM [...] 03/28/2024 08:16 PM EST Dictated By: Kamille Hill DO Signed By: <Electronically signed by Kamille Hill DO in OV> 03/28/242015 DD/ 1444 TD/TT: 03/17/24 1500 Piping Engineer: Sheryl Wang MD IM BI PROCEDURES Edited Result - Final * Fecal Globin by Immunochemistry (11/30/2023 12:00 AM EDT) Fecal Globin By Immunochemistry SEE NOTE [facility] Comment: ??FECAL GLOBIN BY IMMUNOCHEMISTRY ?Micro Number: ?[id number] ??Test Status: ? Final ??Specimen Source: ?? Insure (tm) fobt test card ??Specimen Quality: ??Adequate ??Fecal Globin: ?Not Detected 11/30/2023 12/08/2023 11: 31 PM EDT Narrative [facility] - 12/08/2023 11:42 PM EDT FASTING: UNKNOWN Naa Aguila MD LAB BODY FLUIDS A ND STOOLS ORDERABLES Final Result [facility] [address], [place] [phone] [facility] [address] [place] [phone] * Hepatitis C Antibody with Reflex to HCV, RNA, Quantitative, Real-Time PCR (11/21/2023 6:22 AM EDT) Pathologist [facility] Hepatitis C Antibody Nonreactive Nonreactive [facility] Comment:Antibodies to HCV no t detected; does not exclude early acuteHCV infection. Blood Venous blood specimen / Unknown 11/21/2023 6:22 AM EDT 11/21/2023 6:22 AM EDT us Naa Aguila MD LAB BLOOD ORDERAB LES Final Result Performing Organization Address [facility]/ZIP Co de Phone Number [facility] [address] [place] [phone] * HIV-1/2 Antigen and Antibodies, Fourth Generation, with Reflexes (11/21/2023 6:22 AM EDT) [facility] HIV AB/AG Nonreactive Nonreactive [facility] Comment:HIV-1 p24 Ag and/or HIV-1/HIV-2 Ab not detected.A test result that is nonreactive does not exclude thepossibility of exposure to or infection with HIV-1 and/orHIV-2. Nonreactive results in this assay for individualswith prior exposure to HIV-1 and/or HIV-2 may be due toantigen and antibody levels that are below the limit ofdetection of this assay.The [employer] HIV Ag/Ab Combo assay result andsupplemental assay results should be interpreted inconjunction with the patient's clinical presentation,history and other laboratory results. If the results areinconsistent with clinical evidence, additional testing issuggested to confirm the result. Blood Venous blood specimen / Unknown 11/21/2023 6:22 AM EDT 11/21/2023 6:22 AM EDT us Naa Aguila MD LAB BLOOD ORDERAB LES Final Result Performing Organization Address [facility]/ZIP Co de Phone Number [facility] [address] [place] [phone] * HPV mRNA E6/E7 w/Reflex to HPV Genotypes 16, 18/45 (04/12/2022 3:02 PM EST) HPV nRNA E6/E7 Not Detected Not Detected [facility] Comment:Methodology: Transcr iption-Mediated AmplificationThis assay detects E6/E7 viral messenger RNA (mRNA) from 14high-risk HPV types (16,18,31,33,35,39,45,51,52,56,58,59,66,68).Cervical sources are required for HPV testing.If a vaginal source from a patient who has had atotal hysterectomy with removal of cervix wassubmitted, please contact the testing laboratoryfor alternative testing options.For additional information, please refer tohttp://education.[employer]/faq/NAT198h3(This link if provided for information/educational purposes only.)THIS TEST WAS PERFORMED AT:[facility] [place] [address] ([facility])[place] [address]VTLQKIZZY LEMUS MD HPV mRNA E6/E7 TNP [facility] HPV 16 [facility] HPV 18/45 RNA [facility] 04/12/2022 3:02 PM EST 04/12/2022 4:15 PM EST [facility] External Provider LAB CYT OLOGY ORDERABLES Final Result [facility] [address] [place] [phone] * Pap Smear (04/12/2022 3:02 PM EST) 04/12/2022 3:02 PM EST 04/12/2022 4:15 PM EST Narrative [facility] - 04/20/2022 6:31 PM EST ----- ------- Name: Shruti Lee ? Age/Sex: 57/F ? : 1965 Unit#: [id number] ?? Attend Dr: Hair Hinojosa MD ?Re04/12/22 ?Status: DEP REF ? Location: HO.LNP ?Disch: ? ----- ------- SPEC : [id number] ? RECD: 04/12/22 ? STATUS: ??SOUT ? REQ NUM: [id number] ? ADRIANA: 04/12/22 ? SUBM DR: Hair [...] 66, 68) ? HPV testing performed by [facility], [place], [place]. ??See reference laboratory ?? portion of the EMR for entire report. ?Clinical Information LMP: Post menopause Previous PAP test: Unknown ? Material Received ?? ThinPrep-Cervical Copies To: ?? Sheryl Wang MD ?? [address] [facility] ?? [place] [address] ? Hair Hinojosa MD ?? [address] [place] [address] Dr. [place] [facility] ?? [place] [address] ?? [phone] ----- ------- Signed (signature on file) [address] Georgi 04/20/221830 ? ----- ------- ? END OF REPORT ? [facility] External Provider LAB CYT OLOGY ORDERABLES Final Result [facility] [address] [place] [phone] [phone] * Hm Colonoscopy (12/15/2019 2:23 PM EDT) Colonoscopy Normal Normal Narrative [facility] - 12/15/2019 2:23 PM EDT Recommended 10 year follow up Historical Provider HEALTH MAINTENANCE Edited Result - Final from Last 3 Months or Most Recently Relevant to Health Maintenance Insurance [employer] [facility] ADULT DENTAL - HSN FULL (MEDICAID) Care Teams Sorority Mother Relationship Specialty Start Date End Date Naa Maradiaga MD [address] [place] [address] PCP - General Internal Medicine 08/23/22
--- OUTSIDE RECORDS SUMMARY | 2024-07-20 08:30 | XMS_ITS | Encounter Summary ---
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 Al at [employer] [phone] * Telephone Encounter - Jerman Reeves DMD [...] lower) for nightguard fabrication. Al at [employer] [phone] documented in this encounter Plan of Treatment Upcoming Encounters Date Type Department Care Team (Late st Contact Info) Description 08/03/2024 3:00 PM EDT Office Visit [facility] [address] [place] [address] [phone] Angelica Álvarez 09/11/2024 1:30 PM EDT Office Visit [facility] [address] [place] [phone] Naa Maradiaga MD [address] [place] [address] [phone] documented as of this encounter Visit Diagnoses Not on filedocumented in this encounter Care Teams First Aid Teacher Relationship Specialty Start Date End Date Naa Maradiaga MD [address] [place] [address] [phone] PCP - General Internal Medicine 08/23/22 documented as of this encounter
--- OUTSIDE RECORDS SUMMARY | 2024-07-20 08:30 | XMS_ITS | Encounter Summary ---
Author Organization [employer] Address [address] [facility] 7t [place] [address] Care Team Providers Care Paper Cup Handle Machine Operator Name Role Phone Naa Maradiaga MD Primary Care Pro vider Reason for Visit * Reason Onset Date Comments Results 08/21/2023 Encounter Details Date Type Department Care Team ([facility] st Contact Info) Description 08/21/2023 Telephone [facility] [address] [place] [address] Naa Maradiaga MD [address] [place] [address] Results Social History Tobacco Use Types Packs/Day [...] EDT TC placed to pt with a [place] deckhand clam dredge to inquire about the GI visit results [...] call back in regards gastro visit results. Kyrgyz speaker documented in this encounter Plan of Treatment Upcoming Encounters Date Type Department Care Team (Late st Contact Info) Description 08/03/2024 3:00 PM EDT Office Visit [facility] [address] [place] [address] [phone] Angelica Álvarez 09/11/2024 1:30 PM EDT Office Visit [facility] [address] [place], [place] [phone] Naa Maradiaga MD [address] [place], [place] [phone] documented as of this encounter Visit Diagnoses Not on filedocumented in this encounter Care Teams Paper Cup Handle Machine Operator Relationship Specialty Start Date End Date Naa Maradiaga MD [address] [place] [phone] PCP - General Internal Medicine 08/23/22 documented as of this encounter
--- OUTSIDE RECORDS SUMMARY | 2024-07-20 08:30 | XMS_ITS | Encounter Summary ---
Author Organization [employer] Address [address] [facility] 7t [place] [address] Care Team Providers Care Property Field Adjuster Name Role Phone Naa Maradiaga MD Primary Care Pro vider Encounter Details Date Type Department Care Team (Late st Contact Info) Description 09/05/2022 Abstract [facility] [address] [place] [address] Naa Maradiaga MD [address] [place] [address] Social History Tobacco Use Types Packs/Day Years [...] Description 08/03/2024 3:00 PM EDT Office Visit [facility] [address] [place] [address] ÁlvarezAngelica henriquez 09/11/2024 1:30 PM EDT Office Visit [facility] [address] [place], [place] [phone] Naa Maradiaga MD [address] [place] [address] documented as of this encounter Procedures Procedure Name Priority Date/Time Associated Diagnosis Comments HM COLONOSCOPY Routine 12/15/2019 2:23 PM EDT documented in this encounter Results * Hm Colonoscopy (12/15/2019 2:23 PM EDT) Colonoscopy Normal Normal Narrative [facility] - 12/15/2019 2:23 PM EDT Recommended 10 year follow up Historical Provider [facility] MAINTENANCE Edited Result - Final documented in this encounter Visit Diagnoses Not on filedocumented in this encounter Care Teams Property Field Adjuster Relationship Specialty Start Date End Date Naa Maradiaga MD [address] [place] [address] [phone] PCP - General Internal Medicine 08/23/22 documented as of this encounter
--- OUTSIDE RECORDS SUMMARY | 2024-07-20 08:31 | XMS_ITS | Encounter Summary ---
Author Organization [employer] Address [address] [facility] 7t [place] [address] Care Team Providers Care Making Machine Operator Name Role Phone Naa Maradiaga MD Primary Care Pro vider Reason for Visit * Reason Onset Date Comments new script 01/22/2023 Encounter Details Date Type Department Care Team (Late st Contact Info) Description 01/22/[address] [facility] [address] [place] [address] Naa Maradiaga MD [address] [place] [address] new script Social History Tobacco Use Types [...] Description 08/03/2024 3:00 PM EDT Office Visit [facility] [address] [place] [address] Angelica Álvarez 09/11/2024 1:30 PM EDT Office Visit [facility] [address] [place] [address] Naa Maradiaga MD [address] [place], [place] [phone] documented as of this encounter Visit Diagnoses Not on filedocumented in this encounter Care Teams Making Machine Operator Relationship Specialty Start Date End Date Naa Maradiaga MD [address] [place] [address] [phone] PCP - General Internal Medicine 08/23/22 documented as of this encounter
--- OUTSIDE RECORDS SUMMARY | 2024-07-20 08:31 | XMS_ITS | Encounter Summary ---
Author Organization [employer] Address [address] [facility] [address] [place] [address] Care Team Providers Care Cap And Stud Machine Operator Name Role Phone Naa Maradiaga MD Primary Care Pro vider Reason for Visit * Reason Onset Date Comments cx and rs appt same day 06/15/2024 Encounter Details Date Type Department Care Team (Late st Contact Info) Description 06/15/2024 Telephone [facility] ADULT DENTAL [address] [place] [address] Marian Urias DMD cx and rs appt [...] Description 08/03/2024 3:00 PM EDT Office Visit [facility] ADULT DENTAL [address] [place] [address] Angelica Álvarez 09/11/2024 1:30 PM EDT Office Visit [facility] MEDICINE [address] [place] [address] Naa Maradiaga MD [address] [place] [address] documented as of this encounter Visit Diagnoses Not on filedocumented in this encounter Care Teams Cap And Stud Machine Operator Relationship Specialty Start Date End Date Naa Maradiaga MD [address] [place] [address] PCP - General Internal Medicine 08/23/22 documented as of this encounter
--- OUTSIDE RECORDS SUMMARY | 2024-07-20 08:31 | XMS_ITS | Clinical Summary ---
Author Organization [facility] Address [address] [place] [address] Phone Care Team Providers Care Title One Kindergarten Teacher Name Role Phone Unavailable Primary Care Provider [...] 136 - 145 mmol/L 07/30/2017 9:29 PM [facility] Potassium 3.2(L) 3.5 - 5.1 mmol/L 07/30/2017 9:29 PM [facility] Chloride 106 95 - 115 mmol/L 07/30/2017 9:29 PM [facility] CO2 24 21 - 32 mmol/L 07/30/2017 9:29 PM [facility] Anion Gap 10 5 - 18 07/30/2017 9:29 PM [facility] Glucose 120(H) 70 - 100 mg/dL 07/30/2017 9:29 PM [facility] BUN 21 8 - 25 mg/dL 07/30/2017 9:29 PM [facility] Creatinine 0.77 0.50 - 1.30 mg/dL 07/30/2017 9:29 PM [facility] Calcium 9.1 8.4 - 10.3 mg/dL 07/30/2017 9:29 PM [facility] BUN/Creatinine Ratio 27.3(H) 8.0 - 25.0 07/30/2017 9:29 PM [facility] Total Protein 7.6 6.4 - 8.2 g/dL 07/30/2017 9:29 PM [facility] Albumin 4.0 3.4 - 5.0 g/dL 07/30/2017 9:29 PM [facility] Total Bilirubin 0.2 0.0 - 1.0 mg/dL 07/30/2017 9:29 PM [facility] Alkaline Phosphatase 73 20 - 120 U/L 07/30/2017 9:29 PM [facility] Alanine Aminotransferase (ALT) 23 12 - 78 U/L 07/30/2017 9:29 PM [facility] Aspartate Aminotransferase (AST) 26 5 - 37 U/L 07/30/2017 9:29 PM [facility] Globulin 3.6 g/dL 07/30/2017 9:29 PM [facility] A/G Ratio 1.1 07/30/2017 9:29 PM [facility] AST/ALT Ratio 1.1 07/30/2017 9:29 PM [facility] eGFR (Afr Amer) >60 >60 mL/min/1. 73m2 07/30/2017 9:29 PM [facility] Comment: Values under 60mL/min/1.73m2 may indicate CKD if noted for ?? more than 3 months. eGFR is only valid if creatinine is at steady state. eGFR (NON -Moroccan) >60 >60 mL/min/1. 73m2 07/30/2017 9:29 PM [facility] Comment: Values under 60mL/min/1.73m2 may indicate CKD if noted for ?? more than 3 months. eGFR is only valid if creatinine is at steady state. Osmolality Calculation 284 275 - 295 mOsm/kg 07/30/2017 9:29 PM [facility] Blood specimen (specimen) Venipuncture / Unknown 07/30/2017 8:55 PM EDT 07/30/2017 9:04 PM EDT us Peter A Garcia MD LAB BLOOD ORDERABLE S Final Result [address] [address], [facility] [phone] from Last 3 Months or Most Recently Relevant to Health Maintenance Insurance [id number] MEDICAID [id number] MEDICAID [id number] MEDICAID [id number] MEDICAID
--- OUTSIDE RECORDS SUMMARY | 2024-07-20 08:31 | XMS_ITS | Clinical Summary ---
Author Organization [facility] Address [address] [place] [address] Care Team Providers Care Track Repair Supervisor Name Role Phone SelmaDiana LIONEL Primary Care Provider [phone] Source Comments PLEASE NOTE, if this patient [...] Plan of Treatment Not on file Insurance [place] Care Teams Track Repair Supervisor Relationship Specialty Start Date End Date Diana Hahn NP [address] [place] [address] PCP - General Internal Medicine 10/10/12
== END 2024-07-20 08:16 | disposition home or self-care (01) ==
LOC: HO.US 08:15
PROVIDERS: PCP Student in an Organized Health Care Education/Training Program; Visit Provider Nurse Practitioner Family
DX: R10.13 Epigastric pain (principal); R10.9 Unspecified abdominal pain
CPT/HCPCS: 76700

== ENCOUNTER → 2024-07-20 08:16 | Outpatient (BNV) | payer OTHER, SELFPAY | PROVIDERS: PCP Student in an Organized Health Care Education/Training Program; Visit Provider Radiology Diagnostic Radiology | DX: R10.13 Epigastric pain (principal) | CPT/HCPCS: 76700 ==

== ENCOUNTER 2024-07-22 14:21 | Outpatient (REF) | payer OTHER, SELFPAY ==
--- OUTSIDE RECORDS SUMMARY | 2024-07-22 17:15 | XMS_ITS | Clinical Summary ---
Author Organization [employer] Address [address] [facility] 7t [place] [address] Care Team Providers Care Fur Nailer Name Role Phone Naa Maradiaga MD Primary [...] tablet 3 5 Active Deep Sea Nasal [place] 0.65 % nasal spray USE 1 SPRAY [...] foot to r/o foreign body -referred to control room supervisor -advised to soak foot in warm water [...] endo no need to continue care w radiologist -continue current dose of levo 125 daily -repeat TFT in 4 weeks ordered today , if still elevated will need to increase dose Assessment & Plan (10/08/2022 10:57 PM EDT): -from endo no need to continue care w radiologist -continue current dose of levo 125 daily -repeat TFT Assessment & Plan (04/09/2022 3:42 PM EST): Follow up with Senior Financial Reporting Analyst. -continue with levothryoxine 125 mcg Hemorrhoids 04/09/2022 [...] GI x chronic symptoms ---I spoke w framing specialist -Verónica and was explained from pt insurance can not be referred to [employer] as pt would like Assessment & Plan [...] Type Department Care Team Description 07/22/2024 Refill [facility] MEDICINE [address] [place] [address] Naa Maradiaga MD Personal history of other diseases of the circulatory system 07/07/2024 Orders Only GENERIC EXTERNAL DATA DEPARTMENT Provider, Generic External Data 06/24/2024 Patient Outreach [facility] MED & PEDS [address] [place] [address] Naa Maradiaga MD Pre-visit Planning ([facility] unable to reach [facility] ) 06/23/2024 Telephone [facility] MEDICINE [address] [place] [address] Naa Maradiaga MD chart prep 06/15/2024 Telephone [facility] ADULT DENTAL [address] [place] [address] Marian Urias, HORACE cx and rs appt same day 06/09/2024 2:30 PM EDT Office Visit [facility] ADULT DENTAL [address] [place] [address] Denis Santana DDS 05/08/2024 Telephone [facility] MEDICINE [address] [place] [address] Naa Maradiaga MD june05/05/2024 3:30 PM EST Office Visit [facility] ADULT DENTAL [address] [place] [address] Denis Santana DDS from Last 3 Months [...] 3:00 PM EDT Office Visit [facility] ADULT DENTAL [address] [place] [address] Angelica Álvarez 09/11/2024 1:30 PM EDT Office Visit [facility] MEDICINE [address] [place] [address] Naa Maradiaga MD [address] [place], [place] [phone] Health Maintenance Due Date Last Done Comments [...] EDT Narrative 07/20/2024 9:32 AM EDT ? [facility] ?[address] ?[place] [address] ? Ultrasound Report ? Signed ? Patient: Shruti Lee ?MR#: ?? [id number] ? : 1965 ?Acct:[id number] ? Age/Sex: 59 / F ?ADM Date: 07/20/24 ? Loc: HO.US ? Attending Dr: Libby Alexander CNP ? Ordering Physician: Libby Alexander CNP ?? Date of Service: 07/20/24 ?? Procedure(s): US abdomen complete ?? Accession Number(s): [id number] ? cc: Naa Maradiaga MD; Libby Alexander [...] DD/ 0830 ? TD/TT: 07/20/24 0910 ? Sharepoint Consultant: MSM ? Procedure Note Antoniomunirafroylan, Navneet - 07/20/2024 [place] [address] Ultrasound Report Signed Patient: Arielle Lee#: [id number] : 1965Acct:[id number] Age/Sex: 59 / FADM Date: 07/20/24 Loc: HO.US Attending Dr: Libby Alexander CNP Ordering Physician: Libby Alexander CNP Date of Service: 07/20/24 Procedure(s): US abdomen complete Accession Number(s): [id number] cc: Naa Maradiaga MD; Libby Alexander CNP [...] OV> 07/20/24928 DD/ 9 TD/TT: 07/20/24 09 Sharepoint Consultant: ALEKSEY us [facility] External Provider IMG US PROCEDURES Final Result * (ABNORMAL) CBC auto differential (07/07/2024 4:36 PM EDT) White Blood Count 5.2 4.8 - 10.8 X10*3/uL [facility] Red Blood Count 4.23 4.20 - 5.50 X10*6/uL [facility] Hemoglobin 11.0(L) 12.0 - 16.0 g/dl [facility] Hematocrit 34.4(L) 37.0 - 47.0 % [facility] Mean Corpuscular Volume 81.3 80.0 - 98.[address] [facility] Mean Corpuscular Hemoglobin 26.0(L) 27.0 - 33.[address] [facility] Mean Corpuscular HGB Conc 32.0 31.0 - 35.0 g/dl [facility] Red Cell Distribution Width 16.0 11.0 - 16.0 % [facility] Platelet Count 276 160 - 400 X10*3/uL [facility] Mean Platelet Volume 10.2 9.4 - 12.[address] [facility] Neutrophils Percent Auto 50.3 45 - 73 % [facility] Imm Gran Pct Auto 0.2 0.0 - 0.4 % [facility] Lymphocytes Percent Auto 37.0 20 - 40 % [facility] Monocytes Percent Auto 9.0 2 - 11 % [facility] Eosinophils Percent Auto 2.7 0 - 4 % [facility] Basophils Percent Auto 0.8 0 - 2 % [facility] NRBC Pct Auto 0.0 0.0 - 0.2 /100WBC [facility] Neutrophils Absolute Auto 2.6 2.0 - 8.3 x10*3/uL [facility] Imm Gran Abs Auto 0.01 0.00 - 0.03 X10*3/uL [facility] Lymphocytes Absolute Auto 1.9 1.2 - 4.9 X10*3/uL [facility] Monocytes Absolute Auto 0.5 0.1 - 1.2 X10*3/uL [facility] Eosinophils Absolute Auto 0.1 0.0 - 0.4 X10*3/uL [facility] Basophils Absolute Auto 0.0 0.0 - 0.2 X10*3/uL [facility] NRBC Abs Auto 0.000 0.0 - 0.012 X10*3/uL [facility] 07/07/2024 4:36 PM EDT 07/07/2024 4:36 PM EDT us Generic External Data Provider LAB BLOOD ORDERAB LES Final Result [facility] [address] [place] [address] [phone] * (ABNORMAL) Iron And Total Iron Binding Capacity (07/07/2024 4:36 PM EDT) Iron 24(L) 30 - 160 mcg/dL [facility] Total Iron Binding Capacity 278 228 - 428 mcg/dL [facility] Percent Iron Saturation 9(L) 15 - 50 % [facility] Unsaturated Iron Binding 254 ug/dL [facility] 07/07/2024 4:36 PM EDT 07/07/2024 4:36 PM EDT us Generic External Data Provider LAB BLOOD ORDERAB LES Final Result [facility] [address] [place] [phone] * (ABNORMAL) Comprehensive Metabolic Panel (07/07/2024 4:36 PM EDT) Sodium 139 135 - 145 mmol/L [facility] Potassium 4.4 3.3 - 5.1 mmol/L [facility] Chloride 108 96 - 108 mmol/L [facility] Carbon Dioxide 25 22 - 29 mmol/L [facility] Anion Gap 10(L) 12 - [address] [facility] Urea Nitrogen (BUN) 22(H) 9 - 16 mg/dL [facility] Creatinine, Serum 0.97 0.5 - 1.4 mg/dL [facility] Estimated Glomerular Filt Rate [address] [facility] Comment:Chronic Kidney Disea se: Estimated GFR < 60 mL/min/1.85k2Qsmqdx Kidney Disease: Estimated GFR < 15 mL/min/1.73m2 Glucose 88 60 - 115 mg/dL [facility] Calcium 8.8 8.4 - 10.2 mg/dL [facility] Bilirubin, Total 0.2 0.0 - 1.0 mg/dL [facility] Aspartate Amino Transferase 24 5 - 31 U/L [facility] Alanine Aminotransferase 14 0 - 31 U/L [facility] Total Protein 7.1 6.5 - 8.0 g/dL [facility] Albumin Level 3.9 3.5 - 5.0 g/dL [facility] Alkaline Phosphatase 73 39 - 117 U/L [facility] 07/07/2024 4:36 PM EDT 07/07/2024 4:36 PM EDT us Generic External Data Provider LAB BLOOD ORDERAB LES Final Result Performing Organization Address [facility] Co de Phone Number [facility] [address] [place] [address] [phone] * (ABNORMAL) Urinalysis, Complete, with Reflex to Culture (07/07/2024 4:31 PM EDT) Color Urine Yellow [facility] Appearance Urine Clear [facility] PH 7.0 5.0 - 9.[address] [facility] Glucose Urine UA Negative Negative mg/dL [facility] Urine Blood Trace(A) Negative [facility] Specific [place] - Urine 1.010 1.005 - 1.[address] [facility] Urine Protein Negative Neg-Trace mg/dL [facility] Urine Ketones Negative Negative mg/dL [facility] Nitrite Urine Negative Negative [facility] Leukocyte Esterase Urine Moderate (2+)(A) Negative [facility] RBC Urine 0-2 0 - 2 /HPF [facility] Urine WBC 0-5 0 - 5 /HPF [facility] Urine Squamous Epithelial Cell 0-2 0 - 2 /HPF [facility] Urine Bacteria None Seen None Seen [facility] Hyaline Casts, Urine 0-2 0 - 2 /LPF [facility] 07/07/2024 4:31 PM EDT 07/07/2024 5:06 PM EDT Narrative [facility] - 07/07/2024 5:35 PM EDT Urine, Clean Catch us Generic External Data Provider LAB URINE ORDERAB LES Final Result Performing Organization Address [facility] Co de Phone Number [facility] [address] [place] [address] [phone] * (ABNORMAL) Urinalysis w/reflex microscopic (07/07/2024 4:31 PM EDT) Color Urine Yellow [facility] Appearance Urine Clear [facility] PH 7.0 5.0 - 9.[address] [facility] Glucose Urine UA Negative Negative mg/dL [facility] Urine Blood Trace(A) Negative [facility] Specific [place] - Urine 1.010 1.005 - 1.[address] [facility] Urine Protein Negative Neg-Trace mg/dL [facility] Urine Ketones Negative Negative mg/dL [facility] Nitrite Urine Negative Negative [facility] Leukocyte Esterase Urine Moderate (2+)(A) Negative [facility] 07/07/2024 4:31 PM EDT 07/07/2024 5:06 PM EDT Narrative [facility] - 07/07/2024 5:19 PM EDT Urine, Clean Catch Generic External Data Provider LAB URINE ORDERAB LES Final Result Performing Organization Address [facility]/ZIP Co de Phone Number [facility] [address] [place] [phone] * Culture, Urine, Routine (07/07/2024 12:00 AM EDT) Urine Urine specimen obtained by clean catch procedure / Unknown 07/07/2024 07/07/2024 Comment:UACC Narrative [facility] - 07/09/2024 10:44 AM EDT Urine Culture No growth. Specimen Source: Urine clean catch Generic External Data Provider LAB MICROBIOLOGY - GENERAL ORDERABLES Final Result Performing Organization Address [facility] Co de Phone Number [facility] [address] [place] [address] [phone] * BI Mammogram Screening Tomosynthesis Bilateral (03/17/2024 2:44 PM EST) Anatomical Region Laterality Modality Breast Bilateral Mammography 03/17/2024 2:44 PM EST Narrative 03/28/2024 8:19 PM EST ? [facility] ? [address] ?[place] [address] ? Mammography Report ? Signed with Addenda ? Patient: Chaparicky Bachjo,Shruti ?MR#: ?? [id number] ? : 1965 ?Acct:[id number] ? Age/Sex: 58 / F ?ADM Date: 03/17/24 ? Loc: HO.MAMMO ? Attending Dr: Sheryl Wang MD ? Ordering Physician: Sheryl Wang MD ?Results: 1Ne ?? gative ? Date of Service: 03/17/24 ?Follow Up: 1 Year From Orig ?? inal Mammogram ? Procedure(s): MM tomosynthesis screening BI ?? Accession Number(s): [id number] ? cc: Sheryl Wang MD; Naa Maradiaga [...] DD/ 1444 ? TD/TT: 03/17/24 1500 ? Sharepoint Consultant: ? Procedure Note Donkevinmunirainterpreter, Image - 04/13/2024 [facility] [address] [place] [address] Mammography Report Signed with Sofia Patient: Lizzy LeedMR#: [id number] : 1965Acct:[id number] Age/Sex: 58 / FADM Date: 03/17/24 Loc: GEORGE Attending Dr: Sheryl Wang MD Ordering Physician: Sheryl Wangesults: 1Ne gative Date of Service: 03/17/24Follow Up: 1 Year From Orig inal Mammogram Procedure(s): MM tomosynthesis screening BI Accession Number(s): [id number] cc: Sheryl Wnag MD; Naa Maradiaga MD ADDENDUM ADDENDUM #1 [...] in OV> 03/28/242015 DD/ 43 TD/TT: 03/17/241499 Sharepoint Consultant: Sheryl Wang MD [facility] BI PROCEDURES Edited Result - Final * Fecal Globin by Immunochemistry (11/30/2023 12:00 AM EDT) Fecal Globin By Immunochemistry SEE NOTE [facility] [place] [employer] Comment: ??FECAL GLOBIN BY IMMUNOCHEMISTRY ?Micro Number: ?[id number] ??Test Status: ? Final ??Specimen Source: ?? Insure (tm) fobt test card ??Specimen Quality: ??Adequate ??Fecal Globin: ?Not Detected 11/30/2023 12/08/2023 11: 31 PM EDT Narrative [facility] - 12/08/2023 11:42 PM EDT FASTING: UNKNOWN Naa Aguila MD LAB BODY FLUIDS A ND STOOLS ORDERABLES Final Result Performing Organization Address [facility] Co de Phone Number [address], [place] [address] [facility] [employer] [address] [place] [phone] * Hepatitis C Antibody with Reflex to HCV, RNA, Quantitative, Real-Time PCR (11/21/2023 6:22 AM EDT) Pathologist [facility] Hepatitis C Antibody Nonreactive Nonreactive [facility] Comment:Antibodies to HCV no t detected; does not exclude early acuteHCV infection. Blood Venous blood specimen / Unknown 11/21/2023 6:22 AM EDT 11/21/2023 6:22 AM EDT us Naa Aguila MD LAB BLOOD ORDERAB LES Final Result [facility] [address] [place] [phone] * HIV-1/2 Antigen and Antibodies, Fourth Generation, with Reflexes (11/21/2023 6:22 AM EDT) HIV AB/AG Nonreactive Nonreactive [facility] Comment:HIV-1 p24 Ag and/or HIV-1/HIV-2 Ab not detected.A test result that is nonreactive does not exclude thepossibility of exposure to or infection with HIV-1 and/orHIV-2. Nonreactive results in this assay for individualswith prior exposure to HIV-1 and/or HIV-2 may be due toantigen and antibody levels that are below the limit ofdetection of this assay.The [email or web address] HIV Ag/Ab Combo assay result andsupplemental assay results should be interpreted inconjunction with the patient's clinical presentation,history and other laboratory results. If the results areinconsistent with clinical evidence, additional testing issuggested to confirm the result. Blood Venous blood specimen / Unknown 11/21/2023 6:22 AM EDT 11/21/2023 6:22 AM EDT us Naa Aguila MD LAB BLOOD ORDERAB LES Final Result [facility] [address] [place] [phone] * HPV mRNA E6/E7 w/Reflex to HPV Genotypes 16, 18/45 (04/12/2022 3:02 PM EST) HPV nRNA E6/E7 Not Detected Not Detected [facility] Comment:Methodology: Transcr iption-Mediated AmplificationThis assay detects E6/E7 viral messenger RNA (mRNA) from 14high-risk HPV types (16,18,31,33,35,39,45,51,52,56,58,59,66,68).Cervical sources are required for HPV testing.If a vaginal source from a patient who has had atotal hysterectomy with removal of cervix wassubmitted, please contact the testing laboratoryfor alternative testing options.For additional information, please refer tohttp://education.Ryzing/faq/GAW196q1(This link if provided for information/educational purposes only.)THIS TEST WAS PERFORMED AT:[facility] [address] ([facility])[place] [address]CAQMLIZZY LEMUS MD HPV mRNA E6/E7 TNP [facility] HPV 16 RNA TNP [facility] HPV 18/45 RNA TNP [facility] 04/12/2022 3:02 PM EST 04/12/2022 4:15 PM EST us [facility] External Provider LAB CYT OLOGY ORDERABLES Final Result [facility] [address] [place] [address] [phone] * Pap Smear (04/12/2022 3:02 PM EST) 04/12/2022 3:02 PM EST 04/12/2022 4:15 PM EST Narrative [facility] - 04/20/2022 6:31 PM EST ----- ------- Name: Shruti Lee ? Age/Sex: 57/F ? : 1965 Unit#: [id number] ?? Attend Dr: Hair Hinojosa MD ?Re04/12/22 ?Status: DEP REF ? Location: HO.LNP ?Disch: ? ----- ------- SPEC : [id number] ? RECD: 04/12/22 ? STATUS: ??SOUT ? REQ NUM: [id number] ? ADRIANA: 04/12/22-1502 ? SUBM DR: Hair [...] 66, 68) ? HPV testing performed by [facility], [place], [place]. ??See reference laboratory ?? portion of the EMR for entire report. ?Clinical Information LMP: Post menopause Previous PAP test: Unknown ? Material Received ?? ThinPrep-Cervical Copies To: ?? Sheryl Wang MD ?? [address] ?? [place] [address] ? Hair Hinojosa MD ?? [address] [place] [address] Dr. Lola Eng ?? [place] [address] ?? [phone] ----- ------- Signed (signature on file) Christina Laureano 04/20/221830 ? ----- ------- ? END OF REPORT ? [facility] External Provider LAB [facility] Final Result [facility] [address] [place] [address] [phone] * Colonoscopy (12/15/2019 2:23 PM EDT) Colonoscopy Normal Normal Narrative [facility] - 12/15/2019 2:23 PM EDT Recommended 10 year follow up Historical Provider HEALTH MAINTENANCE Edited Result - Final from Last 3 Months or Most Recently Relevant to Health Maintenance Insurance [place] [facility] [facility] MEDICAID LIMITED ADULT DENTAL - HSN FULL (MEDICAID) Care Teams Fur Nailer Relationship Specialty Start Date End Date Naa Maradiaga MD [address] [place] [address] PCP - General Internal Medicine 08/23/22
--- OUTSIDE RECORDS SUMMARY | 2024-07-22 17:15 | XMS_ITS | Encounter Summary ---
Author Organization [employer] Address [address] [facility] 7t [place] [address] Care Team Providers Care Airplane Pilot Helper Name Role Phone Naa Maradiaga MD Primary Care Pro vider Reason for Visit * Reason Onset Date Comments Results 08/21/2023 Encounter Details Date Type Department Care Team ([facility] st Contact Info) Description 08/21/2023 Telephone [facility] MEDICINE [address] [place] [address] Naa Maradiaga MD [address] [place] [address] Results Social History Tobacco Use Types Packs/Day [...] EDT TC placed to pt with a [place] infrastructure software engineer to inquire about the GI visit results [...] call back in regards gastro visit results. Thai speaker documented in this encounter Plan of Treatment Upcoming Encounters Date Type Department Care Team (Late st Contact Info) Description 08/03/2024 3:00 PM EDT Office Visit [facility] ADULT DENTAL [address] [place], [place] [phone] Angelica Álvarez 09/11/2024 1:30 PM EDT Office Visit [facility] MEDICINE [address] [place], [place] [phone] Naa Maradiaga MD [address] [place], [place] [phone] documented as of this encounter Visit Diagnoses Not on filedocumented in this encounter Care Teams Airplane Pilot Helper Relationship Specialty Start Date End Date Naa Maradiaga MD [address] [place] [phone] PCP - General Internal Medicine 08/23/22 documented as of this encounter
--- OUTSIDE RECORDS SUMMARY | 2024-07-22 17:15 | XMS_ITS | Encounter Summary ---
Author Organization [facility] Address [address] [place] [address] Care Team Providers Care Banking Management Consulting Manager Name Role Phone Maryuri Wang Primary Care Provider [phone] Encounter Details Date Type Department Care Team (Late st Contact Info) Description 10/04/2020 Telephone [facility] Interventional Radiology [address] [place] [phone] Sweta Hampton RN Social History Tobacco Use [...] on filedocumented in this encounter Care Teams Banking Management Consulting Manager Relationship Specialty Start Date End Date Maryuri Wang [address] [place] [address] PCP - General Internal Medicine 10/03/17 documented as of this encounter
--- OUTSIDE RECORDS SUMMARY | 2024-07-22 17:15 | XMS_ITS | Encounter Summary ---
Author Organization [employer] Address [address] [facility] 7t [place] [address] Care Team Providers Care Clerical Aide Teacher Name Role Phone Maryuri Wang MD Primary [facility] [address] [place], [place] [phone] Angelica Álvarez 09/11/2024 1:30 PM EDT Office Visit [facility] MEDICINE [address] [place], [place] [phone] Naa Maradiaga MD [address] [place], [place] [phone] documented as of this encounter Visit Diagnoses Not on filedocumented in this encounter Care Teams Clerical Aide Teacher Relationship Specialty Start Date End Date Maryuri Wang MD [address] [place] [address] PCP - General Family Medicine 01/09/17 08/22/22 Naa Maradiaga MD [address] [place] [address] [place] [address] PCP - General Internal Medicine 08/23/22 documented as of this encounter
--- OUTSIDE RECORDS SUMMARY | 2024-07-22 17:15 | XMS_ITS | Encounter Summary ---
Author Organization [employer] Address [address] [facility] 7t [place] [address] Care Team Providers Care Content Administrator Name Role Phone Naa Maradiaga MD Primary Care Pro vider Reason for Visit * Reason Onset Date Comments cx and rs appt same day 06/15/2024 Encounter Details Date Type Department Care Team ([facility] st Contact Info) Description 06/15/2024 Telephone [facility] ADULT DENTAL [address] [place] [address] Marian Urias DMD cx and rs appt [...] t he electric, gas, oil or water [employer] threatened to shut off services in your [...] Description 08/03/2024 3:00 PM EDT Office Visit [facility] ADULT DENTAL [address] [place] [address] Angelica Álvarez 09/11/2024 1:30 PM EDT Office Visit [facility] MEDICINE [address] [place] [address] Naa Maradiaga MD [address] [place] [address] documented as of this encounter Visit Diagnoses Not on filedocumented in this encounter Care Teams Content Administrator Relationship Specialty Start Date End Date Naa Maradiaga MD [address] [place] [address] PCP - General Internal Medicine 08/23/22 documented as of this encounter
--- OUTSIDE RECORDS SUMMARY | 2024-07-22 17:15 | XMS_ITS | Encounter Summary ---
Author Organization [employer] Address [address] [facility] 7t [place] [address] Care Team Providers Care Ski Topper Name Role Phone Maryuri Wang MD Primary Care Provider + Naa Maradiaga MD Primary Care Pro vider Reason for Visit * Reason Comments Med Refill Encounter Details Date Type Department Care Team (Late st Contact Info) Description 06/26/2022 Refill [facility] MEDICINE [address] [place] [address] Maryuri Wang MD [address] [place] [address] Social History Tobacco Use Types Packs/Day Years [...] 08/03/2024 3:00 PM EDT Office Visit [facility] ADULT DENTAL [address] [place] [address] Angelica Álvarez 09/11/2024 1:30 PM EDT Office Visit [facility] MEDICINE [address] [place] [address] Naa Maradiaga MD [address] [place] [address] documented as of this encounter Visit Diagnoses Not on filedocumented in this encounter Care Teams Ski Topper Relationship Specialty Start Date End Date Maryuri Wang MD [address] [place] [address] PCP - General Family Medicine 01/09/17 08/22/22 Naa Maradiaga MD [address] [place] [address] PCP - General Internal Medicine 08/23/22 documented as of this encounter
--- OUTSIDE RECORDS SUMMARY | 2024-07-22 17:15 | XMS_ITS | Clinical Summary ---
Author Organization [facility] Address [address] [place] [address] Care Team Providers Care Data Entry Manager Name Role Phone KathleenMaryuriPadma Primary Care Provider +1- [phone] Allergies No known active allergies Medications levothyroxine [...] this topic Medical Devices Implanted Type Area Compound Finisher Device Identifier Shelf Expiration Date Model / Serial / Lot Device Closure Vascular Plug 6fr Angio-Seal Vip - [id number] Implanted:Qty: 1 on 03/04/2018 at [facility] Implant [employer] 12/15/2018 [id number] / / [id number] Device Closure Vascular Plug 6fr Angio-Seal Vip - [id number] Implanted:Qty: 1 on 07/06/2020 at [facility] Implant [employer] [id number] / / Device Closure Vascular Plug 6fr Angio-Seal Vip - [id number] Implanted:Qty: 1 on 08/03/2020 at [facility] Implant [employer] [id number] / / Diverter Flow 2.1gyt13wq - [id number] Implanted:Qty: 1 on 08/03/2020 at [facility] [employer] 12/15/2022 [id number] / / [id number] Diverter Flow 2.8ups69ch - [id number] Implanted:Qty: 1 on 08/03/2020 at [facility] [employer] 08/15/2022 [id number] / / [id number] Insurance [facility] HSNO/FREE CARE Care Teams Data Entry Manager Relationship Specialty Start Date End Date Maryuri Wang [address] [place] [phone] PCP - General Internal Medicine 10/03/17
--- OUTSIDE RECORDS SUMMARY | 2024-07-22 17:15 | XMS_ITS | Referral Summary ---
Author Organization [facility] Address [address] [place] [address] Care Team Providers Care Tailor Helper Name Role Phone KathleenMaryuriPadma Primary Care Provider +1- [phone] Allergies No known active allergies Medications levothyroxine [...] on file Medical Devices Implanted Type Area Fitter Mechanic Device Identifier Shelf Expiration Date Model / Serial / Lot Device Closure Vascular Plug 6fr Angio-Seal Vip - [id number] Implanted:Qty: 1 on 03/04/2018 at [facility] Implant [employer] 12/15/2018 [id number] / / [id number] Device Closure Vascular Plug 6fr Angio-Seal Vip - [id number] Implanted:Qty: 1 on 07/06/2020 at [facility] Implant [employer] [id number] / / Device Closure Vascular Plug 6fr Angio-Seal Vip - [id number] Implanted:Qty: 1 on 08/03/2020 at [facility] Implant [employer] [id number] / / Diverter Flow 2.7vjd55ih - [id number] Implanted:Qty: 1 on 08/03/2020 at [facility] [employer] 12/15/2022 [id number] / / [id number] Diverter Flow 2.7tmh51oq - [id number] Implanted:Qty: 1 on 08/03/2020 at [facility] [employer] 08/15/2022 [id number] / / [id number] Insurance [place] HSNO/FREE CARE Care Teams Tailor Helper Relationship Specialty Start Date End Date Maryuri Wang [address] [place] [id number] PCP - General Internal Medicine 10/03/17
--- OUTSIDE RECORDS SUMMARY | 2024-07-22 17:15 | XMS_ITS | Clinical Summary ---
Author Organization [facility] Address [address] [place] [address] Phone Care Team Providers Care Health Club Manager Name Role Phone Unavailable Primary Care Provider [...] - 145 mmol/L 07/30/2017 9:29 PM [facility] Potassium 3.2(L) 3.5 - 5.1 mmol/L 07/30/2017 9:29 PM [facility] Chloride 106 95 - 115 mmol/L 07/30/2017 9:29 PM [facility] CO2 24 21 - 32 mmol/L 07/30/2017 9:29 PM [facility] Anion Gap 10 5 - 18 07/30/2017 9:29 PM [facility] Glucose 120(H) 70 - 100 mg/dL 07/30/2017 9:29 PM [facility] BUN 21 8 - 25 mg/dL 07/30/2017 9:29 PM [facility] Creatinine 0.77 0.50 - 1.30 mg/dL 07/30/2017 9:29 PM [facility] Calcium 9.1 8.4 - 10.3 mg/dL 07/30/2017 9:29 PM [facility] BUN/Creatinine Ratio 27.3(H) 8.0 - 25.0 07/30/2017 9:29 PM [facility] Total Protein 7.6 6.4 - 8.2 g/dL 07/30/2017 9:29 PM [facility] Albumin 4.0 3.4 - 5.0 g/dL 07/30/2017 9:29 PM [facility] Total Bilirubin 0.2 0.0 - 1.0 mg/dL 07/30/2017 9:29 PM [facility] Alkaline Phosphatase 73 20 - 120 U/L 07/30/2017 9:29 PM [facility] Alanine Aminotransferase (ALT) 23 12 - 78 U/L 07/30/2017 9:29 PM [facility] Aspartate Aminotransferase (AST) 26 5 - 37 U/L 07/30/2017 9:29 PM [facility] Globulin 3.6 g/dL 07/30/2017 9:29 PM [facility] A/G Ratio 1.1 07/30/2017 9:29 PM [facility] AST/ALT Ratio 1.1 07/30/2017 9:29 PM [facility] eGFR (Afr Amer) >60 >60 mL/min/1. 73m2 07/30/2017 9:29 PM [facility] Comment: Values under 60mL/min/1.73m2 may indicate CKD if noted for ?? more than 3 months. eGFR is only valid if creatinine is at steady state. eGFR (NON -Chilean) >60 >60 mL/min/1. 73m2 07/30/2017 9:29 PM [facility] Comment: Values under 60mL/min/1.73m2 may indicate CKD if noted for ?? more than 3 months. eGFR is only valid if creatinine is at steady state. Osmolality Calculation 284 275 - 295 mOsm/kg 07/30/2017 9:29 PM [facility] Blood specimen (specimen) Venipuncture / Unknown 07/30/2017 8:55 PM EDT 07/30/2017 9:04 PM EDT us Peter A Garcia MD LAB BLOOD ORDERABLE S Final Result [address] [address], [facility] [phone] from Last 3 Months or Most Recently Relevant to Health Maintenance Insurance [id number] MEDICAID [id number] MEDICAID [id number] MEDICAID [id number] MEDICAID
--- OUTSIDE RECORDS SUMMARY | 2024-07-22 17:15 | XMS_ITS | Encounter Summary ---
Author Organization [facility] Address [address] [place] [address] Care Team Providers Care Elastic Yarn Twister Helper Name Role Phone Maryuri Wang Primary Care Provider +1- [phone] Encounter Details Date Type Department Care Team (Late st Contact Info) Description 07/05/2020 Telephone [facility] Interventional Radiology [address] [place] [address] Shahana Casas RN [facility] [place] Social History Tobacco Use Types Packs/Day [...] on filedocumented in this encounter Care Teams Elastic Yarn Twister Helper Relationship Specialty Start Date End Date Maryuri Wang [address] [place] [address] PCP - General Internal Medicine 10/03/17 documented as of this encounter
--- OUTSIDE RECORDS SUMMARY | 2024-07-22 17:15 | XMS_ITS | Encounter Summary ---
Author Organization [employer] Address [address] [facility] 7t [place] [address] Care Team Providers Care City Administrator Name Role Phone Naa Maradiaga MD Primary Care Pro vider Reason for Visit * Reason Onset Date Comments clarification on case 03/31/2024 Encounter Details Date Type Department Care Team ([facility] st Contact Info) Description 03/31/2024 Telephone [facility] ADULT DENTAL [address] [place] [address] Denis Santana DDS [address] [place] [address] clarification on case Social History Tobacco Use [...] lower) for nightguard fabrication. Al at [facility] [phone] * Telephone Encounter - Jerman Reeves DMD [...] lower) for nightguard fabrication. Al at [employer] [phone] documented in this encounter Plan of Treatment Upcoming Encounters Date Type Department Care Team (Late st Contact Info) Description 08/03/2024 3:00 PM EDT Office Visit [facility] ADULT DENTAL [address] [place] [address] [phone] Angelica Álvarez 09/11/2024 1:30 PM EDT Office Visit [facility] MEDICINE [address] [place] [address] Naa Maradiaga MD [address] [place] [address] [phone] documented as of this encounter Visit Diagnoses Not on filedocumented in this encounter Care Teams City Administrator Relationship Specialty Start Date End Date Naa Maradiaga MD [address] [place] [address] [phone] PCP - General Internal Medicine 08/23/22 documented as of this encounter
--- OUTSIDE RECORDS SUMMARY | 2024-07-22 17:15 | XMS_ITS | Encounter Summary ---
Author Organization [employer] Address [address] [facility] 7t [place] [address] Care Team Providers Care Node Js Developer Name Role Phone Naa Maradiaga MD Primary Care Pro vider Reason for Visit * Reason Onset Date Comments Nurse Triage 07/30/2023 Encounter Details Date Type Department Care Team ([facility] st Contact Info) Description 07/30/2023 Telephone [facility] MEDICINE [address] [place] [address] Naa Maradiaga MD [address] [place] [address] Nurse Triage Social History Tobacco Use Types [...] encounter Miscellaneous Notes * Telephone Encounter - Florenec Raygoza RN - 07/30/2023 9:27 AM EDT T/C to pt with front end developer designer park interpreter assistance, pt states that she was not in a car accident but on Saturday she crushed her finger in a car door. Pt was seen at [facility] on Saturday where she was diagnosed [...] acuity questions The caller accepted this outcome German speaker documented in this encounter Plan of Treatment Upcoming Encounters Date Type Department Care Team (Late st Contact Info) Description 08/03/2024 3:00 PM EDT Office Visit [facility] ADULT DENTAL [address] [place] [address] Angelica Álvarez 09/11/2024 1:30 PM EDT Office Visit [facility] MEDICINE [address] [place], [place] [phone] Naa Maradiaga MD [address] [place] [address] documented as of this encounter Visit Diagnoses Not on filedocumented in this encounter Care Teams Node Js Developer Relationship Specialty Start Date End Date Naa Maradiaga MD [address] [place] [address] [phone] PCP - General Internal Medicine 08/23/22 documented as of this encounter
--- OUTSIDE RECORDS SUMMARY | 2024-07-22 17:15 | XMS_ITS | Clinical Summary ---
Author Organization [facility] Address [address] [place] [address] Care Team Providers Care Oil Distributor Tender Name Role Phone SelmaDiana LIONEL Primary Care Provider [phone] Source Comments PLEASE NOTE, if this patient [...] Plan of Treatment Not on file Insurance [place] Care Teams Oil Distributor Tender Relationship Specialty Start Date End Date Diana Hahn NP [address] [place] [address] PCP - General Internal Medicine 10/10/12
--- OUTSIDE RECORDS SUMMARY | 2024-07-22 17:15 | XMS_ITS | Encounter Summary ---
Author Organization [employer] Address [address] [facility] 7t [place] [address] Care Team Providers Care Character Impersonator Name Role Phone Maryuri Wang MD Primary Care Provider + Naa Maradiaga MD Primary Care Pro vider Encounter Details Date Type Department Care Team (Latest Contact Info) Description 02/19/2020 Abstract [facility] CONVERSIONS [...] Description 08/03/2024 3:00 PM EDT Office Visit [facility] ADULT DENTAL [address] [place], [place] [phone] Angelica Álvarez 09/11/2024 1:30 PM EDT Office Visit [facility] MEDICINE [address] [place], [place] [phone] Naa Maradiaga MD [address] [place], [place] [phone] documented as of this encounter Visit Diagnoses Not on filedocumented in this encounter Care Teams Character Impersonator Relationship Specialty Start Date End Date Maryuri Wang MD [address] [place] [address] PCP - General Family Medicine 01/09/17 08/22/22 Naa Maradiaga MD [address] [place] [address] KENDRICK ALLEN [address] PCP - General Internal Medicine 08/23/22 documented as of this encounter
--- OUTSIDE RECORDS SUMMARY | 2024-07-22 17:15 | XMS_ITS | Encounter Summary ---
Author Organization [employer] Address [address] [facility] 7t [place] [address] Care Team Providers Care Emergency Management System Director Name Role Phone Maryuri Wang MD Primary Care Provider + Naa Maradiaga MD Primary Care Pro vider Reason for Visit * Reason Onset Date Comments Appointment 05/25/2022 Encounter Details Date Type Department Care Team ([facility] st Contact Info) Description 05/25/2022 Telephone [facility] ADULT DENTAL [address] [place] [address] Jerman Reeves, DMD [address] [place] [address] Appointment Social History Tobacco Use Types Packs/Day [...] Description 08/03/2024 3:00 PM EDT Office Visit [facility] ADULT DENTAL [address] [place] [address] Angelica Álvarez 09/11/2024 1:30 PM EDT Office Visit [facility] MEDICINE [address] [place] [address] [phone] Naa Maradiaga MD [address] [place] [phone] documented as of this encounter Visit Diagnoses Not on filedocumented in this encounter Care Teams Emergency Management System Director Relationship Specialty Start Date End Date Maryuri Wang MD [address] [place] [address] PCP - General Family Medicine 01/09/17 08/22/22 Naa Maradiaga MD [address] [place] [address] PCP - General Internal Medicine 08/23/22 documented as of this encounter
--- OUTSIDE RECORDS SUMMARY | 2024-07-22 17:15 | XMS_ITS | Encounter Summary ---
Author Organization [facility] Address [address] [place] [address] Care Team Providers Care Recovery Auditor Name Role Phone Maryuri Wang Primary Care Provider Encounter Details Date Type Department Care Team (Late st Contact Info) Description 04/28/2020 Orders Only [facility] XRay [address] [place] [address] [address] Social History Tobacco Use Types Packs/Day Years [...] on filedocumented in this encounter Care Teams Recovery Auditor Relationship Specialty Start Date End Date Maryuri Wang [address] [place] [address] PCP - General Internal Medicine 10/03/17 documented as of this encounter
--- OUTSIDE RECORDS SUMMARY | 2024-07-22 17:15 | XMS_ITS | Encounter Summary ---
Author Organization [employer] Address 75 [facility] 7t [place] [address] Care Team Providers Care Tip Finisher Name Role Phone Maryuri Wang MD Primary Care Provider + Naa Maradiaga MD Primary Care Pro vider Encounter Details Date Type Department Care Team (Latest Contact Info) Description 06/13/2018 Abstract [facility] CONVERSIONS Dental, Provider, DDS Social History Tobacco [...] Office Visit [facility] ADULT DENTAL [address] [place], [place] [phone] Angelica Álvarez 09/11/2024 1:30 PM EDT Office Visit [facility] MEDICINE [address] [place], [place] [phone] Naa Maradiaga MD [address] [place], [place] [phone] documented as of this encounter Visit Diagnoses Not on filedocumented in this encounter Care Teams Tip Finisher Relationship Specialty Start Date End Date Maryuri Wang MD [address] [place] [address] PCP - General Family Medicine 01/09/17 08/22/22 Naa Maradiaga MD [address] [place] [address] KENDRICK ALLEN [address] PCP - General Internal Medicine 08/23/22 documented as of this encounter
--- OUTSIDE RECORDS SUMMARY | 2024-07-22 17:15 | XMS_ITS | Encounter Summary ---
Author Organization [employer] Address [address] [facility] 7t [place] [address] Care Team Providers Care Curb Machine Operator Name Role Phone Naa Maradiaga MD Primary Care Pro vider Reason for Visit * Reason Onset Date Comments new script 01/22/2023 Encounter Details Date Type Department Care Team ([facility] st Contact Info) Description 01/22/2023 Telephone [facility] MEDICINE [address] [place] [address] Naa Maradiaga MD [address] [place] [address] new script Social History Tobacco Use Types [...] 08/03/2024 3:00 PM EDT Office Visit [facility] ADULT DENTAL [address] [place] [address] Angelica Álvarez 09/11/2024 1:30 PM EDT Office Visit [facility] MEDICINE [address] [place] [address] Naa Maradiaga MD [address] [place] [address] documented as of this encounter Visit Diagnoses Not on filedocumented in this encounter Care Teams Curb Machine Operator Relationship Specialty Start Date End Date Naa Maradiaga MD [address] [place] [address] PCP - General Internal Medicine 08/23/22 documented as of this encounter
--- OUTSIDE RECORDS SUMMARY | 2024-07-22 17:15 | XMS_ITS | Encounter Summary ---
Author Organization [employer] Address [address] [facility] 7t [place] [address] Care Team Providers Care Laundry Washer Name Role Phone Naa Maradiaga MD Primary Care Pro vider Reason for Visit * Reason Comments Med Refill Encounter Details Date Type Department Care Team ([facility] st Contact Info) Description 07/22/2024 Refill [facility] MEDICINE [address] [place] [address] Naa Maradiaga MD [address] [place] [address] Personal history of other diseases of the [...] PM EDT Office Visit [facility] ADULT DENTAL [address] [place] [address] Angelica Álvarez 09/11/2024 1:30 PM EDT Office Visit [facility] MEDICINE [address] [place] [address] Naa Maradiaga MD [address] [place] [address] documented as of this encounter Visit Diagnoses Diagnosis Personal history of other diseases of the circulatory system documented in this encounter Care Teams Laundry Washer Relationship Specialty Start Date End Date Naa Maradiaga MD [address] [place] [address] PCP - General Internal Medicine 08/23/22 documented as of this encounter
[2024-07-27 16:58] LABS: Calprotectin, Fecal 91 mcg/g
== END 2024-07-22 14:22 | disposition home or self-care (01) ==
LOC: HO.LNP 14:21
PROVIDERS: Nurse Practitioner Family; PCP Student in an Organized Health Care Education/Training Program; Visit Provider Surgery
DX: K64.9 Unspecified hemorrhoids (principal); K59.09 Other constipation
CPT/HCPCS: 46600; 83993; 99212

== ENCOUNTER 2024-07-22 14:21 | Outpatient (AMB) | payer OTHER, SELFPAY ==
--- NOTE | 2024-07-22 14:21 | MHC.OFFVIS ---
Vital Signs 07/22/24 14:27 Height 5 ft 4 in Weight 155 lb BMI 26.6 BP 128/64 Blood Pressure Location Rt brachial Position Sitting Pulse 84 Intake Visit Reasons: Hemorrhoids Intake Note: Patient scheduled this afternoon as an urgent appointment for bleeding hemorrhoids. Patient c/o: constipation but improved w/ Senna rx. Colonoscopy: 01-10-2023 Veterinary Technologist Required: Yes Accompanied by: Self / Same As Patient Allergies No Known Allergies Allergy (Verified 07/22/24 14:27) HPI HPI Hemorrhoids: Details: [age] year female referred for hemorrhoid issues. I have actually been following her in the office for a few years for hemorrhoid issues. She describes having some swelling, pain and discomfort with the hemorrhoids. I have not seen her in over a year She does state that one of the hemorrhoids have been bothering her more with swelling, and burning pain. She would occasionally sees blood per rectum on wiping as well after bowel movement She seems to be bothered by this more and more as she feels that his symptoms have been worsening. She denies being constipated although often times she feels that she has to push with bowel movements. [facility] Medical History Acid reflux Abdominal pain Thyroid disease Arthritis Aneurysm Surgical History History of esophagogastroduodenoscopy (EGD) S/P excision of lipoma (06/21/22) Hx of colonoscopy History of tubal ligation Family History Mother Colon cancer Father Heart attack Family/Other Pancreatic cancer, Onset Age: 50 Sister Uterine cancer Other Family history of thyroid problem Social History Household Members: Spouse and Family Household Members Other:: spouse, son Housing: House Alcohol intake: current Alcohol intake frequency: holidays/special occasions only Patient Tobacco Use Status: Never used Tobacco 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 Sexual orientation: Straight/Heterosexual Gender identity: Female Female Reproductive History Menstrual Age of Menarche: 15 Review of Systems Const Denies chills and Denies fever(s) Card Denies chest pain, Denies dyspnea and Denies dyspnea on exertion Resp Denies cough, Denies dyspnea and Denies dyspnea on exertion GI Reports hematochezia and Denies change in bowel habits Denies hematuria Musc Denies back pain and Denies limited range of motion Neuro Denies focal weakness and Denies convulsions Psych Denies depression and Denies mood swings Physical Exam Vital Signs: Last Vital Signs Pulse 84 07/22/24 14:27 BP 128/64 07/22/24 14:27 BMI result Body Mass Index 26.6 Const General: comfortable and no acute distress Orientation/consciousness: patient oriented x3 Neck Neck: Yes no lymphadenopathy Resp Auscultation: clear to auscultation bilaterally Cardio Rhythm: regular rhythm GI Other: Rectal exam shows an external hemorrhoid on the anterior aspect, that seems irritated and edematous, moderate size with no perianal lesions or dermatitic changes; this particular hemorrhoid was very tender to touch Palpation (GI): Soft to palpation, nontender and no guarding Neuro General: patient oriented x3 Office Procedures Anoscopy She was in kneeling duong-knife position. The anoscope was gently inserted. A full examination of the anal canal was done. There were no lesions in the anal canal. There were no large internal hemorrhoids. There was no induration on digital exam. There was no bleeding. [id number] Assessment & Plan Assessment & Plan (1) Hemorrhoids: Code(s): K64.9 - Unspecified hemorrhoids Category: Medical Plan: She points to this particular hemorrhoid on the anterior aspect as the 1 that bothers her most with frequent pain, swelling and even occasional bleeding. She says that even wiping causes significant burning pain She wants this removed. I explained the technique of exam under anesthesia and hemorrhoidectomy. I reviewed the risks including but not limited to bleeding, infections, postop pain, as well as the benefits and alternatives. I reviewed with her what to expect postoperatively She says she understands and wants to proceed. Coding Level of Care Code Est Pt Level 3 (63032) Diagnoses Hemorrhoids K64.9 CPT Codes Details - CPT: 65647-[id number] ([id number])
[2024-07-22 14:27] VITALS: BP 128/64; PULSE 84; BMI 26.6
--- OUTSIDE RECORDS SUMMARY | 2024-07-22 15:32 | XMS_ITS | Encounter Summary ---
Author Organization [employer] Address [address] [facility] [address] [place] [address] Care Team Providers Care Camera Systems Engineer Name Role Phone Naa Maradiaga MD Primary Care Pro vider Reason for Visit * Reason Comments Med Refill Encounter Details Date Type Department Care Team ([facility] st Contact Info) Description 07/22/2024 Refill [facility] MEDICINE [address] [place] [address] Naa Maradiaga MD [address] [place] [address] Personal history of other diseases of the circulatory system Social History Tobacco Use Types Packs/Day Years [...] [facility] ADULT DENTAL [address] [place] [address] Angelica Álvarez 09/11/2024 1:30 PM EDT Office Visit [facility] MEDICINE [address] [place] [address] Naa Maradiaga MD [address] [place] [phone] documented as of this encounter Visit Diagnoses Diagnosis Personal history of other diseases of the circulatory system documented in this encounter Care Teams Camera Systems Engineer Relationship Specialty Start Date End Date Naa Maradiaga MD [address] [place] [id number] PCP - General Internal Medicine 08/23/22 documented as of this encounter
--- OUTSIDE RECORDS SUMMARY | 2024-07-22 15:32 | XMS_ITS | Encounter Summary ---
Author Organization [employer] Address [address] [facility] [address] [place] [address] Care Team Providers Care Board Stacker Name Role Phone Maryuri Wang MD Primary Care Provider + Naa Maradiaga MD Primary Care Pro vider Encounter Details Date Type Department Care Team (Latest Contact Info) Description 06/13/2018 Abstract [facility] CONVERSIONS Dental, Provider, DDS Social [...] Description 08/03/2024 3:00 PM EDT Office Visit [facility] ADULT DENTAL [address] [place], [place] [phone] Angelica Álvarez 09/11/2024 1:30 PM EDT Office Visit [facility] MEDICINE [address] [place], [place] [phone] Naa Maradiaga MD [address] [place], [place] [phone] documented as of this encounter Visit Diagnoses Not on filedocumented in this encounter Care Teams Board Stacker Relationship Specialty Start Date End Date Maryuri Wang MD [address] [place] [address] PCP - General Family Medicine 01/09/17 08/22/22 Naa Maradiaga MD [address] [place] [address] KENDRICK ALLEN [address] PCP - General Internal Medicine 08/23/22 documented as of this encounter
--- OUTSIDE RECORDS SUMMARY | 2024-07-22 15:32 | XMS_ITS | Clinical Summary ---
Author Organization [employer] Address [address] [facility] [address] [place] [address] Care Team Providers Care Floor Installation Mechanic Name Role Phone Naa Maradiaga MD Primary [...] tablet 3 5 Active Deep Sea Nasal Dafter 0.65 % nasal spray USE 1 SPRAY [...] foot to r/o foreign body -referred to volunteer recruiter -advised to soak foot in warm water [...] endo no need to continue care w global program manager -continue current dose of levo 125 daily -repeat TFT in 4 weeks ordered today , if still elevated will need to increase dose Assessment & Plan (10/08/2022 10:57 PM EDT): -from endo no need to continue care w global program manager -continue current dose of levo 125 daily -repeat TFT Assessment & Plan (04/09/2022 3:42 PM EST): Follow up with Physician Coder. -continue with levothryoxine 125 mcg Hemorrhoids 04/09/2022 [...] Encounters Date Type Department Care Team Description 07/22/2024 Refill [facility] [address] [place] [address] Naa Maradiaga MD Personal history of other diseases of the circulatory system 07/07/2024 Orders Only GENERIC EXTERNAL DATA DEPARTMENT Provider, Generic External Data 06/24/2024 Patient Outreach [facility] [address] [place] [address] Naa Maradiaga MD Pre-visit Planning ([facility] unable to reach [facility] ) 06/23/2024 Telephone [facility] [address] [place] [address] Naa Maradiaga MD chart prep 06/15/2024 Telephone [facility] [address] [place] [address] Marian Urias, HORACE cx and rs appt same day 06/09/2024 2:30 PM EDT Office Visit [facility] [address] [place] [address] Denis Santana DDS 05/08/2024 Telephone [facility] [address] [place] [address] Naa Maradiaga MD june05/05/2024 3:30 PM EST Office Visit [facility] [address] [place] [address] Denis Santana DDS from Last 3 Months [...] Description 08/03/2024 3:00 PM EDT Office Visit [facility] [address] [place] [address] Angelica Álvarez 09/11/2024 1:30 PM EDT Office Visit [facility] [address] [place] [address] Naa Maradiaga MD [address] [place], [place] [phone] Health Maintenance Due Date Last Done Comments [...] Screening 05/05/2025 05/05/2024 Dental X-Ray: [facility]ings 06/10/2025 06/10/19, 04/03/2024, 01/17/2024, Additional history exists SDOH Screening [...] Procedure Name Priority Date/Time Associated Diagnosis Comments US ABDOMEN COMPLETE Routine 07/20/2024 8 :30 AM EDT IRON AND TOTAL IRON BINDING CAPACITY Routine [...] Recently Relevant to Health Maintenance Results * US Abdomen Complete (07/20/2024 8:30 AM EDT) Anatomical Region Laterality Modality Abdomen Ultrasound 07/20/2024 8:30 AM EDT Narrative 07/20/2024 9:32 AM EDT ? [facility] ?[address] ?[place] [address] ? Ultrasound Report ? Signed ? Patient: Shruti Lee ?MR#: ?? [id number] ? : 1965 ?Acct:[id number] ? Age/Sex: 59 / F ?ADM Date: 07/20/24 ? Loc: HO.US ? Attending Dr: Libby Alexander CNP ? Ordering Physician: Libby Alexander CNP ?? Date of Service: 07/20/24 ?? Procedure(s): US abdomen complete ?? Accession Number(s): [id number] ? cc: Naa Maradiaga MD; Libby Alexander CNP ? EXAMINATION: ?? US ABDOMEN COMPLETE ? CLINICAL INFORMATION: ?? Epigastric pain. ? COMPARISON: ?? None available. ? TECHNIQUE: ?? Real-time imaging of the abdominal viscera. ? FINDINGS: ? PANCREAS: Visualized portions are unremarkable. ? ABDOMINAL AORTA: The proximal, mid, and distal segments are normal in ?? caliber. ? INFERIOR VENA CAVA: Visualized portions are normal. ? LIVER: The liver is normal in size. The liver contour is normal. ?? Parenchymal echogenicity is normal. No focal hepatic lesion. There is ?? no intrahepatic biliary duct dilatation seen. ? GALLBLADDER: The gallbladder is physiologically distended without ?? evidence of stones, sludge, polyps, wall thickening or pericholecystic ?? fluid. Gallbladder wall thickness is 0.22 cm. ? COMMON BILE DUCT: Normal in caliber measuring 1.0 cm in diameter. ? RIGHT KIDNEY: There is mild pelvic fullness.. No renal calculi or focal ?? parenchymal lesions. The kidney measures 10.0 cm in maximum dimension. ? LEFT KIDNEY: No hydronephrosis. No renal calculi or focal parenchymal ?? lesions. The kidney measures 9.2 ??cm in maximum dimension. ? SPLEEN: The spleen measures 7.8 cm in maximum dimension. ? FREE FLUID: None. ? US/US abdomen complete ?? IMPRESSION: ?? Unremarkable complete abdomen ultrasound ? Electronically signed by: ??Ismael Caruso MD ??07/20/2024 09:29 AM EDT RP ? Dictated By: ?Ismael Caruso MD ? Signed By: ?<Electronically signed by Ismael Caruso MD in OV> ?07/20/24 0929 ? DD/ 0830 ? TD/TT: 07/20/24 0910 ? Securities Supervisor: MSM ? Procedure Note Antoniomunirafroylan, Navneet - 07/20/2024 [place] [address] Ultrasound Report Signed Patient: Arielle Lee#: [id number] : 1965Acct:[id number] Age/Sex: 59 / FADM Date: 07/20/24 Loc: HO.US Attending Dr: Libby Alexander CNP Ordering Physician: Libby Alexander CNP Date of Service: 07/20/24 Procedure(s): US abdomen complete Accession Number(s): [id number] cc: Naa Maradiaga MD; Libby Alexander CNP EXAMINATION: US ABDOMEN COMPLETE CLINICAL INFORMATION: Epigastric pain. COMPARISON: None available. TECHNIQUE: Real-time imaging of the abdominal viscera. FINDINGS: PANCREAS: Visualized portions are unremarkable. ABDOMINAL AORTA: The proximal, mid, and distal segments are normal in caliber. INFERIOR VENA CAVA: Visualized portions are normal. LIVER: The liver is normal in size. The liver contour is normal. Parenchymal echogenicity is normal. No focal hepatic lesion. There is no intrahepatic biliary duct dilatation seen. GALLBLADDER: The gallbladder is physiologically distended without evidence of stones, sludge, polyps, wall thickening or pericholecystic fluid. Gallbladder wall thickness is 0.22 cm. COMMON BILE DUCT: Normal in caliber measuring 1.0 cm in diameter. RIGHT KIDNEY: There is mild pelvic fullness.. No renal calculi or focal parenchymal lesions. The kidney measures 10.0 cm in maximum dimension. LEFT KIDNEY: No hydronephrosis. No renal calculi or focal parenchymal lesions. The kidney measures 9.2 cm in maximum dimension. SPLEEN: The spleen measures 7.8 cm in maximum dimension. FREE FLUID: None. US/US abdomen complete IMPRESSION: Unremarkable complete abdomen ultrasound Electronically signed by: Ismael Caruso MD 07/20/2024 09:29 AM EDT RP Dictated By: Ismael Caruso MD Signed By: <Electronically signed by Ismael Caruso MD in OV> 07/20/24928 DD/ 9 TD/TT: 07/20/24 09 Securities Supervisor: ALEKSEY us [facility] External Provider IMG US PROCEDURES Final Result * (ABNORMAL) CBC auto differential (07/07/2024 4:36 PM EDT) White Blood Count 5.2 4.8 - 10.8 X10*3/uL [facility] Red Blood Count 4.23 4.20 - 5.50 X10*6/uL [facility] Hemoglobin 11.0(L) 12.0 - 16.0 g/dl [facility] Hematocrit 34.4(L) 37.0 - 47.0 % [facility] Mean Corpuscular Volume 81.3 80.0 - 98.0 fL [facility] Mean Corpuscular Hemoglobin 26.0(L) 27.0 - 33.0 pg [facility] Mean Corpuscular HGB Conc 32.0 31.0 - 35.0 g/dl [facility] Red Cell Distribution Width 16.0 11.0 - 16.0 % [facility] Platelet Count 276 160 - 400 X10*3/uL [facility] Mean Platelet Volume 10.2 9.4 - 12.3 fL [facility] Neutrophils Percent Auto 50.3 45 - 73 % [facility] Imm Gran Pct Auto 0.2 0.0 - 0.4 % [facility] Lymphocytes Percent Auto 37.0 20 - 40 % [facility] Monocytes Percent Auto 9.0 2 - 11 % [facility] Eosinophils Percent Auto 2.7 0 - 4 % [facility] Basophils Percent Auto 0.8 0 - 2 % [facility] NRBC Pct Auto 0.0 0.0 - 0.2 /100WBC [facility] Neutrophils Absolute Auto 2.6 2.0 - 8.3 x10*3/uL [facility] Imm Gran Abs Auto 0.01 0.00 - 0.03 X10*3/uL [facility] Lymphocytes Absolute Auto 1.9 1.2 - 4.9 X10*3/uL [facility] Monocytes Absolute Auto 0.5 0.1 - 1.2 X10*3/uL [facility] Eosinophils Absolute Auto 0.1 0.0 - 0.4 X10*3/uL [facility] Basophils Absolute Auto 0.0 0.0 - 0.2 X10*3/uL [facility] NRBC Abs Auto 0.000 0.0 - 0.012 X10*3/uL [facility] 07/07/2024 4:36 PM EDT 07/07/2024 4:36 PM EDT us Generic External Data Provider LAB BLOOD ORDERAB LES Final Result [facility] [address] [place] [address] [phone] * (ABNORMAL) Iron And Total Iron Binding Capacity (07/07/2024 4:36 PM EDT) Iron 24(L) 30 - 160 mcg/dL [facility] Total Iron Binding Capacity 278 228 - 428 mcg/dL [facility] Percent Iron Saturation 9(L) 15 - 50 % [facility] Unsaturated Iron Binding 254 ug/dL [facility] 07/07/2024 4:36 PM EDT 07/07/2024 4:36 PM EDT us Generic External Data Provider LAB BLOOD ORDERAB LES Final Result [facility] [address] [place] [phone] * (ABNORMAL) Comprehensive Metabolic Panel (07/07/2024 4:36 PM EDT) Sodium 139 135 - 145 mmol/L [facility] Potassium 4.4 3.3 - 5.1 mmol/L [facility] Chloride 108 96 - 108 mmol/L [facility] Carbon Dioxide 25 22 - 29 mmol/L [facility] Anion Gap 10(L) 12 - 20 [facility] Urea Nitrogen (BUN) 22(H) 9 - 16 mg/dL [facility] Creatinine, Serum 0.97 0.5 - 1.4 mg/dL [facility] Estimated Glomerular Filt Rate 58 [facility] Comment:Chronic Kidney Disea se: Estimated GFR < 60 mL/min/1.04d7Iddzmq Kidney Disease: Estimated GFR < 15 mL/min/1.73m2 Glucose 88 60 - 115 mg/dL [facility] Calcium 8.8 8.4 - 10.2 mg/dL [facility] Bilirubin, Total 0.2 0.0 - 1.0 mg/dL [facility] Aspartate Amino Transferase 24 5 - 31 U/L [facility] Alanine Aminotransferase 14 0 - 31 U/L [facility] Total Protein 7.1 6.5 - 8.0 g/dL [facility] Albumin Level 3.9 3.5 - 5.0 g/dL [facility] Alkaline Phosphatase 73 39 - 117 U/L [facility] 07/07/2024 4:36 PM EDT 07/07/2024 4:36 PM EDT us Generic External Data Provider LAB BLOOD ORDERAB LES Final Result Performing Organization Address [facility] Co de Phone Number [facility] [address] [place] [address] [phone] * (ABNORMAL) Urinalysis, Complete, with Reflex to Culture (07/07/2024 4:31 PM EDT) Color Urine Yellow [facility] Appearance Urine Clear [facility] PH 7.0 5.0 - 9.0 [facility] Glucose Urine UA Negative Negative mg/dL [facility] Urine Blood Trace(A) Negative [facility] Specific [place] - Urine 1.010 1.005 - 1.025 [facility] Urine Protein Negative Neg-Trace mg/dL [facility] Urine Ketones Negative Negative mg/dL [facility] Nitrite Urine Negative Negative [facility] Leukocyte Esterase Urine Moderate (2+)(A) Negative [facility] RBC Urine 0-2 0 - 2 /HPF [facility] Urine WBC 0-5 0 - 5 /HPF [facility] Urine Squamous Epithelial Cell 0-2 0 - 2 /HPF [facility] Urine Bacteria None Seen None Seen [facility] Hyaline Casts, Urine 0-2 0 - 2 /LPF [facility] 07/07/2024 4:31 PM EDT 07/07/2024 5:06 PM EDT Narrative [facility] - 07/07/2024 5:35 PM EDT Urine, Clean Catch us Generic External Data Provider LAB URINE ORDERAB LES Final Result Performing Organization Address [facility] Co de Phone Number [facility] [address] [place] [address] [phone] * (ABNORMAL) Urinalysis w/reflex microscopic (07/07/2024 4:31 PM EDT) Color Urine Yellow [facility] Appearance Urine Clear [facility] PH 7.0 5.0 - 9.0 [facility] Glucose Urine UA Negative Negative mg/dL [facility] Urine Blood Trace(A) Negative [facility] Specific [place] - Urine 1.010 1.005 - 1.025 [facility] Urine Protein Negative Neg-Trace mg/dL [facility] Urine Ketones Negative Negative mg/dL [facility] Nitrite Urine Negative Negative [facility] Leukocyte Esterase Urine Moderate (2+)(A) Negative [facility] 07/07/2024 4:31 PM EDT 07/07/2024 5:06 PM EDT Narrative [facility] - 07/07/2024 5:19 PM EDT Urine, Clean Catch Generic External Data Provider LAB URINE ORDERAB LES Final Result Performing Organization Address [facility]/ZIP Co de Phone Number [facility] [address] [place] [phone] * Culture, Urine, Routine (07/07/2024 12:00 AM EDT) Urine Urine specimen obtained by clean catch procedure / Unknown 07/07/2024 07/07/2024 Comment:UACC Narrative [facility] - 07/09/2024 10:44 AM EDT Urine Culture No growth. Specimen Source: Urine clean catch Generic External Data Provider LAB MICROBIOLOGY - GENERAL ORDERABLES Final Result Performing Organization Address [facility] Co de Phone Number [facility] [address] [place] [address] [phone] * BI Mammogram Screening Tomosynthesis Bilateral (03/17/2024 2:44 PM EST) Anatomical Region Laterality Modality Breast Bilateral Mammography 03/17/2024 2:44 PM EST Narrative 03/28/2024 8:19 PM EST ? [facility] ? [address] ?[place] [address] ? Mammography Report ? Signed with Addenda ? Patient: Chaparicky Bachjo,Shruti ?MR#: ?? [id number] ? : 1965 ?Acct:[id number] ? Age/Sex: 58 / F ?ADM Date: 03/17/24 ? Loc: HO.MAMMO ? Attending Dr: Sheryl Wang MD ? Ordering Physician: Sheryl Wang MD ?Results: 1Ne ?? gative ? Date of Service: 03/17/24 ?Follow Up: 1 Year From Orig ?? inal Mammogram ? Procedure(s): MM tomosynthesis screening BI ?? Accession Number(s): [id number] ? cc: Sheryl Wang MD; Naa Maradiaga [...] by Kamille Hill, DO in OV> ? 04/13/ 1520 ?? Addendum Cosigned By: ? DD/DT: [...] DD/ 1444 ? TD/TT: 03/17/24 1500 ? Securities Supervisor: ? Procedure Note Donkevinmunirainterpreter, Image - 04/13/2024 [facility] [address] [place] [address] Mammography Report Signed with Sofia Patient: Lizzy LeedMR#: [id number] : 1965Acct:[id number] Age/Sex: 58 / FADM Date: 03/17/24 Loc: GEORGE Attending Dr: Sheryl Wang MD Ordering Physician: Sheryl Wangesults: 1Ne gative Date of Service: 03/17/24Follow Up: 1 Year From Orig inal Mammogram Procedure(s): MM tomosynthesis screening BI Accession Number(s): [id number] cc: Sheryl Wang MD; Naa Maradiaga MD [...] Kamille Hill DO in OV> 03/28/242015 DD/ 43 TD/TT: 03/17/241499 Securities Supervisor: Sheryl Wang MD [facility] BI PROCEDURES Edited Result - Final * Fecal Globin by Immunochemistry (11/30/2023 12:00 AM EDT) Fecal Globin By Immunochemistry SEE NOTE [employer] [place] [employer] Comment: ??FECAL GLOBIN BY IMMUNOCHEMISTRY ?Micro Number: ?[id number] ??Test Status: ? Final ??Specimen Source: ?? Insure (tm) fobt test card ??Specimen Quality: ??Adequate ??Fecal Globin: ?Not Detected 11/30/2023 12/08/2023 11: 31 PM EDT Narrative [facility] - 12/08/2023 11:42 PM EDT FASTING: UNKNOWN Naa Aguila MD LAB BODY FLUIDS A ND STOOLS ORDERABLES Final Result Performing Organization Address [facility] Co de Phone Number [address], [place] [address] [employer] [place] [employer] [address] [place] [phone] * Hepatitis C Antibody with Reflex to HCV, RNA, Quantitative, Real-Time PCR (11/21/2023 6:22 AM EDT) Pathologist [facility] Hepatitis C Antibody Nonreactive Nonreactive [facility] Comment:Antibodies to HCV no t detected; does not exclude early acuteHCV infection. Blood Venous blood specimen / Unknown 11/21/2023 6:22 AM EDT 11/21/2023 6:22 AM EDT us Naa Aguila MD LAB BLOOD ORDERAB LES Final Result [facility] [address] [place] [phone] * HIV-1/2 Antigen and Antibodies, Fourth Generation, with Reflexes (11/21/2023 6:22 AM EDT) HIV AB/AG Nonreactive Nonreactive [facility] Comment:HIV-1 p24 Ag and/or HIV-1/HIV-2 Ab not detected.A test result that is nonreactive does not exclude thepossibility of exposure to or infection with HIV-1 and/orHIV-2. Nonreactive results in this assay for individualswith prior exposure to HIV-1 and/or HIV-2 may be due toantigen and antibody levels that are below the limit ofdetection of this assay.The [employer] HIV Ag/Ab Combo assay result andsupplemental assay results should be interpreted inconjunction with the patient's clinical presentation,history and other laboratory results. If the results areinconsistent with clinical evidence, additional testing issuggested to confirm the result. Blood Venous blood specimen / Unknown 11/21/2023 6:22 AM EDT 11/21/2023 6:22 AM EDT us Naa Aguila MD LAB BLOOD ORDERAB LES Final Result [facility] [address] [place] [phone] * HPV mRNA E6/E7 w/Reflex to HPV Genotypes 16, 18/45 (04/12/2022 3:02 PM EST) HPV nRNA E6/E7 Not Detected Not Detected [facility] Comment:Methodology: Transcr iption-Mediated AmplificationThis assay detects E6/E7 viral messenger RNA (mRNA) from 14high-risk HPV types (16,18,31,33,35,39,45,51,52,56,58,59,66,68).Cervical sources are required for HPV testing.If a vaginal source from a patient who has had atotal hysterectomy with removal of cervix wassubmitted, please contact the testing laboratoryfor alternative testing options.For additional information, please refer tohttp://education.[employer]Mica/faq/JUC039x9(This link if provided for information/educational purposes only.)THIS TEST WAS PERFORMED AT:[employer] [address] ([facility])[place] [address]GENIYIZZY LEMUS MD HPV mRNA E6/E7 TNP [facility] HPV 16 RNA TNP [facility] HPV 18/45 RNA TNP [facility] 04/12/2022 3:02 PM EST 04/12/2022 4:15 PM EST us [facility] External Provider LAB CYT OLOGY ORDERABLES Final Result [facility] [address] [place] [phone] * Pap Smear (04/12/2022 3:02 PM EST) 04/12/2022 3:02 PM EST 04/12/2022 4:15 PM EST Narrative [facility] - 04/20/2022 6:31 PM EST ----- ------- Name: Shruti Lee ? Age/Sex: 57/F ? : 1965 Unit#: [id number] ?? Attend Dr: Hair Hinojosa MD ?Re04/12/22 ?Status: DEP REF ? Location: HO.LNP ?Disch: ? ----- ------- SPEC : [id number] ? RECD: 04/12/22 ? STATUS: ??SOUT ? REQ NUM: [id number] ? ADRIANA: 04/12/22-1502 ? SUBM DR: Hair Hinojosa MD ? [...] 66, 68) ? HPV testing performed by [employer], [place], [place]. ??See reference laboratory ?? portion of the EMR for entire report. ?Clinical Information LMP: Post menopause Previous PAP test: Unknown ? Material Received ?? ThinPrep-Cervical Copies To: ?? Sheryl Wang MD ?? [address] ?? [place] [address] ? Hair Hinojosa MD ?? [address] [place] [address] Dr. Lola Eng ?? [place] [address] ?? [phone] ----- ------- Signed (signature on file) Christina Laureano 04/20/221830 ? ----- ------- ? END OF REPORT ? [facility] External Provider LAB [facility] Final Result [facility] [address] [place] [address] [phone] * Colonoscopy (12/15/2019 2:23 PM EDT) Colonoscopy Normal Normal Narrative [facility] - 12/15/2019 2:23 PM EDT Recommended 10 year follow up Historical Provider HEALTH MAINTENANCE Edited Result - Final from Last 3 Months or Most Recently Relevant to Health Maintenance Insurance [place] [facility] MEDICAID LIMITED ADULT DENTAL - HSN FULL (MEDICAID) Care Teams Floor Installation Mechanic Relationship Specialty Start Date End Date Naa Maradiaga MD [address] [place] [address] PCP - General Internal Medicine 08/23/22
--- OUTSIDE RECORDS SUMMARY | 2024-07-22 15:32 | XMS_ITS | Clinical Summary ---
Author Organization [facility] Address [address] [place] [address] Care Team Providers Care Truck And Transport Mechanic Name Role Phone KathleenMaryuriPadma Primary Care Provider [phone] Allergies No known active allergies Medications levothyroxine [...] this topic Medical Devices Implanted Type Area Gluing Machine Operator Automatic Device Identifier Shelf Expiration Date Model / Serial / Lot Device Closure Vascular Plug 6fr Angio-Seal Vip - [id number] Implanted:Qty: 1 on 03/04/2018 at [facility] Implant [employer] 12/15/2018 [id number] / / [id number] Device Closure Vascular Plug 6fr Angio-Seal Vip - [id number] Implanted:Qty: 1 on 07/06/2020 at [facility] Implant [employer] [id number] / / Device Closure Vascular Plug 6fr Angio-Seal Vip - [id number] Implanted:Qty: 1 on 08/03/2020 at [facility] Implant [employer] [id number] / / Diverter Flow 2.2lum93lt - [id number] Implanted:Qty: 1 on 08/03/2020 at [facility] [employer] 12/15/2022 [id number] / / [id number] Diverter Flow 2.0ocx36vt - [id number] Implanted:Qty: 1 on 08/03/2020 at [facility] [employer] 08/15/2022 [id number] / / [id number] Insurance [facility] HSNO/FREE CARE Care Teams Truck And Transport Mechanic Relationship Specialty Start Date End Date Maryuri Wang [address] [place] [phone] PCP - General Internal Medicine 10/03/17
--- OUTSIDE RECORDS SUMMARY | 2024-07-22 15:32 | XMS_ITS | Encounter Summary ---
Author Organization [employer] Address [address] [facility] [address] [place] [address] Care Team Providers Care Instrumentation Supervisor Name Role Phone Naa Maradiaga MD Primary Care Pro vider Reason for Visit * Reason Onset Date Comments Results 08/21/2023 Encounter Details Date Type Department Care Team ([facility] st Contact Info) Description 08/21/2023 Telephone [facility] [address] [place] [address] Naa Maradiaga MD [address] [place] [address] Results Social History Tobacco Use Types Packs/Day [...] EDT TC placed to pt with a [place] diamond die driller to inquire about the GI visit results [...] call back in regards gastro visit results. Setswana speaker documented in this encounter Plan of Treatment Upcoming Encounters Date Type Department Care Team (Late st Contact Info) Description 08/03/2024 3:00 PM EDT Office Visit [facility] [address] [place], [place] [phone] Angelica Álvarez 09/11/2024 1:30 PM EDT Office Visit [facility] [address] [place], [place] [phone] Naa Maradiaga MD [address] [place], [place] [phone] documented as of this encounter Visit Diagnoses Not on filedocumented in this encounter Care Teams Instrumentation Supervisor Relationship Specialty Start Date End Date Naa Maradiaga MD [address] [place] [phone] PCP - General Internal Medicine 08/23/22 documented as of this encounter
--- OUTSIDE RECORDS SUMMARY | 2024-07-22 15:32 | XMS_ITS | Referral Summary ---
Author Organization [facility] Address [address] [place] [address] Care Team Providers Care Lan Specialist Name Role Phone KathleenMaryuriPadma Primary Care Provider [phone]- [phone] Allergies No known active allergies Medications levothyroxine [...] on file Medical Devices Implanted Type Area Self Sealing Fuel Tank Repairer Device Identifier Shelf Expiration Date Model / Serial / Lot Device Closure Vascular Plug 6fr Angio-Seal Vip - [id number] Implanted:Qty: 1 on 03/04/2018 at [facility] Implant [employer] 12/15/2018 [id number] / / [id number] Device Closure Vascular Plug 6fr Angio-Seal Vip - [id number] Implanted:Qty: 1 on 07/06/2020 at [facility] Implant [employer] [id number] / / Device Closure Vascular Plug 6fr Angio-Seal Vip - [id number] Implanted:Qty: 1 on 08/03/2020 at [facility] Implant [employer] [id number] / / Diverter Flow [id number] - [id number] Implanted:Qty: 1 on 08/03/2020 at [facility] [employer] 12/15/2022 [id number] / / [id number] Diverter Flow [id number] - [id number] Implanted:Qty: 1 on 08/03/2020 at [facility] [employer] 08/15/2022 [id number] / / [id number] [place] HS[place] CARE Care Teams Lan Specialist Relationship Specialty Start Date End Date Maryuri Wang [address] [place] [phone] PCP - General Internal Medicine 10/03/17
--- OUTSIDE RECORDS SUMMARY | 2024-07-22 15:32 | XMS_ITS | Encounter Summary ---
Author Organization [facility] Address [address] [place] [address] Care Team Providers Care Wool Hat Flanger Name Role Phone Maryuri Wang Primary Care Provider Encounter Details Date Type Department Care Team (Late st Contact Info) Description 04/28/2020 Orders Only [facility] XRay [address] [place] [address] [address] Social History Tobacco Use Types Packs/Day Years [...] on filedocumented in this encounter Care Teams Wool Hat Flanger Relationship Specialty Start Date End Date Maryuri Wang [address] [place] [address] PCP - General Internal Medicine 10/03/17 documented as of this encounter
--- OUTSIDE RECORDS SUMMARY | 2024-07-22 15:32 | XMS_ITS | Encounter Summary ---
Author Organization [facility] Address [address] [place] [address] Care Team Providers Care End Finder Twisting Department Name Role Phone Maryuri Wang Primary Care Provider Encounter Details Date Type Department Care Team (Late st Contact Info) Description 10/04/2020 Telephone [facility] Interventional Radiology [address] [place] [phone] Sweta Hampton RN Social History Tobacco Use [...] on filedocumented in this encounter Care Teams End Finder Twisting Department Relationship Specialty Start Date End Date Maryuri Wang [address] [place] [address] PCP - General Internal Medicine 10/03/17 documented as of this encounter
--- OUTSIDE RECORDS SUMMARY | 2024-07-22 15:32 | XMS_ITS | Clinical Summary ---
Author Organization [facility] Address [address] [place] [address] Phone Care Team Providers Care Mems Process Engineer Name Role Phone Unavailable Primary Care Provider [...] 136 - 145 mmol/L 07/30/2017 9:29 PM [facility] Potassium 3.2(L) 3.5 - 5.1 mmol/L 07/30/2017 9:29 PM [facility] Chloride 106 95 - 115 mmol/L 07/30/2017 9:29 PM [facility] CO2 24 21 - 32 mmol/L 07/30/2017 9:29 PM [facility] Anion Gap 10 5 - 18 07/30/2017 9:29 PM [facility] Glucose 120(H) 70 - 100 mg/dL 07/30/2017 9:29 PM [facility] BUN 21 8 - 25 mg/dL 07/30/2017 9:29 PM [facility] Creatinine 0.77 0.50 - 1.30 mg/dL 07/30/2017 9:29 PM [facility] Calcium 9.1 8.4 - 10.3 mg/dL 07/30/2017 9:29 PM [facility] BUN/Creatinine Ratio 27.3(H) 8.0 - 25.0 07/30/2017 9:29 PM [facility] Total Protein 7.6 6.4 - 8.2 g/dL 07/30/2017 9:29 PM [facility] Albumin 4.0 3.4 - 5.0 g/dL 07/30/2017 9:29 PM [facility] Total Bilirubin 0.2 0.0 - 1.0 mg/dL 07/30/2017 9:29 PM [facility] Alkaline Phosphatase 73 20 - 120 U/L 07/30/2017 9:29 PM [facility] Alanine Aminotransferase (ALT) 23 12 - 78 U/L 07/30/2017 9:29 PM [facility] Aspartate Aminotransferase (AST) 26 5 - 37 U/L 07/30/2017 9:29 PM [facility] Globulin 3.6 g/dL 07/30/2017 9:29 PM [facility] A/G Ratio 1.1 07/30/2017 9:29 PM [facility] AST/ALT Ratio 1.1 07/30/2017 9:29 PM [facility] eGFR (Afr Amer) >60 >60 mL/min/1. 73m2 07/30/2017 9:29 PM [facility] Comment: Values under 60mL/min/1.73m2 may indicate CKD if noted for ?? more than 3 months. eGFR is only valid if creatinine is at steady state. eGFR (NON -Solomon Islander) >60 >60 mL/min/1. 73m2 07/30/2017 9:29 PM [facility] Comment: Values under 60mL/min/1.73m2 may indicate CKD if noted for ?? more than 3 months. eGFR is only valid if creatinine is at steady state. Osmolality Calculation 284 275 - 295 mOsm/kg 07/30/2017 9:29 PM [facility] Blood specimen (specimen) Venipuncture / Unknown 07/30/2017 8:55 PM EDT 07/30/2017 9:04 PM EDT us Peter A Garcia MD LAB BLOOD ORDERABLE S Final Result [address] [address], [facility] [phone] from Last 3 Months or Most Recently Relevant to Health Maintenance Insurance [id number] MEDICAID [id number] MEDICAID [id number] MEDICAID [id number] MEDICAID
--- OUTSIDE RECORDS SUMMARY | 2024-07-22 15:32 | XMS_ITS | Encounter Summary ---
Author Organization [employer] Address [address] [facility] 7t [place] [address] Care Team Providers Care Food Preparer Name Role Phone Naa Maradiaga MD Primary Care Pro vider Reason for Visit * Reason Onset Date Comments clarification on case 03/31/2024 Encounter Details Date Type Department Care Team ([facility] st Contact Info) Description 03/31/2024 Telephone [facility] ADULT DENTAL [address] [place] [address] Denis Santana DDS [address] [place] [address] clarification on case Social History Tobacco Use [...] lower) for nightguard fabrication. Al at NDX [phone] * Telephone Encounter - Jerman Reeves DMD [...] lower) for nightguard fabrication. Al at [employer] [phone] documented in this encounter Plan of Treatment Upcoming Encounters Date Type Department Care Team (Late st Contact Info) Description 08/03/2024 3:00 PM EDT Office Visit [facility] ADULT DENTAL [address] [place] [address] [phone] Angelica Álvarez 09/11/2024 1:30 PM EDT Office Visit [facility] MEDICINE [address] [place] [address] Naa Maradiaga MD [address] [place] [address] [phone] documented as of this encounter Visit Diagnoses Not on filedocumented in this encounter Care Teams Food Preparer Relationship Specialty Start Date End Date Naa Maradiaga MD [address] [place] [address] [phone] PCP - General Internal Medicine 08/23/22 documented as of this encounter
--- OUTSIDE RECORDS SUMMARY | 2024-07-22 15:32 | XMS_ITS | Encounter Summary ---
Author Organization [employer] Address [address] [facility] 7t [place] [address] Care Team Providers Care Fiberglass Model Maker Name Role Phone Maryuri Wang MD Primary Care Provider + Naa Maradiaga MD Primary Care Pro vider Reason for Visit * Reason Comments Med Refill Encounter Details Date Type Department Care Team (Late st Contact Info) Description 06/26/2022 Refill [facility] MEDICINE [address] [place] [address] Maryuri Wang MD [address] [place] [address] Social History Tobacco Use Types Packs/Day Years [...] Encounters Date Type Department Care Team (Late Contact Info) Description 08/03/2024 3:00 PM EDT Office Visit [facility] ADULT DENTAL [address] [place] [address] Angelica Álvarez 09/11/2024 1:30 PM EDT Office Visit [facility] MEDICINE [address] [place] [address] Naa Maradiaga MD [address] [place] [address] documented as of this encounter Visit Diagnoses Not on filedocumented in this encounter Care Teams Fiberglass Model Maker Relationship Specialty Start Date End Date Maryuri Wang MD [address] [place] [phone] PCP - General Family Medicine 01/09/17 08/22/22 Naa Maradiaga MD [address] [place] [address] PCP - General Internal Medicine 08/23/22 documented as of this encounter
--- OUTSIDE RECORDS SUMMARY | 2024-07-22 15:32 | XMS_ITS | Encounter Summary ---
Author Organization [employer] Address [address] [facility] 7t [place] [address] Care Team Providers Care Emergency Response Technician Name Role Phone Maryuri Wang MD Primary Care Provider + Naa Maradiaga MD Primary Care Pro vider Encounter Details Date Type Department Care Team (Latest Contact Info) Description 02/19/2020 Abstract [facility] CONVERSIONS Dental, Provider, DDS Social History [...] Description 08/03/2024 3:00 PM EDT Office Visit [facility] ADULT DENTAL [address] [place], [place] [phone] Angelica Álvarez 09/11/2024 1:30 PM EDT Office Visit [facility] MEDICINE [address] [place], [place] [phone] Naa Maradiaga MD [address] [place], [place] [phone] documented as of this encounter Visit Diagnoses Not on filedocumented in this encounter Care Teams Emergency Response Technician Relationship Specialty Start Date End Date Maryuri Wang MD [address] [place] [address] PCP - General Family Medicine 01/09/17 08/22/22 Naa Maradiaga MD [address] [place] [address] KENDRICK ALLEN [address] PCP - General Internal Medicine 08/23/22 documented as of this encounter
--- OUTSIDE RECORDS SUMMARY | 2024-07-22 15:32 | XMS_ITS | Clinical Summary ---
Author Organization [facility] Address [address] [place] [address] Care Team Providers Care Source Water Protection Specialist Name Role Phone SelmaDiana LIONEL Primary Care Provider [phone] Source Comments PLEASE NOTE, if this patient [...] Plan of Treatment Not on file Insurance [place]AF[place] Care Teams Source Water Protection Specialist Relationship Specialty Start Date End Date Diana Hahn NP [address] [place] [address] PCP - General Internal Medicine 10/10/12
--- OUTSIDE RECORDS SUMMARY | 2024-07-22 15:32 | XMS_ITS | Encounter Summary ---
Author Organization [employer] Address [address] [facility] 7t [place] [address] Care Team Providers Care Collarette Separator Name Role Phone Naa Maradiaga MD Primary Care Pro vider Reason for Visit * Reason Onset Date Comments new script 01/22/2023 Encounter Details Date Type Department Care Team ([facility] st Contact Info) Description 01/22/2023 Telephone [facility] MEDICINE [address] [place] [address] Naa Maradiaga MD [address] [place] [address] new script Social History Tobacco Use Types [...] EDT Office Visit [facility] ADULT DENTAL [address] [place] [address] Angelica Álvarez 09/11/2024 1:30 PM EDT Office Visit [facility] MEDICINE [address] [place] [address] Naa Maradiaga MD [address] [place] [address] documented as of this encounter Visit Diagnoses Not on filedocumented in this encounter Care Teams Collarette Separator Relationship Specialty Start Date End Date Naa Maradiaga MD [address] [place] [address] PCP - General Internal Medicine 08/23/22 documented as of this encounter
--- OUTSIDE RECORDS SUMMARY | 2024-07-22 15:32 | XMS_ITS | Encounter Summary ---
Author Organization [facility] Address [address] [place] [address] Care Team Providers Care Lawn Mower Operator Name Role Phone Maryuri Wang Primary Care Provider [phone] Encounter Details Date Type Department Care Team (Late st Contact Info) Description 07/05/2020 Telephone [facility] Interventional Radiology [address] [place] [phone] Shahana Casas RN [facility] [place], [place] Social History Tobacco Use Types Packs/Day [...] on filedocumented in this encounter Care Teams Lawn Mower Operator Relationship Specialty Start Date End Date Maryuri Wang [address] [place] [phone] PCP - General Internal Medicine 10/03/17 documented as of this encounter
--- OUTSIDE RECORDS SUMMARY | 2024-07-22 15:32 | XMS_ITS | Encounter Summary ---
Author Organization [employer] Address [address] [facility] 7t [place] [address] Care Team Providers Care Material Distributor Name Role Phone Maryuri Wang MD Primary Care Provider + Naa Maradiaga MD Primary Care Pro vider Reason for Visit * Reason Onset Date Comments Appointment 05/25/2022 Encounter Details Date Type Department Care Team ([facility] st Contact Info) Description 05/25/2022 Telephone [facility] ADULT DENTAL [address] [place] [address] Jerman Reeves, DMD [address] [place] [address] Appointment Social History Tobacco Use Types Packs/Day [...] Description 08/03/2024 3:00 PM EDT Office Visit [facility] ADULT DENTAL [address] [place] [address] Angelica Álvarez 09/11/2024 1:30 PM EDT Office Visit [facility] MEDICINE [address] [place] [address] [phone] Naa Maradiaga MD [address] [place] [address] documented as of this encounter Visit Diagnoses Not on filedocumented in this encounter Care Teams Material Distributor Relationship Specialty Start Date End Date Maryuri Wang MD [address] [place] [address] PCP - General Family Medicine 01/09/17 08/22/22 Naa Maradiaga MD [address] [place] [address] PCP - General Internal Medicine 08/23/22 documented as of this encounter
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
--- OUTSIDE RECORDS SUMMARY | 2024-07-22 15:32 | XMS_ITS | Encounter Summary ---
Author Organization [facility] [employer] Address [address] [facility] 7t [place] [address] Care Team Providers Care Police Inspector Name Role Phone Naa Maradiaga MD Primary Care Pro vider Encounter Details Date Type Department Care Team (Late st Contact Info) Description 09/05/2022 Abstract [facility] MEDICINE [address] [place] [address] Naa Maradiaga MD [address] [place] [address] Social History Tobacco Use Types Packs/Day Years [...] Description 08/03/2024 3:00 PM EDT Office Visit [facility] ADULT DENTAL [address] [place] [address] Angelica Álvarez 09/11/2024 1:30 PM EDT Office Visit [facility] MEDICINE [address] [place], [place] [phone] Naa Maradiaga MD [address] [place], [place] [phone] documented as of this encounter Procedures Procedure Name Priority Date/Time Associated Diagnosis Comments HM COLONOSCOPY Routine 12/15/2019 2:23 PM EDT documented in this encounter Results * Hm Colonoscopy (12/15/2019 2:23 PM EDT) Colonoscopy Normal Normal Narrative [facility] - 12/15/2019 2:23 PM EDT Recommended 10 year follow up Historical Provider [facility] Edited Result - Final documented in this encounter Visit Diagnoses Not on filedocumented in this encounter Care Teams Police Inspector Relationship Specialty Start Date End Date Naa Maradiaga MD [address] [place] [address] PCP - General Internal Medicine 08/23/22 documented as of this encounter
--- OUTSIDE RECORDS SUMMARY | 2024-07-22 15:32 | XMS_ITS | Encounter Summary ---
Author Organization [employer] Address [address] [facility] 7t [place] [address] Care Team Providers Care Associate Consulting Engineer Name Role Phone Naa Maradiaga MD Primary Care Pro vider Reason for Visit * Reason Onset Date Comments cx and rs appt same day 06/15/2024 Encounter Details Date Type Department Care Team ([facility] st Contact Info) Description 06/15/2024 Telephone [facility] ADULT DENTAL [address] [place] [address] Marian Urias DMD cx and rs appt [...] t he electric, gas, oil or water [employer] threatened to shut off services in your [...] 3:00 PM EDT Office Visit [facility] ADULT DENTAL [address] [place] [address] Angelica Álvarez 09/11/2024 1:30 PM EDT Office Visit [facility] MEDICINE [address] [place] [address] Naa Maradiaga MD [address] [place] [address] documented as of this encounter Visit Diagnoses Not on filedocumented in this encounter Care Teams Associate Consulting Engineer Relationship Specialty Start Date End Date Naa Maradiaga MD [address] [place] [address] PCP - General Internal Medicine 08/23/22 documented as of this encounter
--- OUTSIDE RECORDS SUMMARY | 2024-07-22 15:32 | XMS_ITS | Encounter Summary ---
Author Organization [employer] Address [address] [facility] 7t [place] [address] Care Team Providers Care Back Up Scan Coordinator Name Role Phone Maryuri Wang MD Primary Care Provider + Naa Maradiaga MD Primary Care Pro vider Encounter Details Date Type Department Care Team (Latest Contact Info) Description 02/17/2021 Abstract [facility] CONVERSIONS Dental, Provider, DDS Social History Tobacco [...] Description 08/03/2024 3:00 PM EDT Office Visit [facility] ADULT DENTAL [address] [place], [place] [phone] Angelica Álvarez 09/11/2024 1:30 PM EDT Office Visit [facility] MEDICINE [address] [place], [place] [phone] Naa Maradiaga MD [address] [place], [place] [phone] documented as of this encounter Visit Diagnoses Not on filedocumented in this encounter Care Teams Back Up Scan Coordinator Relationship Specialty Start Date End Date Maryuri Wang MD [address] [place] [address] PCP - General Family Medicine 01/09/17 08/22/22 Naa Maradiaga MD [address] [place] [address] KENDRICK ALLEN [address] PCP - General Internal Medicine 08/23/22 documented as of this encounter
== END 2024-07-22 14:46 | disposition home or self-care (01) ==
LOC: HO.HGS 14:21
PROVIDERS: PCP Student in an Organized Health Care Education/Training Program; Visit Provider Surgery
DX: K64.9 Unspecified hemorrhoids (principal)
CPT/HCPCS: 46600; 99213

== ENCOUNTER 2024-08-05 13:19 | Outpatient (REF) | payer OTHER, SELFPAY ==
--- NOTE | ~2024-08-05 | MM_ITS ---
EXAMINATION: MM DIAGNOSTIC DIGITAL BREAST TOMOSYNTHESIS, BILATERAL Bilateral Limited ultrasound. CLINICAL INFORMATION: Bilateral lateral breast pain only when touched for 6 months right greater than left. COMPARISON: Mammography: Comparison is made with relevant prior exams. TECHNIQUE: Digital breast mammography with tomosynthesis is performed in both the craniocaudal and mediolateral oblique views along with computer-aided detection (CAD). FINDINGS: There are scattered areas of fibroglandular density (ACR BI-RADS breast composition Category b). There are no significant masses, abnormal calcifications, or other abnormalities. Targeted color Doppler ultrasound scanning in the areas of patient's bilateral breast pain in the right from 6-12 o'clock demonstrates an incidental normal-appearing intramammary lymph node at 9:00 11 cm from the nipple. Targeted color Doppler ultrasound scanning from 12 6:00 in the area the patient's pain demonstrates normal fibronodular breast tissue. Results are provided to the patient at time of visit by the technologist. MM/MM tomosynthesis diagnostic BI IMPRESSION: Right: Normal intramammary lymph node. Benign. No mammographic or sonographic abnormality to account for the patient's right lateral breast pain. Recommend clinical evaluation follow-up. Left: No mammographic or sonographic abnormality to account for the patient's left breast pain. Recommend clinical evaluation and follow-up. ASSESSMENT: BI-RADS BI-RADS 2 - Benign Findings RECOMMENDATION: 1 year F/U This patient's information was entered into a reminder system with a target due date for their next mammogram. Electronically signed by: Kamille Hill DO 08/05/2024 02:11 PM EDT
--- OUTSIDE RECORDS SUMMARY | 2024-08-05 13:53 | XMS_ITS | Encounter Summary ---
Author Organization [employer] Address [address] [facility] 7t [place] [address] Care Team Providers Care Quantity Surveyor Name Role Phone Naa Maradiaga MD Primary Care Pro vider Reason for Visit * Reason Onset Date Comments Nurse Triage 07/30/2023 Encounter Details Date Type Department Care Team (Late st Contact Info) Description 07/30/2023 Telephone [facility] MEDICINE [address] [place] [address] Naa Maradiaga MD [address] [place] [address] Nurse Triage Social History Tobacco Use Types [...] 9:27 AM EDT T/C to pt with electrician front technology consultant assistance, pt states that she was not in a car accident but on Saturday she crushed her finger in a car door. Pt was seen at [facility] ED on Saturday where she was diagnosed [...] acuity questions The caller accepted this outcome South [place]ese speaker documented in this encounter Plan of Treatment Upcoming Encounters Date Type Department Care Team (Late st Contact Info) Description 09/11/2024 1:30 PM EDT Office Visit [facility] MEDICINE [address] [place] [address] Naa Maradiaga MD [address] [place], [place] [phone] 03/03/2025 3:00 PM EST Office Visit [facility] ADULT DENTAL [address] [place], [place] [phone] Angelica Álvarez documented as of this encounter Visit Diagnoses Not on filedocumented in this encounter Care Teams Quantity Surveyor Relationship Specialty Start Date End Date Naa Maradiaga MD [address] [place] [address] [phone] PCP - General Internal Medicine 08/23/22 documented as of this encounter
--- OUTSIDE RECORDS SUMMARY | 2024-08-05 13:53 | XMS_ITS | Encounter Summary ---
Author Organization [facility] Address [address] [place] [address] Care Team Providers Care Endocrinologist Name Role Phone Maryuri Wang Primary Care Provider Encounter Details Date Type Department Care Team (Late st Contact Info) Description 10/04/2020 Telephone [facility] Interventional Radiology [address] [place] [address] Sweta Hampton RN Social History Tobacco Use [...] on filedocumented in this encounter Care Teams Endocrinologist Relationship Specialty Start Date End Date Maryuri Wang [address] [place] [address] PCP - General Internal Medicine 10/03/17 documented as of this encounter
--- OUTSIDE RECORDS SUMMARY | 2024-08-05 13:53 | XMS_ITS | Clinical Summary ---
Author Organization [facility] Address [address] [place] [address] Care Team Providers Care Energy Trader Name Role Phone KathleenMaryuriPadma Primary Care Provider +1- [phone] Allergies No known active allergies Medications levothyroxine [...] this topic Medical Devices Implanted Type Area Base Manager Device Identifier Shelf Expiration Date Model / Serial / Lot Device Closure Vascular Plug 6fr Angio-Seal Vip - [id number] Implanted:Qty: 1 on 03/04/2018 at [facility] Implant [employer] 12/15/2018 [id number] / / [id number] Device Closure Vascular Plug 6fr Angio-Seal Vip - [id number] Implanted:Qty: 1 on 07/06/2020 at [facility] Implant [employer] [id number] / / Device Closure Vascular Plug 6fr Angio-Seal Vip - [id number] Implanted:Qty: 1 on 08/03/2020 at [facility] Implant [employer] [id number] / / Diverter Flow [id number] - [id number] Implanted:Qty: 1 on 08/03/2020 at [facility] [employer] 12/15/2022 [id number] / / [id number] Diverter Flow [id number] - [id number] Implanted:Qty: 1 on 08/03/2020 at [facility] [employer] 08/15/2022 [id number] / / [id number] Insurance [facility] HSNO/FREE CARE Care Teams Energy Trader Relationship Specialty Start Date End Date Maryuri Wang [address] [place] [address] PCP - General Internal Medicine 10/03/17
--- OUTSIDE RECORDS SUMMARY | 2024-08-05 13:53 | XMS_ITS | Encounter Summary ---
Author Organization [employer] Address 75 [facility] 7t [place] [address] Care Team Providers Care Maintenance Department Technician Name Role Phone Maryuri Wang MD Primary Care Provider + Naa Maradiaga MD Primary Care Pro vider Reason for Visit * Reason Comments Med Refill Encounter Details Date Type Department Care Team (Late st Contact Info) Description 06/26/[address] [facility] MEDICINE [address] [place] [address] Maryuri Wang MD [address] [place] [address] Social History Tobacco Use Types Packs/Day Years [...] Description 09/11/2024 1:30 PM EDT Office Visit [facility] MEDICINE [address] [place] [address] Naa Maradiaga MD [address] [place] [address] 03/03/2025 3:00 PM EST Office Visit [facility] ADULT DENTAL [address] [place], [place] [phone] Angelica Álvarez documented as of this encounter Visit Diagnoses Not on filedocumented in this encounter Care Teams Maintenance Department Technician Relationship Specialty Start Date End Date Maryuri Wang MD [address] [place] [address] PCP - General Family Medicine 01/09/17 08/22/22 Naa Maradiaga MD [address] [place] [address] PCP - General Internal Medicine 08/23/22 documented as of this encounter
--- OUTSIDE RECORDS SUMMARY | 2024-08-05 13:53 | XMS_ITS | Encounter Summary ---
Author Organization [employer] Address [address] [facility] [address] [place] [address] Care Team Providers Care Teletypewriter Operator Name Role Phone Maryuri Wang MD Primary Care Provider + Naa Maradiaga MD Primary Care Pro vider Reason for Visit * Reason Onset Date Comments Appointment 05/25/2022 Encounter Details Date Type Department Care Team ([facility] st Contact Info) Description 05/25/2022 Telephone [facility] ADULT DENTAL [address] [place] [address] Jerman Reeves, DMD [address] [place] [address] Appointment Social History Tobacco Use Types Packs/Day [...] Description 09/11/2024 1:30 PM EDT Office Visit [facility] MEDICINE [address] [place], [place] [phone] Naa Maradiaga MD [address] [place] [address] [phone] 03/03/2025 3:00 PM EST Office Visit [facility] ADULT DENTAL [address] [place], [place] [phone] Angelica Álvarez documented as of this encounter Visit Diagnoses Not on filedocumented in this encounter Care Teams Teletypewriter Operator Relationship Specialty Start Date End Date Maryuri Wang MD [address] [place] [id number] PCP - General Family Medicine 01/09/17 08/22/22 Naa Maradiaga MD [address] [place] [address] [phone] PCP - General Internal Medicine 08/23/22 documented as of this encounter
--- OUTSIDE RECORDS SUMMARY | 2024-08-05 13:53 | XMS_ITS | Encounter Summary ---
Author Organization [employer] [facility] Address [address] [place] [address] 7[address] [place] [address] Care Team Providers Care Cellular Tower Climber Name Role Phone Maryuri Wang MD Primary Care Provider + Naa Maradiaga MD Primary Care Pro vider Encounter Details Date Type Department Care Team (Latest Contact Info) Description 02/19/2020 Abstract [facility] CONVERSIONS Dental, Provider, DDS Social History Tobacco [...] Description 09/11/2024 1:30 PM EDT Office Visit [facility] MEDICINE [address] [place], [place] [phone] Naa Maradiaga MD [address] [place], [place] [phone] 03/03/2025 3:00 PM EST Office Visit [facility] ADULT DENTAL [address] [place], [place] [phone] Angelica Álvarez documented as of this encounter Visit Diagnoses Not on filedocumented in this encounter Care Teams Cellular Tower Climber Relationship Specialty Start Date End Date Maryuri Wang MD [address] [place] [address] PCP - General Family Medicine 01/09/17 08/22/22 Naa Maradiaga MD [address] [place] [address] KENDRICK ALLEN [address] PCP - General Internal Medicine 08/23/22 documented as of this encounter
--- OUTSIDE RECORDS SUMMARY | 2024-08-05 13:53 | XMS_ITS | Referral Summary ---
Author Organization [facility] Address [address] [place] [address] Care Team Providers Care Fur Sorter Name Role Phone KathleenMaryuriPadma Primary Care Provider [phone]- [phone] Allergies No known active allergies Medications levothyroxine [...] on file Medical Devices Implanted Type Area Final Canoe Inspector Device Identifier Shelf Expiration Date Model / Serial / Lot Device Closure Vascular Plug 6fr Angio-Seal Vip - [id number] Implanted:Qty: 1 on 03/04/2018 at [facility] Implant [employer] 12/15/2018 [id number] / / [id number] Device Closure Vascular Plug 6fr Angio-Seal Vip - [id number] Implanted:Qty: 1 on 07/06/2020 at [facility] Implant [employer] 191600 / / Device Closure Vascular Plug 6fr Angio-Seal Vip - [id number] Implanted:Qty: 1 on 08/03/2020 at [facility] Implant [employer] [id number] / / Diverter Flow [id number] - [id number] Implanted:Qty: 1 on 08/03/2020 at [facility] [employer] 12/15/2022 [id number] / / [id number] Diverter Flow [id number] - [id number] Implanted:Qty: 1 on 08/03/2020 at [facility] [employer] 08/15/2022 [id number] / / [id number] [place] HS[place] CARE Care Teams Fur Sorter Relationship Specialty Start Date End Date Maryuri Wang [address] [place] [id number] PCP - General Internal Medicine 10/03/17
--- OUTSIDE RECORDS SUMMARY | 2024-08-05 13:53 | XMS_ITS | Encounter Summary ---
Author Organization [employer] Address [address] [facility] 7[address] [place] [address] Care Team Providers Care Flow Specialist Name Role Phone Naa Maradiaga MD Primary Care Pro vider Encounter Details Date Type Department Care Team (Late st Contact Info) Description 09/05/[address] [facility] MEDICINE [address] [place] [address] Naa Maradiaga MD [address] [place] [address] Social History Tobacco Use Types Packs/Day Years [...] 09/11/2024 1:30 PM EDT Office Visit [facility] MEDICINE [address] [place] [address] Naa Maradiaga MD [address] [place] [address] 03/03/2025 3:00 PM EST Office Visit [facility] ADULT DENTAL [address] [place] [address] Angelica Álvarez documented as of this encounter Procedures Procedure Name Priority Date/Time Associated Diagnosis Comments HM COLONOSCOPY Routine 12/15/2019 2:23 PM EDT documented in this encounter Results * Hm Colonoscopy (12/15/2019 2:23 PM EDT) Colonoscopy Normal Normal Narrative [facility] - 12/15/2019 2:23 PM EDT Recommended 10 year follow up Historical Provider [facility] Edited Result - Final documented in this encounter Visit Diagnoses Not on filedocumented in this encounter Care Teams Flow Specialist Relationship Specialty Start Date End Date Naa Maradiaga MD [address] [place] [address] PCP - General Internal Medicine 08/23/22 documented as of this encounter
--- OUTSIDE RECORDS SUMMARY | 2024-08-05 13:53 | XMS_ITS | Clinical Summary ---
Author Organization [employer] Address [address] [facility] [facility] 7[address] [place] [address] Care Team Providers Care Household Refrigeration Mechanic Name Role Phone Naa Maradiaga MD Primary Care Pro vider Allergies No known active allergies Medications omeprazole (PriLOSEC) [address] capsule Take 1 capsule by mouth at bed time. 09/14/19 22 Active Blood Pressure Monitor kit 1 Device in the morning. 1 kit 04/03/19 24 Active Reguloid 57.6 % powder MIX 1 TABLESPOONFUL WITH 8 OUNCES WATER OR JUICE AND DRINK TWICE DAILY 02/28/20 23 Active acetaminophen (Tylenol) 500 MG tablet Take 1 tablet (500 mg) by mouth every 8 (eight) hours if needed for mild pain. 30 tablet 2 11/28/19 24 Active cyanocobalamin (Vitamin B-12) 1000 MCG tablet TAKE 1 TABLET BY MOUTH EVERY DAY IN THE MORNING 30 tablet 3 03/24/19 25 Active Deep Sea Nasal [place] 0.65 % nasal spray USE 1 SPRAY IN EACH NOSTRIL NEEDED FOR NASAL CONGESTION 44 mL 2 04/16/19 25 Active levothyroxine (Euthyrox) 112 MCG tabletIndicati ons:Hypothyroi dism, unspecified type TAKE 1 TABLET BY MOUTH EVERY DAY BEFORE BREAKFAST 90 tablet 1 04/22/19 25 Active Aspirin Low Dose 81 MG EC tabletIndicati ons:Personal history of other diseases of the circulatory system TAKE 1 TABLET BY MOUTH EVERY MORNING 90 tablet 1 07/24/19 25 Active aspirin (Aspirin Low Dose) 81 MG EC tabletIndicati ons:Personal history of other diseases of the circulatory system TAKE 1 TABLET BY MOUTH DAILY IN THE MORNING 90 tablet 1 01/29/202024 Discontinued Active Problems Problem Noted Date Diagnosed Date [...] foot to r/o foreign body -referred to christian education director -advised to soak foot in warm water [...] endo no need to continue care w building rental manager -continue current dose of levo 125 daily -repeat TFT in 4 weeks ordered today , if still elevated will need to increase dose Assessment & Plan (10/08/2022 10:57 PM EDT): -from endo no need to continue care w building rental manager -continue current dose of levo 125 daily -repeat TFT Assessment & Plan (04/09/2022 3:42 PM EST): Follow up with Electron Beam Welder Setter. -continue with levothryoxine 125 mcg Hemorrhoids 04/09/2022 [...] GI x chronic symptoms ---I spoke w learning and development specialist -Verónica and was explained from pt insurance can not be referred to [facility] as pt would like Assessment & [...] in toe 08/02/2022 10/08/2022 Postmenopausal bleeding 08/02/2022 07/06/2022 Tear of lateral meniscus of knee 08/02/2022 10/08/2022 Right inguinal pain 08/02/2022 10/09/19 Primary osteoarthritis of both knees 08/02/2022 10/08/2022 Pelvic mass 08/02/2022 10/08/2022 Intermittent claudication 08/22/2018 Perimenopause 05/19/2018 10/08/2022 Nail finding 04/08/2018 10/08/2022 Paresthesia of hand 02/03/2018 10/09/19 Hemorrhage into subarachnoid space of neuraxis 09/06/2017 10/08/2022 Worsening vision 09/06/2017 10/08/2022 Encounters Date Type Department Care Team Description 08/03/2024 3:00 PM EDT Office Visit [facility] ADULT DENTAL [address] [place] [address] Angelica Álvarez Dental plaque (Primary Dx); Dental calculus 08/03/[address] [address] Naa Maradiaga MD Medical clearance 07/22/2024 Orders Only GENERIC EXTERNAL DATA DEPARTMENT Provider, Generic External Data 07/22/[address] [address] Naa Maradiaga MD Personal history of other diseases of the circulatory system 07/07/2024 Orders Only GENERIC EXTERNAL DATA DEPARTMENT Provider, Generic External Data 06/24/2024 Patient Outreach [facility] [address] [place] [address] Naa Maradiaga MD Pre-visit Planning ([facility] unable to reach [facility] ) 06/23/[address] [address] Naa Maradiaga MD chart prep 06/15/2024 Telephone [facility] [address] [place] [address] Marian Urias, HORACE cx and rs appt same day 06/09/2024 2:30 PM EDT Office Visit [facility] ADULT [facility] [address] [place] [address] Denis Santana DDS 05/08/2024 Telephone [facility] [address] [place] [address] Naa Maradiaga MD june recall from Last 3 Months Immunizations Immunization Administration Dates Next Due Hep B, adult [...] Sign Reading Time Taken Comments Blood Pressure 132/82 08/03/2024 3:20 PM EDT Pulse 87 11/28/2023 1:23 PM EDT Temperature [...] Description 09/11/2024 1:30 PM EDT Office Visit [facility] MEDICINE [address] [place] [phone] Naa Maradiaga MD [address] [place] [phone] 03/03/2025 3:00 PM EST Office Visit [facility] AD[facility] [address] [place] [address] [phone] Angelica Álvarez Health Maintenance Due Date Last Done Comments CT Colonography 1965 FIT DNA/Cologuard 1965 Sigmoidoscopy 1965 Disability Screening 1965 Alcohol/Substance Use Screening 1975 Pneumococcal Vaccine: 50+ Years (1 of 1 - PCV) 2013 Depression Screening 10/13/2024 10/14/2023, 10/14/19 24 FIT 11/29/2024 11/30/2023 FOBT 11/29/2024 11/30/2023 Dental Oral Exam 02/04/2025 08/03/2024, 03/2023, 07/18/2022 Dental Prophylaxis 02/04/2025 08/03/2024, 1 03/18/2023, 07/18/2022 Mammogram 03/17/2025 03/17/2024, 02/16, 03/06/2022, Additional history exists Pap Smear 04/12/2025 04/12/2022 Dental X-Ray: Bitewings 06/10/2025 06/10/19 25, 04/03/2024, 01/17/2024, Additional history exists SDOH Screening 06/24/2025 06/24/2024 Tobacco Screening 08/03/2025 08/03/2024 Dental X-Ray: Full Mouth 01/17/2027 01/17/2024 Cervical [...] patient's age to complete this topic Meningococcal B Vaccine Aged Out No l onger eligible based on patient's age to complete [...] Procedure Name Priority Date/Time Associated Diagnosis Comments PERIODIC ORAL EVALUATION - ESTABLISHED PATIENT Routine 08/03/2024 3:00 PM EDT CASE PRESENTATION, DETAILED AND EXTENSIVE TREATMENT PLANNING Routine 08/03/2024 3:00 PM EDT ORAL HYGIENE INSTRUCTIONS Routine 08/03/2024 3:00 PM EDT Dental plaque Dental calculus PROPHYLAXIS - ADULT Routine 08/03/2024 3 :00 PM EDT Dental plaque Dental calculus CALPROTECTIN, STOOL Routine 07/22/2024 4 :30 PM EDT US ABDOMEN COMPLETE Routine 07/20/2024 8 :30 [...] PROBLEM FOCUSED Routine 06/09/2024 2:30 PM EDT BI MAMMOGRAM SCREENING TOMOSYNTHESIS BILATERAL Routine 03/17/2024 2:44 PM EST INTRAORAL - COMPLETE SERIES OF RADIOGRAPHIC IMAGES Routine 01/17/2024 1:00 PM EDT FECAL GLOBIN [...] Recently Relevant to Health Maintenance Results * Calprotectin, Stool (07/22/2024 4:30 PM EDT) Calprotectin,Fecal 91 mcg/g [facility] Comment:Reference Range: <50 Normal 50-120 Borderline >120 ElevatedCalprotectin in Crohn's disease and ulcerative colitis canbe five to several thousand times above the referencepopulation (50 mcg/g or less). Levels are usually 50 mcg/gor less in healthy patients and with irritable bowelsyndrome. Repeat testing in 4-6 weeks is suggested forborderline values.THIS TEST WAS PERFORMED AT:[employer] [id number] [place] [phone] CUEVA MD,PHD,NATHALIE 07/22/2024 4:30 PM EDT 07/22/2024 5:14 PM EDT us Generic External Data Provider LAB BODY FLUIDS A ND STOOLS ORDERABLES Final Result [facility] [address] [facility] [place] [address] [phone] * US Abdomen Complete (07/20/2024 8:30 AM EDT) Anatomical Region Laterality Modality Abdomen Ultrasound 07/20/2024 8:30 AM EDT Narrative 07/20/2024 9:32 AM EDT ? [facility] ?[address] ?[place] [address] ? Ultrasound Report ? Signed ? Patient: Sammi Saldana,Shruti ?MR#: ?? [id number] ? : 1965 ?Acct:[id number] ? Age/Sex: 59 / F ?ADM Date: 07/20/24 ? Loc: HO.US ? Attending Dr: Libby Alexander CNP ? Ordering Physician: Libby Alexander CNP ?? Date of Service: 07/20/24 ?? Procedure(s): US abdomen complete ?? Accession Number(s): [id number] ? cc: Naa Maradiaga MD; iLbby Alexander CNP ? EXAMINATION: ?? US ABDOMEN [...] DD/ 0830 ? TD/TT: 07/20/24 0910 ? Employment Adjudicator: MSM ? Procedure Note Donina, Image - 07/20/2024 [place] [address] Ultrasound Report Signed Patient: Lizzy LeedMR#: [id number] : 1965Acct:[id number] Age/Sex: 59 / FADM Date: 07/20/24 Loc: HO.US Attending Dr: Libby Alexander CNP Ordering Physician: Libby Alexander CNP Date of Service: 07/20/24 Procedure(s): US abdomen complete Accession Number(s): [id number] cc: Naa Maradiaga MD; Libby Alexander CNP [...] MD in OV> 07/20/[address] DD/ 9 TD/TT: 07/20/24909 Employment Adjudicator: ALEKSEY us [facility] External Provider IMG US PROCEDURES Final Result * (ABNORMAL) CBC auto differential (07/07/2024 4:36 PM EDT) White Blood Count 5.2 4.8 - 10.8 X10*3/uL [facility] Red Blood Count 4.23 4.20 - 5.50 X10*6/uL [facility] Hemoglobin 11.0(L) 12.0 - 16.0 g/dl [facility] Hematocrit 34.4(L) 37.0 - 47.0 % [facility] Mean Corpuscular Volume 81.3 80.0 - 98.0 fL [facility] Mean Corpuscular Hemoglobin 26.0(L) 27.0 - 33.0 pg [facility] Mean Corpuscular HGB Conc 32.0 31.0 - 35.0 g/dl [facility] Red Cell Distribution Width 16.0 11.0 - 16.0 % [facility] Platelet Count 276 160 - 400 X10*3/uL [facility] Mean Platelet Volume 10.2 9.4 - 12.3 fL [facility] Neutrophils Percent Auto 50.3 45 - 73 % [facility] Imm Gran Pct Auto 0.2 0.0 - 0.4 % [facility] Lymphocytes Percent Auto 37.0 20 - 40 % [facility] Monocytes Percent Auto 9.0 2 - 11 % [facility] Eosinophils Percent Auto 2.7 0 - 4 % [facility] Basophils Percent Auto 0.8 0 - 2 % [facility] NRBC Pct Auto 0.0 0.0 - 0.2 /100WBC [facility] Neutrophils Absolute Auto 2.6 2.0 - 8.3 x10*3/uL [facility] Imm Gran Abs Auto 0.01 0.00 - 0.03 X10*3/uL [facility] Lymphocytes Absolute Auto 1.9 1.2 - 4.9 X10*3/uL [facility] Monocytes Absolute Auto 0.5 0.1 - 1.2 X10*3/uL [facility] Eosinophils Absolute Auto 0.1 0.0 - 0.4 X10*3/uL [facility] Basophils Absolute Auto 0.0 0.0 - 0.2 X10*3/uL [facility] NRBC Abs Auto 0.000 0.0 - 0.012 X10*3/uL [facility] 07/07/2024 4:36 PM EDT 07/07/2024 4:36 PM EDT us Generic External Data Provider LAB BLOOD ORDERAB LES Final Result [facility] [address] [place] [phone] * (ABNORMAL) Iron And Total Iron Binding Capacity (07/07/2024 4:36 PM EDT) Iron 24(L) 30 - 160 mcg/dL [facility] Total Iron Binding Capacity 278 228 - 428 mcg/dL [facility] Percent Iron Saturation 9(L) 15 - 50 % [facility] Unsaturated Iron Binding 254 ug/dL [facility] 07/07/2024 4:36 PM EDT 07/07/2024 4:36 PM EDT us Generic External Data Provider LAB BLOOD ORDERAB LES Final Result [facility] [address] [place] [address] [phone] * (ABNORMAL) Comprehensive Metabolic Panel (07/07/2024 4:36 PM EDT) Sodium 139 135 - 145 mmol/L [facility] Potassium 4.4 3.3 - 5.1 mmol/L [facility] Chloride 108 96 - 108 mmol/L [facility] Carbon Dioxide 25 22 - 29 mmol/L [facility] Anion Gap 10(L) 12 - 20 [facility] Urea Nitrogen (BUN) 22(H) 9 - 16 mg/dL [facility] Creatinine, Serum 0.97 0.5 - 1.4 mg/dL [facility] Estimated Glomerular Filt Rate 58 [facility] Comment:Chronic Kidney Disea se: Estimated GFR < 60 mL/min/1.73s3Zjrtgn Kidney Disease: Estimated GFR < 15 mL/min/1.73m2 Glucose 88 60 - 115 mg/dL [facility] Calcium 8.8 8.4 - 10.2 mg/dL [facility] Bilirubin, Total 0.2 0.0 - 1.0 mg/dL [facility] Aspartate Amino Transferase 24 5 - 31 U/L [facility] Alanine Aminotransferase 14 0 - 31 U/L [facility] Total Protein 7.1 6.5 - 8.0 g/dL [facility] Albumin Level 3.9 3.5 - 5.0 g/dL [facility] Alkaline Phosphatase 73 39 - 117 U/L [facility] 07/07/2024 4:36 PM EDT 07/07/2024 4:36 PM EDT us Generic External Data Provider LAB BLOOD ORDERAB LES Final Result Performing Organization Address [facility]/ZIP Co de Phone Number [facility] [address] [place] [address] [phone] * (ABNORMAL) Urinalysis, Complete, with Reflex to Culture (07/07/2024 4:31 PM EDT) Color Urine Yellow [facility] Appearance Urine Clear [facility] PH 7.0 5.0 - 9.0 [facility] Glucose Urine UA Negative Negative mg/dL [facility] Urine Blood Trace(A) Negative [facility] Specific [place] - Urine 1.010 1.005 - 1.025 [facility] Urine Protein Negative Neg-Trace mg/dL [facility] Urine Ketones Negative Negative mg/dL [facility] Nitrite Urine Negative Negative [facility] Leukocyte Esterase Urine Moderate (2+)(A) Negative [facility] RBC Urine 0-2 0 - 2 /HPF [facility] Urine WBC 0-5 0 - 5 /HPF [facility] Urine Squamous Epithelial Cell 0-2 0 - 2 /HPF [facility] Urine Bacteria None Seen None Seen [facility] Hyaline Casts, Urine 0-2 0 - 2 /LPF [facility] 07/07/2024 4:31 PM EDT 07/07/2024 5:06 PM EDT Narrative [facility] - 07/07/2024 5:35 PM EDT Urine, Clean Catch us Generic External Data Provider LAB URINE ORDERAB LES Final Result Performing Organization Address [facility]/ZIP Co de Phone Number [facility] [address] [place] [phone] * (ABNORMAL) Urinalysis w/reflex microscopic (07/07/2024 4:31 PM EDT) Color Urine Yellow [facility] Appearance Urine Clear [facility] PH 7.0 5.0 - 9.0 [facility] Glucose Urine UA Negative Negative mg/dL [facility] Urine Blood Trace(A) Negative [facility] Specific [place] - Urine 1.010 1.005 - 1.025 [facility] Urine Protein Negative Neg-Trace mg/dL [facility] Urine Ketones Negative Negative mg/dL [facility] Nitrite Urine Negative Negative [facility] Leukocyte Esterase Urine Moderate (2+)(A) Negative [facility] 07/07/2024 4:31 PM EDT 07/07/2024 5:06 PM EDT Narrative [facility] - 07/07/2024 5:19 PM EDT Urine, Clean Catch Generic External Data Provider LAB URINE ORDERAB LES Final Result Performing Organization Address [facility] Co de Phone Number [facility] [address] [place] [phone] * Culture, Urine, Routine (07/07/2024 12:00 AM EDT) Urine Urine specimen obtained by clean catch procedure / Unknown 07/07/2024 07/07/2024 Comment:[facility] Narrative [facility] - 07/09/2024 10:44 AM EDT Urine Culture No growth. Specimen Source: Urine clean catch Generic External Data Provider LAB MICROBIOLOGY - GENERAL ORDERABLES Final Result Performing Organization Address [facility] de Phone Number [facility] [address] [place] [phone] * BI Mammogram Screening Tomosynthesis Bilateral (03/17/2024 2:44 PM EST) Anatomical Region Laterality Modality Breast Bilateral Mammography 03/17/2024 2:44 PM EST Narrative 03/28/2024 8:19 PM EST ? [facility] ? [address] ?[place] [address] ? Mammography Report ? Signed with Addenda ? Patient: Chapa Saldana,Shruti ?MR#: ?? [id number] ? : 1965 ?Acct:[id number] ? Age/Sex: 58 / F ?ADM Date: 12/31/24 ? Loc: HO.MAMMO ? Attending Dr: Sheryl Wang MD ? Ordering Physician: Sheryl Wang MD ?Results: 1Ne ?? gative ? Date of Service: 03/17/24 ?Follow Up: 1 Year From Orig ?? inal Mammogram ? Procedure(s): MM tomosynthesis screening BI ?? Accession Number(s): [id number] ? cc: Sheryl Wang MD; Naa Maradiaga [...] 04/13/ 1520 ?? Addendum Cosigned By: ? DD/ [...] DD/ 1444 ? TD/TT: 03/17/24 1500 ? Employment Adjudicator: ? Procedure Note Remi, Image - 04/13/2024 [facility] [address] [place], [place] [address] Mammography Report Signed with Addenda Patient: Lizzy LeedMR#: [id number] : 1965Acct:[id number] Age/Sex: 58 / FADM Date: 03/17/24 Loc: GEORGE Attending Dr: Sheryl Wang MD Ordering Physician: Sheryl Wangesults: 1Ne gative Date of Service: 03/17/24Follow Up: 1 Year From Orig inal Mammogram Procedure(s): MM tomosynthesis screening BI Accession Number(s): [id number] cc: Sheryl Wang MD; Naa Maradiaga MD [...] Kamille Hill DO in OV> 03/28/242015 DD/ 144 TD/TT: 03/17/241499 Employment Adjudicator: Sheryl Wang MD [facility] BI PROCEDURES Edited Result - Final * Fecal Globin by Immunochemistry (11/30/2023 12:00 AM EDT) Fecal Globin By Immunochemistry SEE NOTE [facility] Comment: ??FECAL GLOBIN BY IMMUNOCHEMISTRY ?Micro Number: ?[id number] ??Test Status: ? Final ??Specimen Source: ?? Insure (tm) fobt test card ??Specimen Quality: ??Adequate ??Fecal Globin: ?Not Detected 11/30/2023 12/08/2023 11: 31 PM EDT Narrative [facility] - 12/08/2023 11:42 PM EDT FASTING: UNKNOWN Naa Aguila MD LAB BODY FLUIDS A ND STOOLS ORDERABLES Final Result Performing Organization Address [facility] de Phone Number [address], [facility] [phone] [facility] [address] [place] [phone] * Hepatitis C Antibody with Reflex to HCV, RNA, Quantitative, Real-Time PCR (11/21/2023 6:22 AM EDT) Hepatitis C Antibody Nonreactive Nonreactive [facility] Comment:Antibodies to HCV no t detected; does not exclude early acuteHCV infection. Blood Venous blood specimen / Unknown 11/21/2023 6:22 AM EDT 11/21/2023 6:22 AM EDT us Naa Aguila MD LAB BLOOD ORDERAB LES Final Result Performing Organization Address [facility] Co de Phone Number [facility] [address] [place] [phone] * HIV-1/2 Antigen and Antibodies, Fourth Generation, with Reflexes (11/21/2023 6:22 AM EDT) HIV AB/AG Nonreactive Nonreactive [facility] Comment:HIV-1 p24 Ag and/or HIV-1/HIV-2 Ab not detected.A test result that is nonreactive does not exclude thepossibility of exposure to or infection with HIV-1 and/orHIV-2. Nonreactive results in this assay for individualswith prior exposure to HIV-1 and/or HIV-2 may be due toantigen and antibody levels that are below the limit ofdetection of this assay.The [employer] HIV Ag/Ab Combo assay result andsupplemental assay results should be interpreted inconjunction with the patient's clinical presentation,history and other laboratory results. If the results areinconsistent with clinical evidence, additional testing issuggested to confirm the result. Blood Venous blood specimen / Unknown 11/21/2023 6:22 AM EDT 11/21/2023 6:22 AM EDT Naa Aguila MD LAB BLOOD ORDERAB LES Final Result [facility] [address] [place] [phone] * HPV mRNA E6/E7 w/Reflex to HPV Genotypes 16, 18/45 (04/12/2022 3:02 PM EST) HPV nRNA E6/E7 Not Detected Not Detected [facility] Comment:Methodology: Transcr iption-Mediated AmplificationThis assay detects E6/E7 viral messenger RNA (mRNA) from 14high-risk HPV types (16,18,31,33,35,39,45,51,52,56,58,59,66,68).Cervical sources are required for HPV testing.If a vaginal source from a patient who has had atotal hysterectomy with removal of cervix wassubmitted, please contact the testing laboratoryfor alternative testing options.For additional information, please refer [email or web address]/LKQ027z1(This link if provided for information/educational purposes only.)THIS TEST WAS PERFORMED AT:[employer] [place] [address] ([facility])[place] [phone] LEMUS MD HPV mRNA E6/E7 TNP [facility] HPV 16 RNA [facility] HPV 18/45 RNA [facility] 04/12/2022 3:02 PM EST 04/12/2022 4:15 PM EST [facility] External Provider LAB CYT OLOGY ORDERABLES Final Result [facility] [address] [place] [phone] [phone] * Pap Smear (04/12/2022 3:02 PM EST) 04/12/2022 3:02 PM EST 04/12/2022 4:15 PM EST Narrative [facility] - 04/20/2022 6:31 PM EST ----- ------- Name: Shruti [place] ? Age/Sex: 57/F ? : 1965 Unit#: [id number] ?? Attend Dr: Hair Hinojosa MD ?Re04/12/22 ?Status: DEP REF ? Location: HO.LNP ?Disch: ? ----- ------- SPEC : [id number] ? RECD: 04/12/22 ? STATUS: ??SOUT ? REQ NUM: [id number] ? ADRIANA: 04/12/22-1502 ? SUBM DR: Hair Hinojosa MD ? ENTERED: ??04/12/226 ?SP TYPE: Pap Smr ?OTHR DR: Sheryl [...] 66, 68) ? HPV testing performed by [facility], [place], [place]. ??See reference laboratory ?? portion of the EMR for entire report. ?Clinical Information LMP: Post menopause Previous PAP test: Unknown ? Material Received ?? ThinPrep-Cervical Copies To: ?? Sheryl Wang MD ?? [address] ?? [place] [address] ? Hair Hinojosa MD ?? [address] [place] [address] [facility] [address] ?? [place] [address] ?? [phone] ----- ------- Signed (signature on file) Christina Laureano 04/20/221830 ? ----- ------- ? END OF REPORT ? [facility] External Provider [facility] Final Result [facility] [address], [place] [phone] * Colonoscopy (12/15/2019 2:23 PM EDT) Colonoscopy Normal Normal Narrative [facility] - 12/15/2019 2:23 PM EDT Recommended 10 year follow up us Historical Provider HEALTH MAINTENANCE Edited Result - Final from Last 3 Months or Most Recently Relevant to Health Maintenance Insurance [employer] HSN FULL DENTAL-[facility] MEDICAID LIMITED ADULT DENTAL - HSN FULL (MEDICAID) Care Teams Household Refrigeration Mechanic Relationship Specialty Start Date End Date Naa Maradiaga MD [address] [place] [phone] PCP - General Internal Medicine 08/23/22
--- OUTSIDE RECORDS SUMMARY | 2024-08-05 13:53 | XMS_ITS | Encounter Summary ---
Author Organization [employer] [facility] Address [address] [place] [address] 7t [place] [address] Care Team Providers Care Injection Press Operator Name Role Phone Maryuri Wang MD Primary Care Provider + Naa Maradiaga MD Primary Care Pro vider Encounter Details Date Type Department Care Team (Latest Contact Info) Description 06/13/[address] [facility] CONVERSIONS Dental, Provider, DDS Social [...] Visit [facility] MEDICINE [address] [place], [place] [phone] Naa Maradiaga MD [address] [place], [place] [phone] 03/03/2025 3:00 PM EST Office Visit [facility] ADULT DENTAL [address] [place], [place] [phone] Angelica Álvarez documented as of this encounter Visit Diagnoses Not on filedocumented in this encounter Care Teams Injection Press Operator Relationship Specialty Start Date End Date Maryuri Wang MD [address] [place] [address] PCP - General Family Medicine 01/09/17 08/22/22 Naa Maradiaga MD [address] [place] [address] KENDRICK ALLEN [address] PCP - General Internal Medicine 08/23/22 documented as of this encounter
--- OUTSIDE RECORDS SUMMARY | 2024-08-05 13:53 | XMS_ITS | Encounter Summary ---
Author Organization [employer] [facility] Address [address] [place] [address] 7t [place] [address] Care Team Providers Care Pad Assembler Name Role Phone Maryuri Wang MD Primary Care Provider + Naa Maradiaga MD Primary Care Pro vider Encounter Details Date Type Department Care Team (Latest Contact Info) Description 02/17/2021 Abstract [facility] CONVERSIONS Dental, Provider, DDS Social History Tobacco [...] Description 09/11/2024 1:30 PM EDT Office Visit [facility] MEDICINE [address] [place] [address] Naa Maradiaga MD [address] [place], [place] [phone] 03/03/2025 3:00 PM EST Office Visit [facility] ADULT DENTAL [address] [place], [place] [phone] Angelica Álvarez documented as of this encounter Visit Diagnoses Not on filedocumented in this encounter Care Teams Pad Assembler Relationship Specialty Start Date End Date Maryuri Wang MD 230 [place] [address] PCP - General Family Medicine 01/09/17 08/22/22 Naa Maradiaga MD [address] [place] [address] PCP - General Internal Medicine 08/23/22 documented as of this encounter
--- OUTSIDE RECORDS SUMMARY | 2024-08-05 13:53 | XMS_ITS | Encounter Summary ---
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 Al at [employer] [phone] * Telephone Encounter - Jerman Reeves DMD [...] lower) for nightguard fabrication. Al at [employer] [phone] documented in this encounter Plan of Treatment Upcoming Encounters Date Type Department Care Team (Late st Contact Info) Description 09/11/2024 1:30 PM EDT Office Visit [facility] MEDICINE [address] [place], [place] [phone] Naa Maradiaga MD [address] [place] [address] [phone] 03/03/2025 3:00 PM EST Office Visit [facility] ADULT DENTAL [address] [place], [place] [phone] Angelica Álvarez documented as of this encounter Visit Diagnoses Not on filedocumented in this encounter Care Teams Second Baker Relationship Specialty Start Date End Date Naa Maradiaga MD [address] [place] [address] PCP - General Internal Medicine 08/23/22 documented as of this encounter
--- OUTSIDE RECORDS SUMMARY | 2024-08-05 13:53 | XMS_ITS | Encounter Summary ---
Author Organization [employer] Address [address] [facility] 7t [place] [address] Care Team Providers Care Risk Advisor Name Role Phone Naa Maradiaga MD Primary Care Pro vider Reason for Visit * Reason Onset Date Comments Results 08/21/2023 Encounter Details Date Type Department Care Team ([facility] st Contact Info) Description 08/21/2023 Telephone [facility] MEDICINE [address] [place] [address] Naa Maradiaga MD [address] [place] [address] Results Social History Tobacco Use Types Packs/Day [...] EDT TC placed to pt with a [place] interpreter for the deaf to inquire about the GI visit results [...] call back in regards gastro visit results. [place] Islander speaker documented in this encounter Plan of Treatment Upcoming Encounters Date Type Department Care Team (Late st Contact Info) Description 09/11/2024 1:30 PM EDT Office Visit [facility] MEDICINE [address] [place] [address] [phone] Naa Maradiaga MD [address] [place] [address] 03/03/2025 3:00 PM EST Office Visit [facility] ADULT DENTAL [address] [place] [address] [phone] Angelica Álvarez documented as of this encounter Visit Diagnoses Not on filedocumented in this encounter Care Teams Risk Advisor Relationship Specialty Start Date End Date Naa Maradiaga MD [address] [place] [address] PCP - General Internal Medicine 08/23/22 documented as of this encounter
--- OUTSIDE RECORDS SUMMARY | 2024-08-05 13:53 | XMS_ITS | Encounter Summary ---
Author Organization [facility] Address [address] [place] [address] Care Team Providers Care Movement Assembly Final Inspector Name Role Phone Maryuri Wang Primary Care Provider [phone] Encounter Details Date Type Department Care Team (Late st Contact Info) Description 04/28/2020 Orders Only [facility] XRay [address] [place] [address] [address] Social History Tobacco Use Types Packs/Day Years [...] on filedocumented in this encounter Care Teams Movement Assembly Final Inspector Relationship Specialty Start Date End Date Maryuri Wang [address] [place] [address] PCP - General Internal Medicine 10/03/17 documented as of this encounter
--- OUTSIDE RECORDS SUMMARY | 2024-08-05 13:53 | XMS_ITS | Encounter Summary ---
Author Organization [facility] Address [address] [place] [address] Care Team Providers Care Outside Cutter Hand Name Role Phone Maryuri Wang Primary Care Provider [phone] Encounter Details Date Type Department Care Team (Late st Contact Info) Description 07/05/2020 Telephone [facility] Interventional Radiology [address] [place] [address] [address] [facility] Social History Tobacco Use Types Packs/Day [...] on filedocumented in this encounter Care Teams Outside Cutter Hand Relationship Specialty Start Date End Date Maryuri Wang [address] [place] [address] PCP - General Internal Medicine 10/03/17 documented as of this encounter
--- OUTSIDE RECORDS SUMMARY | 2024-08-05 13:54 | XMS_ITS | Encounter Summary ---
Author Organization [employer] Address 75 [facility] 7t [place] [address] Care Team Providers Care Financial Services Professional Name Role Phone Naa Maradiaga MD Primary Care Pro vider Reason for Visit * Reason Onset Date Comments Medical clearance 08/03/2024 Encounter Details Date Type Department Care Team (Late st Contact Info) Description 08/03/2024 Telephone [facility] MEDICINE [address] [place] [address] Naa Maradiaga MD [address] [place] [address] Medical clearance Social History Tobacco Use Types Packs/Day Years [...] encounter Miscellaneous Notes * Telephone Encounter - Mirtha Edwards RN - 08/03/2024 3:02 PM EDT Telephone call returned to Daniela at [facility] Gen Surg regarding below message. She reports pt needs hemorrhoidectomy. 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 They are calling to see if PCP would okay pt having this surgery or whether preop with PCP or specialist recommended prior to them booking surgery. Surgery details: Procedure: hemorrhoidectomy Date: Anaesthesia: general Surgeon: [facility] Dr Chapman Labs/EKG: provider's discretion if preop needed * Telephone Encounter - Shemar Aguilar - 08/03/2024 8:57 AM EDT Tc from Daniela with [facility] General Surgery requesting a medical clearance for pt as will be getting a procedure for hemorrhoidectomy. documented in this encounter Plan of Treatment Upcoming Encounters Date Type Department Care Team ([facility] st Contact Info) Description 09/11/2024 1:30 PM EDT Office Visit [facility] MEDICINE [address] [place] [address] Naa Maradiaga MD [address] [place], [place] [phone] 03/03/2025 3:00 PM EST Office Visit [facility] ADULT DENTAL [address] [place], [place] [phone] Angelica Álvarez documented as of this encounter Visit Diagnoses Not on filedocumented in this encounter Care Teams Financial Services Professional Relationship Specialty Start Date End Date Naa Maradiaga MD [address] [place] [address] PCP - General Internal Medicine 08/23/22 documented as of this encounter
--- OUTSIDE RECORDS SUMMARY | 2024-08-05 13:54 | XMS_ITS | Encounter Summary ---
Author Organization [employer] Address [address] [facility] 7t [place] [address] Care Team Providers Care Oxyacetylene Burner Name Role Phone Naa Maradiaga MD Primary Care Pro vider Reason for Visit * Reason Comments Routine Cleaning Dental Exam Encounter Details Date Type Department Care Team ([facility] st Contact Info) Description 08/03/2024 3:00 PM EDT Office Visit [facility] ADULT DENTAL [address] [place] [address] Angelica Álvarez Dental plaque (Primary Dx); Dental calculus Social History Tobacco Use Types Packs/Day Years [...] t he electric, gas, oil or water [email or web address] threatened to shut off services in your [...] AM EDT documented as of this encounter Last Filed Vital Signs Vital Sign Reading Time Taken Comments Blood Pressure 132/82 08/03/2024 3:20 PM EDT Pulse - - Temperature - - Respiratory Rate - - Oxygen Saturation - - Inhaled Oxygen Concentration - - Weight - - Height - - Body Mass Index - - documented in this encounter Progress Notes * Angelica Álvarez - 08/03/2024 3:00 PM EDT Patient ID: Shruti Saldana is a 59 y.o. female. Time Out: Timeout Date: 08/03/24, Timeout Time: 1520 (Dental Prophy Adult) Location: [facility] Tooth: Maxilla and Mandible Procedure: Exam and Prophylaxis Verified the above with patient, dyer assistant, and provider. Confirmed via patient's chart, intraorally and by radiographs. Washer Engineer: not applicable Medical Hx: Vitals: Blood pressure 132/82. Medications, Med Hx reviewed with patient and updated in chart. Treatment Provided Dental procedures in this visit D1110 - PROPHYLAXIS - ADULT (Completed) Service provider: Angelica Jacinto provider: Jerman Reeves DMD D1330 - ORAL HYGIENE INSTRUCTIONS (Completed) Service provider: Angelica Jacinto provider: Jerman Reeves DMD D9450 - CASE PRESENTATION, DETAILED AND EXTENSIVE TREATMENT PLANNING (Completed) Service provider: Angelica Álvarez Billdeana provider: Jerman Reeves DMD Instruments Used: Ultrasonic Scalers, Hand Scalers, Prophy angle, and floss Fluoride: N/A Oral Cancer Screening: No lesions Head/Neck Exam: No Lesions Calculus: Light and Generalized Plaque: Light and Generalized Stain: Light and Generalized Bleeding: Light and Generalized Gingiva: Healthy [place]: Good Perio Chart: Not due Oral hygiene instructions provided to patient including brushing technique and flossing. Recommendations: Rule two times daily, modified reynolds technique, Floss daily, Electric toothbrush, Soft bristle toothbrush, Rule Tongue, Anti-sensitivity toothpaste Recall Frequency: 6 mo NV: 6mrc Hygienist: Angelica Álvarez RDH Cosigned by Jerman Reeves DMD at 08/04/2024 8:04 AM EDT * Jerman Reeves DMD - 08/03/2024 3:00 PM EDT C/C: dental exam and pt has no dental pain I.O.E: localized plaque accumulation, gingival recession teeth, no sensitive to percussion of #12,13,15 E.O.E: wnl OCS: wnl Head and neck; wnl Radiographic: gen slight periodontal bone loss Dx: gen chronic slight periodontitis, gingival recession teeth Tx: prophy, recall, monitor #12,13,15 Chuy documented in this encounter Plan of Treatment Upcoming Encounters Date Type Department Care Team (Late st Contact Info) Description 09/11/2024 1:30 PM EDT Office Visit [facility] MEDICINE [address] [place] [address] Naa Maradiaga MD [address] [place] [address] 03/03/2025 3:00 PM EST Office Visit [facility] ADULT DENTAL [address] [place] [phone] Angelica Álvarez Scheduled Orders Name Type Priority Associated Diagnoses Orde r Schedule PROPHYLAXIS - ADULT Dental Routine 1 Occ urrences starting 08/03/2024 BITEWINGS - 4 RADIOGRAPHIC IMAGES Dental Routine 1 Occurrence s starting 08/03/2024 ORAL HYGIENE INSTRUCTIONS Dental Routine 1 Occurrences starting 08/03/2024 documented as of this encounter Procedures Procedure Name Priority Date/Time Associated Diagnosis Comments PROPHYLAXIS - ADULT Routine 08/03/2024 3 :00 PM EDT Dental plaque Dental calculus PERIODIC ORAL EVALUATION - ESTABLISHED PATIENT Routine 08/03/2024 3:00 PM EDT ORAL HYGIENE INSTRUCTIONS Routine 08/03/2024 3:00 PM EDT Dental plaque Dental calculus CASE PRESENTATION, DETAILED AND EXTENSIVE TREATMENT PLANNING Routine 08/03/2024 3:00 PM EDT documented in this encounter Visit Diagnoses Diagnosis Dental plaque- Primary Accretions on teeth Dental calculus Accretions on teeth documented in this encounter Care Teams Oxyacetylene Burner Relationship Specialty Start Date End Date Naa Maradiaga MD [address] [place] [address] PCP - General Internal Medicine 08/23/22 documented as of this encounter
--- OUTSIDE RECORDS SUMMARY | 2024-08-05 13:54 | XMS_ITS | Encounter Summary ---
Author Organization [employer] Address [address] [facility] 7t [place] [address] Care Team Providers Care Nurse Practitioner Physicians Assistant Name Role Phone Naa Maradiaga MD Primary Care Pro vider Reason for Visit * Reason Onset Date Comments cx and rs appt same day 06/15/2024 Encounter Details Date Type Department Care Team (Late st Contact Info) Description 06/15/2024 Telephone [facility] ADULT DENTAL [address] [place] [address] Marian Urias, HORACE cx and rs appt same day Social [...] Description 09/11/2024 1:30 PM EDT Office Visit [facility] MEDICINE [address] [place] [address] Naa Maradiaga MD [address] [place] [address] 03/03/2025 3:00 PM EST Office Visit [facility] ADULT DENTAL [address] [place] [address] Angelica Álvarez documented as of this encounter Visit Diagnoses Not on filedocumented in this encounter Care Teams Nurse Practitioner Physicians Assistant Relationship Specialty Start Date End Date Naa Maradiaga MD [address] [place] [address] PCP - General Internal Medicine 08/23/22 documented as of this encounter
--- OUTSIDE RECORDS SUMMARY | 2024-08-05 13:54 | XMS_ITS | Encounter Summary ---
Author Organization [employer] Address [address] [facility] 7t [place] [address] Care Team Providers Care Claims Adjustor Name Role Phone Naa Maradiaga MD Primary Care Pro vider Reason for Visit * Reason Onset Date Comments new script 01/22/2023 Encounter Details Date Type Department Care Team (Late st Contact Info) Description 01/22/2023 Telephone [facility] MEDICINE [address] [place] [address] Naa Maradiaga MD [address] [place] [address] new script Social History Tobacco Use Types [...] Description 09/11/2024 1:30 PM EDT Office Visit [facility] MEDICINE [address] [place] [address] Naa Maradiaga MD [address] [place] [address] 03/03/2025 3:00 PM EST Office Visit [facility] ADULT DENTAL [address] [place] [address] Angelica Álvarez documented as of this encounter Visit Diagnoses Not on filedocumented in this encounter Care Teams Claims Adjustor Relationship Specialty Start Date End Date Naa Maradiaga MD [address] [place] [address] PCP - General Internal Medicine 08/23/22 documented as of this encounter
--- OUTSIDE RECORDS SUMMARY | 2024-08-05 13:54 | XMS_ITS | Clinical Summary ---
Author Organization [employer] Address [address] [place] [address] Phone Care Team Providers Care Apparatus Operator Name Role Phone Unavailable Primary Care Provider [...] 136 - 145 mmol/L 07/30/2017 9:29 PM [facility] Potassium 3.2(L) 3.5 - 5.1 mmol/L 07/30/2017 9:29 PM [facility] Chloride 106 95 - 115 mmol/L 07/30/2017 9:29 PM [facility] CO2 24 21 - 32 mmol/L 07/30/2017 9:29 PM [facility] Anion Gap 10 5 - 18 07/30/2017 9:29 PM [facility] Glucose 120(H) 70 - 100 mg/dL 07/30/2017 9:29 PM [facility] BUN 21 8 - 25 mg/dL 07/30/2017 9:29 PM [facility] Creatinine 0.77 0.50 - 1.30 mg/dL 07/30/2017 9:29 PM [facility] Calcium 9.1 8.4 - 10.3 mg/dL 07/30/2017 9:29 PM [facility] BUN/Creatinine Ratio 27.3(H) 8.0 - 25.0 07/30/2017 9:29 PM [facility] Total Protein 7.6 6.4 - 8.2 g/dL 07/30/2017 9:29 PM [facility] Albumin 4.0 3.4 - 5.0 g/dL 07/30/2017 9:29 PM [facility] Total Bilirubin 0.2 0.0 - 1.0 mg/dL 07/30/2017 9:29 PM [facility] Alkaline Phosphatase 73 20 - 120 U/L 07/30/2017 9:29 PM [facility] Alanine Aminotransferase (ALT) 23 12 - 78 U/L 07/30/2017 9:29 PM [facility] Aspartate Aminotransferase (AST) 26 5 - 37 U/L 07/30/2017 9:29 PM [facility] Globulin 3.6 g/dL 07/30/2017 9:29 PM [facility] A/G Ratio 1.1 07/30/2017 9:29 PM [facility] AST/ALT Ratio 1.1 07/30/2017 9:29 PM [facility] eGFR (Afr Amer) >60 >60 mL/min/1. 73m2 07/30/2017 9:29 PM [facility] Comment: Values under 60mL/min/1.73m2 may indicate CKD if noted for ?? more than 3 months. eGFR is only valid if creatinine is at steady state. eGFR (NON -Nauruan) >60 >60 mL/min/1. 73m2 07/30/2017 9:29 PM [facility] Comment: Values under 60mL/min/1.73m2 may indicate CKD if noted for ?? more than 3 months. eGFR is only valid if creatinine is at steady state. Osmolality Calculation 284 275 - 295 mOsm/kg 07/30/2017 9:29 PM [facility] Blood specimen (specimen) Venipuncture / Unknown 07/30/2017 8:55 PM EDT 07/30/2017 9:04 PM EDT us Peter A Garcia MD LAB BLOOD ORDERABLE S Final Result [address] [address], [facility] [phone] from Last 3 Months or Most Recently Relevant to Health Maintenance Insurance [id number] MEDICAID [id number] MEDICAID [id number] MEDICAID [id number] MEDICAID
--- OUTSIDE RECORDS SUMMARY | 2024-08-05 13:54 | XMS_ITS | Clinical Summary ---
Author Organization [facility] Address [address] [place] [address] Care Team Providers Care Scanning Clerk Name Role Phone SelmaDiana LIONEL Primary Care Provider [phone] Source Comments PLEASE NOTE, if this patient [...] Plan of Treatment Not on file Insurance [place] MED[place] HE[place]AF[place]Y NET Care Teams Scanning Clerk Relationship Specialty Start Date End Date Diana Hahn NP [address] [place] [address] PCP - General Internal Medicine 10/10/12
== END 2024-08-05 13:20 | disposition home or self-care (01) ==
LOC: HO.MAMMO 13:19
PROVIDERS: PCP Student in an Organized Health Care Education/Training Program; Visit Provider Obstetrics & Gynecology
DX: N64.4 Mastodynia (principal)
CPT/HCPCS: 76642; 77062; 77066

== ENCOUNTER → 2024-08-05 13:30 | Outpatient (BNV) | payer OTHER, SELFPAY | PROVIDERS: PCP Student in an Organized Health Care Education/Training Program; Visit Provider Internal Medicine | DX: N64.4 Mastodynia (principal); D36.0 Benign neoplasm of lymph nodes | CPT/HCPCS: 76642; 77062; 77066 ==

== ENCOUNTER 2024-09-15 06:56 | Day surgery (SDC) | payer OTHER, SELFPAY ==
--- OUTSIDE RECORDS SUMMARY | 2024-08-20 08:16 | XMS_ITS | Encounter Summary ---
Author Organization [employer] Address 75 [facility] 7t [place] [address] Care Team Providers Care Dairy Associate Name Role Phone Naa Maradiaga MD Primary Care Pro vider Encounter Details Date Type Department Care Team (Late st Contact Info) Description 09/05/2022 Abstract [facility] MEDICINE [address] [place] [address] Naa Maradiaga MD [address] [place] [address] Social History Tobacco Use Types Packs/Day Years [...] Description 09/11/2024 1:30 PM EDT Office Visit [facility] MEDICINE [address] [place] [address] Naa Maradiaga MD [address] [place] [address] 03/03/2025 3:00 PM EST Office Visit [facility] ADULT DENTAL [address] [place] [address] Angelica Álvarez documented as of this encounter Procedures Procedure Name Priority Date/Time Associated Diagnosis Comments HM COLONOSCOPY Routine 12/15/2019 2:23 PM EDT documented in this encounter Results * Hm Colonoscopy (12/15/2019 2:23 PM EDT) Colonoscopy Normal Normal Narrative Lashon Cat - 12/15/2019 2:23 PM EDT Recommended 10 year follow up Historical Provider [facility] Edited Result - Final documented in this encounter Visit Diagnoses Not on filedocumented in this encounter Care Teams Dairy Associate Relationship Specialty Start Date End Date Naa Maradiaga MD [address] [place] [address] PCP - General Internal Medicine 08/23/22 documented as of this encounter
[2024-09-11 10:53] VITALS: BMI 26.6
--- NOTE | 2024-09-14 09:51 | HO.ANESPROP2 ---
Documented by User: Kristen Ragsdale NP 09/14/24 09:55 HPI - Anesthesia Eval Consult details Narrative: 59yo F for EUA, Hemorrhoidectomy PMFSH Active Problems Active Problems: All Active Problems Breast pain (Acute) Trigger finger, right ring finger (Acute) Arthritis of right knee (Acute) Osteoarthritis of left knee (Acute) Chronic back pain (Acute) Myofascial pain (Acute) Sacroiliac joint dysfunction of both sides (Acute) Language barrier to communication (Acute) Diverticulosis of colon (Acute) Melanosis coli (Acute) Anemia (Acute) Hemorrhoids (Acute) Chronic constipation (Acute) Leg pain (Acute) Varicose veins of right lower extremity with inflammation (Acute) Lipoma (Acute) Abdominal wall lump (Acute) Well woman exam (Acute) Anal fissure (Acute) Rectal pain (Acute) Chronic pain syndrome (Acute) Arthropathy of lumbar facet joint (Acute) 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) Lumbar radiculopathy (Acute) Osteoarthritis of right knee (Acute) Vaginal discharge (Acute) Cervical cancer screening (Acute) Postmenopausal bleeding (Acute) Well woman exam with routine gynecological exam (Acute) Acid reflux (Acute) Abdominal pain (Acute) Thyroid disease (Acute) Past Medical History Medical History Acid reflux Abdominal pain Thyroid disease Arthritis Aneurysm Family History Family History Mother Colon cancer Father Heart attack Family/Other Pancreatic cancer, Onset Age: 50 Sister Uterine cancer Other Family history of thyroid problem Family history of problems with anesthesia: No Surgical History Surgical History Hx of brain surgery History of esophagogastroduodenoscopy (EGD) S/P excision of lipoma (06/21/22) Hx of colonoscopy History of tubal ligation History of Problems with Anesthesia: No Social History Social History Household Members: Spouse and Family Household Members Other:: spouse, son Housing: House Alcohol intake: current Alcohol intake frequency: does not drink Patient Tobacco Use Status: Never used Tobacco Have you been hit, kicked, punched, or otherwise hurt by someone within the past year? 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 Sexual orientation: Straight/Heterosexual Gender identity: Female Meds Allergies Allergy/AdvReac Type Severity Reaction Status Date / Time No Known Allergies Allergy Verified 07/22/24 14:27 Home Medications ?Medication ?Instructions ?Recorded ?Confirmed ?Last Taken ?Type aspirin 81 mg tablet,delayed 81 mg PO DAILY 01/12/21 09/11/24 09/14/24 History release acetaminophen 500 mg tablet 500 mg PO Q6H PRN Pain 09/13/21 09/11/24 Unknown History sodium chloride 0.65 % nasal spray 1 spray intranasal congestion 01/28/23 10/04/23 Unknown History aerosol (Deep Sea Nasal) blood pressure test kit-large #1 ea 04/17/23 07/07/24 Unknown History cyanocobalamin (vitamin B-12) 1,000 mcg PO QAM 04/17/23 09/11/24 Unknown History 1,000 mcg tablet Exam Height,Weight and Vital Signs: Height 5 ft 4 in Weight 70.307 kg Pertinent Lab Results Pertinent Lab Results: Laboratory Tests 07/07/24 16:36 WBC 5.2 Hgb 11.0 L Hct 34.4 L Plt Count 276 Sodium 139 Potassium 4.4 Chloride 108 Carbon Dioxide 25 BUN 22 H Creatinine 0.97 Narrative Narrative: EKG 2023 Vent. Rate : 066 BPM Atrial Rate : 066 BPM P-R Int : 154 ms QRS Dur : 088 ms QT Int : 424 ms P-R-T Axes : 053 -08 046 degrees QTc Int : 444 ms Normal sinus rhythm Possible Left atrial enlargement Borderline ECG When compared with ECG of 21-JUL-2018 12:52, No significant change was found CT angio head 2023 IMPRESSION: Status post coiled embolization and stenting cerebral aneurysm, likely anterior communicant artery. No acute brain abnormality by CT. Assessment and Plan Assessment Anesthesia Assessment: Chart Reviewed Final Anesthetic Review Family History of Problems with Anesthesia: No History of Problems with Anesthesia: No Documented by User: Debi Mccollum MD 09/15/24 08:21 [facility] Past Medical History Medical History Acid reflux Abdominal pain Thyroid disease Arthritis Aneurysm Family History Family History Mother Colon cancer Father Heart attack Family/Other Pancreatic cancer, Onset Age: 50 Sister Uterine cancer Other Family history of thyroid problem Surgical History Surgical History Hx of brain surgery History of esophagogastroduodenoscopy (EGD) S/P excision of lipoma (06/21/22) Hx of colonoscopy History of tubal ligation Social History Social History Household Members: Spouse and Family Household Members Other:: spouse, son Housing: House Alcohol intake: current Alcohol intake frequency: does not drink Patient Tobacco Use Status: Never used Tobacco Have you been hit, kicked, punched, or otherwise hurt by someone within the past year? 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 Sexual orientation: Straight/Heterosexual Gender identity: Female Meds Allergies Allergy/AdvReac Type Severity Reaction Status Date / Time No Known Allergies Allergy Verified 07/22/24 14:27 Home Medications ?Medication ?Instructions ?Recorded ?Confirmed ?Last Taken ?Type aspirin 81 mg tablet,delayed 81 mg PO DAILY 01/12/21 09/11/24 09/14/24 History release acetaminophen 500 mg tablet 500 mg PO Q6H PRN Pain 09/13/21 09/11/24 Unknown History sodium chloride 0.65 % nasal spray 1 spray intranasal congestion 01/28/23 10/04/23 Unknown History aerosol (Deep Sea Nasal) blood pressure test kit-large #1 ea 04/17/23 07/07/24 Unknown History cyanocobalamin (vitamin B-12) 1,000 mcg PO QAM 04/17/23 09/11/24 Unknown History 1,000 mcg tablet Exam Airway Mallampati Class: II TM Dist: >3cm Neck ROM: Full Heart: rrr Lungs: cta Assessment and Plan Assessment Anesthesia Assessment: Anesthesia Plan Discussed Final Anesthetic Review NPO: Yes ASA Class: II Final Preanesthetic Review: No Changes in Pt Med Stat, Meds/Allgs Chart Reviewed, Consent Obtained/Reviewed and Anes Risks/Benef Reviewed Patient Risk: Intermediate Procedure Risk: Low Anesthetic Plan Anesthetic Plan: GA Disposition: Standard PACU
[2024-09-15 07:00] VITALS: BP 133/80; PULSE 67; RESP 20; TEMP 36.4; O2SAT 98; BMI 26.6
[2024-09-15] MEDS: Lactated Ringers 1,000 ML 100 ML IVCONT (07:25)
--- NOTE | 2024-09-15 08:23 | MHC.SHP ---
Pre-Procedural Eval Section A - 24 Hr Update-Section A only Date of Service: 09/15/24 Section B - Complete if H&P > 30 days Chief Complaint: Unspecified hemorrhoids Details of Present Illness: Hemorrhoids with chronic pain and discomfort and recurrent swelling Relevant Family History (Specify if Yes): No Relevant Social History: None Present Medications: see Short Stay Collaborative assessment Medical History: Significant History (Osteoarthritis, thyroid disorder) Allergies: Allergies Allergy/AdvReac Type Severity Reaction Status Date / Time No Known Allergies Allergy Verified 07/22/24 14:27 Review of Systems Sugical H&P ROS: Negative: Constitution, Cardiovascular and Respiratory Exam Surgical H&P Exam: Normal: Heart, Normal: Lungs and Normal: Abdomen Exam Comment: External hemorrhoid anteriorly Plan Diagnosis/Plan: Unchanged I have reviewed the history and physical and performed a pertinent physical examination on my patient. No changes have occurred unless specified. Time Spent With Patient Time: Total time managing care of this patient today ____ minutes.
[2024-09-15] MEDS: cefoTEtan disodium 2 GM VIAL IVPUSH (09:01)
--- NOTE | 2024-09-15 09:20 | W.PM.OPN ---
Operative Note Operative Note Date of Service: 09/15/24 Narrative: Preop diagnosis: External hemorrhoids with pain and swelling Postop diagnosis: The same Procedure: Exam under anesthesia hemorrhoidectomy x1 column Surgeon: Camilo Chapman MD Non Licensed Nuclear Plant Operator: STEFF Noguera student The patient is a 59 year old female who has a long history of pain and swelling with the hemorrhoids. Examination in the office showed 1 external hemorrhoidal column anteriorly. She wanted to proceed with the hemorrhoidectomy because of her severe symptoms. She understood the technique of the planned procedure as well as the risks, benefits, and alternatives. She was brought to the operating room and placed in prone duong-knife position under general anesthesia via endotracheal tube. The buttocks were retracted with wide tape laterally. The perianal area was prepped and draped in the usual sterile fashion. A surgical time-out was done. The patient received Cefotan 2 g IV preoperatively Examination of the anal orifice showed an external hemorrhoidal column anteriorly. I inserted the Adolfo Cifuentes retractor. I examined the anal canal circumferentially. There were no other prominent hemorrhoidal columns. There were no lesions or ulceration. There was no induration . I infiltrated the perianal area with lidocaine 1%. I applied a Love grasper in the external hemorrhoid anteriorly to retract this. I made a pimuov-ma-luvgv stitch at its pedicle with a chromic 3-0. I made an incision around this hemorrhoidal column to the perianal skin with a blade 15. I excised this hemorrhoidal column above the plane of the sphincters with scissors. I closed the incision with a running chromic 3-0 stitch. Additional hemostatic sutures were placed. Once hemostasis was confirmed, I irrigated the perianal area with Marcaine 0.5% for postop analgesia. The procedure was completed. The patient tolerated the procedure well. There were no immediate complications. Initial and final counts of sponges and instruments were correct. Estimated blood loss was about 10 cc. The patient was extubated without difficulty and transferred to the recovery room with stable vital signs.
[2024-09-15 09:32] VITALS: BP 138/79; PULSE 83; RESP 12; TEMP 36.4; O2SAT 97
[2024-09-15 09:35] VITALS: BP 149/90; PULSE 65; RESP 12; O2SAT 97
[2024-09-15 09:40] VITALS: BP 132/78; PULSE 67; RESP 12; O2SAT 97
[2024-09-15 09:45] VITALS: BP 143/75; PULSE 59; RESP 12; O2SAT 97
[2024-09-15 10:00] VITALS: BP 142/74; PULSE 59; RESP 12; TEMP 36.4; O2SAT 97
== END 2024-09-15 10:46 | disposition home or self-care (01) ==
PROVIDERS: PCP Student in an Organized Health Care Education/Training Program; Visit Provider Surgery
PROC: (CPT 46999; principal; 2024-09-15 08:40)
DX: K64.9 Unspecified hemorrhoids (principal); K64.4 Residual hemorrhoidal skin tags; R10.9 Unspecified abdominal pain; K59.00 Constipation, unspecified; K21.9 Gastro-esophageal reflux disease without esophagitis; E07.9 Disorder of thyroid, unspecified; Z79.1 Long term (current) use of non-steroidal anti-inflammatories (NSAID); Z79.899 Other long term (current) drug therapy; Z98.890 Other specified postprocedural states
CPT/HCPCS: 46999; 88304; J0131; J1100; J1885; J2003; J2250; J2405; J2704; J2795; J3010

== ENCOUNTER → 2024-09-15 06:56 | Outpatient (BNV) | payer OTHER, SELFPAY | PROVIDERS: PCP Student in an Organized Health Care Education/Training Program; Visit Provider Surgery | DX: K64.8 Other hemorrhoids (principal) | CPT/HCPCS: 46999 ==

== ENCOUNTER 2024-09-30 14:51 | Outpatient (AMB) | payer OTHER, SELFPAY ==
--- NOTE | 2024-09-30 14:59 | MHC.OFFVIS ---
Vital Signs 09/30/24 15:04 Weight 152 lb BP 121/66 Blood Pressure Location Rt brachial Position Sitting Pulse 75 Intake Visit Reasons: s/p hemorrhoidectomy Intake Note: Patient here s/p hemorrhoidectomy x1 column. Patient c/o: no concerns. Denies bleeding, constipation, diarrhea. Taking Metamucil to help regulate BM. Director Of Materials Required: Yes Director Of Materials Name: Maryse RILEY Accompanied by: Self / Same As Patient Allergies No Known Allergies Allergy (Verified 09/30/24 15:05) HPI HPI s/p hemorrhoidectomy: Details: She underwent hemorrhoidectomy x1 column last I 2024. She tolerated procedure well. She currently feels well and admits some pain although this has been improving. [facility] Medical History Acid reflux Abdominal pain Thyroid disease Arthritis Aneurysm Surgical History H/O hemorrhoidectomy (09/15/24) Hx of brain surgery History of esophagogastroduodenoscopy (EGD) S/P excision of lipoma (06/21/22) Hx of colonoscopy History of tubal ligation Family History Mother Colon cancer Father Heart attack Family/Other Pancreatic cancer, Onset Age: 50 Sister Uterine cancer Other Family history of thyroid problem Social History Household Members: Spouse and Family Household Members Other:: spouse, son Housing: House Alcohol intake: current Alcohol intake frequency: does not drink Comment: counts correct Patient Tobacco Use Status: Never used Tobacco 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 Sexual orientation: Straight/Heterosexual Gender identity: Female Female Reproductive History Menstrual Age of Menarche: 15 Review of Systems Const Denies chills and Denies fever(s) Physical Exam Vital Signs: Last Vital Signs Pulse 75 09/30/24 15:04 BP 121/66 09/30/24 15:04 Const General: comfortable and no acute distress Resp Effort & Inspection: normal respiratory effort GI Other: Rectal exam shows the hemorrhoidectomy sites to be healing well without any infection Assessment & Plan Assessment & Plan (1) Hemorrhoids: Code(s): K64.9 - Unspecified hemorrhoids Category: Medical Plan: Status post hemorrhoidectomy. She is doing well postoperatively. The hemorrhoidectomy site is healing well. Her path report shows hemorrhoids I advised her to avoid straining and constipation. She can otherwise follow up with me on a p.r.n. basis. Coding Level of Care Code Global (00201) Diagnoses Hemorrhoids K64.9
[2024-09-30 15:04] VITALS: BP 121/66; PULSE 75
--- OUTSIDE RECORDS SUMMARY | 2024-09-30 15:22 | XMS_ITS | Encounter Summary ---
Author Organization [employer] Address [address] [place] [address] Care Team Providers Care Reactor Service Operator Name Role Phone Naa Maradiaga MD Primary Care Pro vider Encounter Details Date Type Department Care Team (Late st Contact Info) Description 09/05/2022 Abstract [facility] MEDICINE [address] [place] [address] Naa Maradiaga MD [address] [place] [address] Social History Tobacco Use Types Packs/Day Years [...] Care Team (Late st Contact Info) Description 11/27/2024 2:30 PM EDT Office Visit [facility] MEDICINE [address] [place] [address] Mally Godinez ANP [address] [place] [address] 03/03/2025 3:00 PM EST Office Visit [facility] ADULT DENTAL [address] [place] [address] Angelica Álvarez documented as of this encounter Procedures Procedure Name Priority Date/Time Associated Diagnosis Comments HM COLONOSCOPY Routine 12/15/2019 2:23 PM EDT documented in this encounter Results * Hm Colonoscopy (12/15/2019 2:23 PM EDT) Colonoscopy Normal Normal Narrative Lashon Cat - 12/15/2019 2:23 PM EDT Recommended 10 year follow up Historical Provider [employer] MAIN[employer]CE Edited Result - Final documented in this encounter Visit Diagnoses Not on filedocumented in this encounter Care Teams Reactor Service Operator Relationship Specialty Start Date End Date Naa Maradiaga MD [address] [place] [address] PCP - General Internal Medicine 08/23/22 documented as of this encounter
--- OUTSIDE RECORDS SUMMARY | 2024-09-30 15:22 | XMS_ITS | Clinical Summary ---
Author Organization [facility] Address [address] [place] [address] Care Team Providers Care Data Warehouse Manager Name Role Phone SelmaDiana LIONEL Primary Care Provider [phone] Source Comments PLEASE NOTE, if this patient [...] 70 10/10/2012 3:50 PM EDT Temperature 36.6 C (97.8 F) 10/10/2012 3:50 PM EDT Respiratory Rate 16 10/10/2012 3:50 PM EDT Oxygen Saturation - - Inhaled Oxygen Concentration - - Weight 65.3 kg (144 lb) 10/10/2012 3:50 PM EDT Height 165.1 cm (5' 5 ) 10/10/2012 3:50 PM EDT Body Mass Index 23.96 10/10/2012 3:50 PM EDT Plan of Treatment Not on file Insurance [place] MEDICAID HEALTH SAFETY NET Care Teams Data Warehouse Manager Relationship Specialty Start Date End Date Diana Hahn NP [address] [place] [address] PCP - General Internal Medicine 10/10/12
--- OUTSIDE RECORDS SUMMARY | 2024-09-30 15:22 | XMS_ITS | Encounter Summary ---
Author Organization [facility] Address [address] [place] [address] Care Team Providers Care Quality Specialist Name Role Phone Maryuri Wang Primary Care Provider [phone] Encounter Details Date Type Department Care Team (Late st Contact Info) Description 04/28/2020 Orders Only [facility] Xr [address] [place] [address] [address] Social History Tobacco Use Types Packs/Day Years [...] on filedocumented in this encounter Care Teams Quality Specialist Relationship Specialty Start Date End Date Maryuri Wang [address] [place] [address] PCP - General Internal Medicine 10/03/17 documented as of this encounter
--- OUTSIDE RECORDS SUMMARY | 2024-09-30 15:22 | XMS_ITS | Clinical Summary ---
Author Organization [facility] Address [address] [place] [address] Phone Care Team Providers Care Fruit Or Nut Crops Farm Manager Name Role Phone Unavailable Primary Care [...] 81 07/30/2017 10:15 PM EDT Temperature 36.6 C (97.9 F) 07/30/2017 8:46 PM EDT Respiratory Rate 18 07/30/2017 10:15 PM EDT [...] 11/10/2013, 11/10/2013 Covid-19 vaccine series (1 - season) 2023 Influenza vaccine 11/16/2024 RSV Immunization [...] 136 - 145 mmol/L 07/30/2017 9:29 PM [facility] Potassium 3.2(L) 3.5 - 5.1 mmol/L 07/30/2017 9:29 PM [facility] Chloride 106 95 - 115 mmol/L 07/30/2017 9:29 PM [facility] CO2 24 21 - 32 mmol/L 07/30/2017 9:29 PM [facility] Anion Gap 10 5 - 18 07/30/2017 9:29 PM [facility] Glucose 120(H) 70 - 100 mg/dL 07/30/2017 9:29 PM [facility] BUN 21 8 - 25 mg/dL 07/30/2017 9:29 PM [facility] Creatinine 0.77 0.50 - 1.30 mg/dL 07/30/2017 9:29 PM [facility] Calcium 9.1 8.4 - 10.3 mg/dL 07/30/2017 9:29 PM [facility] BUN/Creatinine Ratio 27.3(H) 8.0 - 25.0 07/30/2017 9:29 PM [facility] Total Protein 7.6 6.4 - 8.2 g/dL 07/30/2017 9:29 PM [facility] Albumin 4.0 3.4 - 5.0 g/dL 07/30/2017 9:29 PM [facility] Total Bilirubin 0.2 0.0 - 1.0 mg/dL 07/30/2017 9:29 PM [facility] Alkaline Phosphatase 73 20 - 120 U/L 07/30/2017 9:29 PM [facility] Alanine Aminotransferase (ALT) 23 12 - 78 U/L 07/30/2017 9:29 PM [facility] Aspartate Aminotransferase (AST) 26 5 - 37 U/L 07/30/2017 9:29 PM [facility] Globulin 3.6 g/dL 07/30/2017 9:29 PM [facility] A/G Ratio 1.1 07/30/2017 9:29 PM [facility] AST/ALT Ratio 1.1 07/30/2017 9:29 PM [facility] eGFR (Afr Amer) >60 >60 mL/min/1. 73m2 07/30/2017 9:29 PM [facility] Comment: Values under 60mL/min/1.73m2 may indicate CKD if noted for more than 3 months. eGFR is only valid if creatinine is at steady state. eGFR (NON -Yemeni) >60 >60 mL/min/1. 73m2 07/30/2017 9:29 PM [facility] Comment: Values under 60mL/min/1.73m2 may indicate CKD if noted for more than 3 months. eGFR is only valid if creatinine is at steady state. Osmolality Calculation 284 275 - 295 mOsm/kg 07/30/2017 9:29 PM [facility] Blood specimen (specimen) Venipuncture / Unknown 07/30/2017 8:55 PM EDT 07/30/2017 9:04 PM EDT us Peter A Garcia MD LAB BLOOD ORDERABLE S Final Result [facility] [address] [place] [id number], [facility] [phone] from Last 3 Months or Most Recently Relevant to Health Maintenance Insurance [id number] MEDICAID [id number] MEDICAID [id number] MEDICAID [id number] MEDICAID
== END 2024-09-30 15:18 | disposition home or self-care (01) ==
LOC: HO.HGS 14:52
PROVIDERS: PCP Student in an Organized Health Care Education/Training Program; Visit Provider Surgery
DX: K64.9 Unspecified hemorrhoids (principal)
CPT/HCPCS: 99024

== ENCOUNTER → 2024-09-30 14:51 | Outpatient (BNVA) | payer OTHER, SELFPAY | PROVIDERS: PCP Student in an Organized Health Care Education/Training Program; Visit Provider Surgery | DX: Z09 Encounter for follow-up examination after completed treatment for conditions other than malignant neoplasm (principal); Z87.19 Personal history of other diseases of the digestive system | CPT/HCPCS: 99212 ==

== ENCOUNTER 2024-11-12 06:00 | Outpatient (REF) | payer OTHER, SELFPAY ==
--- OUTSIDE RECORDS SUMMARY | 2024-11-12 06:03 | XMS_ITS | Encounter Summary ---
Author Organization [employer] Address [address] [facility] [address] [place] [address] Care Team Providers Care Flight Test Data Acquisition Technician Name Role Phone Naa Maradiaga MD Primary Care Pro vider Reason for Visit * Reason Onset Date Comments Med Refill 10/16/2024 Encounter Details Date Type Department Care Team (Late st Contact Info) Description 10/16/2024 Telephone [facility] MEDICINE [address] [place] [address] Naa Maradiaga MD [address] [place] [address] Med Refill Social History Tobacco Use Types Packs/Day Years Used Date Smoking Tobacco: Never Passive Smoke Exposure: Never Smokeless Tobacco: Never Alcohol Use Standard Drinks/Week Comments Yes 1 (1 standard drink = 0.6 oz pur e alcohol) social Depression Answer Date Recorded Patient Health Questionnaire-9 Score 0 09/11/2024 Patient Health Questionnaire-9 Score 0 09/11/2024 Last PHQ-9: Questionnaire Data Not on file 0 09/11/2024 Housing Stability Answer Date Recorded What is [...] Date Recorded Patient Health Questionnaire-2 Score 0 09/11/2024 Internet Access Answer Date Recorded Internet Access [...] Telephone Encounter - Geraldine Vasquez LPN - 10/16/2024 3:38 PM EDT Medication was sent to [facility] on 09/11/24 #90. * Telephone Encounter - Ann Cuellar - 10/16/2024 3:32 PM EDT TC from pt requesting medication refill. Medications needing refill : - levothyroxine (Synthroid) 112 MCG tablet To be sent to: - [facility] - [place], [place] - [address] [place] [address] documented in this encounter Plan of Treatment Upcoming Encounters Date Type Department Care Team (Late st Contact Info) Description 11/27/2024 2:30 PM EDT Office Visit [facility] MEDICINE [address] [place] [id number] Mally Godinez ANP [address] [place] [address] 03/03/2025 3:00 PM EST Office Visit [facility] ADULT DENTAL [address] [place] [address] Angelica Álvarez documented as of this encounter Visit Diagnoses Not on filedocumented in this encounter Additional Health Concerns Assessment Noted Time PHQ-9 Depression Total Score: 0 09/12/19 25 1:49 PM EDT documented as of this encounter Care Teams Flight Test Data Acquisition Technician Relationship Specialty Start Date End Date Naa Maradiaga MD [address] [place] [address] PCP - General Internal Medicine 08/23/22 documented as of this encounter
--- OUTSIDE RECORDS SUMMARY | 2024-11-12 06:03 | XMS_ITS | Clinical Summary ---
Author Organization [facility] Address [address] [place] [address] Care Team Providers Care Marker Machine Name Role Phone KathleenMaryuriPadma Primary Care Provider [phone] Allergies No known active allergies Medications levothyroxine [...] 78 10/11/2020 4:38 PM EDT Temperature 36.7 C (98.1 F) 10/11/2020 4:38 PM EDT Respiratory Rate 16 10/05/2020 11:51 AM EDT Oxygen Saturation 97% 10/05/2020 10:35 AM EDT Inhaled Oxygen Concentration - - Weight 65.3 kg (144 lb) 10/05/2020 7:36 AM EDT Height 162.6 cm (5' 4 ) 10/05/2020 7:36 AM EDT Body Mass Index 24.72 10/05/2020 7:36 AM EDT Plan of Treatment Health Maintenance Due Date Last Done Comments Cologuard 1965 Colon Cancer Screening 1965 Colonoscopy 1965 FOBT / Fit Test 1965 HIV Screening 1965 Sigmoidoscopy 1963 DTaP,Tdap,and Td Vaccines (1 - Tdap) 1985 Pneumococcal Vaccine: 50+ Years (1 of 1 - PCV) 2013 Zoster Vaccines (1 of 2) 2013 COVID-19 Vaccine (3 - 2023-2 5 season) 2023 08/10/2020, 07/13/2020 Alcohol/Substance Use Screening 03/18/2024 Influenza Vaccine (#1) 2024 12/04/2013 RSV Vaccine (60+ years old a nd patients) (1 - 1-dose 75+ series) 2038 Hepatitis B Vaccines Aged Out No long er eligible based on patient's age to complete this topic Medical Devices Implanted Type Area Analytics Specialist Device Identifier Shelf Expiration Date Model / Serial / Lot Device Closure Vascular Plug 6fr Angio-Seal Vip - [id number] Implanted:Qty: 1 on 03/04/2018 at [facility] Implant [employer] 12/15/2018 [id number] / / [id number] Device Closure Vascular Plug 6fr Angio-Seal Vip - [id number] Implanted:Qty: 1 on 07/06/2020 at [facility] Implant [employer] [id number] / / Device Closure Vascular Plug 6fr Angio-Seal Vip - [id number] Implanted:Qty: 1 on 08/03/2020 at [facility] Implant [employer] [id number] / / Diverter Flow [id number] - [id number] Implanted:Qty: 1 on 08/03/2020 at [facility] [employer] 12/15/2022 [id number] / / [id number] Diverter Flow [id number] - [id number] Implanted:Qty: 1 on 08/03/2020 at [facility] [employer] 08/15/2022 [id number] / / [id number] [facility] Care Teams Marker Machine Relationship Specialty Start Date End Date Maryuri Wang [address] [place] [address] PCP - General Internal Medicine 10/03/17
--- OUTSIDE RECORDS SUMMARY | 2024-11-12 06:03 | XMS_ITS | Clinical Summary ---
Author Organization [facility] Address [address] [place] [address] Care Team Providers Care Middle School Music Teacher Name Role Phone SelmaDiana LIONEL Primary Care Provider [phone] Source Comments PLEASE NOTE, if this patient [...] Plan of Treatment Not on file Insurance [place] MEDICAID HEALTH SAFETY NET Care Teams Middle School Music Teacher Relationship Specialty Start Date End Date Diana Hahn NP [address] [place] [address] PCP - General Internal Medicine 10/10/12
--- OUTSIDE RECORDS SUMMARY | 2024-11-12 06:03 | XMS_ITS | Encounter Summary ---
Author Organization [employer] Address [address] [facility] 7t [place] [address] Care Team Providers Care Cloth Examiner Name Role Phone Naa Maradiaga MD Primary Care Pro vider Reason for Visit * Reason Onset Date Comments new script 01/22/2023 Encounter Details Date Type Department Care Team (Late st Contact Info) Description 01/22/2023 Telephone [facility] MEDICINE [address] [place] [address] Naa Maradiaga MD [address] [place] [address] new script Social History Tobacco Use Types [...] Description 11/27/2024 2:30 PM EDT Office Visit [facility] MEDICINE [address] [place] [phone] Mally Godinez ANP [address] [place] [address] 03/03/2025 3:00 PM EST Office Visit [facility] ADULT DENTAL [address] [place] [address] Angelica Álvarez documented as of this encounter Visit Diagnoses Not on filedocumented in this encounter Care Teams Cloth Examiner Relationship Specialty Start Date End Date Naa Maradiaga MD [address] [place] [id number] PCP - General Internal Medicine 08/23/22 documented as of this encounter
--- OUTSIDE RECORDS SUMMARY | 2024-11-12 06:03 | XMS_ITS | Encounter Summary ---
Author Organization [employer] Address [address] [facility] 7t [place] [address] Care Team Providers Care Payroll Officer Name Role Phone Naa Maradiaga MD Primary Care Pro vider Encounter Details Date Type Department Care Team (Late st Contact Info) Description 09/05/2022 Abstract [facility] MEDICINE [address] [place] [address] Naa Maradiaga MD [address] [place] [address] Social History Tobacco Use Types Packs/Day Years [...] Description 11/27/2024 2:30 PM EDT Office Visit [facility] MEDICINE [address] [place] [address] Mally Godinez ANP [address] [place] [address] 03/03/2025 3:00 PM EST Office Visit [facility] ADULT DENTAL [address] [place] [address] Angelica Álvarez documented as of this encounter Procedures Procedure Name Priority Date/Time Associated Diagnosis Comments HM COLONOSCOPY Routine 12/15/2019 2:23 PM EDT documented in this encounter Results * Hm Colonoscopy (12/15/2019 2:23 PM EDT) Colonoscopy Normal Normal Narrative Lashon Cat - 12/15/2019 2:23 PM EDT Recommended 10 year follow up Historical Provider [employer] MAINTENANCE Edited Result - Final documented in this encounter Visit Diagnoses Not on filedocumented in this encounter Care Teams Payroll Officer Relationship Specialty Start Date End Date Naa Maradiaga MD [address] [place] [address] PCP - General Internal Medicine 08/23/22 documented as of this encounter
--- OUTSIDE RECORDS SUMMARY | 2024-11-12 06:03 | XMS_ITS | Encounter Summary ---
Author Organization [employer] Address [address] [facility] 7t [place] [address] Care Team Providers Care Video Game Designer Name Role Phone Maryuri Wang MD Primary Care Provider + Naa Maradiaga MD Primary Care Pro vider Encounter Details Date Type Department Care Team (Latest Contact Info) Description 02/17/2021 Abstract [facility] CONVERSIONS Dental, Provider, DDS Social History [...] Description 11/27/2024 2:30 PM EDT Office Visit [facility] MEDICINE [address] [place] [address] Mally Godinez ANP [address] [place], [place] [phone] 03/03/2025 3:00 PM EST Office Visit [facility] ADULT DENTAL [address] [place] [address] Angelica Álvarez documented as of this encounter Visit Diagnoses Not on filedocumented in this encounter Care Teams Video Game Designer Relationship Specialty Start Date End Date Maryuri Wang MD [address] [place], [place] [phone] PCP - General Family Medicine 01/09/17 08/22/22 Naa Maradiaga MD [address] [place] [address] KENDRICK ALLEN [address] PCP - General Internal Medicine 08/23/22 documented as of this encounter
--- OUTSIDE RECORDS SUMMARY | 2024-11-12 06:03 | XMS_ITS | Encounter Summary ---
Author Organization [facility] Address [address] [place] [address] Care Team Providers Care Embossing Machine Tender Name Role Phone Maryuri Wang Primary Care Provider Encounter Details Date Type Department Care Team (Late st Contact Info) Description 10/04/2020 Telephone [facility] Interventional Radiology [address] [place] [phone] Sweta Hampton RN Social History Tobacco Use [...] 9:46 AM EDT Sexual Orientation Straight 08/24/2020 9 :46 AM EDT Occupation Industry Job Start Date Job End Date unemployed Not on file Not on file Not on file documented as of this encounter Plan of Treatment Not on file documented as of this encounter Visit Diagnoses Not on filedocumented in this encounter Care Teams Embossing Machine Tender Relationship Specialty Start Date End Date Maryuri Wang [address] [place] [address] PCP - General Internal Medicine 10/03/17 documented as of this encounter
--- OUTSIDE RECORDS SUMMARY | 2024-11-12 06:03 | XMS_ITS | Encounter Summary ---
Author Organization [employer] Address [address] [facility] 7t [place] [address] Care Team Providers Care Food And Drink Factory Workers Name Role Phone Maryuri Wang MD Primary Care Provider + Naa Maradiaga MD Primary Care Pro vider Encounter Details Date Type Department Care Team (Latest Contact Info) Description 06/13/2018 Abstract [facility] CONVERSIONS Dental, Provider, DDS Social History [...] Description 11/27/2024 2:30 PM EDT Office Visit [facility] MEDICINE [address] [place] [address] Mally Godinez ANP [address] [place], [place] [phone] 03/03/2025 3:00 PM EST Office Visit [facility] ADULT DENTAL [address] [place] [address] Angelica Álvarez documented as of this encounter Visit Diagnoses Not on filedocumented in this encounter Care Teams Food And Drink Factory Workers Relationship Specialty Start Date End Date Maryuri Wang MD [address] [place], [place] [phone] PCP - General Family Medicine 01/09/17 08/22/22 Naa Maradiaga MD [address] [place] [address] PCP - General Internal Medicine 08/23/22 documented as of this encounter
--- OUTSIDE RECORDS SUMMARY | 2024-11-12 06:03 | XMS_ITS | Encounter Summary ---
Author Organization [employer] Address [address] [facility] 7t [place] [address] Care Team Providers Care Bone Plant Supervisor Name Role Phone Naa Maradiaga MD Primary Care Pro vider Reason for Visit * Reason Onset Date Comments cx and rs appt same day 06/15/2024 Encounter Details Date Type Department Care Team (Late st Contact Info) Description 06/15/2024 Telephone [facility] ADULT DENTAL [address] [place] [address] Marian Urias, HORACE cx and rs appt [...] Description 11/27/2024 2:30 PM EDT Office Visit [facility] MEDICINE [address] [place] [address] Mally Godinez ANP [address] [place] [address] 03/03/2025 3:00 PM EST Office Visit [facility] ADULT DENTAL [address] [place] [address] Angelica Álvarez documented as of this encounter Visit Diagnoses Not on filedocumented in this encounter Care Teams Bone Plant Supervisor Relationship Specialty Start Date End Date Naa Maradiaga MD [address] [place] [address] PCP - General Internal Medicine 08/23/22 documented as of this encounter
--- OUTSIDE RECORDS SUMMARY | 2024-11-12 06:03 | XMS_ITS | Encounter Summary ---
Author Organization [employer] Address [address] [facility] 7t [place] [address] Care Team Providers Care Emergency Preparedness Coordinator Name Role Phone Naa Maradiaga MD Primary Care Pro vider Reason for Visit * Reason Onset Date Comments Medication Question 10/19/2024 Encounter Details Date Type Department Care Team (Late st Contact Info) Description 10/19/2024 Telephone [facility] MEDICINE [address] [place] [address] Naa Maradiaga MD [address] [place] [address] Medication Question Social History Tobacco Use Types Packs/Day Years [...] Telephone Encounter - Florence March RN - 10/19/2024 3:27 PM EDT TC placed to the pt with [facility] washer and crusher tender #[id number] in regards to the request for an alternative to thelevothyroxine (Synthroid) medication. The pt states that the name brand does not have good coveragefrom her current insurance and would be 80 dollars out of pocket which she can't cover. RN called the [facility] pharmacy who states that the pt can be prescribed the generic at a much lower cost unless the pt has any contraindications to taking it. * Telephone Encounter - Ann Cuellar - 10/19/2024 11:55 AM EDT Tc from pt requesting call back in regards of medication below - Synthroid 112 MCG tablet Contact pt at [phone] Need washer and crusher tender documented in this encounter Plan of Treatment Upcoming Encounters Date Type Department Care Team (Late st Contact Info) Description 11/27/2024 2:30 PM EDT Office Visit [facility] MEDICINE [address] [place] [address] Mally Godinez RYANN [address] [place] [address] 03/03/2025 3:00 PM EST Office Visit [facility] ADULT DENTAL [address] [place] [address] Angelica Álvarez documented as of this encounter Visit Diagnoses Not on filedocumented in this encounter Additional Health Concerns Assessment Noted Time PHQ-9 Depression Total Score: 0 09/12/19 25 1:49 PM EDT documented as of this encounter Care Teams Emergency Preparedness Coordinator Relationship Specialty Start Date End Date Naa Maradiaga MD [address] [place] [address] PCP - General Internal Medicine 08/23/22 documented as of this encounter
--- OUTSIDE RECORDS SUMMARY | 2024-11-12 06:03 | XMS_ITS | Clinical Summary ---
Author Organization [employer] Address [address] [facility] 7t [place] [address] Care Team Providers Care Digital Forensic Examiner Name Role Phone Naa Maradiaga MD Primary Care Pro vider Allergies No known active allergies Medications Blood Pressure Monitor kit 1 Device in the morning. 1 kit 4 Active Aspirin Low Dose 81 MG EC tabletIndicatio ns:Personal history of other diseases of the circulatory system TAKE 1 TABLET BY MOUTH EVERY MORNING 90 tablet 1 5 Active famotidine (Pepcid) 20 MG tablet TAKE 1 TABLET BY MOUTH EVERY DAY NEEDED (for stomach acid) 5 Active psyllium (Metamucil) 58.6 % powder Take 3 g of fiber by mouth 2 times daily. Active acetaminophen (Tylenol) 500 MG tablet Take 1 tablet (500 mg) by mouth every 8 (eight) hours if needed for mild pain. 30 tablet 2 5 Active Senna S 8.6-50 MG tablet take 2 tablets by mouth every day at bedtime 5 Active gabapentin (Neurontin) 100 MG capsuleIndicati ons:Neuropathy 1 capsule at bedtime 30 capsule 2 5 Active cyanocobalamin (Vitamin B-12) 1000 MCG tablet Take 1 tablet (1,000 mcg) by mouth in the morning. 30 tablet 3 5 Active sodium chloride (Deep Sea Nasal Suches) 0.65 % nasal spray Administer 1 spray into each nostril if needed for congestion. 44 mL 2 5 Active Synthroid 112 MCG tablet Take 1 tablet (112 mcg) by mouth before breakfast. 90 tablet 5 10/20/19 25 Discontin ued(Other ) Active Problems Problem Noted Date Diagnosed Date Cerebral arterial aneurysm 09/11/2024 Overweight (BMI 25.0-29.9) 09/11/2024 Left foot pain 11/13/2022 Assessment & Plan [...] foot to r/o foreign body -referred to value stream leader -advised to soak foot in warm water -alarm signs and symptoms discussed Health care maintenance 10/08/2022 Assessment & Plan (11/13/2022 12:39 PM EDT): -menopause: 51 y of age -pap smear:03/2022 Neg/HPV neg -MM 02/2022: heterogeneously dense-The lifetime risk of breast cancer based on the Tyrer-Cuzick Model is 5.1%. BIRADS 1 -colonoscopy 2019 per pt hemorrhoids --- ---- requested record to Vadim Holloway ,last found in 2014 normal ---pt planned for [...] Tyrer-Cuzick Model is 5.1%. .BIRADS 1 -colonoscopy 2019 per pt hemorrhoids --- ---- requested record to Vadim Holloway ,last found in 2014 normal -vaccines: s/p hep [...] stenosis or nerve root compression. -hip XR acute fracture or dislocation. Mild bilateral hip [...] endo no need to continue care w head of ethics and compliance -continue current dose of levo 125 daily -repeat TFT in 4 weeks ordered today , if still elevated will need to increase dose Assessment & Plan (10/08/2022 10:57 PM EDT): -from endo no need to continue care w head of ethics and compliance -continue current dose of levo 125 daily -repeat TFT Assessment & Plan (04/09/2022 3:42 PM EST): Follow up with Billet Examiner. -continue with levothryoxine 125 mcg Hemorrhoids 04/09/2022 [...] GI x chronic symptoms ---I spoke w sales order specialist -Verónica and was explained from pt insurance can not be referred to [facility] as pt would like Assessment & Plan [...] 08/02/2022 10/08/2022 Right inguinal pain 08/02/2022 10/09/19 23 Primary osteoarthritis of both knees 08/02/2022 10/08/2022 Pelvic mass 08/02/2022 10/08/2022 Intermittent claudication 08/22/2018 Perimenopause 05/19/2018 10/08/2022 Nail finding 04/08/2018 10/08/2022 Paresthesia of hand 02/03/2018 10/09/19 23 Hemorrhage into subarachnoid space of neuraxis 09/06/2017 10/08/2022 Worsening vision 09/06/2017 10/08/2022 Encounters Date Type Department Care Team Description 10/19/2024 Orders Only [address] [address] Naa Maradiaga MD 10/19/[address] [address] Naa Maradiaga MD Medication Question 10/16/[address] [address] Naa Maradiaga MD Med Refill 10/08/[address] [address] Naa Maradiaga MD Durable Medical Equipment 09/16/[address] [address] Naa Maradiaga MD Durable Medical Equipment 09/15/2024 Orders Only GENERIC EXTERNAL DATA DEPARTMENT Provider, Generic External Data 09/15/[address] [address] Florence March, director of laboratory operations 09/11/2024 1:30 PM EDT Office Visit [address] [address] Naa Maradiaga MD Neuropathy (Primary Dx); Health care maintenance; Dietary counseling; Exercise counseling; Cerebral arterial aneurysm; Hypothyroidism, unspecified type; Numbness and tingling; Overweight (BMI 25.0-29.9) 09/11/2024 Travel 09/10/[address] [address] Naa Maradiaga MD CHART PREP 09/04/2024 Patient Outreach [facility] [address] [place] [address] Naa Maradiaga MD Pre-visit Planning (SDOH was already complete) 08/31/2024 Telephone [facility] MEDICINE [address] [place] [address] Naa Maradiaga MD Medication Question from Last 3 Months Immunizations Immunization Administration [...] Sign Reading Time Taken Comments Blood Pressure 130/82 09/11/2024 1:48 PM EDT Pulse 75 09/11/2024 1:48 PM EDT Temperature 36.3 C (97.3 F) 09/11/2024 1:48 PM EDT Respiratory Rate 18 09/11/2024 1:48 PM EDT Oxygen Saturation 99% 09/11/2024 1:48 PM EDT Inhaled Oxygen Concentration - - Weight 71.1 kg (156 lb 12.8 oz) 09/11/2024 1:48 PM EDT Height 162.6 cm (5' 4 ) 09/11/2024 1:48 PM EDT Body Mass Index 26.91 09/11/2024 1:48 PM EDT Plan of Treatment Upcoming Encounters Date Type Department Care Team (Late st Contact Info) Description 11/27/2024 2:30 PM EDT Office Visit [facility] MEDICINE [address] [place] [address] Mally Godinez, ANP [address] [place], [place] [phone] 03/03/2025 3:00 PM EST Office Visit [facility] ADULT DENTAL [address] [place] [address] Angelica Álvarez Health Maintenance Due Date Last Done Comments CT Colonography 1965 FIT DNA/Cologuard 1965 Sigmoidoscopy 1965 Pneumococcal Vaccine: 50+ Years (1 of 1 - PCV) 2013 Influenza Vaccine (#1) 2024 , 01/29/2023, 12/08/2021, Additional history exists FIT 11/29/2024 11/30/2023 FOBT 11/29/2024 11/30/2023 Dental Oral Exam 02/04/2025 08/03/2024, 03/2023, 07/18/2022 Dental Prophylaxis 02/04/2025 08/03/2024, 1 03/18/2023, 07/18/2022 Pap Smear 04/12/2025 04/12/2022 Dental X-Ray: Bitewings 06/10/2025 06/10/19 25, 04/03/2024, 01/17/2024, Additional history exists SDOH Screening 06/24/2025 06/24/2024 Mammogram 08/05/2025 08/05/2024, 05/03/2024, 03/17/2024, Additional history exists Alcohol/Substance Use Screening 09/11/2025 09/11/2024 Depression Screening 09/11/2025 09/11/2024, 09/12/19 25 Disability Screening 09/11/2025 09/11/2024 Tobacco Screening 09/11/2025 09/11/2024 Dental X-Ray: Full Mouth 01/17/2027 01/17/2024 Cervical [...] Completed 04/03/2024, , 01/10/2022, Additional history exists HIB Vaccines Aged Out [...] Procedure Name Priority Date/Time Associated Diagnosis Comments GROSS AND MICROSCOPIC LEVEL 3 Routine 09/15/2024 9:34 AM EDT BI US BREAST LIMITED BILATERAL Routine 08/05/2024 2:00 PM EDT PROPHYLAXIS - ADULT Routine 08/03/2024 3 :00 PM EDT Dental plaque Dental calculus PERIODIC ORAL EVALUATION - ESTABLISHED PATIENT Routine 08/03/2024 3:00 PM EDT BITEWING - SINGLE RADIOGRAPHIC IMAGE Routine 06/09/2024 2:30 PM EDT INTRAORAL - COMPLETE SERIES OF RADIOGRAPHIC IMAGES [...] Recently Relevant to Health Maintenance Results * Gross and Microscopic Level 3 (09/15/2024 9:34 AM EDT) 09/15/2024 9:34 AM EDT 09/15/2024 9:45 AM EDT [facility] - 09/16/2024 2:57 PM EDT ----- ------- Name: Shruti Lee Age/Sex: 59/F : 1965 Unit#: [id number] Attend Dr: Camilo Chapman MD Re09/15/24 Status: [facility] Location: [facility] Disch: ----- ------- SPEC : [id number] RECD: 09/15/24 STATUS: BRIDGET CARTER NUM: [id number] ADRIANA: 09/15/[address] [facility] [address]: Camilo Chapman MD ENTERED: 09/15/24-1005 SP TYPE: Surgical OTHR DR: Naa Maradiaga MD ORDERED: Gross Micro L3 Diagnosis Anal tissue, excision: Anal squamous mucosa with dilated and congested submucosal vessels consistent with hemorrhoids. Clinical History Unspecified hemorrhoids Microscopic Description Microscopic sections reviewed. Material Received Hemorrhoid Gross Description Received in formalin labeled hemorrhoid is a 2.6 x 1.5 cm irregular portion of groves-pink and groves-brown rectoanal mucosa excised to a depth of 0.35 cm with a central 0.8 x 0.6 x 0.3 cm edematous and erythematous groves-pink papular focus. The margins are inked and the specimen is sectioned to reveal edematous and congested groves-pink cut surfaces. Mix Chemist sections are submitted in a cassette labeled A1. CEDS IHC S/NG Disclaimer NOTE: Unless otherwise stated, all tissue is formalin-fixed and paraffin-embedded. Some or all of the immunohistochemical tests reported herein may have been developed and their performance characteristics determined by [facility]. They have not been cleared or approved by the U.S. Food and Drug Administration (FDA). However, the FDA has determined that such clearance or approval is not necessary. This laboratory is certified under the Clinical Laboratory Improvement Amendments of 1988 (CLIA) as qualified to perform high complexity clinical laboratory testing. Copies To: Camilo Chapman MD [facility] General Surgeons [address] [place] [id number] CONTINUED ON NEXT PAGE ----- ------- Name: Sammi SaldanaShruti Age/Sex: 59/F : 1965 Unit#: [id number] Attend Dr: Camilo Chapman MD Re09/15/24 Status: [facility] Location: [facility] Disch: ----- ------- SPEC : [id number] RECD: 09/15/24 STATUS: BRIDGET CARTER NUM: [id number] ADRIANA: 09/15/[address] [facility] [address]: Camilo Chapman MD ENTERED: 09/15/24 SP TYPE: Surgical OTHR DR: Naa Maradiaga MD ORDERED: Gross Micro L3 Copies To: (Continued) Naa Maradiaga MD [address] [place] [address] ----- ------- Signed (signature on file) Pallavi Narvaez MD 09/16/24 1457 ----- ------- END OF REPORT us Generic External Data Provider LAB CYTOLOGY MELANIA SALCIDO Final Result [facility] [address] [place] [address] [phone] * BI US Breast Limited Bilateral (08/05/2024 2:00 PM EDT) Anatomical Region Laterality Modality Breast Bilateral Ultrasound 08/05/2024 2:00 PM EDT Narrative 08/05/2024 2:14 PM EDT [facility] [address] [place] [address] Ultrasound Report Signed Patient: Shruti Lee MR#: [id number] : 1965 Acct:[id number] Age/Sex: 59 / F ADM Date: 08/05/24 Loc: HO.MAMMO Attending Dr: Hair Hinojosa MD Ordering Physician: Hair Hinojosa MD Date of Service: 08/05/24 Procedure(s): US breast BI limited mamm only Accession Number(s): [id number] cc: Naa Maradiaga MD; Hair Hinojosa MD EXAMINATION: MM DIAGNOSTIC DIGITAL BREAST TOMOSYNTHESIS, BILATERAL Bilateral Limited ultrasound. CLINICAL INFORMATION: Bilateral lateral breast pain only when touched for 6 months right greater than left. COMPARISON: Mammography: Comparison is made with relevant prior exams. TECHNIQUE: Digital breast mammography with tomosynthesis is performed in both the craniocaudal and mediolateral oblique views along with computer-aided detection (CAD). FINDINGS: There are scattered areas of fibroglandular density (ACR BI-RADS breast composition Category b). There are no significant masses, abnormal calcifications, or other abnormalities. Targeted color Doppler ultrasound scanning in the areas of patient's bilateral breast pain in the right from 6-12 o'clock demonstrates an incidental normal-appearing intramammary lymph node at 9:00 11 cm from the nipple. Targeted color Doppler ultrasound scanning from 12 6:00 in the area the patient's pain demonstrates normal fibronodular breast tissue. Results are provided to the patient at time of visit by the technologist. US/US breast BI limited mamm only IMPRESSION: Right: Normal intramammary lymph node. Benign. No mammographic or sonographic abnormality to account for the patient's right lateral breast pain. Recommend clinical evaluation follow-up. Left: No mammographic or sonographic abnormality to account for the patient's left breast pain. Recommend clinical evaluation and follow-up. ASSESSMENT: BI-RADS BI-RADS 2 - Benign Findings RECOMMENDATION: 1 year F/U This patient's information was entered into a reminder system with a target due date for their next mammogram. Electronically signed by: Kamille Hill DO 08/05/2024 02:11 PM EDT Dictated By: Kamille Hill DO Signed By: <Electronically signed by Kamille Hill DO in OV> 08/05/24 1411 DD/ 1400 TD/TT: 08/05/24 1400 Sales And Service Advisor: Procedure Note Donotuseinterpreter, Image - 08/05/2024 [facility] [address] [place] [address] Ultrasound Report Signed Patient: Lizzy LeedMR#: [id number] : 1965Acct:[id number] Age/Sex: 59 / FADM Date: 08/05/24 Loc: HO.MAMMO Attending Dr: Hair Hinojosa MD Ordering Physician: Hair Hinojosa MD Date of Service: 08/05/24 Procedure(s): US breast BI limited mamm only Accession Number(s): [id number] cc: Naa Maradiaga MD; Hair Hinojosa MD EXAMINATION: MM DIAGNOSTIC DIGITAL BREAST TOMOSYNTHESIS, BILATERAL Bilateral Limited ultrasound. CLINICAL INFORMATION: Bilateral lateral breast pain only when touched for 6 months right greater than left. COMPARISON: Mammography: Comparison is made with relevant prior exams. TECHNIQUE: Digital breast mammography with tomosynthesis is performed in both the craniocaudal and mediolateral oblique views along with computer-aided detection (CAD). FINDINGS: There are scattered areas of fibroglandular density (ACR BI-RADS breast composition Category b). There are no significant masses, abnormal calcifications, or other abnormalities. Targeted color Doppler ultrasound scanning in the areas of patient's bilateral breast pain in the right from 6-12 o'clock demonstrates an incidental normal-appearing intramammary lymph node at 9:00 11 cm from the nipple. Targeted color Doppler ultrasound scanning from 12 6:00 in the area the patient's pain demonstrates normal fibronodular breast tissue. Results are provided to the patient at time of visit by the technologist. US/US breast BI limited mamm only IMPRESSION: Right: Normal intramammary lymph node. Benign. No mammographic or sonographic abnormality to account for the patient's right lateral breast pain. Recommend clinical evaluation follow-up. Left: No mammographic or sonographic abnormality to account for the patient's left breast pain. Recommend clinical evaluation and follow-up. ASSESSMENT: BI-RADS BI-RADS 2 - Benign Findings RECOMMENDATION: 1 year F/U This patient's information was entered into a reminder system with a target due date for their next mammogram. Electronically signed by: Kamille Hill DO 08/05/2024 02:11 PM EDT RP Workstation: [id number] Dictated By: Kamille Hill DO Signed By: <Electronically signed by Kamille Hill DO in OV> 08/05/24 1411 DD/ 1400 TD/TT: 08/05/24 1400 Sales And Service Advisor: [facility] External Provider IMG US PROCEDURES Final Result * Fecal Globin by Immunochemistry (11/30/2023 12:00 AM EDT) Fecal Globin By Immunochemistry SEE NOTE [employer] Comment: FECAL GLOBIN BY IMMUNOCHEMISTRY Micro Number: [id number] Test Status: Final Specimen Source: Insure (tm) fobt test card Specimen Quality: Adequate Fecal Globin: Not Detected 11/30/2023 12/08/2023 11: 31 PM EDT Narrative [facility] - 12/08/2023 11:42 PM EDT FASTING: UNKNOWN Naa Aguila MD LAB BODY FLUIDS A ND STOOLS ORDERABLES Final Result [address], [place] [address] [employer] [email or web address] [address] [place] [address] * Hepatitis C Antibody with Reflex to HCV, RNA, Quantitative, Real-Time PCR (11/21/2023 6:22 AM EDT) Pathologist [facility] Hepatitis C Antibody Nonreactive Nonreactive [facility] Comment:Antibodies to HCV no t detected; does not exclude early acuteHCV infection. Blood Venous blood specimen / Unknown 11/21/2023 6:22 AM EDT 11/21/2023 6:22 AM EDT Naa Aguila MD LAB BLOOD ORDERAB LES Final Result Performing Organization Address City/[facility]/ZIP Co de Phone Number [facility] [address] [place] [phone] * HIV-1/2 Antigen and Antibodies, Fourth Generation, with Reflexes (11/21/2023 6:22 AM EDT) [facility] HIV AB/AG Nonreactive Nonreactive [facility] Comment:HIV-1 p24 Ag and/or HIV-1/HIV-2 Ab not detected.A test result that is nonreactive does not exclude thepossibility of exposure to or infection with HIV-1 and/orHIV-2. Nonreactive results in this assay for individualswith prior exposure to HIV-1 and/or HIV-2 may be due toantigen and antibody levels that are below the limit ofdetection of this assay.The [employer] HIV Ag/Ab Combo assay result andsupplemental assay results should be interpreted inconjunction with the patient's clinical presentation,history and other laboratory results. If the results areinconsistent with clinical evidence, additional testing issuggested to confirm the result. Blood Venous blood specimen / Unknown 11/21/2023 6:22 AM EDT 11/21/2023 6:22 AM EDT us Naa Aguila MD LAB BLOOD ORDERAB LES Final Result Performing Organization Address City/[facility]/ZIP Co de Phone Number [facility] [address] [place] [phone] * HPV mRNA E6/E7 w/Reflex to HPV Genotypes 16, 18/45 (04/12/2022 3:02 PM EST) HPV nRNA E6/E7 Not Detected Not Detected [facility] Comment:Methodology: Transcr iption-Mediated AmplificationThis assay detects E6/E7 viral messenger RNA (mRNA) from 14high-risk HPV types (16,18,31,33,35,39,45,51,52,56,58,59,66,68).Cervical sources are required for HPV testing.If a vaginal source from a patient who has had atotal hysterectomy with removal of cervix wassubmitted, please contact the testing laboratoryfor alternative testing options.For additional information, please refer [email or web address] [email or web address](This link if provided for information/educational purposes only.)THIS TEST WAS PERFORMED AT:[address] [place] [address] ([facility])[place] [address]AUEVCIZZY LEMUS MD HPV mRNA E6/E7 [facility] HPV 16 RNA NVP [facility] HPV 18/45 RNA [facility] 04/12/2022 3:02 PM EST 04/12/2022 4:15 PM EST [facility] External Provider LAB CYT OLOGY ORDERABLES Final Result Performing Organization Address City/State/[facility] Co de Phone Number [facility] [address] [place] [phone] * Pap Smear (04/12/2022 3:02 PM EST) 04/12/2022 3:02 PM EST 04/12/2022 4:15 PM EST Narrative [facility] - 04/20/2022 6:31 PM EST ----- ------- Name: Shruti Lee Age/Sex: 57/F : 1965 Unit#: [id number] Attend Dr: Hair Hinojosa MD Re04/12/22 Status: DEP REF Location: [facility] Disch: ----- ------- SPEC : [id number] RECD: 04/12/22-1615 STATUS: BRIDGET CARTER NUM: [id number] ADRIANA: 04/12/22-[address] [facility] [address]: Hair Hinojosa MD ENTERED: 04/12/22-1715 SP TYPE: Pap Smr OTHR DR: Sheryl Wang MD ORDERED: Pap Smear Interpretation Satisfactory for evaluation. Negative for intraepithelial lesion or malignancy. Atrophic. HPV mRNA E6/E7: NOT DETECTED This assay detects E6/E7 viral messenger RNA (mRNA) from 14 high-risk HPV types (16, 18, 31, 33, 35, 39, 45, 51, 52, 56, 58, 59, 66, 68) HPV testing performed by [employer], [place], [place]. See reference laboratory portion of the EMR for entire report. Clinical Information LMP: Post menopause Previous PAP test: Unknown Material Received ThinPrep-Cervical Copies To: Sheryl Wang MD [address] [place] [address] [phone] Hair Hinojosa MD [address] [place], [place] [address]Kaushik [address] [address] ----- ------- Signed (signature on file) Christina Laureano 04/20/22 1831 ----- ------- END OF REPORT [facility] External Provider LAB [facility] MARK ORDERABLES Final Result [facility] [address] [place] [address] [phone] * Hm Colonoscopy (12/15/2019 2:23 PM EDT) Colonoscopy Normal Normal Narrative [facility] - 12/15/2019 2:23 PM EDT Recommended 10 year follow up Historical Provider HEALTH MAINTENANCE Edited Result - Final from Last 3 Months or Most Recently Relevant to Health Maintenance Insurance [facility] D[facility]AL-[facility] MEDICAID LIMITED ADULT DENTAL - HSN FULL (MEDICAID) Care Teams Digital Forensic Examiner Relationship Specialty Start Date End Date Naa Maradiaga MD [address] [place] [address] PCP - General Internal Medicine 08/23/22
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
--- OUTSIDE RECORDS SUMMARY | 2024-11-12 06:03 | XMS_ITS | Encounter Summary ---
Author Organization [employer] Address [address] [facility] 7t [place] [address] Care Team Providers Care Parking Regulation Enforcement Officer Name Role Phone Naa Maradiaga MD Primary Care Pro vider Reason for Visit * Reason Onset Date Comments Results 08/21/2023 Encounter Details Date Type Department Care Team ([facility] st Contact Info) Description 08/21/2023 Telephone [facility] MEDIC[facility] [address] [place] [address] Naa Maradiaga MD [address] [place] [address] Results Social History Tobacco Use Types Packs/Day [...] EDT TC placed to pt with a Lewis machine operator farmworker to inquire about the GI visit results [...] call back in regards gastro visit results. Malay speaker documented in this encounter Plan of Treatment Upcoming Encounters Date Type Department Care Team (Late st Contact Info) Description 11/27/2024 2:30 PM EDT Office Visit [facility] MEDICINE [address] [place] [address] Mally Godinez ANP [address] [place] [address] 03/03/2025 3:00 PM EST Office Visit [facility] ADULT DENTAL [address] [place] [address] Angelica Hicks documented as of this encounter Visit Diagnoses Not on filedocumented in this encounter Care Teams Parking Regulation Enforcement Officer Relationship Specialty Start Date End Date Naa Maradiaga MD [address] [place] [phone] PCP - General Internal Medicine 08/23/22 documented as of this encounter
--- OUTSIDE RECORDS SUMMARY | 2024-11-12 06:03 | XMS_ITS | Encounter Summary ---
Author Organization [employer] Address 75 [facility] 7t [place] [address] Care Team Providers Care Superintendent Meters Name Role Phone Naa Maradiaga MD Primary Care Pro vider Reason for Visit * Reason Onset Date Comments clarification on case 03/31/2024 Encounter Details Date Type Department Care Team ([facility] st Contact Info) Description 03/31/[address] [facility] ADULT DENTAL [address] [place] [address] Denis Santana DDS [address] [place] [address] clarification on case Social History Tobacco Use [...] Santana has seen it. Resending to Dr. Satnana. Al from [facility] called in stating that patient is in need of nightguard. However what was sent was lower impression with bite while lab slip was indicating upper nightguard. Lab looking for clarification on what is needed (upper or lower) for nightguard fabrication. Al at [facility] [phone] * Telephone Encounter - Jerman Reeves DMD [...] lower) for nightguard fabrication. Al at [facility] [phone] documented in this encounter Plan of Treatment Upcoming Encounters Date Type Department Care Team (Late st Contact Info) Description 11/27/2024 2:30 PM EDT Office Visit [facility] MEDICINE [address] [place] [address] [phone] Mally Godinez ANP [address] [place], [place] [phone] 03/03/2025 3:00 PM EST Office Visit [facility] ADULT DENTAL [address] [place] [address] Angelica Álvarez documented as of this encounter Visit Diagnoses Not on filedocumented in this encounter Care Teams Superintendent Meters Relationship Specialty Start Date End Date Naa Maradiaga MD [address] [place] [address] [phone] PCP - General Internal Medicine 08/23/22 documented as of this encounter
--- OUTSIDE RECORDS SUMMARY | 2024-11-12 06:03 | XMS_ITS | Encounter Summary ---
Author Organization [employer] Address 75 [facility] 7t [place] [address] Care Team Providers Care Meteorological Engineer Name Role Phone Maryuri Wang MD Primary Care Provider + Naa Maradiaga MD Primary Care Pro vider Reason for Visit * Reason Onset Date Comments Appointment 05/25/2022 Encounter Details Date Type Department Care Team ([facility] st Contact Info) Description 05/25/2022 Telephone [facility] ADULT D[facility]AL [address] [place] [address] Jerman Reeves, DMD [address] [place] [address] Appointment Social History Tobacco Use Types Packs/Day [...] 2:30 PM EDT Office Visit [facility] MEDICINE [address] [place], [place] [phone] Mally Godinez ANP [address] [place] [address] 03/03/2025 3:00 PM EST Office Visit [facility] ADULT DENTAL [address] [place] [address] Angelica Álvarez documented as of this encounter Visit Diagnoses Not on filedocumented in this encounter Care Teams Meteorological Engineer Relationship Specialty Start Date End Date Maryuri Wang MD [address] [place] [address] [phone] PCP - General Family Medicine 01/09/17 08/22/22 Naa Maradiaga MD [address] [place] [address] [phone] PCP - General Internal Medicine 08/23/22 documented as of this encounter
--- OUTSIDE RECORDS SUMMARY | 2024-11-12 06:03 | XMS_ITS | Encounter Summary ---
Author Organization [facility] Address [address] [place] [address] Care Team Providers Care Planner/Scheduler Name Role Phone Maryuri Wang Primary Care Provider +1- [phone] Encounter Details Date Type Department Care Team (Late st Contact Info) Description 07/05/2020 Telephone [facility] Interventional Radiology [address] [place] [address] Shahana Casas RN [place], [place] Social History Tobacco Use Types Packs/Day [...] on filedocumented in this encounter Care Teams Planner/Scheduler Relationship Specialty Start Date End Date Maryuri Wang [address] [place] [phone] PCP - General Internal Medicine 10/03/17 documented as of this encounter
--- OUTSIDE RECORDS SUMMARY | 2024-11-12 06:03 | XMS_ITS | Encounter Summary ---
Author Organization [employer] Address 75 [facility] 7t [place] [address] Care Team Providers Care Cigar Head Piercer Name Role Phone Naa Maradiaga MD Primary Care Pro vider Encounter Details Date Type Department Care Team (Late st Contact Info) Description 10/19/2024 Orders Only [facility] MEDICINE [address] [place] [address] Naa Maradiaga MD 230 [place] [address] Social History Tobacco Use Types Packs/Day Years [...] Description 11/27/2024 2:30 PM EDT Office Visit [facility] MEDICINE [address] [place] [address] Mally Godinez, ANP [address] [place] [address] 03/03/2025 3:00 PM EST Office Visit [facility] ADULT DENTAL [address] [place] [phone] Agnelica Álvarez documented as of this encounter Visit Diagnoses Not on filedocumented in this encounter Additional Health Concerns Assessment Noted Time PHQ-9 Depression Total Score: 0 09/12/19 25 1:49 PM EDT documented as of this encounter Care Teams Cigar Head Piercer Relationship Specialty Start Date End Date Naa Maradiaga MD [address] [place] [phone] PCP - General Internal Medicine 08/23/22 documented as of this encounter
--- OUTSIDE RECORDS SUMMARY | 2024-11-12 06:03 | XMS_ITS | Encounter Summary ---
Author Organization [facility] Address [address] [place] [address] Care Team Providers Care Accreditation Coordinator Name Role Phone Maryuri Wang Primary Care Provider +1- [phone] Encounter Details Date Type Department Care Team (Late st Contact Info) Description 04/28/2020 Orders Only [facility] Xr [address] [place] [address] [address] Social History Tobacco Use Types Packs/Day Years [...] on filedocumented in this encounter Care Teams Accreditation Coordinator Relationship Specialty Start Date End Date Maryuri Wang 230 [place] [address] PCP - General Internal Medicine 10/03/17 documented as of this encounter
--- OUTSIDE RECORDS SUMMARY | 2024-11-12 06:03 | XMS_ITS | Encounter Summary ---
Author Organization [employer] Address 75 [facility] 7t [place] [address] Care Team Providers Care Traveling Repair Accountant Name Role Phone Maryuri Wang MD Primary Care Provider + Naa Maradiaga MD Primary Care Pro vider Encounter Details Date Type Department Care Team (Latest Contact Info) Description 02/19/2020 Abstract [facility] CONVERSIONS Dental, Provider, DDS Social [...] Description 11/27/2024 2:30 PM EDT Office Visit [facility] MEDICINE [address] [place] [address] Mally Godinez ANP [address] [place], [place] [phone] 03/03/2025 3:00 PM EST Office Visit [facility] ADULT DENTAL [address] [place] [address] Angelica Álvarez documented as of this encounter Visit Diagnoses Not on filedocumented in this encounter Care Teams Traveling Repair Accountant Relationship Specialty Start Date End Date Maryuri Wang MD [address] [place], [place] [phone] PCP - General Family Medicine 01/09/17 08/22/22 Naa Maradiaga MD [address] [place] [phone] PCP - General Internal Medicine 08/23/22 documented as of this encounter
--- OUTSIDE RECORDS SUMMARY | 2024-11-12 06:03 | XMS_ITS | Encounter Summary ---
Author Organization [employer] Address 75 [facility] 7t [place] [address] Care Team Providers Care Weatherization Field Technician Name Role Phone Maryuri Wang MD Primary Care Provider + Naa Maradiaga MD Primary Care Pro vider Reason for Visit * Reason Comments Med Refill Encounter Details Date Type Department Care Team (Late st Contact Info) Description 06/26/2022 Refill [facility] MEDICINE [address] [place] [address] Maryuri Wang MD [address] [place] [address] Social History Tobacco Use Types Packs/Day Years [...] Description 11/27/2024 2:30 PM EDT Office Visit [facility] MEDICINE [address] [place] [address] [phone] Mally Godinez ANP [address] [place], [place] [phone] 03/03/2025 3:00 PM EST Office Visit [facility] ADULT DENTAL [address] [place], [place] [phone] Angelica Álvarez documented as of this encounter Visit Diagnoses Not on filedocumented in this encounter Care Teams Weatherization Field Technician Relationship Specialty Start Date End Date Maryuri Wang MD [address] [place] [address] [phone] PCP - General Family Medicine 01/09/17 08/22/22 Naa Maradiaga MD [address] [place] [address] [phone] PCP - General Internal Medicine 08/23/22 documented as of this encounter
--- OUTSIDE RECORDS SUMMARY | 2024-11-12 06:03 | XMS_ITS | Clinical Summary ---
Author Organization [employer] Address [address] [place] [address] Phone Care Team Providers Care Historical Guide Name Role Phone Unavailable Primary Care Provider [...] 136 - 145 mmol/L 07/30/2017 9:[address] [facility] Potassium 3.2(L) 3.5 - 5.1 mmol/L 07/30/2017 9:[address] [facility] Chloride 106 95 - 115 mmol/L 07/30/2017 9:[address] [facility] CO2 24 21 - 32 mmol/L 07/30/2017 9:[address] [facility] Anion Gap 10 5 - 18 07/30/2017 9:[address] [facility] Glucose 120(H) 70 - 100 mg/dL 07/30/2017 9:[address] [facility] BUN 21 8 - 25 mg/dL 07/30/2017 9:[address] [facility] Creatinine 0.77 0.50 - 1.30 mg/dL 07/30/2017 9:[address] [facility] Calcium 9.1 8.4 - 10.3 mg/dL 07/30/2017 9:[address] [facility] BUN/Creatinine Ratio 27.3(H) 8.0 - 25.0 07/30/2017 9:[address] [facility] Total Protein 7.6 6.4 - 8.2 g/dL 07/30/2017 9:[address] [facility] Albumin 4.0 3.4 - 5.0 g/dL 07/30/2017 9:[address] [facility] Total Bilirubin 0.2 0.0 - 1.0 mg/dL 07/30/2017 9:[address] [facility] Alkaline Phosphatase 73 20 - 120 U/L 07/30/2017 9:[address] [facility] Alanine Aminotransferase (ALT) 23 12 - 78 U/L 07/30/2017 9:[address] [facility] Aspartate Aminotransferase (AST) 26 5 - 37 U/L 07/30/2017 9:[address] [facility] Globulin 3.6 g/dL 07/30/2017 9:[address] [facility] A/G Ratio 1.1 07/30/2017 9:[address] [facility] AST/ALT Ratio 1.1 07/30/2017 9:[address] [facility] eGFR (Afr Amer) >60 >60 mL/min/1. 73m2 07/30/2017 9:[address] [facility] Comment: Values under 60mL/min/1.73m2 may indicate CKD if noted for more than 3 months. eGFR is only valid if creatinine is at steady state. eGFR (NON -Bermudian) >60 >60 mL/min/1. 73m2 07/30/2017 9:[address] [facility] Comment: Values under 60mL/min/1.73m2 may indicate CKD if noted for more than 3 months. eGFR is only valid if creatinine is at steady state. Osmolality Calculation 284 275 - 295 mOsm/kg 07/30/2017 9:[address] [facility] Blood specimen (specimen) Venipuncture / Unknown 07/30/2017 8:55 PM EDT 07/30/2017 9:04 PM EDT us Peter A Garcia MD LAB BLOOD ORDERABLE S Final Result [facility] [address] [place] [phone], [facility] [phone] from Last 3 Months or Most Recently Relevant to Health Maintenance Insurance [id number] MEDICAID [id number] MEDICAID [id number] MEDICAID [id number] MEDICAID
[2024-11-12 07:15] LABS: Hematocrit 37.9 % (37.0-47.0); Hemoglobin 12.0 g/dl (12.0-16.0); Mean Corpuscular HGB Conc 31.7 g/dl (31.0-35.0); Mean Corpuscular Hemoglobin 25.9 pg (27.0-33.0); Mean Corpuscular Volume 81.7 fL (80.0-98.0); NRBC Abs Auto 0.000 X10*3/uL (0.0-0.012); NRBC Pct Auto 0.0 /100WBC (0.0-0.2); Platelet Count 284 X10*3/uL (160-400); Red Blood Count 4.64 X10*6/uL (4.20-5.50); White Blood Count 3.4 X10*3/uL (4.8-10.8)
[2024-11-12 07:57] LABS: Hemoglobin A1C 118.3558 umol/L; Total Hemoglobin (HGBA1C) 3197.0559 umol/L
[2024-11-12 08:01] LABS: Alanine Aminotransferase 15 U/L (0-31); Albumin Level 4.4 g/dL (3.5-5.0); Alkaline Phosphatase 61 U/L (39-117); Anion Gap 9 (12-20); Aspartate Amino Transferase 25 U/L (5-31); Blood Urea Nitrogen 22 mg/dL (9-16); Calcium 9.0 mg/dL (8.4-10.2); Carbon Dioxide 27 mmol/L (22-29); Chloride 109 mmol/L (96-108); Cholesterol 214 mg/dL (<200); Estimated Glomerular Filt Rate > 60; HDL Cholesterol 64 mg/dL (>40); Iron 48 mcg/dL (30-160); Percent Iron Saturation 16 % (15-50); Potassium 3.8 mmol/L (3.3-5.1); Sodium 141 mmol/L (135-145); Total Iron Binding Capacity 296 mcg/dL (228-428); Total Protein 7.4 g/dL (6.5-8.0); Triglycerides 52 mg/dL (<150); Unsaturated Iron Binding 248 ug/dL
[2024-11-12 08:09] LABS: Syphilis Screen Nonreactive (Nonreactive)
[2024-11-12 08:17] LABS: HBS Num1 2.98 mIU/mL (0-7.99); HBc Num1 0.07 S/CO (0.00-0.79); HBsAGNum1 0.49 S/CO (0.00-0.99); Hepatitis B Surface Antigen Negative (Negative); ~HepC Num1 0.09 S/CO (0.00-0.79); ~Hepatitis B Surface Antibody NONREACTIVE (Nonreactive); ~Hepatitis C Antibody Nonreactive (Nonreactive)
[2024-11-12 08:21] LABS: Ferritin 7 ng/mL (10-250); Free T4 (Free Thyroxine) 0.90 ng/dL (0.71-1.85); Thyroid Stimulating Hormone 7.33 uIU/mL (0.32-4.0)
[2024-11-12 08:24] LABS: Folate 13.4 ng/mL (> or = 4.0); Vitamin B12 635 pg/mL (200-900)
[2024-11-12 08:41] LABS: HIV Num 1 0.07 S/CO (0.00-0.99)
[2024-11-18 08:28] LABS: Rubeola IgG (Measles) >300.00 AU/mL
== END 2024-11-12 06:01 | disposition home or self-care (01) ==
LOC: HO.LAB 06:00
PROVIDERS: PCP Student in an Organized Health Care Education/Training Program; Visit Provider Student in an Organized Health Care Education/Training Program
DX: Z00.00 Encounter for general adult medical examination without abnormal findings (principal); Z11.59 Encounter for screening for other viral diseases; Z11.4 Encounter for screening for human immunodeficiency virus [HIV]; G62.9 Polyneuropathy, unspecified
CPT/HCPCS: 36415; 80053; 80061; 82306; 82607; 82728; 82746; 83036; 83540; 84439; 84443; 85027; 85652; 86140; 86704; 86706; 86735; 86762; 86765; 86780; 86803; 87340; 87389

== ENCOUNTER 2025-01-25 15:00 | Outpatient (AMB) | payer OTHER, SELFPAY ==
--- NOTE | 2025-01-25 15:17 | MHC.OFFVIS ---
Vital Signs 01/25/25 15:18 Height 5 ft 4 in Weight 153 lb 2 oz BMI 26.3 BP 161/78 H Blood Pressure Location Rt brachial Position Sitting Pulse 76 Intake Visit Reasons: hemorrhoid issues Intake Note: Patient presents for an assessment for hemorrhoids. Pt c/o; reports no constipation, reports last week she was feeling a burning sensation and it feels like a cut, reports she was having some itchiness, denies constipation. Equal Employment Opportunity Officer Required: Yes Equal Employment Opportunity Officer Services: Equal Employment Opportunity Officer Present Equal Employment Opportunity Officer Name: Suhail Information Interpreted: non-clinical & clinical Accompanied by: Self / Same As Patient Allergies No Known Allergies Allergy (Verified 01/25/25 15:32) Medication List - Last Reconciled 01/25/25 by Camilo Chapman MD acetaminophen 500 mg PO Q6H PRN aspirin 81 mg PO DAILY blood pressure test kit-large As directed cyanocobalamin (vitamin B-12) 1,000 mcg PO QAM docusate sodium (Colace) 100 mg PO BID famotidine 20 mg PO DAILY PRN gabapentin 100 mg PO BEDTIME hydrocortisone 2.5% (Proctosol HC) 1 appl SC BEDTIME PRN ibuprofen 600 mg PO Q6H PRN levothyroxine (Synthroid) 112 mcg PO QAM levothyroxine 125 mcg PO DAILY psyllium husk (Metamucil) 1 tbsp PO DAILY sennosides-docusate sodium 8.6-50 mg 2 tab-caps (2 x 8.6-50 mg) PO BEDTIME sodium chloride 0.65% (Deep Sea Nasal) 1 spray intranasal HPI HPI hemorrhoid issues: Details: She had undergone hemorrhoidectomy earlier this year and says she has been doing well. However, since about 5 days ago, she has been noticing burning around her anus. She says that this has been persistent. She denies seeing blood per rectum She was worried about this burning pain so she wanted to be seen today She says she is not constipated. [facility] Medical History (Updated 01/25/25 @ 16:13 by Camilo Chapman MD) Anal pain Acid reflux Abdominal pain Thyroid disease Arthritis Aneurysm Surgical History H/O hemorrhoidectomy (09/15/24) Hx of brain surgery History of esophagogastroduodenoscopy (EGD) S/P excision of lipoma (06/21/22) Hx of colonoscopy History of tubal ligation Family History Mother Colon cancer Father Heart attack Family/Other Pancreatic cancer, Onset Age: 50 Sister Uterine cancer Other Family history of thyroid problem Social History Household Members: Spouse and Family Household Members Other:: spouse, son Housing: House Alcohol intake: current Alcohol intake frequency: does not drink Comment: counts correct Patient Tobacco Use Status: Never used Tobacco 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 Sexual orientation: Straight/Heterosexual Gender identity: Female Female Reproductive History Menstrual Age of Menarche: 15 Review of Systems Const Denies chills and Denies fever(s) Card Denies chest pain, Denies dyspnea and Denies dyspnea on exertion Resp Denies cough, Denies dyspnea and Denies dyspnea on exertion GI Denies hematochezia and Denies change in bowel habits Denies hematuria Musc Denies back pain and Denies limited range of motion Neuro Denies focal weakness and Denies convulsions Psych Denies depression and Denies mood swings Physical Exam Vital Signs: Last Vital Signs Pulse 76 01/25/25 15:18 BP 161/78 H 01/25/25 15:18 BMI result Body Mass Index 26.3 Const General: comfortable and no acute distress Orientation/consciousness: patient oriented x3 Neck Neck: Yes no lymphadenopathy Resp Auscultation: clear to auscultation bilaterally Cardio Rhythm: regular rhythm GI Other: Rectal exam shows no obvious fissure with retraction of the anal canal. There were no hemorrhoids. There was no evidence of any induration, fluctuance, or cellulitis. She did feel tender around the anal verge Palpation (GI): Soft to palpation, nontender and no guarding Neuro General: patient oriented x3 Assessment & Plan Assessment & Plan (1) Anal pain: Code(s): K62.89 - Other specified diseases of anus and rectum Category: Medical Plan: She says she has some anal pain described as ?burning? since about 5 days ago. Retraction of the anal canal does not suggest an anal fissure She is worried about this so I am going to prescribe her a steroid cream for now. I told her to avoid straining and constipation. I will see her again next week to re-evaluate. She looks well overall and I do not see any acute inflammatory process in the anus. Medications: Refilled hydrocortisone 2.5% (Proctosol HC) 1 appl SC BEDTIME PRN 30 grams 3RF hemorrhoids Coding Level of Care Code Est Pt Level 3 (62010) Diagnoses Anal pain K62.89
[2025-01-25 15:18] VITALS: BP 161/78; PULSE 76; BMI 26.3
--- OUTSIDE RECORDS SUMMARY | 2025-01-25 17:13 | XMS_ITS | Encounter Summary ---
Author Organization [facility] Address [address] [place] [address] Care Team Providers Care Machine Setter And Repairer Name Role Phone Maryuri Wang Primary Care Provider +1- [phone] Encounter Details Date Type Department Care Team (Late st Contact Info) Description 07/05/2020 Telephone [facility] Interventional Radiology [address] [place] [phone] Shahana Casas RN [place], [place] Social History Tobacco Use Types Packs/Day [...] on filedocumented in this encounter Care Teams Machine Setter And Repairer Relationship Specialty Start Date End Date Maryuri Wang [address] [place] [phone] PCP - General Internal Medicine 10/03/17 documented as of this encounter
--- OUTSIDE RECORDS SUMMARY | 2025-01-25 17:13 | XMS_ITS | Clinical Summary ---
Author Organization [facility] [employer] Address [address] [place] [address] Phone Care Team Providers Care Packing Inspector Name Role Phone Unavailable Primary Care Provider [...] 2013 Diabetes screening 07/30/2020 07/30/2017, 11/10/2013, 11/10/2013 Influenza vaccine 10/16/2024 Covid-19 vaccine series ( - season) 2024 RSV Immunization (1 - 1-dose 75+ series) 2038 Meningococcal B Vaccine Aged Out No l [...] 136 - 145 mmol/L 07/30/2017 9:29 PM [facility] Potassium 3.2(L) 3.5 - 5.1 mmol/L 07/30/2017 9:29 PM [facility] Chloride 106 95 - 115 mmol/L 07/30/2017 9:29 PM [facility] CO2 24 21 - 32 mmol/L 07/30/2017 9:29 PM [facility] Anion Gap 10 5 - 18 07/30/2017 9:29 PM [facility] Glucose 120(H) 70 - 100 mg/dL 07/30/2017 9:29 PM [facility] BUN 21 8 - 25 mg/dL 07/30/2017 9:29 PM [facility] Creatinine 0.77 0.50 - 1.30 mg/dL 07/30/2017 9:29 PM [facility] Calcium 9.1 8.4 - 10.3 mg/dL 07/30/2017 9:29 PM [facility] BUN/Creatinine Ratio 27.3(H) 8.0 - 25.0 07/30/2017 9:29 PM [facility] Total Protein 7.6 6.4 - 8.2 g/dL 07/30/2017 9:29 PM [facility] Albumin 4.0 3.4 - 5.0 g/dL 07/30/2017 9:29 PM [facility] Total Bilirubin 0.2 0.0 - 1.0 mg/dL 07/30/2017 9:29 PM [facility] Alkaline Phosphatase 73 20 - 120 U/L 07/30/2017 9:29 PM [facility] Alanine Aminotransferase (ALT) 23 12 - 78 U/L 07/30/2017 9:29 PM [facility] Aspartate Aminotransferase (AST) 26 5 - 37 U/L 07/30/2017 9:29 PM [facility] Globulin 3.6 g/dL 07/30/2017 9:29 PM [facility] A/G Ratio 1.1 07/30/2017 9:29 PM [facility] AST/ALT Ratio 1.1 07/30/2017 9:29 PM [facility] eGFR (Afr Amer) >60 >60 mL/min/1. 73m2 07/30/2017 9:29 PM [facility] Comment: Values under 60mL/min/1.73m2 may indicate CKD if noted for more than 3 months. eGFR is only valid if creatinine is at steady state. eGFR (NON -East Timorese) >60 >60 mL/min/1. 73m2 07/30/2017 9:29 PM [facility] Comment: Values under 60mL/min/1.73m2 may indicate CKD if noted for more than 3 months. eGFR is only valid if creatinine is at steady state. Osmolality Calculation 284 275 - 295 mOsm/kg 07/30/2017 9:29 PM [facility] Blood specimen (specimen) Venipuncture / Unknown 07/30/2017 8:55 PM EDT 07/30/2017 9:04 PM EDT us Peter A Garcia MD LAB BLOOD ORDERABLE S Final Result [address] [address], [facility] [phone] from Last 3 Months or Most Recently Relevant to Health Maintenance Insurance [id number] MEDICAID [id number] MEDICAID [id number] MEDICAID [id number] MEDICAID
--- OUTSIDE RECORDS SUMMARY | 2025-01-25 17:13 | XMS_ITS | Encounter Summary ---
Author Organization [employer] Address 75 [facility] 7t [place] [address] Care Team Providers Care Recovery Rn Name Role Phone Maryuri Wang MD Primary Care Provider + Naa Maradiaga MD Primary Care Pro vider Reason for Visit * Reason Onset Date Comments Appointment 05/25/2022 Encounter Details Date Type Department Care Team ([facility] st Contact Info) Description 05/25/2022 Telephone [facility] ADULT DENTAL [address] [place] [address] Jerman Reeves, DMD [address] [place] [address] Appointment Social History Tobacco Use Types Packs/Day [...] Care Team (Late st Contact Info) Description 01/29/2025 2:00 PM EST Nurse Only [facility] MEDICINE [address] [place] [phone] 03/04/2025 2:15 PM EST Office Visit [facility] ADULT DENTAL [address] [place] [phone] Angelica Álvarez 04/15/2025 1:30 PM EST Office Visit [facility] MEDICINE [address] [place] [address] Naa Maradiaga MD [address] [place] [phone] documented as of this encounter Visit Diagnoses Not on filedocumented in this encounter Care Teams Recovery Rn Relationship Specialty Start Date End Date Maryuri Wang MD [address] [place] [phone] PCP - General Family Medicine 01/09/17 08/22/22 Naa Maradiaga MD [address] [place] [phone] PCP - General Internal Medicine 08/23/22 documented as of this encounter
--- OUTSIDE RECORDS SUMMARY | 2025-01-25 17:13 | XMS_ITS | Encounter Summary ---
Author Organization [employer] Address 75 [facility] 7t [place] [address] Care Team Providers Care Speed Winder Name Role Phone Naa Maradiaga MD Primary Care Pro vider Encounter Details Date Type Department Care Team (Late st Contact Info) Description 01/25/2025 Telephone [facility] MEDICINE [address] [place] [address] Naa Maradiaga MD [address] [place] [address] Social History Tobacco Use Types Packs/Day Years [...] Telephone Encounter - Marilia Rae MA - 01/25/2025 2:04 PM EST Telephone call to patient to schedule the following recall: Visit type: Office visit Appointment notes: labs, images , f BP Patient agree to appointment on 04/15/25 at 1:30 PM with Glenn. Patient requested refill for thyroid medication but mentioned had found a different medication that would cost her $18 approved my insurance Patient stated provider stated they could try that after refills where done. documented in this encounter Plan of Treatment Upcoming Encounters Date Type Department Care Team (Late st Contact Info) Description 01/29/2025 2:00 PM EST Nurse Only [facility] MEDICINE [address] [place] [phone] 03/04/2025 2:15 PM EST Office Visit [facility] ADULT DENTAL [address] [place] [address] [phone] Angelica Álvarez 04/15/2025 1:30 PM EST Office Visit [facility] MEDICINE [address] [place] [phone] Naa Maradiaga MD [address] [place] [address] documented as of this encounter Visit Diagnoses Not on filedocumented in this encounter Additional Health Concerns Assessment Noted Time PHQ-9 Depression Total Score: 0 09/12/19 25 1:49 PM EDT documented as of this encounter Care Teams Speed Winder Relationship Specialty Start Date End Date Naa Maradiaga MD [address] [place] [phone] PCP - General Internal Medicine 08/23/22 documented as of this encounter
--- OUTSIDE RECORDS SUMMARY | 2025-01-25 17:13 | XMS_ITS | Encounter Summary ---
Author Organization [employer] Address [address] [facility] [address] [place] [address] Care Team Providers Care Material Manager Name Role Phone Naa Maradiaga MD Primary Care Pro vider Reason for Visit * Reason Onset Date Comments cx and rs appt same day 06/15/2024 Encounter Details Date Type Department Care Team (Late st Contact Info) Description 06/15/2024 Telephone [facility] [address] [place] [address] Marian Urias, HORACE cx and rs appt [...] Description 01/29/2025 2:00 PM EST Nurse Only [facility] [address] [place] [phone] 03/04/2025 2:15 PM EST Office Visit [facility] [address] [place] [address] Angelica Álvarez 04/15/2025 1:30 PM EST Office Visit [facility] [address] [place] [address] Naa Maradiaga MD [address] [place] [phone] documented as of this encounter Visit Diagnoses Not on filedocumented in this encounter Care Teams Material Manager Relationship Specialty Start Date End Date Naa Maradiaga MD [address] [place] [phone] PCP - General Internal Medicine 08/23/22 documented as of this encounter
--- OUTSIDE RECORDS SUMMARY | 2025-01-25 17:13 | XMS_ITS | Encounter Summary ---
Author Organization [employer] Address [address] [facility] 7t [place] [address] Care Team Providers Care Certified Shorthand Reporter Name Role Phone Naa Maradiaga MD Primary Care Pro vider Reason for Visit * Reason Onset Date Comments Results 08/21/2023 Encounter Details Date Type Department Care Team ([facility] st Contact Info) Description 08/21/2023 Telephone [facility] [address] [place] [address] Naa Maradiaga MD [address] [place] [address] Results Social History Tobacco Use Types Packs/Day [...] EDT TC placed to pt with a [employer] n[employer] operator to inquire about the GI visit results [...] call back in regards gastro visit results. Bulgarian speaker documented in this encounter Plan of Treatment Upcoming Encounters Date Type Department Care Team (Late st Contact Info) Description 01/29/2025 2:00 PM EST Nurse Only [facility] [address] [place] [address] 03/04/2025 2:15 PM EST Office Visit [facility] ADULT [facility] [address] [place] [address] Angelica Álvarez 04/15/2025 1:30 PM EST Office Visit [facility] [address] [place] [address] Naa Maradiaga MD [address] [place] [address] documented as of this encounter Visit Diagnoses Not on filedocumented in this encounter Care Teams Certified Shorthand Reporter Relationship Specialty Start Date End Date Naa Maradiaga MD [address] [place] [address] PCP - General Internal Medicine 08/23/22 documented as of this encounter
--- OUTSIDE RECORDS SUMMARY | 2025-01-25 17:13 | XMS_ITS | Encounter Summary ---
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 [phone] * Telephone Encounter - Jerman Reeves DMD [...] or lower) for nightguard fabrication. [phone] documented in this encounter Plan of Treatment Upcoming Encounters Date Type Department Care Team (Late st Contact Info) Description 01/29/2025 2:00 PM EST Nurse Only [facility] [address] [place] [phone] 03/04/2025 2:15 PM EST Office Visit [facility] [address] [place] [address] Angelica Álvarez 04/15/2025 1:30 PM EST Office Visit [facility] [address] [place] [address] Naa Maradiaga MD [address] [place] [phone] documented as of this encounter Visit Diagnoses Not on filedocumented in this encounter Care Teams Bronc Buster Relationship Specialty Start Date End Date Naa Maradiaga MD [address] [place] [phone] PCP - General Internal Medicine 08/23/22 documented as of this encounter
--- OUTSIDE RECORDS SUMMARY | 2025-01-25 17:13 | XMS_ITS | Clinical Summary ---
Author Organization [employer] Address [address] [place] [address] Care Team Providers Care Field Court Researcher Name Role Phone Naa Maradiaga MD Primary Care Pro vider Allergies No known active allergies Medications Blood Pressure Monitor kit 1 Device in the morning. 1 kit 04/03/19 24 Active famotidine (Pepcid) 20 MG tablet TAKE 1 TABLET BY MOUTH EVERY DAY NEEDED (for stomach acid) 07/08/19 25 Active psyllium (Metamucil) 58.6 % powder Take 3 g of fiber by mouth 2 times daily. Active acetaminophen (Tylenol) 500 MG tablet Take 1 tablet (500 mg) by mouth every 8 (eight) hours if needed for mild pain. 30 tablet 2 09/12/19 25 Active cyanocobalamin (Vitamin B-12) 1000 MCG tablet Take 1 tablet (1,000 mcg) by mouth in the morning. 30 tablet 3 09/12/19 25 Active sodium chloride (Deep Sea Nasal Sodus) 0.65 % nasal spray Administer 1 spray into each nostril if needed for congestion. 44 mL 2 09/12/19 25 Active Senna S 8.6-50 MG tablet Take 2 tablets by mouth if needed each day for constipation. 90 tablet 11/18/19 25 Active gabapentin (Neurontin) 100 MG capsuleIndicati ons:Neuropathy 1 capsule at bedtime 30 capsule 2 11/18/19 25 Active levothyroxine (Levoxyl) 112 MCG tablet Take 1 tablet (112 mcg) by mouth before breakfast. 90 tablet 11/20/19 25 026 Active Aspirin Low Dose 81 MG EC tabletIndicatio ns:Personal history of other diseases of the circulatory system TAKE 1 TABLET BY MOUTH EVERY MORNING 90 tablet 1 01/22/20 25 Active Aspirin Low Dose 81 MG EC tabletIndicatio ns:Personal history of other diseases of the circulatory system TAKE 1 TABLET BY MOUTH EVERY MORNING 90 tablet 1 07/24/19 25 025 Discontinued Active Problems Problem Noted Date Diagnosed Date Dysphagia 11/17/2024 HLD (hyperlipidemia) 11/17/2024 Cerebral arterial aneurysm 09/11/2024 Overweight (BMI 25.0-29.9) 09/11/2024 Elevated blood pressure reading 04/03/2023 Left foot pain 11/13/2022 Assessment & Plan [...] foot to r/o foreign body -referred to lithograph press operator tinware -advised to soak foot in warm water [...] endo no need to continue care w sheetrock applicator -continue current dose of levo 125 daily -repeat TFT in 4 weeks ordered today , if still elevated will need to increase dose Assessment & Plan (10/08/2022 10:57 PM EDT): -from endo no need to continue care w sheetrock applicator -continue current dose of levo 125 daily -repeat TFT Assessment & Plan (04/09/2022 3:42 PM EST): Follow up with Crystal Inspector. 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 Assessment & Plan (11/13/2022 12:21 PM [...] Problem Noted Date Diagnosed Date Resolved Date Rectal pain 08/06/2022 10/08/2022 Assessment & Plan [...] Pain in toe 08/02/2022 10/08/2022 Postmenopausal bleeding 08/02/202209/16 Tear of lateral meniscus of knee 08/02/2022 10/08/2022 Right inguinal pain 08/02/2022 10/09/19 23 Primary osteoarthritis of both knees 08/02/2022 10/08/2022 Pelvic mass 08/02/2022 10/08/2022 Intermittent claudication 08/22/2018 Perimenopause 05/19/2018 10/08/2022 Nail finding 04/08/2018 10/08/2022 Paresthesia of hand 02/03/2018 10/09/19 23 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 10/08/2022 Worsening vision 09/06/2017 10/08/2022 Encounters Date Type Department Care Team Description 01/25/2025 Telephone [facility] [address] [place] [address] Naa Maradiaga MD 01/23/2025 Travel 01/21/2025 Refill [facility] [address] [place] [address] Naa Maradiaga MD Personal history of other diseases of the circulatory system 01/11/2025 Refill [facility] [address] [place] [address] Naa Maradiaga MD 12/24/2024 Telephone [facility] [address] [place] [address] Naa Maradiaga MD Referral 12/18/2024 Telephone [facility] [address] [place] [address] Naa Maradiaga MD Appointment Request 12/03/2024 Orders Only [facility] [address] [place] [address] Naa Maradiaga MD Eyelid abnormality (Primary Dx) 12/02/2024 Telephone [facility] [address] [place] [address] Naa Maradiaga MD Referral 11/19/2024 Orders Only [facility] [address] [place] [address] Naa Maradiaga MD 11/17/2024 1:30 PM EDT Office Visit [facility] [address] [facility] [place] [address] Naa Maradiaga MD Overweight (BMI 25.0-29.9) (Primary Dx); Neuropathy; Pharyngeal dysphagia; Hypothyroidism, unspecified type; Hyperlipidemia, unspecified hyperlipidemia type; Health care maintenance; Elevated blood pressure reading 11/17/2024 Travel 11/13/2024 Travel 11/12/2024 Results Follow-Up [facility] [address] [place] [address] Naa Maradiaga MD CBC, Comprehensive Metabolic Panel, Hemoglobin A1c, Additional followed-up results: 15 from Last 3 Months Immunizations Immunization Administration [...] Sign Reading Time Taken Comments Blood Pressure 140/80 11/17/2024 2:28 PM EDT Pulse 65 11/17/2024 1:36 PM EDT Temperature 36.3 C (97.3 F) 11/17/2024 1:36 PM EDT Respiratory Rate 20 11/17/2024 1:36 PM EDT Oxygen Saturation 98% 11/17/2024 1:36 PM EDT Inhaled Oxygen Concentration - - Weight 69.9 kg (154 lb 3.2 oz) 11/17/2024 1:36 P M EDT Height 162.6 cm (5' 4 ) 11/17/2024 1:36 PM EDT Body Mass Index 26.47 11/17/2024 1:36 PM EDT Plan of Treatment Upcoming Encounters Date Type Department Care Team (Late st Contact Info) Description 01/29/2025 2:00 PM EST Nurse Only [facility] [address] [place] [phone] 03/04/2025 2:15 PM EST Office Visit [facility] [address] [place], [place] [phone] Angelica Álvarez 04/15/2025 1:30 PM EST Office Visit [facility] [address] [place] [phone] Naa Maradiaga MD [address] [place], [place] [phone] Health Maintenance Due Date Last Done Comments [...] SDOH Screening 06/24/2025 06/24/2024 Mammogram 08/05/2025 08/05/2024, 07/17, 03/17/2024, Additional history exists Alcohol/Substance Use Screening 09/11/2025 09/11/2024 Depression Screening 09/11/2025 09/11/2024, 09/12/19 Disability Screening 11/13/2025 11/13/2024 Tobacco Screening 11/17/2025 11/17/2024 Dental X-Ray: Full Mouth 01/17/2027 01/17/2024 Cervical Cancer Screening 04/12/2027 HPV/Cotest 04/12/2027 04/12/2022, 05/19/2018 Colonoscopy 12/14/2029 12/15/2019 Colorectal Cancer Screening 12/14/2029 DTaP/Tdap/Td Vaccines (2 - Td or Tdap) 11/30/2030 11/30/2020 Zoster Vaccines Completed 02/01/2021, 11/30/2020 Hepatitis B Vaccines Completed 04/05/2021, 01/11/2021, 12/13/2020 RSV Patients and Patients Aged 60 years or older Completed 06/12/2023 COVID-19 Vaccine Completed 04/03/2024, , 01/10/2022, Additional history exists HIV Screening Completed 11/12/2024, 090 07/2023, 10/12/2022 Hepatitis C Screening Completed 11/12/2024 , 11/21/2023, 10/12/2022 HIB Vaccines Aged Out No longer eligi [...] Procedure Name Priority Date/Time Associated Diagnosis Comments SED RATE BY MODIFIED WESTERGREN Routine 11/12/2024 6:27 AM EDT Neuropathy C-REACTIVE PROTEIN Routine 11/12/2024 6: 27 AM EDT Neuropathy MEASLES, MUMPS, AND RUBELLA (MMR) AB (IGG) PANEL, IMMUNE STATUS Routine 11/12/2024 6:27 AM EDT Health care maintenance FERRITIN Routine 11/12/2024 6:27 AM EDT Health care maintenance IRON AND TOTAL IRON BINDING CAPACITY Routine 11/12/2024 6:27 AM EDT Health care maintenance T4, FREE Routine 11/12/2024 6:27 AM EDT Health care maintenance TSH Routine 11/12/2024 6:27 AM EDT Health care maintenance VITAMIN D,25-OH,TOTAL,IA Routine 11/12/2024 6:27 AM EDT Health care maintenance VITAMIN B12/FOLATE, SERUM PANEL Routine 11/12/2024 6:27 AM EDT Health care maintenance SYPHILIS SCREEN Routine 11/12/2024 6:27 AM EDT Health care maintenance LIPID PANEL, STANDARD Routine 11/12/2024 6:27 AM EDT Health care maintenance HIV 1/2 ANTIGEN/ANTIBODY, FOURTH GENERATION W/RFL Routine 11/12/2024 6:27 AM EDT Health care maintenance HEPATITIS C AB W/REFL TO HCV RNA, QN, PCR Routine 11/12/2024 6:27 AM EDT Health care maintenance HEPATITIS B SURFACE ANTIGEN, EIA Routine 11/12/2024 6:27 AM EDT Health care maintenance HEPATITIS B SURFACE ANTIBODY, QUALITATIVE Routine 11/12/2024 6:27 AM EDT Health care maintenance HEPATITIS B CORE AB TOTAL Routine 11/12/2024 6:27 AM EDT Health care maintenance HEMOGLOBIN A1C Routine 11/12/2024 6:27 AM EDT Health care maintenance COMPREHENSIVE METABOLIC PANEL Routine 11/12/2024 6:27 AM EDT Health care maintenance CBC Routine 11/12/2024 6:27 AM EDT Health care maintenance BI US BREAST LIMITED BILATERAL Routine 08/05/2024 [...] BY IMMUNOCHEMISTRY Routine 11/30/2023 12:00 AM EDT HPV MRNA E6/E7 REFLEX TO HPV 16, 18/45 Routine 04/12/2022 3:02 PM EST PAP SMEAR Routine 04/12/2022 3:02 PM EST HM COLONOSCOPY Routine 12/15/2019 2:23 PM EDT from Last 3 Months or Most Recently Relevant to Health Maintenance Results * Syphilis Screen (11/12/2024 6:27 AM EDT) Syphilis Screen Nonreactive Nonreactive [facility] Blood 11/12/2024 6:27 AM EDT 11/12/2024 6:27 AM EDT us Naa Aguila MD LAB BLOOD ORDERAB LES Final Result [facility] [address] [place] [phone] * Vitamin D, 25-Hydroxy, Total, Immunoassay (11/12/2024 6:27 AM EDT) Vitamin D 25-OH Total 35.1 >30 ng/mL [facility] Comment: Health Based Reference Values*< 20 ng/mL Pshqhulzz48-50 ng/mL Insufficient> 30 ng/mL Sufficient*Tana WILLINGHAM. N Engl J Med. 2007;357:266-280There is no well-established upper level of normal vitamin Dlevels. Some laboratories use 50 ng/mL as an upper limit ofnormal. However, toxicity is patient-dependent and may occurat any level. Careful correlation with the patient'spresentation is necessary and, if there is concern forvitamin D toxicity, treatment should be consideredirrespective of the serum level.Care must be taken in interpreting Vitamin D results fromdifferent laboratories and methodologies. Published datademonstrated that results from patients undergoinghemodialysis may show a negative bias when tested withvarious automated 25-OH vitamin D assays when compared toLC-MS/MS.When testing samples from patients whose predominant form ofVitamin D is Vitamin D2, such as patients receiving VitaminD2 supplementation, results that are subtherapeutic shouldbe confirmed with another method such as LC-MS/MS. Blood Venous blood specimen / Unknown 11/12/2024 6:27 AM EDT 11/12/2024 6:27 AM EDT us Naa Aguila MD LAB BLOOD ORDERAB LES Final Result [facility] [address] [place] [phone] * Vitamin B12 (Cobalamin) and Folate Panel, Serum (11/12/2024 6:27 AM EDT) Vitamin B12 635 200 - 900 pg/mL [facility] Comment:NORMAL 200-900 PG/ML INDETERMINATE 160-199 PG/ML DEFICIENT < 160 PG/ML Folate 13.4 > or = 4.0 ng/mL [facility] Comment:Reference Values:> o r = 4.0 ng/mL< 4.0 ng/mL suggests folate deficiency Methotrexate, aminopterin and folinic acid(leucovorin) are chemotherapeutic agents whose molecularstructures are similar to folate; therefore, the Architectfolate assay cannot be used for patients using these drugs. Blood 11/12/2024 6:27 AM EDT 11/12/2024 6:27 AM EDT Naa Aguila MD LAB BLOOD ORDERAB LES Final Result [facility] [address] [place] [phone] * Measles, Mumps, and Rubella (MMR) Antibodies??(IgG) Panel, Immune Status (11/12/2024 6:27 AM EDT) Mumps Virus IgG Antibody >300.00 AU/mL [facility] Comment:AU/mL Interpretatio n------- <9.00 Not consistent with immunity9.00-10.99 Equivocal>10.99 Consistent with immunityThe presence of mumps IgG antibody suggests immunizationor past or current infection with mumps virus. Rubella IgG Antibody >33.00 Index [facility] Comment:Index Interpretation ----- <0.90 Not consistent with immunity 0.90-0.99 Equivocal > or = 1.00 Consistent with immunityThe presence of rubella IgG antibody suggestsimmunization or past or current infection withrubella virus.THIS TEST WAS PERFORMED AT:[facility] [place] [phone] LEMUS MD Rubeola IgG (Measles) >300.00 AU/mL [facility] Comment:AU/mL Interpretation ----- <13.50 Not consistent with ymfpqryw21.50-16.49 Equivocal>16.49 Consistent with immunityThe presence of measles IgG suggests immunization orpast or current infection with measles virus.For additional information, please refer tohttp://education.Geenapp/faq/INT491(This link is being provided for informational/educational purposes only.) Blood Venous blood specimen / Unknown 11/12/2024 6:27 AM EDT 11/12/2024 6:27 AM EDT us Naa Aguila MD LAB BLOOD ORDERAB LES Final Result Performing Organization Address City/[facility]/ZIP Co de Phone Number [facility] [address] [place] [phone] * Hepatitis C Antibody with Reflex to HCV, RNA, Quantitative, Real-Time PCR (11/12/2024 6:27 AM EDT) [facility] Hepatitis C Antibody Nonreactive Nonreactive [facility] Comment:Antibodies to HCV no t detected; does not exclude early acuteHCV infection. Blood Venous blood specimen / Unknown 11/12/2024 6:27 AM EDT 11/12/2024 6:27 AM EDT us Naa Aguila MD LAB BLOOD ORDERAB LES Final Result Performing Organization Address [facility] Co de Phone Number [facility] [address] [place] [phone] * Iron And Total Iron Binding Capacity (11/12/2024 6:27 AM EDT) [facility] Iron 48 30 - 160 mcg/dL [facility] Total Iron Binding Capacity 296 228 - 428 mcg/dL [facility] Percent Iron Saturation 16 15 - 50 % [facility] Unsaturated Iron Binding 248 ug/dL [facility] Blood Venous blood specimen / Unknown 11/12/2024 6:27 AM EDT 11/12/2024 6:27 AM EDT us Naa Aguila MD LAB BLOOD ORDERAB LES Final Result Performing Organization Address City/[facility]/ZIP Co de Phone Number [facility] [address] [place] [phone] * Hepatitis B surface antigen, EIA (11/12/2024 6:27 AM EDT) [facility] Hepatitis B Surface Ag Negative Negative [facility] Blood Venous blood specimen / Unknown 11/12/2024 6:27 AM EDT 11/12/2024 6:27 AM EDT Naa Aguila MD LAB BLOOD ORDERAB LES Final Result Performing Organization Address [facility]/ZIP Co de Phone Number [facility] [address] [place] [phone] * Hepatitis B Core Antibody, Total (11/12/2024 6:27 AM EDT) Pathologist [facility] Hepatitis B Core Antibody Nonreactive Nonreactive [facility] Blood Venous blood specimen / Unknown 11/12/2024 6:27 AM EDT 11/12/2024 6:27 AM EDT Naa Aguila MD LAB BLOOD ORDERAB LES Final Result Performing Organization Address City/[facility] Co de Phone Number [facility] [address] [place] [phone] * HIV-1/2 Antigen and Antibodies, Fourth Generation, with Reflexes (11/12/2024 6:27 AM EDT) Pathologist [facility] HIV AB/AG Nonreactive Nonreactive [facility] Comment:HIV-1 p24 Ag and/or HIV-1/HIV-2 Ab not detected.A test result that is nonreactive does not exclude thepossibility of exposure to or infection with HIV-1 and/orHIV-2. Nonreactive results in this assay for individualswith prior exposure to HIV-1 and/or HIV-2 may be due toantigen and antibody levels that are below the limit ofdetection of this assay.The [employer] HIV Ag/Ab Combo assay result andsupplemental assay results should be interpreted inconjunction with the patient's clinical presentation,history and other laboratory results. If the results areinconsistent with clinical evidence, additional testing issuggested to confirm the result. Blood Venous blood specimen / Unknown 11/12/2024 6:27 AM EDT 11/12/2024 6:27 AM EDT us Naa Aguila MD LAB BLOOD ORDERAB LES Final Result Performing Organization Address [facility] Co de Phone Number [facility] [address] [place] [phone] * Hepatitis B Surface Antibody, Qualitative (11/12/2024 6:27 AM EDT) ~Hepatitis B Surface Antibody NONREACTIVE Nonreactive [facility] Comment:Nonreactive: < 8.00 mIU/mL Blood Venous blood specimen / Unknown 11/12/2024 6:27 AM EDT 11/12/2024 6:27 AM EDT us Naa Aguila MD LAB BLOOD ORDERAB LES Final Result Performing Organization Address [facility] Co de Phone Number [facility] [address] [place] [phone] * Sed Rate by Modified Westergren (11/12/2024 6:27 AM EDT) [facility] Erythrocyte Sedimentation Rate 7 0 - 20 MM/HR [facility] Comment:Patients with polycy themia and many hemoglobin abnormalitiesmay have depressed sed rates whereas patients with anemiamay have elevated sed rates. Blood Venous blood specimen / Unknown 11/12/2024 6:27 AM EDT 11/12/2024 6:27 AM EDT us Naa Aguila MD LAB BLOOD ORDERAB LES Final Result Performing Organization Address [facility] Co de Phone Number [facility] [address] [place] [phone] * (ABNORMAL) CBC (11/12/2024 6:27 AM EDT) Pathologist [facility] White Blood Count 3.4(L) 4.8 - 10.8 X10*3/uL [facility] Red Blood Count 4.64 4.20 - 5.50 X10*6/uL [facility] Hemoglobin 12.0 12.0 - 16.0 g/dl [facility] Hematocrit 37.9 37.0 - 47.0 % [facility] Mean Corpuscular Volume 81.7 80.0 - 98.0 fL [facility] Mean Corpuscular Hemoglobin 25.9(L) 27.0 - 33.0 pg [facility] Mean Corpuscular HGB Conc 31.7 31.0 - 35.0 g/dl [facility] Red Cell Distribution Width 16.6(H) 11.0 - 16.0 % [facility] Platelet Count 284 160 - 400 X10*3/uL [facility] Mean Platelet Volume 11.4 9.4 - 12.3 fL [facility] NRBC Pct Auto 0.0 0.0 - 0.2 /100WBC [facility] NRBC Abs Auto 0.000 0.0 - 0.012 X10*3/uL [facility] Blood Venous blood specimen / Unknown 11/12/2024 6:27 AM EDT 11/12/2024 6:27 AM EDT us Naa Aguila MD LAB BLOOD ORDERAB LES Final Result Performing Organization Address City/[facility]/ZIP Co de Phone Number [facility] [address] [place] [phone] * C-reactive Protein (11/12/2024 6:27 AM EDT) C Reactive Protein <0.10 < or = 0.50 mg/dL [facility] Blood Venous blood specimen / Unknown 11/12/2024 6:27 AM EDT 11/12/2024 6:27 AM EDT Naa Aguila MD LAB BLOOD ORDERAB LES Final Result [facility] [address] [place] [phone] * (ABNORMAL) TSH (11/12/2024 6:27 AM EDT) Thyroid Stimulating Hormone 7.33(H) 0.32 - 4.0 uIU/mL [facility] Comment:Note: A sustained TS H level above 2.5 uIU/mL may warrant further investigation. TSH 3rd Generation ([facility]) Blood Venous blood specimen / Unknown 11/12/2024 6:27 AM EDT 11/12/2024 6:27 AM EDT Naa Aguila MD LAB BLOOD ORDERAB LES Final Result Performing Organization Address [facility] Co de Phone Number [facility] [address] [place] [phone] * T4, Free (11/12/2024 6:27 AM EDT) Free T4 (Free Thyroxine) 0.90 0.71 - 1.85 ng/dL [facility] Blood Venous blood specimen / Unknown 11/12/2024 6:27 AM EDT 11/12/2024 6:27 AM EDT us Naa Aguila MD LAB BLOOD ORDERAB LES Final Result Performing Organization Address [facility] Co de Phone Number [facility] [address] [place] [phone] * Hemoglobin A1c (11/12/2024 6:27 AM EDT) Hemoglobin A1c 5.5 <6.0 % [facility] Comment:Hemoglobin A1C Refer ence Range Adults: 4.8 - 6.0 % Non diabetic: < 6.0 % Goal: < 7.0 %Additional Action Suggested: > 8.0 %Note: Hemoglobin A1c results are invalid for patients with abnormal amounts of HbF. Blood transfusions may impact the HbA1c concentration in the patient sample. Estimated Average Glucose 111 mg/dL [facility] Comment:eAG = Estimated ave rage glucose which is %A1C expressed asaverage glucose, using the formula of the A3Z-StquumjRguhfnk Glucose study (ADAG), Diabetes Care, Vol.31,#8,2007 Blood Venous blood specimen / Unknown 11/12/2024 6:27 AM EDT 11/12/2024 6:27 AM EDT us Naa Aguila MD LAB BLOOD ORDERAB LES Final Result Performing Organization Address [facility]/ZIP Co de Phone Number [facility] [address] [place] [address] [phone] * (ABNORMAL) Ferritin (11/12/2024 6:27 AM EDT) Ferritin 7(L) 10 - 250 ng/mL [facility] Blood Venous blood specimen / Unknown 11/12/2024 6:27 AM EDT 11/12/2024 6:27 AM EDT us Naa Aguila MD LAB BLOOD ORDERAB LES Final Result Performing Organization Address [facility] Co de Phone Number [facility] [address] [place] [address] [phone] * (ABNORMAL) Lipid Panel, Standard (11/12/2024 6:27 AM EDT) Triglycerides 52 <150 mg/dL [facility] Comment:Desirable Triglyceri de: less than 150 mg/dLBorderline High Triglyceride 150-199 mg/dLHigh Triglyceride: 200-499 mg/dLVery High Triglyceride: greater than or equal to 5OO mg/dL Cholesterol 214(H) <200 mg/dL [facility] Comment:Desirable Cholestero l: less than 200 mg/dLBorderline High Cholesterol: 200-239 mg/dLHigh Cholesterol: greater than 239 mg/dL LDL Cholesterol Calculated 140(H) <100 mg/dL [facility] Comment:Desirable LDL: less than 100 mg/dLNear Optimal/Above Optimal LDL: 110- 129 mg/dLBorderline High LDL: 130-159 mg/dLHigh LDL: 160-189 mg/dLVery High LDL: greater than or equal to 190 mg/dL HDL Cholesterol 64 >40 mg/dL [facility] Comment:Desirable HDL: great er than 40 mg/dL Note: This HDL assay may give artificially low results in patients with liver disease. Blood Venous blood specimen / Unknown 11/12/2024 6:27 AM EDT 11/12/2024 6:27 AM EDT us Naa Aguila MD LAB BLOOD ORDERAB LES Final Result [facility] [address] [place] [phone] * (ABNORMAL) Comprehensive Metabolic Panel (11/12/2024 6:27 AM EDT) Sodium 141 135 - 145 mmol/L [facility] Potassium 3.8 3.3 - 5.1 mmol/L [facility] Chloride 109(H) 96 - 108 mmol/L [facility] Carbon Dioxide 27 22 - 29 mmol/L [facility] Anion Gap 9(L) 12 - 20 [facility] Urea Nitrogen (BUN) 22(H) 9 - 16 mg/dL [facility] Creatinine, Serum 0.70 0.5 - 1.4 mg/dL [facility] Estimated Glomerular Filt Rate >60 [facility] Comment:Chronic Kidney Disea se: Estimated GFR < 60 mL/min/[id number] Kidney Disease: Estimated GFR < 15 mL/min/1.73m2 Glucose 82 60 - 115 mg/dL [facility] Calcium 9.0 8.4 - 10.2 mg/dL [facility] Bilirubin, Total 0.4 0.0 - 1.0 mg/dL [facility] Comment:Slight Icterus. Aspartate Amino Transferase 25 5 - 31 U/L [facility] Alanine Aminotransferase 15 0 - 31 U/L [facility] Total Protein 7.4 6.5 - 8.0 g/dL [facility] Albumin Level 4.4 3.5 - 5.0 g/dL [facility] Alkaline Phosphatase 61 39 - 117 U/L [facility] Blood Venous blood specimen / Unknown 11/12/2024 6:27 AM EDT 11/12/2024 6:27 AM EDT us Naa Aguila MD LAB BLOOD ORDERAB LES Final Result [facility] [address] [place] [address] [phone] * BI US Breast Limited Bilateral (08/05/2024 2:00 PM EDT) Anatomical Region Laterality Modality Breast Bilateral Ultrasound 08/05/2024 2:00 PM EDT Narrative 08/05/2024 2:14 PM EDT [facility] [address] [place] [address] Ultrasound Report Signed Patient: Shruti Lee MR#: [id number] : 1965 Acct:[id number] Age/Sex: 59 / F ADM Date: 08/05/24 Loc: HO.MAMMO Attending Dr: Hair Hinojosa MD Ordering Physician: Hair Hinojosa MD Date of Service: 08/05/24 Procedure(s): US breast BI limited mamm only Accession Number(s): [id number] cc: Naa Maradiaga MD; Hair Hinojosa MD [...] 08/05/24 1411 DD/ 1400 TD/TT: 08/05/24 1400 Part Time: Procedure Note Donotuseinterpreter, Image - 08/05/2024 [facility] [address] [place], [place] [address] Ultrasound Report Signed Patient: Arielle Lee#: [id number] : 1965Acct:[id number] Age/Sex: 59 / FADM Date: 08/05/24 Loc: GEORGE Attending Dr: Hair Hinojosa MD Ordering Physician: Hair Hinojosa MD Date of Service: 08/05/24 Procedure(s): US breast BI limited mamm only Accession Number(s): [id number] cc: Naa Maradiaga MD; Hair Hinojosa MD [...] 08/05/24 1411 DD/ 1400 TD/TT: 08/05/24 1400 Part Time: [facility] External Provider IMG US PROCEDURES Final Result * Fecal Globin by Immunochemistry (11/30/2023 12:00 AM EDT) Fecal Globin By Immunochemistry SEE NOTE [facility] Comment: FECAL GLOBIN BY IMMUNOCHEMISTRY Micro Number: [id number] Test Status: Final Specimen Source: Insure (tm) fobt test card Specimen Quality: Adequate Fecal Globin: Not Detected 11/30/2023 12/08/2023 11: 31 PM EDT Narrative [facility] - 12/08/2023 11:42 PM EDT FASTING: UNKNOWN Naa Aguila MD LAB BODY FLUIDS A ND STOOLS ORDERABLES Final Result Performing Organization Address City/[facility]/ZIP Co de Phone Number [address], [place] [address] [employer] [facility] [address] [place] [phone] * HPV mRNA E6/E7 w/Reflex to HPV Genotypes 16, 18/45 (04/12/2022 3:02 PM EST) HPV nRNA E6/E7 Not Detected Not Detected [facility] Comment:Methodology: Transcr iption-Mediated AmplificationThis assay detects E6/E7 viral messenger RNA (mRNA) from 14high-risk HPV types (16,18,31,33,35,39,45,51,52,56,58,59,66,68).Cervical sources are required for HPV testing.If a vaginal source from a patient who has had atotal hysterectomy with removal of cervix wassubmitted, please contact the testing laboratoryfor alternative testing options.For additional information, please refer [email or web address](This link if provided for information/educational purposes only.)THIS TEST WAS PERFORMED AT:[employer] [address] ([address])[place] [address]KRYLHIZZY LEMUS MD HPV mRNA E6/E7 [facility] HPV 16 RNA [facility] HPV 18/45 RNA [facility] 04/12/2022 3:02 PM EST 04/12/2022 4:15 PM EST [facility] External Provider LAB CYT OLOGY ORDERABLES Final Result Performing Organization Address City/[facility]/ZIP Co de Phone Number [facility] [address] [place] [address] [phone] * Pap Smear (04/12/2022 3:02 PM EST) 04/12/2022 3:02 PM EST 04/12/2022 4:15 PM EST Narrative [facility] - 04/20/2022 6:31 PM EST ----- ------- Name: Chapa Shruti Saldana Age/Sex: 57/F : 1965 Unit#: [id number] Attend Dr: Hair Hinojosa MD Re04/12/22 Status: DEP REF Location: HO.LNP Disch: ----- ------- SPEC : [id number] RECD: 04/12/22-1615 STATUS: BRIDGET CARTER NUM: [id number] ADRIANA: 04/12/22-1502 [facility] DR: Hair Hinojosa MD ENTERED: 04/12/22-166 SP TYPE: Pap Libby BLEVINS DR: Sheryl Wang MD ORDERED: Pap Smear Interpretation Satisfactory for evaluation. Negative for intraepithelial lesion or malignancy. Atrophic. HPV mRNA E6/E7: NOT DETECTED This assay detects E6/E7 viral messenger RNA (mRNA) from 14 high-risk HPV types (16, 18, 31, 33, 35, 39, 45, 51, 52, 56, 58, 59, 66, 68) HPV testing performed by [employer], [place], [place]. See reference laboratory portion of the EMR for entire report. Clinical Information LMP: Post menopause Previous PAP test: Unknown Material Received ThinPrep-Cervical Copies To: Sheryl Wang MD [address] [place] [address] Hair Hinojosa MD [address] [place] [address] Dr. Davila [address] [place] [address] ----- ------- Signed (signature on file) Christina Laureano 04/20/22 1831 ----- ------- END OF REPORT [facility] External Provider LAB [facility] ORDERABLES Final Result [facility] [address] [place] [address] [phone] * Hm Colonoscopy (12/15/2019 2:23 PM EDT) Colonoscopy Normal Normal Narrative Lashon Cat - 12/15/2019 2:23 PM EDT Recommended 10 year follow up Historical Provider HEALTH MAINTENANCE Edited Result - Final from Last 3 Months or Most Recently Relevant to Health Maintenance Insurance [facility] 2 [facility]AL[facility] MEDICAID LIMITED ADULT DENTAL - HSN FULL (MEDICAID) Care Teams Field Court Researcher Relationship Specialty Start Date End Date Naa Maradiaga MD [address] [place] [address] PCP - General Internal Medicine 08/23/22
--- OUTSIDE RECORDS SUMMARY | 2025-01-25 17:13 | XMS_ITS | Clinical Summary ---
Author Organization [facility] Address [address] [place] [address] Care Team Providers Care Analyst Sales Name Role Phone KathleenMaryuriPadma Primary Care Provider +1- [phone] Allergies No known active allergies Medications levothyroxine [...] DTaP,Tdap,and Td Vaccines (1 - Tdap) 1985 Mammogram 2003 Pneumococcal Vaccine: 50+ Years (1 of 1 - PCV) 2013 Zoster Vaccines (1 of 2) 2013 Alcohol/Substance Use Screening 03/18/2024 COVID-19 Vaccine (3 - 2024-2 6 season) 2024 08/10/2020, 07/13/2020 Influenza Vaccine (#1) 2024 12/04/2013 RSV Vaccine (60+ years old a nd patients) (1 - 1-dose 75+ series) 2038 Hepatitis B Vaccines Aged Out No long er eligible based on patient's age to complete this topic Medical Devices Implanted Type Area Baby Doctor Device Identifier Shelf Expiration Date Model / Serial / Lot Device Closure Vascular Plug 6fr Angio-Seal Vip - [id number] Implanted:Qty: 1 on 03/04/2018 at [facility] Implant [employer] 12/15/2018 [id number] / / [id number] Device Closure Vascular Plug 6fr Angio-Seal Vip - [id number] Implanted:Qty: 1 on 07/06/2020 at [facility] Implant [employer] [id number] / / Device Closure Vascular Plug 6fr Angio-Seal Vip - [id number] Implanted:Qty: 1 on 08/03/2020 at [facility] Implant [employer] [id number] / / Diverter Flow [id number] - [id number] Implanted:Qty: 1 on 08/03/2020 at [facility] [employer] 12/15/2022 [id number] / / [id number] Diverter Flow [id number] - [id number] Implanted:Qty: 1 on 08/03/2020 at [facility] [employer] 08/15/2022 [id number] / / [id number] Insurance [facility] HSNO/FREE CARE Care Teams Analyst Sales Relationship Specialty Start Date End Date Maryuri Wang [address] [place] [phone] PCP - General Internal Medicine 10/03/17
--- OUTSIDE RECORDS SUMMARY | 2025-01-25 17:13 | XMS_ITS | Encounter Summary ---
Author Organization [employer] Address [address] [facility] 7t [place] [address] Care Team Providers Care Licensed Prosthetist Name Role Phone Naa Maradiaga MD Primary Care Pro vider Encounter Details Date Type Department Care Team (Late st Contact Info) Description 10/19/2024 Orders Only [facility] MEDICINE [address] [place] [address] Naa Maradiaga MD [address] [place] [address] Social History Tobacco Use Types Packs/Day Years [...] 2:00 PM EST Nurse Only [facility] MEDICINE [address] [place] [phone] 03/04/2025 2:15 PM EST Office Visit [facility] ADULT DENTAL [address] [place] [phone] Angelica Álvarez 04/15/2025 1:30 PM EST Office Visit [facility] MEDICINE [address] [place] [phone] Naa Maradiaga MD [address] [place] [address] documented as of this encounter Visit Diagnoses Not on filedocumented in this encounter Additional Health Concerns Assessment Noted Time PHQ-9 Depression Total Score: 0 09/12/19 25 1:49 PM EDT documented as of this encounter Care Teams Licensed Prosthetist Relationship Specialty Start Date End Date Naa Maradiaga MD [address] [place] [phone] PCP - General Internal Medicine 08/23/22 documented as of this encounter
--- OUTSIDE RECORDS SUMMARY | 2025-01-25 17:13 | XMS_ITS | Encounter Summary ---
Author Organization [facility] Address [address] [place] [address] 7t [place] [address] Care Team Providers Care Operator Technician Name Role Phone Maryuri Wang MD Primary Care Provider + Naa Maradiaga MD Primary Care Pro vider Encounter Details Date Type Department Care Team (Latest Contact Info) Description 06/13/2018 Abstract [facility] CONVERSIONS Dental, Provider, DDS Social History Tobacco [...] Care Team ( st Contact Info) Description 01/29/2025 2:00 PM EST Nurse Only [facility] MEDICINE [address] [place] [phone] 03/04/2025 2:15 PM EST Office Visit [facility] ADULT DENTAL [address] [place] [address] Angelica Álvarez 04/15/2025 1:30 PM EST Office Visit [facility] MEDICINE [address] [place] [address] [phone] Naa Maradiaga MD [address] [place] [address] documented as of this encounter Visit Diagnoses Not on filedocumented in this encounter Care Teams Operator Technician Relationship Specialty Start Date End Date Maryuri Wang MD [address] [place] [address] PCP - General Family Medicine 01/09/17 08/22/22 Naa Maradiaga MD [address] [place] [address] PCP - General Internal Medicine 08/23/22 documented as of this encounter
--- OUTSIDE RECORDS SUMMARY | 2025-01-25 17:13 | XMS_ITS | Encounter Summary ---
Author Organization [employer] Address [address] [facility] 7t [place] [address] Care Team Providers Care Director Of Catering Sales Name Role Phone Naa Maradiaga MD Primary Care Pro vider Reason for Visit * Reason Comments Med Refill Encounter Details Date Type Department Care Team ([facility] st Contact Info) Description 01/11/2025 Refill [facility] MEDICINE [address] [place] [address] Naa Maradiaga MD [address] [place] [address] Social History Tobacco Use Types Packs/Day Years [...] Description 01/29/2025 2:00 PM EST Nurse Only [facility] MEDICINE [address] [place] [phone] 03/04/2025 2:15 PM EST Office Visit [facility] ADULT DENTAL [address] [place] [address] Angelica Álvarez 04/15/2025 1:30 PM EST Office Visit [facility] MEDICINE [address] [place] [address] Naa Maradiaga MD [address] [place] [address] documented as of this encounter Visit Diagnoses Not on filedocumented in this encounter Additional Health Concerns Assessment Noted Time PHQ-9 Depression Total Score: 0 09/12/19 25 1:49 PM EDT documented as of this encounter Care Teams Director Of Catering Sales Relationship Specialty Start Date End Date Naa Maradiaga MD [address] [place] [phone] PCP - General Internal Medicine 08/23/22 documented as of this encounter
--- OUTSIDE RECORDS SUMMARY | 2025-01-25 17:13 | XMS_ITS | Encounter Summary ---
Author Organization [employer] Address 75 [facility] 7t [place] [address] Care Team Providers Care Mechanics Supervisor Name Role Phone Naa Maradiaga MD Primary Care Pro vider Reason for Visit * Reason Onset Date Comments new script 01/22/2023 Encounter Details Date Type Department Care Team (Late st Contact Info) Description 01/22/2023 Telephone [facility] MEDICINE [address] [place] [address] Naa Maradiaga MD [address] [place] [address] new script Social History Tobacco Use Types [...] Description 01/29/2025 2:00 PM EST Nurse Only [facility] MEDICINE [address] [place] [address] 03/04/2025 2:15 PM EST Office Visit [facility] ADULT DENTAL [address] [place] [phone] Angelica Álvarez 04/15/2025 1:30 PM EST Office Visit [facility] MEDICINE [address] [place] [address] [phone] Naa Maradiaga MD [address] [place] [address] documented as of this encounter Visit Diagnoses Not on filedocumented in this encounter Care Teams Mechanics Supervisor Relationship Specialty Start Date End Date Naa Maradiaga MD [address] [place] [phone] PCP - General Internal Medicine 08/23/22 documented as of this encounter
--- OUTSIDE RECORDS SUMMARY | 2025-01-25 17:13 | XMS_ITS | Encounter Summary ---
Author Organization [employer] Address 75 [facility] 7t [place] [address] Care Team Providers Care Fulfillment Representative Name Role Phone Maryuri Wang MD Primary Care Provider + Naa Maradiaga MD Primary Care Pro vider Reason for Visit * Reason Comments Med Refill Encounter Details Date Type Department Care Team (Late st Contact Info) Description 06/26/2022 Refill [facility] MEDICINE [address] [place] [address] Maryuri Wang MD [address] [place] [address] Social History Tobacco Use Types Packs/Day Years [...] Description 01/29/2025 2:00 PM EST Nurse Only [facility] MEDICINE [address] [place] [phone] 03/04/2025 2:15 PM EST Office Visit [facility] ADULT DENTAL [address] [place] [phone] Angelica Álvarez 04/15/2025 1:30 PM EST Office Visit [facility] MEDICINE [address] [place] [address] Naa Maradiaga MD [address] [place] [address] documented as of this encounter Visit Diagnoses Not on filedocumented in this encounter Care Teams Fulfillment Representative Relationship Specialty Start Date End Date Maryuri Wang MD [address] [place] [phone] PCP - General Family Medicine 01/09/17 08/22/22 Naa Maradiaga MD [address] [place] [phone] PCP - General Internal Medicine 08/23/22 documented as of this encounter
--- OUTSIDE RECORDS SUMMARY | 2025-01-25 17:13 | XMS_ITS | Encounter Summary ---
Author Organization [employer] Address [address] [facility] 7t [place] [address] Care Team Providers Care Podiatric Assistant Name Role Phone Naa Maradiaga MD Primary Care Pro vider Reason for Visit * Reason Onset Date Comments Appointment Request 12/18/2024 Encounter Details Date Type Department Care Team (Late st Contact Info) Description 12/18/2024 Telephone [facility] MEDICINE [address] [place] [address] Naa Maradiaga MD [address] [place] [address] Appointment Request Social History Tobacco Use Types Packs/Day Years [...] encounter Miscellaneous Notes * Telephone Encounter - Brice Lagunas - 12/21/2024 10:49 AM EDT Rescheduled for 2 pm * Telephone Encounter - Ann Cuellar - 12/18/2024 11:56 AM EDT Tc from pt requesting a back in regard of appointment from 01/29. Pt state appointment is to early an that she was not aware of that appointment. Contact pt at [phone] Need seismic interpreter documented in this encounter Plan of Treatment Upcoming Encounters Date Type Department Care Team (Late st Contact Info) Description 01/29/2025 2:00 PM EST Nurse Only [facility] MEDICINE [address] [place] [address] 03/04/2025 2:15 PM EST Office Visit [facility] ADULT DENTAL [address] [place] [address] Angelica Álvarez 04/15/2025 1:30 PM EST Office Visit [facility] MEDICINE [address] [place] [address] Naa Maradiaga MD [address] [place] [address] documented as of this encounter Visit Diagnoses Not on filedocumented in this encounter Additional Health Concerns Assessment Noted Time PHQ-9 Depression Total Score: 0 09/12/19 25 1:49 PM EDT documented as of this encounter Care Teams Podiatric Assistant Relationship Specialty Start Date End Date Naa Maradiaga MD [address] [place] [address] PCP - General Internal Medicine 08/23/22 documented as of this encounter
--- OUTSIDE RECORDS SUMMARY | 2025-01-25 17:13 | XMS_ITS | Encounter Summary ---
Author Organization [employer] Address [address] [facility] 7t [place] [address] Care Team Providers Care Pharmacist Technician Name Role Phone Naa Maradiaga MD Primary Care Pro vider Encounter Details Date Type Department Care Team (Late st Contact Info) Description 09/05/2022 Abstract [facility] MEDICINE [address] [place] [address] Naa Maradiaga MD [address] [place] [address] Social History Tobacco Use Types Packs/Day Years [...] Department Care Team (Late Contact Info) Description 01/29/2025 2:00 PM EST Nurse Only [facility] MEDICINE [address] [place], [place] [phone] 03/04/2025 2:15 PM EST Office Visit [facility] ADULT DENTAL [address] [place], [place] [phone] Angelica Álvarez 04/15/2025 1:30 PM EST Office Visit [facility] MEDICINE [address] [place] [address] Naa Maradiaga MD [address] [place], [place] [phone] documented as of this encounter Procedures Procedure Name Priority Date/Time Associated Diagnosis Comments COLONOSCOPY Routine 12/15/2019 2:23 PM EDT documented in this encounter Results * Colonoscopy (12/15/2019 2:23 PM EDT) Colonoscopy Normal Normal Narrative Lashon Cta - 12/15/2019 2:23 PM EDT Recommended 10 year follow up Historical Provider [facility] MAINTENANCE Edited Result - Final documented in this encounter Visit Diagnoses Not on filedocumented in this encounter Care Teams Pharmacist Technician Relationship Specialty Start Date End Date Naa Maradiaga MD [address] [place], [place] [phone] PCP - General Internal Medicine 08/23/22 documented as of this encounter
--- OUTSIDE RECORDS SUMMARY | 2025-01-25 17:13 | XMS_ITS | Encounter Summary ---
Author Organization [facility] Address [address] [place] [address] 7t [place] [address] Care Team Providers Care Clinical Massage Therapist Name Role Phone Maryuri Wang MD Primary Care Provider + Naa Maradiaga MD Primary Care Pro vider Encounter Details Date Type Department Care Team (Latest Contact Info) Description 02/19/2020 Abstract [facility] CONVERSIONS Dental, Provider, DDS Social History [...] 01/29/2025 2:00 PM EST Nurse Only [facility] MEDICINE [address] [place] [phone] 03/04/2025 2:15 PM EST Office Visit [facility] ADULT DENTAL [address] [place] [phone] Angelica Álvarez 04/15/2025 1:30 PM EST Office Visit [facility] MEDICINE [address] [place] [address] [phone] Naa Maradiaga MD [address] [place] [address] documented as of this encounter Visit Diagnoses Not on filedocumented in this encounter Care Teams Clinical Massage Therapist Relationship Specialty Start Date End Date Maryuri Wang MD [address] [place] [address] PCP - General Family Medicine 01/09/17 08/22/22 Naa Maradiaga MD [address] [place] [address] PCP - General Internal Medicine 08/23/22 documented as of this encounter
--- OUTSIDE RECORDS SUMMARY | 2025-01-25 17:13 | XMS_ITS | Encounter Summary ---
Author Organization [facility] Address [address] [place] [address] Care Team Providers Care Fresh Work Wrapper Layer Name Role Phone Maryuri Wang Primary Care Provider +1- [phone] Encounter Details Date Type Department Care Team (Late st Contact Info) Description 04/28/2020 Orders Only [facility] Xr [address] [place] [address] [address] Social History Tobacco Use Types Packs/Day Years [...] on filedocumented in this encounter Care Teams Fresh Work Wrapper Layer Relationship Specialty Start Date End Date Maryuri Wang [address] [place] [address] PCP - General Internal Medicine 10/03/17 documented as of this encounter
--- OUTSIDE RECORDS SUMMARY | 2025-01-25 17:13 | XMS_ITS | Encounter Summary ---
Author Organization [facility] Address [address] [place] [address] 7t [place] [address] Care Team Providers Care Zoo Veterinarian Name Role Phone Maryuri Wang MD Primary Care Provider + Naa Maradiaga MD Primary Care Pro vider Encounter Details Date Type Department Care Team (Latest Contact Info) Description 02/17/2021 Abstract [facility] CONVERSIONS Dental, Provider, DDS Social History [...] 2:00 PM EST Nurse Only [facility] MEDICINE [address] [place] [phone] 03/04/2025 2:15 PM EST Office Visit [facility] ADULT DENTAL [address] [place] [address] [phone] Angelica Álvarez 04/15/2025 1:30 PM EST Office Visit [facility] MEDICINE [address] [place] [address] [phone] Naa Maradiaga MD [address] [place] [address] documented as of this encounter Visit Diagnoses Not on filedocumented in this encounter Care Teams Zoo Veterinarian Relationship Specialty Start Date End Date Maryuri Wang MD [address] [place] [address] PCP - General Family Medicine 01/09/17 08/22/22 Naa Maradiaga MD [address] [place] [address] PCP - General Internal Medicine 08/23/22 documented as of this encounter
--- OUTSIDE RECORDS SUMMARY | 2025-01-25 17:13 | XMS_ITS | Encounter Summary ---
Author Organization [employer] Address [address] [facility] 7t [place] [address] Care Team Providers Care Production Truck Driver Name Role Phone Naa Maradiaga MD Primary Care Pro vider Reason for Visit * Reason Comments Med Refill Encounter Details Date Type Department Care Team (Late st Contact Info) Description 01/21/2025 Refill [facility] MEDICINE [address] [place] [address] Naa Maradiaga MD [address] [place] [address] Personal history of other diseases of the [...] Description 01/29/2025 2:00 PM EST Nurse Only [facility] MEDICINE [address] [place] [address] 03/04/2025 2:15 PM EST Office Visit [facility] ADULT DENTAL [address] [place] [phone] Angelica Álvarez 04/15/2025 1:30 PM EST Office Visit [facility] MEDICINE [address] [place] [phone] Naa Maradiaga MD [address] [place] [phone] documented as of this encounter Visit Diagnoses Diagnosis Personal history of other diseases of the circulatory system documented in this encounter Additional Health Concerns Assessment Noted Time PHQ-9 Depression Total Score: 0 09/12/19 25 1:49 PM EDT documented as of this encounter Care Teams Production Truck Driver Relationship Specialty Start Date End Date Naa Maradiaga MD [address] [place] [phone] PCP - General Internal Medicine 08/23/22 documented as of this encounter
--- OUTSIDE RECORDS SUMMARY | 2025-01-25 17:13 | XMS_ITS | Encounter Summary ---
Author Organization [employer] Address [address] [facility] [address] [place] [address] Care Team Providers Care Production Quality Manager Name Role Phone Naa Maradiaga MD Primary Care Pro vider Encounter Details Date Type Department Care Team (Latest Contact Info) Description 01/23/2025 Travel Social History Tobacco Use Types Packs/Day Years [...] Description 01/29/2025 2:00 PM EST Nurse Only [facility] [address] [place] [phone] 03/04/2025 2:15 PM EST Office Visit [facility] ADULT DENT[facility] [address] [place] [phone] Angelica Álvarez 04/15/2025 1:30 PM EST Office Visit [facility] [address] [place] [phone] Naa Maradiaga MD [address] [place] [phone] documented as of this encounter Visit Diagnoses Not on filedocumented in this encounter Additional Health Concerns Assessment Noted Time PHQ-9 Depression Total Score: 0 09/12/19 25 1:49 PM EDT documented as of this encounter Care Teams Production Quality Manager Relationship Specialty Start Date End Date Naa Maradiaga MD [address] [place] [phone] PCP - General Internal Medicine 08/23/22 documented as of this encounter
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
--- OUTSIDE RECORDS SUMMARY | 2025-01-25 17:13 | XMS_ITS | Encounter Summary ---
Author Organization [facility] Address [address] [place] [address] Care Team Providers Care Rn School Name Role Phone Maryuri Wang Primary Care Provider Encounter Details Date Type Department Care Team (Late st Contact Info) Description 10/04/2020 Telephone [facility] Interventional Radiology [address] [place] [phone] Sweta Hampton RN Social History Tobacco Use [...] on filedocumented in this encounter Care Teams Rn School Relationship Specialty Start Date End Date Maryuri Wang [address] [place] [address] PCP - General Internal Medicine 10/03/17 documented as of this encounter
== END 2025-01-25 16:14 | disposition home or self-care (01) ==
LOC: HO.HGS 15:00
PROVIDERS: PCP Student in an Organized Health Care Education/Training Program; Visit Provider Surgery
DX: K62.89 Other specified diseases of anus and rectum (principal)
CPT/HCPCS: 99213

== ENCOUNTER → 2025-01-25 15:00 | Outpatient (BNVA) | payer OTHER, SELFPAY | PROVIDERS: PCP Student in an Organized Health Care Education/Training Program; Visit Provider Surgery | DX: K62.89 Other specified diseases of anus and rectum (principal) | CPT/HCPCS: 99212 ==